=== PATIENT | female | born 1960 | race Caucasian/White ===

== ENCOUNTER → 2017-02-05 | Outpatient (CLI) | payer BC ==
--- NOTE | 2017-02-05 13:01 | WOMENS IMAGING REPORT ---
EXAM DESCRIPTION: BILAT SCREENING MAMMO W/CAD COMPLETED DATE/TIME: 02/05/2017 12:42 pm REASON FOR STUDY: ROUTINE SCREENING; Z21.31 Z12.31 ENCNTR SCREEN MAMMOGRAM FOR MALIGNANT NEOPLASM O F DEX COMPARISON: None available. TECHNIQUE: Standard craniocaudal and mediolateral oblique views of each breast recorded using Digital Allya l acquisition. LIMITATIONS: None. FINDINGS: No masses, calcifications or architectural distortion. No areas of suspicion. Read with the assistance of CAD. .[facility] - R2 Cenova Version 1.3 .[facility] Imaging - R2 Cenova Version 1.[address] Imaging - R2 Cenova Version 2.4 .[facility] – [place] - R2 Cenova Version 2.4 .[facility] - R2 Geriatric Social Work Professor Version 9.2 IMPRESSION: NORMAL MAMMOGRAM. BIRADS 1. BREAST DENSITY: a. The breasts are almost entirely fatty. BIRAD: 1 NEGATIVE RECOMMENDATION: ROUTINE SCREENING COMMENT: The patient has been notified of the results by letter per SA requirements. Additional no tification policies are in place for contacting patient with suspicious or incomplete findings. Quality ID #[id number]: The [employer] recommends an annual screening mammogram for women aged 40 years or over. This facility utilizes a reminder system to ensure that all patients receive reminder letters, and/or direct phone calls for appointments. This includes reminders for routine scr eening mammograms, diagnostic mammograms, or other Breast Imaging Interventions when appropriate. Th is patient will be placed in the appropriate reminder system. The [employer] (ACR) has developed recommendations for screening MRI of the breast s in certain patient populations, to be used in conjunction with mammography. Breast MRI surveillanc e may be appropriate for women with more than 20% lifetime risk of developing breast cancer as deter mined by genetic testing, significant family history of the disease, or history of mantle radiation f or Hodgkins Disease. ACR Practice Guidelines 2008. TECHNICAL DOCUMENTATION: FINDING NUMBER: (1) ASSESSMENT: (1) JOB ID: [id number] [employer]- All Rights Reserved
== END ==
LOC: WI 09:45
PROVIDERS: ATTEND Internal Medicine
DX: Z12.31 Encounter for screening mammogram for malignant neoplasm of breast (principal)
CPT/HCPCS: 77067; G0202

== ENCOUNTER 2017-04-30 03:23 | Emergency (ER) | payer BC ==
[2017-04-30] MEDS ORDERED: KETOROLAC TROMETHAMINE INJ/PF 30 MG/1 ML SDV IV ONE (04:03)
[2017-04-30] MEDS ORDERED: ONDANSETRON HCL INJ/PF 4 MG/2 ML SDV IV ONE (04:03)
[2017-04-30] MEDS ORDERED: MORPHINE SULFATE 10 MG/ML INJ IV ONE (04:03)
[2017-04-30] MEDS ORDERED: NORMAL SALINE 1000 ML 1,000 ML IV ONE (04:03)
--- NOTE | 2017-04-30 04:07 | ER Document Report ---
ED GI/ - General Chief Complaint: Nausea/Vomiting Stated Complaint: VOMITING,HEADACHE Time Seen by Provider: 04/30/17 03:51 Mode of Arrival: Ambulatory Information source: Patient Notes: Patient presents complaining of headache, nausea, vomiting and diarrhea that started yesterday. Pt endorses photo and phonophobia. Patient denies any sore throat, cough, urinary symptoms. Patient denies any blood in her emesis or stool. Patient denies any abdominal pain or back pain. Patient reports that her headache pain is to the frontal area. Patient feels that she is dehydrated and reports that she has felt her pulse racing. Patient denies any chest pain. TRAVEL OUTSIDE OF THE [place] IN LAST 30 DAYS: No - HPI Patient complains to provider of: Diarrhea, Vomiting. No: Abdominal pain Onset: Yesterday Timing/Duration: Gradual Quality of pain: Achy, Throbbing Pain Level: 5 Vaginal bleeding (Compared to normal period): None Associated symptoms: Diarrhea, Fever, Nausea, Vomiting. 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 Lives with: Family Family History: DM, Hypertension, Other - VTE, brother from CHF and DM complications at 49 years old Patient has suicidal ideation: No Patient has homicidal ideation: No - Past Medical History Cardiac Medical History: Reports: Hx DVT, Hx Hypercholesterolemia, Hx Hypertension Pulmonary Medical History: Denies: Hx Tuberculosis Neurological Medical History: Denies: Hx Seizures Endocrine Medical History: Reports: Hx Hypothyroidism Renal/ Medical History: Denies: Hx Peritoneal Dialysis GI Medical History: Reports: Hx Colonoscopy, Hx Endoscopy Musculoskeltal Medical History: Reports Hx Arthritis - RA, Reports Hx Musculoskeletal Deformity, Reports Hx Musculoskeletal Trauma Psychiatric Medical History: Reports: Hx Anxiety Traumatic Medical History: Reports: Hx Fractures - left wrist and right hand Past Surgical History: Reports: Hx Abdominal Surgery - gastric, Hx Bowel Surgery - gastric bypass, Hx Hysterectomy - Immunizations Hx Diphtheria, Pertussis, Tetanus Vaccination: Yes Hx Pneumococcal Vaccination: 09/01/10 Review of Systems - Review of Systems Constitutional: Chills, Fever - Low-grade EENT: No symptoms reported. denies: Throat pain Cardiovascular: Palpitations. denies: Chest pain Respiratory: No symptoms reported. denies: Cough, Short of breath Gastrointestinal: Diarrhea, Nausea, Vomiting. denies: Abdominal pain, Black stools, Rectal bleeding Genitourinary: No symptoms reported Female Genitourinary: No symptoms reported Musculoskeletal: No symptoms reported. denies: Back pain Skin: No symptoms reported Hematologic/Lymphatic: No symptoms reported Neurological/Psychological: Headaches Physical Exam - Vital signs Vitals: Temp Pulse Resp BP Pulse Ox 99.3 F 114 H 18 112/73 97 04/30/17 03:29 04/30/17 03:29 04/30/17 03:29 04/30/17 03:04/30/17 03:29 - General General appearance: Appears well, Alert In distress: None - HEENT Head: Normocephalic, Atraumatic Eyes: Normal Conjunctiva: Normal Pupils: PERRL Nasal: Normal Mouth/Lips: Normal Mucous membranes: Dry Pharynx: Normal Neck: Normal, Supple. No: Lymphadenopathy, Meningismus - Respiratory Respiratory status: No respiratory distress Chest status: Nontender Breath sounds: Normal. No: Rales, Rhonchi, Stridor, Wheezing Chest palpation: Normal - Cardiovascular Rhythm: Tachycardia Heart sounds: S1 appreciated, S2 appreciated Murmur: No - Abdominal Inspection: Normal Distension: No distension Bowel sounds: Normal Tenderness: Nontender Organomegaly: No organomegaly - Back Back: Normal, Nontender. No: CVA tenderness, Vertebra tenderness - Extremities General upper extremity: Normal inspection, Normal ROM General lower extremity: Normal inspection, Normal ROM - Neurological Neuro grossly intact: Yes Cognition: Normal [place] Coma Scale Eye Opening: Spontaneous Real Coma Scale Verbal: Oriented [place] Coma Scale Motor: Obeys Commands Real Coma Scale Total: 15 - Psychological Associated symptoms: Normal affect, Normal mood - Skin Skin Temperature: Warm Skin Moisture: Dry Skin Color: Normal Course - Re-evaluation Re-evalutation: 04/30/17 05:02 Patient reports that headache pain has completely resolved. Patient denies any nausea or vomiting. Patient does state that she has a history of hypokalemia and takes potassium supplements twice daily. Patient's abdomen continues soft nontender. Discussed plan of care with patient, discussed worsening signs or symptoms that she should return immediately for. - Vital Signs Vital signs: Temp Pulse Resp BP Pulse Ox 99.7 F 114 H 18 112/73 97 04/30/17 04:44 04/30/17 03:29 04/30/17 03:29 04/30/17 03:29 04/30/17 03:29 - Laboratory Result Diagrams: 04/30/17 04:20 04/30/17 04:20 Laboratory results interpreted by me: 04/30/17 04/30/17 04:20 04:20 Lymphocytes % 11.9 L Potassium 3.4 L Labs- Entire Visit 04/30/17 04/30/17 04:20 04:20 WBC 7.6 RBC 4.91 Hgb 15.4 Hct 44.6 MCV 91 MCH 31.3 MCHC 34.5 RDW 13.4 Plt Count 207 Seg Neutrophils % 76.7 Lymphocytes % 11.9 L Monocytes % 11.0 Eosinophils % 0.1 Basophils % 0.3 Absolute Neutrophils 5.9 Absolute Lymphocytes 0.9 Absolute Monocytes 0.8 Absolute Eosinophils 0.0 Absolute Basophils 0.0 Sodium 139.2 Potassium 3.4 L Chloride 100 Carbon Dioxide 26 Anion Gap 13 BUN 12 Creatinine 0.70 Est GFR ( Amer) > 60 Est GFR (Non-Af Amer) > 60 Glucose 101 Calcium 10.0 Total Bilirubin 0.8 Direct Bilirubin 0.4 Indirect Bilirubin Not Reportable Neonat Total Bilirubin Not Reportable AST 17 ALT 19 Alkaline Phosphatase 69 Total Protein 7.5 Albumin 4.4 Lipase 131.1 04/30/17 05:03 Labs- Entire Visit 04/30/17 04/30/17 04:20 04:20 WBC 7.6 RBC 4.91 Hgb 15.4 Hct 44.6 MCV 91 MCH 31.3 MCHC 34.5 RDW 13.4 Plt Count 207 Seg Neutrophils % 76.7 Lymphocytes % 11.9 L Monocytes % 11.0 Eosinophils % 0.1 Basophils % 0.3 Absolute Neutrophils 5.9 Absolute Lymphocytes 0.9 Absolute Monocytes 0.8 Absolute Eosinophils 0.0 Absolute Basophils 0.0 Sodium 139.2 Potassium 3.4 L Chloride 100 Carbon Dioxide 26 Anion Gap 13 BUN 12 Creatinine 0.70 Est GFR ( Amer) > 60 Est GFR (Non-Af Amer) > 60 Glucose 101 Calcium 10.0 Total Bilirubin 0.8 Direct Bilirubin 0.4 Indirect Bilirubin Not Reportable Neonat Total Bilirubin Not Reportable AST 17 ALT 19 Alkaline Phosphatase 69 Total Protein 7.5 Albumin 4.4 Lipase 131.1 Discharge - Discharge Clinical Impression: Nausea vomiting and diarrhea Head ache Qualifiers: Headache type: unspecified Headache chronicity pattern: acute headache Intractability: not intractable Qualified Code(s): R51 - Headache Condition: Stable Disposition: HOME, SELF-CARE Instructions: Intravenous (IV) Fluids ([facility]), Viral Syndrome ([facility]), Vomiting ( [facility]), Diarrhea, Nonspecific ([facility]), Antinausea Medication ([facility]), Hypokalemia ([facility] ), Headache ([facility]) Additional Instructions: Return immediately for any new or worsening symptoms Followup with your primary care provider, call tomorrow to make a followup appointment Continue to take your potassium supplements as previously prescribed Prescriptions: Ondansetron HCl [Zofran 4 mg Tablet] 1 - 2 tab PO Q6 PRN #15 tablet PRN Reason: Forms: Return to Work Referrals: ALBERTO GARCIA MD [Primary Care Provider] - Follow up tomorrow
[2017-04-30 04:31] LABS: ABSOLUTE LYMPHOCYTES (AUTO) 0.9 10^3/uL (0.5-4.7); ABSOLUTE MONOCYTES (AUTO) 0.8 10^3/uL (0.1-1.4); ABSOLUTE NEUT (AUTO) 5.9 10^3/uL (1.7-8.2); BASOPHILS % (AUTO) 0.3 % (0-2); EOSINOPHILS % (AUTO) 0.1 % (0-6); HEMATOCRIT 44.6 % (36.0-47.0); HEMOGLOBIN 15.4 g/dL (12.0-15.5); HGB HCT DIFFERENCE 1.6; LYMPHOCYTES % (AUTO) 11.9 % (13-45); MEAN CORPUSCULAR HEMOGLOBIN 31.3 pg (27.0-33.4); MEAN CORPUSCULAR HGB CONC 34.5 g/dL (32.0-36.0); MEAN CORPUSCULAR VOLUME 91 fl (80-97); RED BLOOD COUNT 4.91 10^6/uL (3.72-5.28); RED CELL DISTRIBUTION WIDTH 13.4 % (11.5-14.0); SEGMENTED NEUTROPHILS % (AUTO) 76.7 % (42-78); WHITE BLOOD COUNT 7.6 10^3/uL (4.0-10.5)
[2017-04-30 04:45] LABS: ALANINE AMINOTRANSFERASE 19 U/L (9-52); ALBUMIN 4.4 g/dL (3.5-5.0); ALKALINE PHOSPHATASE 69 U/L (38-126); ANION GAP 13 (5-19); ASPARTATE AMINO TRANSFERASE 17 U/L (14-36); BILIRUBIN,DIRECT 0.4 mg/dL (0.0-0.4); BILIRUBIN,TOTAL 0.8 mg/dL (0.2-1.3); BLOOD UREA NITROGEN 12 mg/dL (7-20); CARBON DIOXIDE 26 mmol/L (22-30); CHLORIDE 100 mmol/L (98-107); GLUCOSE 101 mg/dL (75-110); LIPASE 131.1 U/L (23-300); POTASSIUM 3.4 mmol/L (3.6-5.0); SODIUM 139.2 mmol/L (137-145); TOTAL PROTEIN 7.5 g/dL (6.3-8.2)
[2017-04-30] MEDS ORDERED: ACETAMINOPHEN 325 MG TABLET PO ONE (05:02)
[2017-04-30 05:38] VITALS: BP 99/64
--- NOTE | 2017-04-30 11:50 | EKG REPORT ---
SEVERITY:- BORDERLINE ECG - SINUS RHYTHM BORDERLINE LEFT AXIS DEVIATION BORDERLINE R WAVE PROGRESSION, ANTERIOR LEADS BORDERLINE T ABNORMALITIES, DIFFUSE LEADS : Confirmed by: Enrrique Celeste 30-Apr-2017 11:49:55
== END 2017-04-30 05:30 | disposition home or self-care (01) ==
LOC: ER 03:23
DX: R11.2 Nausea with vomiting, unspecified (principal); R51 Headache; R19.7 Diarrhea, unspecified; R50.9 Fever, unspecified; E78.00 Pure hypercholesterolemia, unspecified; I10 Essential (primary) hypertension; E03.9 Hypothyroidism, unspecified; Z88.6 Allergy status to analgesic agent; Z86.718 Personal history of other venous thrombosis and embolism; Z98.84 Bariatric surgery status; Z90.710 Acquired absence of both cervix and uterus
CPT/HCPCS: 93005; 99284; 96361; 96374; 96375; 36415; 83690; 85025; 80053; 93010; J1885; J2270; J2405; J7030

== ENCOUNTER 2017-11-21 21:52 | Inpatient (IN) | payer BC ==
--- NOTE | 2017-11-21 22:15 | EKG REPORT ---
SEVERITY:- ABNORMAL ECG - SINUS RHYTHM VENTRICULAR BIGEMINY BORDERLINE LEFT AXIS DEVIATION CONSIDER ANTERIOR INFARCT BORDERLINE T ABNORMALITIES, DIFFUSE LEADS : Confirmed by: Enrrique Celeste 21-Nov-2017 22:13:54
[2017-11-21] MEDS ORDERED: MORPHINE SULFATE 10 MG/ML INJ IV ONE ×2 (22:31→23:50)
--- NOTE | 2017-11-21 22:34 | ER Document Report ---
ED General - General Chief Complaint: Chest Pain Stated Complaint: CHEST PAIN Time Seen by Provider: 11/21/17 22:30 Notes: Patient is a 57-year-old female presents with chest pains rating her back. Pain is in the lower chest and radiating to the back. No fevers. No vomiting. Pain in chest is more of a heaviness and pressure. It has been ongoing since 3:00 yesterday morning. She is waiting in the waiting room and then had an episode of passing out. Patient said the only time she has similar pains as when she had a PE. She does have an IVC filter in place. She is no longer on anticoagulation. She does have a history of previous IA. She denies any leg pain or leg swelling. She denies any recent fevers or infections. No other complaints at this time. No focal weakness. TRAVEL OUTSIDE OF THE [place] IN LAST 30 DAYS: No - Related Data Allergies/Adverse Reactions: codeine [Codeine] Allergy (Verified 07/07/16 00:25) Past Medical History - Social History Smoking Status: Unknown if Ever Smoked Frequency of alcohol use: None Drug Abuse: None Family History: DM, Hypertension, Other - VTE, brother from CHF and DM complications at 49 years old - Past Medical History Cardiac Medical History: Reports: Hx DVT, Hx Hypercholesterolemia, Hx Hypertension Pulmonary Medical History: Denies: Hx Tuberculosis Neurological Medical History: Denies: Hx Seizures Endocrine Medical History: Reports: Hx Hypothyroidism Renal/ Medical History: Denies: Hx Peritoneal Dialysis GI Medical History: Reports: Hx Colonoscopy, Hx Endoscopy Musculoskeltal Medical History: Reports Hx Arthritis - Rheumatoid arthritis, Reports Hx Musculoskeletal Deformity, Reports Hx Musculoskeletal Trauma Psychiatric Medical History: Reports: Hx Anxiety, Hx Depression Traumatic Medical History: Reports: Hx Fractures - left wrist and right hand Past Surgical History: Reports: Hx Abdominal Surgery - gastric, Hx Bowel Surgery - gastric bypass, Hx Gastric Bypass Surgery, Hx Hysterectomy, Other - Questionable history of heart catheterization about 10 years ago at [facility] - Immunizations Hx Diphtheria, Pertussis, Tetanus Vaccination: Yes Hx Pneumococcal Vaccination: 09/01/10 Review of Systems - Review of Systems Notes: My Normal Review Basic REVIEW OF SYSTEMS: CONSTITUTIONAL : Denies fever, chills, or sweats. Denies recent illness. EENT: Denies eye, ear, throat, or mouth pain or symptoms. Denies nasal or sinus congestion. CARDIOVASCULAR: Chest pain. RESPIRATORY: Denies cough, cold, or chest congestion. Denies shortness of breath, difficulty breathing, or wheezing. GASTROINTESTINAL: Denies abdominal pain. Denies nausea, vomiting, or diarrhea. Denies constipation. Last BM: GENITOURINARY: Denies difficulty urinating, painful urination, burning, frequency, or blood in urine. MUSCULOSKELETAL: back pain. SKIN: Denies rash or skin lesions. HEMATOLOGIC : Denies easy bruising or bleeding. NEUROLOGICAL: Syncopal episode denies headache. Denies weakness or paralysis or loss of use of either side. Denies problems with gait or speech. Denies sensory or motor loss. ALL OTHER SYSTEMS REVIEWED AND NEGATIVE. Physical Exam - Vital signs Vitals: Resp BP Pulse Ox 33 H 152/118 H 100 11/21/17 22:25 11/21/17 22:25 11/21/17 22:25 - Notes Notes: General Appearance: Well nourished, alert, cooperative, no acute distress, moderate obvious discomfort. Vitals: reviewed, See vital signs table. Head: no swelling or tenderness to the head Eyes: PERRL, EOMI, Conjuctiva clear Mouth: No decreasd moisture Neck: Supple, no neck tenderness, No thyromegaly Lungs: No wheezing, No rales, No rhonci, No accessory muscle use, good air exchange bilaterally. Heart: Normal rate, Regular rythm, No murmur, no rub Back: Patient does have pain over upper back. Difficult to determine if is worse with palpation. Abdomen: Normal BS, soft, No rigidity, No abdominal tenderness, No guarding, no rebound, no abdominal masses, no organomegaly Extremities: strength 5/5 in all extremities, good pulses in all extremities, no swelling or tenderness in the extremities, no edema. Skin: warm, dry, appropriate color, no rash Neuro: speech clear, oriented x 3, normal affect, responds appropriately to questions. Renal nerves II through XII are intact. Distal sensation intact. Patient is able move all extremities without difficulty. She is globally weak on exam without any focal worsening of the weakness. Course - Re-evaluation Re-evalutation: 11/22/17 01:27 Patient is currently pain-free and feeling improved. Waiting for urinalysis come back. All signs are stable. 11/22/17 01:49 Patient started feel pressure in her chest again and pain into her shoulder blades again. I will place nitro paste on her. Vital signs are still stable. Labs are back. I will speak with Dr. Soria about potential admission for further workup of her chest pain. 11/22/17 01:[address] Soria and spoke with him. He agrees to admit the patient did request that they get a repeat troponin before patient is admitted upstairs. I have ordered a repeat troponin. Patient is agreeable to plan. 11/22/17 02:55 Patient's repeat troponin is negative and therefore patient will be admitted as discussed with Dr. Soria. Dictation of this chart was performed using voice recognition software; therefore, there may be some unintended grammatical errors. - Vital Signs Vital signs: Temp Pulse Resp BP Pulse Ox 18 121/74 97 11/22/17 00:08 11/22/17 00:08 11/22/17 00:08 - Laboratory Result Diagrams: 11/21/17 22:18 11/21/17 22:18 Laboratory results interpreted by me: 11/21/17 11/21/17 22:18 22:18 Hgb 15.6 H Seg Neutrophils % 40.4 L Lymphocytes % 50.1 H Potassium 3.4 L Est GFR (Non-Af Amer) 59 L - EKG Interpretation by Me Additional EKG results interpreted by me: 11/21/17 22:32 EKG is reviewed and interpreted by me. EKG shows sinus rhythm with rate of 79 bpm. Occasional PVC. No ST segment elevation or depression. No ischemic T- wave inversions. AZ interval, QRS duration, QTc intervals are within normal range. Old EKG for comparison is from May 04, 2017. EKG #2 is reviewed and interpreted by me. EKG shows sinus rhythm with rate of [address] segment elevation or depression. No ischemic T-wave inversions. AZ interval, QRS duration, QTc intervals are within normal range. Discharge - Discharge Clinical Impression: Chest pain Qualifiers: Chest pain type: unspecified Qualified Code(s): R07.9 - Chest pain, unspecified Condition: Stable Disposition: ADMITTED OBSERVATION Admitting Provider: [facility] Admitted: Telemetry Referrals: ALBERTO GARCIA MD [Primary Care Provider] - Follow up as needed
[2017-11-21] MEDS ORDERED: NORMAL SALINE 1000 ML 1,000 ML IV ONE (22:36)
[2017-11-21 22:48] LABS: ABSOLUTE EOSINOPHILS # (AUTO) 0.1 10^3/uL (0.0-0.6); ABSOLUTE LYMPHOCYTES (AUTO) 3.1 10^3/uL (0.5-4.7); ABSOLUTE MONOCYTES (AUTO) 0.5 10^3/uL (0.1-1.4); ABSOLUTE NEUT (AUTO) 2.5 10^3/uL (1.7-8.2); BASOPHILS % (AUTO) 0.4 % (0-2); EOSINOPHILS % (AUTO) 1.2 % (0-6); HEMATOCRIT 46.4 % (36.0-47.0); HEMOGLOBIN 15.6 g/dL (12.0-15.5); LYMPHOCYTES % (AUTO) 50.1 % (13-45); MEAN CORPUSCULAR HEMOGLOBIN 31.1 pg (27.0-33.4); MEAN CORPUSCULAR HGB CONC 33.5 g/dL (32.0-36.0); MEAN CORPUSCULAR VOLUME 93 fl (80-97); MONOCYTES % (AUTO) 7.9 % (3-13); PLATELET COUNT 263 10^3/uL (150-450); RED CELL DISTRIBUTION WIDTH 13.6 % (11.5-14.0); SEGMENTED NEUTROPHILS % (AUTO) 40.4 % (42-78); TOTAL CELLS COUNTED % (AUTO) 100 %; WHITE BLOOD COUNT 6.2 10^3/uL (4.0-10.5)
--- NOTE | 2017-11-21 22:52 | RADIOLOGY REPORT (SQ) ---
EXAM DESCRIPTION: CHEST SINGLE VIEW COMPLETED DATE/TIME: 11/21/2017 10:44 pm REASON FOR STUDY: chest pain radiating to back COMPARISON: 04/30/2017 EXAM PARAMETERS: NUMBER OF VIEWS: One view. TECHNIQUE: Single frontal radiographic view of the chest acquired. RADIATION DOSE: NA LIMITATIONS: None. FINDINGS: LUNGS AND PLEURA: No opacities, masses or pneumothorax. No pleural effusion. MEDIASTINUM AND HILAR STRUCTURES: No masses. Contour normal. HEART AND VASCULAR STRUCTURES: Heart normal in size. Normal vasculature. BONES: No acute findings. Scoliosis. HARDWARE: None in the chest. OTHER: No other significant finding. IMPRESSION: NO ACUTE RADIOGRAPHIC FINDING IN THE CHEST. NO SIGNIFICANT CHANGE FROM PRIOR STUDY. TECHNICAL DOCUMENTATION: JOB ID: [id number] [employer]- All Rights Reserved Reading location - IP/workstation name: [email or web address]
[2017-11-21 23:05] LABS: ALANINE AMINOTRANSFERASE 31 U/L (9-52); ALBUMIN 4.5 g/dL (3.5-5.0); ALKALINE PHOSPHATASE 52 U/L (38-126); ANION GAP 11 (5-19); ASPARTATE AMINO TRANSFERASE 30 U/L (14-36); BILIRUBIN,DIRECT 0.3 mg/dL (0.0-0.4); BILIRUBIN,TOTAL 0.4 mg/dL (0.2-1.3); BLOOD UREA NITROGEN 18 mg/dL (7-20); CALCIUM 9.5 mg/dL (8.4-10.2); CARBON DIOXIDE 27 mmol/L (22-30); CHLORIDE 102 mmol/L (98-107); GLUCOSE 89 mg/dL (75-110); POTASSIUM 3.4 mmol/L (3.6-5.0); SODIUM 139.7 mmol/L (137-145); TOTAL PROTEIN 7.3 g/dL (6.3-8.2)
--- NOTE | 2017-11-21 23:55 | RADIOLOGY REPORT (SQ) ---
EXAM DESCRIPTION: CTA CHEST COMPLETED DATE/TIME: 11/21/2017 11:44 pm REASON FOR STUDY: chest pain radiating to back COMPARISON: 03/23/2014 TECHNIQUE: CT scan of the chest performed using helical scanning technique with dynamic intravenous contrast injection. Images reviewed with lung, soft tissue and bone windows. Reconstructed coronal and sagittal MPR images reviewed. Additional 3 dimensional post-processing performed to develop Maximal Intensity Projection images (MD P). All images stored on PACS. All CT scanners at this facility use dose modulation, iterative reconstruction, and/or weight based d osing when appropriate to reduce radiation dose to as low as reasonably achievable (ALARA). [facility]: Dose Right [facility]: CareDose [facility]: Dose Right [facility]: Teradose 4D [facility]: XtremIO CONTRAST TYPE AND DOSE: contrast/concentration: Isovue 370.00 mg/ml; Total Contrast Delivered: 100.0 ml; Total Saline Delivered: 90.0 ml Contrast bolus adequate for pulmonary arteries and aorta. RENAL FUNCTION: GFR > 60. RADIATION DOSE: CT Rad equipment meets quality standard of care and radiation dose reduction techniq ues were employed. CTDIvol: NaN - NaN mGy. DLP: 0 mGy-cm. . LIMITATIONS: None. FINDINGS: LUNGS AND PLEURA: No masses, infiltrates, pneumothorax. No pleural effusions, calcificati ons. AORTA AND GREAT VESSELS: No aneurysm. No dissection. HEART: No pericardial effusion. No significant coronary artery calcifications. PULMONARY ARTERIES: No emboli visualized in the main pulmonary arteries or the segmental branches. HILAR AND MEDIASTINAL STRUCTURES: No identified masses or abnormal nodes. HARDWARE: None in the chest. UPPER ABDOMEN: See separate report of the CT of the abdomen. THYROID AND OTHER SOFT TISSUES: No masses. No adenopathy. BONES: Stable scoliosis. No acute or significant finding. 3D MIPS: Confirm above findings. OTHER: No other significant finding. IMPRESSION: UNREMARKABLE CTA OF THE CHEST. NO PULMONARY EMBOLI, ANEURYSM, OR ACUTE AORTIC INJURY. COMMENT: Quality ID # [id number]: Final reports with documentation of one or more dose reduction techniques (e.g., Automated exposure control, adjustment of the mA and/or kV according to patient size, use of iterative reconstruction technique) TECHNICAL DOCUMENTATION: JOB ID: [id number] [employer]- All Rights Reserved Reading location - IP/workstation name: [email or web address]
--- NOTE | 2017-11-22 | RADIOLOGY REPORT (SQ) ---
EXAM DESCRIPTION: CTA ABDOMEN/PELVIS W WO COMPLETED DATE/TIME: 11/21/2017 11:45 pm REASON FOR STUDY: chest pain radiating to back COMPARISON: 05/27/2013 TECHNIQUE: CT scan of the abdominal aorta extending to the iliac bifurcation performed with intraven ous contrast using helical scanning technique with dynamic intravenous contrast injection. Images rev iewed with lung, soft tissue, and bone windows. Reconstructed coronal and sagittal MPR images reviewe d. All images stored on PACS. Advanced 3D imaging as volume rendering, MIPS, SSD performed? no All CT scanners at this facility use dose modulation, iterative reconstruction, and/or weight based d osing when appropriate to reduce radiation dose to as low as reasonably achievable (ALARA). [facility]: Dose Right [facility]: CareDose [facility]: Dose Right [facility]: Teradose 4D [facility]: PerformYard CONTRAST TYPE AND DOSE: 100 Isovue 370- low osmolar. RENAL FUNCTION: GFR > 60. LIMITATIONS: None. FINDINGS: AORTA AND VESSELS: No aneurysm. No dissection. Renal arteries, SMA, celiac without stenosi s. LUNG BASES: No significant findings. No nodules or infiltrates. LIVER: Normal size. No masses or dilated ducts. SPLEEN: Normal size. No focal lesions. PANCREAS: No masses. No significant calcifications. No adjacent inflammation or peripancreatic fluid collections. Pancreatic duct not dilated. GALLBLADDER: No identified stones by CT criteria. No inflammatory changes to suggest cholecystitis. ADRENAL GLANDS: No significant masses or asymmetry. RIGHT KIDNEY AND URETER: No mass, calculi or urinary tract obstruction. LEFT KIDNEY AND URETER: No mass, calculi or urinary tract obstruction. RETROPERITONEUM: No retroperitoneal adenopathy, hemorrhage or masses. BOWEL AND PERITONEAL CAVITY: Postsurgical change related to gastric bypass. Stable small hiatal virgilio ia. No masses or inflammatory changes. No free fluid or peritoneal masses. APPENDIX: Normal. ABDOMINAL WALL: No masses. No hernias. BONY STRUCTURES: No significant or acute findings. 3-D IMAGING: Confirms the above findings. OTHER: No other significant finding. IMPRESSION: NO ABDOMINAL AORTIC ANEURYSM, DISSECTION OR SIGNIFICANT STENOSIS. NO ACUTE FINDINGS IN T HE ABDOMEN. NO SIGNIFICANT CHANGE FROM PRIOR STUDY. TECHNICAL DOCUMENTATION: JOB ID: [id number] Quality ID # [id number]: Final reports with documentation of one or more dose reduction techniques (e.g., Au tomated exposure control, adjustment of the mA and/or kV according to patient size, use of iterative reconstruction technique) 2010 [employer]- All Rights Reserved Reading location - IP/workstation name: [email or web address]
[2017-11-22] MEDS ORDERED: ASPIRIN 325 MG TABLET PO ONE (01:23)
[2017-11-22 01:33] LABS: APPEARANCE,URINE CLEAR; BILIRUBIN,URINE NEGATIVE (NEGATIVE); COLOR,URINE STRAW; GLUCOSE, URINE NEGATIVE (NEGATIVE); KETONES,URINE NEGATIVE (NEGATIVE); LEUKOCYTE ESTERASE,URINE NEGATIVE (NEGATIVE); NITRITE,URINE NEGATIVE (NEGATIVE); PROTEIN,URINE NEGATIVE (NEGATIVE); UROBILINOGEN,URINE NEGATIVE mg/dL (<2.0)
[2017-11-22] MEDS ORDERED: NITROGLYCERIN 2% OINTMENT 1 GM PACKET TP ONE (01:45)
[2017-11-22] MEDS ORDERED: POTASSIUM CHLORIDE 10 MEQ TABLET.SA PO ONE (01:47)
[2017-11-22] MEDS ORDERED: MORPHINE SULFATE 10 MG/ML INJ IV ONE (02:24)
[2017-11-22] MEDS ORDERED: ONDANSETRON HCL INJ/PF 4 MG/2 ML SDV IV ONE (02:24)
[2017-11-22] MEDS ORDERED: ACETAMINOPHEN 325 MG TABLET PO PRN (02:44)
[2017-11-22] MEDS ORDERED: ONDANSETRON HCL INJ/PF 4 MG/2 ML SDV IV PRN (02:44)
[2017-11-22] MEDS: OXYCODONE-ACETAMINOPHEN 5-325 MG TABLET PO PRN ×4 (04:40→22:47)
--- NOTE | 2017-11-22 09:12 | EKG REPORT ---
SEVERITY:- BORDERLINE ECG - SINUS RHYTHM BORDERLINE LEFT AXIS DEVIATION BORDERLINE T ABNORMALITIES, ANTERIOR LEADS : Confirmed by: Enrrique Celeste 22-Nov-2017 09:11:21
[2017-11-22] MEDS: ENOXAPARIN SODIUM INJ 40 MG/0.4 ML DISP.SYRIN SUBCUT SCH (10:08)
[2017-11-22] MEDS: LANSOPRAZOLE 30 MG TAB.RAP.DR PO SCH (10:09)
[2017-11-22 10:34] LABS: CREATINE KINASE MB 0.24 ng/mL (<4.55)
[2017-11-22 10:36] LABS: TROPONIN I < 0.012 ng/mL
--- NOTE | 2017-11-22 12:39 | PDOC H&P ---
History of Present Illness Admission Date/PCP: 11/22/17 02:58 ALBERTO GARCIA MD Patient complains of: Chest pain and syncopal episode History of Present Illness: GONZALO FITZGERALD is a 57 year old female This is a 57-year-old female with a significant history of the hypertension history of the rheumatoid arthritis history of the pulmonary embolism and a history of the coronary disease came to the emergency department with a complaint of left-sided chest pains with the radiating to the jaw since whole day and patients came to the ER in the waiting area patients pretty much passed out and the patient's underwent for the CT angiogram of the chest and abdomen which is negative for any acute pulmonary embolism and acute finding Patient initial EKG and cardiac enzymes all negative Patient also have a history of the gastric bypass surgery I saw the patient on the floor patients denied any chest pain denied any shortness of the breath Patient also have a history of the bradycardia in the past and according to the patient she was evaluated myself in the cardiology and patient supposed to get the stress test and echo as outpatients but patients did not follow that According to the patient's she has a significant family history of the cardiac disease and patient was evaluated for this rhythm issue in the past and was talking about putting the pacemaker one time and then decided not to do it Emergency department initial workup is all negative and patient's heart rate is all stable Since seen by the cardiology and suggest that he will evaluate the patient Past Medical History Cardiac Medical History: Reports: DVT, Myocardial Infarction - 2012?, Hyperlipidema, Hypertension Pulmonary Medical History: Denies: Tuberculosis Neurological Medical History: Denies: Seizures Endocrine Medical History: Reports: Hypothyroidism GI Medical History: Reports: Gastroesophageal Reflux Disease Musculoskeltal Medical History: Reports: Arthritis - Rheumatoid arthritis Psychiatric Medical History: Reports: Depression Past Surgical History Past Surgical History: Reports: Gastric Bypass Surgery, Hysterectomy, Other - Questionable history of heart catheterization about 10 years ago at [facility] Social History Smoking Status: Never Smoker Frequency of Alcohol Use: Rare Hx Recreational Drug Use: No Drugs: None Hx Prescription Drug Abuse: No - Advance Directive Resuscitation Status: Full Code Family History Family History: Reviewed & Not Pertinent, DM, Hypertension, Other - VTE, brother from CHF and DM complications at 49 years old Parental Family History Reviewed: Yes Children Family History Reviewed: Yes Sibling(s) Family History Reviewed.: Yes Medication/Allergy Home Medications: Alprazolam [Xanax 0.5 mg Tablet] 0.5 mg PO Q12 04/30/17 Aspirin [Aspirin 81 mg Chewable Tablet] 81 mg PO DAILY 04/30/17 Etanercept [Enbrel] 50 mg SQ MO@1000 04/30/17 Hydrocodone Bit/Acetaminophen [Hydrocodon-Acetaminophn 10-325] 1 each PO Q6HP PRN 04/30/17 Omeprazole 20 mg PO Q6AM 04/30/17 Potassium Chloride 10 meq PO Q12 04/30/17 Pregabalin [Lyrica 75 mg Capsule] 75 mg PO Q12 04/30/17 Simvastatin [Zocor 40 mg Tablet] 40 mg PO QPM 04/30/17 Cholecalciferol (Vitamin D3) [Vitamin D3] 2,000 unit PO DAILY 11/22/17 Cyanocobalamin (Vitamin B-12) [Vitamin B-12 1000 mcg Tablet] 1,000 mcg PO DAILY 11/22/17 Dicyclomine HCl 20 mg PO Q6H 11/22/17 Furosemide [Lasix 20 mg Tablet] 20 mg PO Q12 11/22/17 Levothyroxine Sodium [Synthroid 0.075 mg Tablet] 0.075 mg PO Q6AM 11/22/17 Allergies/Adverse Reactions: codeine [Codeine] Allergy (Verified 07/07/16 00:25) Review of Systems Constitutional: ABSENT: chills, fever(s), headache(s), weight gain, weight loss Eyes: ABSENT: visual disturbances Ears: ABSENT: hearing changes Cardiovascular: PRESENT: chest pain. ABSENT: dyspnea on exertion, edema, orthropnea, palpitations Respiratory: ABSENT: cough, hemoptysis Gastrointestinal: ABSENT: abdominal pain, constipation, diarrhea, hematemesis, hematochezia, nausea, vomiting Genitourinary: ABSENT: dysuria, hematuria Musculoskeletal: ABSENT: joint swelling Integumentary: ABSENT: rash, wounds Neurological: ABSENT: abnormal gait, abnormal speech, confusion, dizziness, focal weakness, syncope Psychiatric: ABSENT: anxiety, depression, homidical ideation, suicidal ideation Endocrine: ABSENT: cold intolerance, heat intolerance, menstrual abnormalities, polydipsia, polyuria Hematologic/Lymphatic: ABSENT: easy bleeding, easy bruising, lymphadenopathy Physical Exam Vital Signs: Temp Pulse Resp BP Pulse Ox 97.6 F 65 18 95/79 L 100 11/22/17 12:00 11/22/17 12:00 11/22/17 12:00 11/22/17 12:00 11/22/17 12:00 Intake & Output 11/21/17 11/22/17 11/23/17 06:59 06:59 06:59 Intake Total 120 Output Total 200 Balance -80 Weight 62.1 kg General appearance: PRESENT: no acute distress, well-developed, well-nourished Head exam: PRESENT: atraumatic, normocephalic Eye exam: PRESENT: conjunctiva pink, EOMI, PERRLA. ABSENT: scleral icterus Ear exam: PRESENT: normal external ear exam Mouth exam: PRESENT: moist, tongue midline Neck exam: PRESENT: full ROM. ABSENT: carotid bruit, JVD, lymphadenopathy, thyromegaly Respiratory exam: PRESENT: clear to auscultation melony Cardiovascular exam: PRESENT: RRR. ABSENT: diastolic murmur, rubs, systolic murmur Pulses: PRESENT: normal dorsalis pedis pul, +2 pedal pulses bilateral Vascular exam: PRESENT: normal capillary refill GI/Abdominal exam: PRESENT: normal bowel sounds, soft. ABSENT: distended, guarding, mass, organolmegaly, rebound, tenderness Rectal exam: PRESENT: deferred Musculoskeletal exam: PRESENT: ambulatory Neurological exam: PRESENT: alert, awake, oriented to person, oriented to place , oriented to time, oriented to situation, reflexes normal, CN II-XII grossly intact, normal gait. ABSENT: motor sensory deficit Psychiatric exam: PRESENT: appropriate affect, normal mood. ABSENT: homicidal ideation, suicidal ideation Skin exam: PRESENT: dry, intact, warm. ABSENT: cyanosis, rash Results Laboratory Results: 11/22/17 11/22/17 09:39 09:39 Creatine Kinase < 20 L CK-MB (CK-2) 0.24 Troponin I < 0.012 Impressions: Chest X-Ray 11/21/17 22:30 IMPRESSION: NO ACUTE RADIOGRAPHIC FINDING IN THE CHEST. NO SIGNIFICANT CHANGE FROM PRIOR STUDY. Chest/Abdomen CTA 11/21/17 22:30 IMPRESSION: UNREMARKABLE CTA OF THE CHEST. NO PULMONARY EMBOLI, ANEURYSM, OR ACUTE AORTIC INJURY. Abdomen/Pelvis CTA 11/21/17 22:37 IMPRESSION: NO ABDOMINAL AORTIC ANEURYSM, DISSECTION OR SIGNIFICANT STENOSIS. NO ACUTE FINDINGS IN THE ABDOMEN. NO SIGNIFICANT CHANGE FROM PRIOR STUDY. Assessment & Plan - Diagnosis (1) Chest pain Qualifiers: Chest pain type: unspecified Qualified Code(s): R07.9 - Chest pain, unspecified Is this a current diagnosis for this admission?: Yes Plan: Patient initial EKG and cardiac enzymes all negative (2) Syncopal episodes Qualifiers: Syncope type: unspecified Qualified Code(s): R55 - Syncope and collapse Is this a current diagnosis for this admission?: Yes Plan: Most likely vasovagal syncopal episode due to the pain but will get the carotid Doppler and CT of the head and follow with the cardiology (3) Hypertension Qualifiers: Hypertension type: unspecified Qualified Code(s): I10 - Essential (primary ) hypertension Is this a current diagnosis for this admission?: Yes (4) Gastric bypass status for obesity Is this a current diagnosis for this admission?: Yes Plan: Check vitamin B12 (5) Coronary artery disease Qualifiers: Coronary Disease-Associated Artery/Lesion type: unspecified vessel or lesion type Is this a current diagnosis for this admission?: Yes Plan: Cardiology (6) Rheumatoid arthritis Qualifiers: Rheumatoid arthritis location: unspecified site Is this a current diagnosis for this admission?: Yes - Time Time Spent: 30 to 50 Minutes Medications reviewed and adjusted accordingly: Yes Anticipated discharge: Home Within: Other - Inpatient Certification Medical Necessity: Need Close Monitoring Due to Risk of Patient Decompensation 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
[2017-11-22] MEDS ORDERED: DICYCLOMINE HCL 10 MG CAPSULE PO ONE (13:00)
--- NOTE | 2017-11-22 14:07 | PDOC CONSULTATION ---
Consultation Consult Date: 11/22/17 Attending physician:: ABI CUEVAS Consult reason:: Syncope History of Present Illness Admission Date/PCP: 11/22/17 02:58 ALBERTO GARCIA MD Patient complains of: Syncope History of Present Illness: GONZALO FITZGERALD is a 57 year old female This is a 57-year-old female with a significant history of the hypertension history of the rheumatoid arthritis history of the pulmonary embolism and a history of the coronary disease came to the emergency department with a complaint of left-sided chest pains with the radiating to the jaw since whole day and patients came to the ER in the waiting area patients pretty much passed out and the patient's underwent for the CT angiogram of the chest and abdomen which is negative for any acute pulmonary embolism and acute finding Patient initial EKG and cardiac enzymes all negative Patient also have a history of the gastric bypass surgery I saw the patient on the floor patients denied any chest pain denied any shortness of the breath Patient also have a history of the bradycardia in the past and according to the patient she was evaluated myself in the cardiology and patient supposed to get the stress test and echo as outpatients but patients did not follow that According to the patient's she has a significant family history of the cardiac disease and patient was evaluated for this rhythm issue in the past and was talking about putting the pacemaker one time and then decided not to do it Emergency department initial workup is all negative and patient's heart rate is all stable Since seen by the cardiology and suggest that he will evaluate the patient. This history was reviewed and confirmed. Patient claims that she came to the emergency room because of intermittent episodes of back pain which radiates to the front of the chest and also sometimes to the left side jaw. Patient had a particularly bad episode and was driven to the ER. While waiting in the waiting room, patient felt sick to her stomach, nauseous, diaphoretic and passed out. Patient subsequently woke up in the ER bed and was admitted. So far evaluations has been negative. Past Medical History Cardiac Medical History: Reports: DVT, Myocardial Infarction - 2013?, Hyperlipidema, Hypertension Pulmonary Medical History: Denies: Tuberculosis Neurological Medical History: Denies: Seizures Endocrine Medical History: Reports: Hypothyroidism GI Medical History: Reports: Gastroesophageal Reflux Disease Musculoskeltal Medical History: Reports: Arthritis - Rheumatoid arthritis Psychiatric Medical History: Reports: Depression Past Surgical History Past Surgical History: Reports: Gastric Bypass Surgery, Hysterectomy, Other - Questionable history of heart catheterization about 10 years ago at [facility] [place] Social History Information Source: Patient Smoking Status: Never Smoker Frequency of Alcohol Use: Rare Hx Recreational Drug Use: No Drugs: None Hx Prescription Drug Abuse: No - Advance Directive Resuscitation Status: Full Code Family History Family History: DM, Hypertension, Other - VTE, brother from CHF and DM complications at 49 years old Parental Family History Reviewed: Yes Children Family History Reviewed: Yes Sibling(s) Family History Reviewed.: Yes Medication/Allergy Home Medications: Alprazolam [Xanax 0.5 mg Tablet] 0.5 mg PO Q12 04/30/17 Aspirin [Aspirin 81 mg Chewable Tablet] 81 mg PO DAILY 04/30/17 Etanercept [Enbrel] 50 mg SQ MO@1000 04/30/17 Hydrocodone Bit/Acetaminophen [Hydrocodon-Acetaminophn 10-325] 1 each PO Q6HP PRN 04/30/17 Omeprazole 20 mg PO Q6AM 04/30/17 Potassium Chloride 10 meq PO Q12 04/30/17 Pregabalin [Lyrica 75 mg Capsule] 75 mg PO Q12 04/30/17 Simvastatin [Zocor 40 mg Tablet] 40 mg PO QPM 04/30/17 Cholecalciferol (Vitamin D3) [Vitamin D3] 2,000 unit PO DAILY 11/22/17 Cyanocobalamin (Vitamin B-12) [Vitamin B-12 1000 mcg Tablet] 1,000 mcg PO DAILY 11/22/17 Dicyclomine HCl 20 mg PO Q6H 11/22/17 Furosemide [Lasix 20 mg Tablet] 20 mg PO Q12 11/22/17 Levothyroxine Sodium [Synthroid 0.075 mg Tablet] 0.075 mg PO Q6AM 11/22/17 Allergies/Adverse Reactions: codeine [Codeine] Allergy (Verified 07/07/16 00:25) Review of Systems Review of Systems: Please see history of present illness and past medical history as wall. Constitutional: No fever or chills reported. Head : No recent chronic headaches, recent head injury. Eyes: No recent eye pain, diplopia, redness, discharge, acute visual changes. Ears: No recent chronic ear pain, acute hearing loss, ear discharge. Oral cavity: No recent ulcerations, bleeding, oral cavity discomfort. Neck: No recent acute neck pain reported. Hematologic: No recent easy bruising or bleeding or hematologic malignancy reported. Lymphatic: No recent lymphatic malignancy, chronic lymphadenopathy reported yet Cardiovascular system review: See history of present illness. Questionable history of prior myocardial infarction Respiratory system review: No recent chronic cough, hemoptysis, blood clots in the lungs reported. Mild Shortness of breath on exertion Gastrointestinal system review: Negative for any recent acute or chronic abdominal pain, hematemesis, melena, recent change in bowel habits. Genitourinary system review: No recent acute or chronic hematuria, flank pain, UTI etc. reported. Skin system review: Negative for any recent abnormal bruising, no rash, no pruritus reported. Neurologic: No prior history of strokes, mini strokes, seizure disorder. Psychologic: No history of major psychosis or major depression reported. Musculoskeletal: Minor aches and pains reported. No acute joint swelling reported. Gives history of chronic rheumatoid arthritis. Endocrine: No recent polyuria, polydipsia, recent heat or cold intolerance. Physical Exam Vital Signs: Temp Pulse Resp BP Pulse Ox 97.6 F 65 18 95/79 L 100 11/22/17 12:00 11/22/17 12:00 11/22/17 12:00 11/22/17 12:00 11/22/17 12:00 Intake & Output 11/21/17 11/22/17 11/23/17 06:59 06:59 06:59 Intake Total 120 Output Total 200 Balance -80 Weight 62.1 kg Exam: GENERAL: well-nourished and in no acute distress. Alert and oriented x3 HEAD: Atraumatic, normocephalic. EYES: Pupils equal round and reactive to light, extraocular movements intact, sclera anicteric, conjunctiva are normal. ENT: TMs normal, nares patent, oropharynx clear without exudates. Moist mucous membranes. No oral ulcerations or bleeding gums noted NECK: supple without lymphadenopathy. Trachea is central. No cervical or axillary lymphadenopathy noted. Carotids are 2+, JVD WNL LUNGS: Respiration seems nonlabored, no significant accessory muscle action noted. Breath sounds clear to auscultation bilaterally and equal noted. No wheezes rales or rhonchi noted. No significant dullness noted on percussion. CHEST: Palpation of the chest wall shows no significant chest wall tenderness. No other significant abnormalities noted. 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 ABDOMEN: Soft, no significant tenderness appreciated, normoactive bowel sounds. No guarding, no rebound. No rigidity noted . No masses appreciated. EXTREMITIES: Pedal pulses are 1-2+, no calf tenderness noted. No clubbing or cyanosis.trace pedal edema noted NEUROLOGICAL: Focused neurological exam showed no significant neurologic deficit. Normal speech, no focal weakness appreciated. PSYCH: Normal mood, normal affect. Judgment and insight within normal limits. SKIN: No significant ecchymosis, skin is noted to be warm. MUSCULOSKELETAL EXAM: No significant acute joint swelling noted. Results Laboratory Results: 11/22/17 11/22/17 09:39 09:39 Creatine Kinase < 20 L CK-MB (CK-2) 0.24 Troponin I < 0.012 EKG Comments: Twelve-lead EKG from yesterday reviewed. Showed sinus rhythm with minor nonspecific ST-T changes. Subsequent EKGs similar except for increased VPCs being noted Impressions: Chest X-Ray 11/21/17 22:30 IMPRESSION: NO ACUTE RADIOGRAPHIC FINDING IN THE CHEST. NO SIGNIFICANT CHANGE FROM PRIOR STUDY. Chest/Abdomen CTA 11/21/17 22:30 IMPRESSION: UNREMARKABLE CTA OF THE CHEST. NO PULMONARY EMBOLI, ANEURYSM, OR ACUTE AORTIC INJURY. Abdomen/Pelvis CTA 11/21/17 22:37 IMPRESSION: NO ABDOMINAL AORTIC ANEURYSM, DISSECTION OR SIGNIFICANT STENOSIS. NO ACUTE FINDINGS IN THE ABDOMEN. NO SIGNIFICANT CHANGE FROM PRIOR STUDY. Assessment & Plan - Diagnosis (1) Chest pain Qualifiers: Chest pain type: unspecified Qualified Code(s): R07.9 - Chest pain, unspecified Is this a current diagnosis for this admission?: Yes (2) Coronary artery disease Qualifiers: Coronary Disease-Associated Artery/Lesion type: unspecified vessel or lesion type Is this a current diagnosis for this admission?: Yes (3) Gastric bypass status for obesity Is this a current diagnosis for this admission?: Yes (4) Hypertension Qualifiers: Hypertension type: unspecified Qualified Code(s): I10 - Essential (primary ) hypertension Is this a current diagnosis for this admission?: Yes (5) Syncopal episodes Qualifiers: Syncope type: unspecified Qualified Code(s): R55 - Syncope and collapse Is this a current diagnosis for this admission?: Yes (6) Rheumatoid arthritis Qualifiers: Rheumatoid arthritis location: unspecified site Is this a current diagnosis for this admission?: Yes (7) Sleep disorder breathing Is this a current diagnosis for this admission?: Yes - Notes Notes: Chest pain: Patient has some typical and atypical features of chest pain. Cardiac enzymes so far has been negative. Electrocardiogram did not show any definitive ST segment changes. Multiple differential diagnoses exist in this patient. In descending order of probability this includes underlying coronary artery disease, gastroesophageal reflux, musculoskeletal pain, referred pain from elsewhere, anxiety panic disorder etc.Patient has significant cardiac risk factors, which indicates that there is a intermediate probability of chest discomfort coming from underlying CAD. Feel that it would need to be evaluated further. Discussed evaluation to assess this. In this regard risk benefits of nuclear stress test and other alternative processes were discussed in detail. The patient prefers to undergo nuclear stress test. The small risk of radiation , myocardial infarction, , cardiac arrhythmias, respiratory distress etc. were discussed. Patient understood the risks and gave informed consent. Nuclear stress test was therefore scheduled. For risk evaluation, patient is also being scheduled for a 2-D echocardiogram. Patient questions were answered. CAD: To be evaluated with nuclear stress test and a 2D echocardiogram. In the meantime will optimize therapy first underlying CAD history. Syncopal episode: Based on history it seems vasovagal however will recommend cardiac monitoring during hospitalization and also as an outpatient for better symptom correlation. Recommend avoiding dehydration and pure vasodilators. Rheumatoid arthritis: Patient being managed by editor managing director. Sleep disordered breathing: Patient previously gave history of loud snoring, daytime fatigue and tiredness. Sleep apnea can cause increased vagal tone and lead to bradycardia and is more common in patients with syncope. Gastric bypass surgery: Evaluate patient for possible vitamin deficiency iron deficiency etc. - Time Time Spent: 30 to 50 Minutes - CODE STATUS was discussed, patient remains full code. Surrogate decision-maker unchanged. Multiple medical problems were addressed. More than 50% of the time spent coordinating care, discussing management plans with involved caregivers. Management plans discussed with involved personnels. Medical decision making was of moderate to high complexity , patient's has multiple comorbidities. Medications reviewed and adjusted accordingly: Yes
--- NOTE | 2017-11-22 14:09 | RADIOLOGY REPORT (SQ) ---
EXAM DESCRIPTION: CT HEAD WITHOUT COMPLETED DATE/TIME: 11/22/2017 1:56 pm REASON FOR STUDY: syncopal episode COMPARISON: None. TECHNIQUE: Axial images acquired through the brain without intravenous contrast. Images reviewed wi th bone, brain and subdural windows. Images stored on PACS. All CT scanners at this facility use dose modulation, iterative reconstruction, and/or weight based d osing when appropriate to reduce radiation dose to as low as reasonably achievable (ALARA). [facility]: Dose Right [facility]: CareDose [facility]: Dose Right [facility]: Teradose 4D [facility]: Smart [employer] RADIATION DOSE: CT Rad equipment meets quality standard of care and radiation dose reduction techniq ues were employed. CTDIvol: 64.6 mGy. DLP: 1163 mGy-cm. mGy. LIMITATIONS: None. FINDINGS: VENTRICLES: Normal size and contour. CEREBRUM: No masses. No hemorrhage. No midline shift. No evidence for acute infarction. Normal gra y/white matter differentiation. No areas of low density in the white matter. CEREBELLUM: No masses. No hemorrhage. No alteration of density. No evidence for acute infarction. EXTRAAXIAL SPACES: No fluid collections. No masses. ORBITS AND GLOBE: No intra- or extraconal masses. Normal contour of globe without masses. CALVARIUM: No fracture. PARANASAL SINUSES: No fluid or mucosal thickening. SOFT TISSUES: No mass or hematoma. OTHER: No other significant finding. IMPRESSION: NORMAL BRAIN CT WITHOUT CONTRAST. EVIDENCE OF ACUTE STROKE: NO. COMMENT: Quality ID # [id number]: Final reports with documentation of one or more dose reduction techniques (e.g., Automated exposure control, adjustment of the mA and/or kV according to patient size, use of iterative reconstruction technique) TECHNICAL DOCUMENTATION: JOB ID: [id number] [employer]- All Rights Reserved Reading location - IP/workstation name: [email or web address]
--- NOTE | 2017-11-22 15:17 | EKG REPORT ---
SEVERITY:- ABNORMAL ECG - SINUS RHYTHM PROBABLE INFERIOR INFARCT, AGE INDETERMINATE : Confirmed by: Enrrique Celeste 22-Nov-2017 15:16:45
[2017-11-22 15:40] LABS: NT PRO BNP 112 pg/mL (5-900)
[2017-11-22 15:42] LABS: CREATINE KINASE MB < 0.22 ng/mL (<4.55); TROPONIN I < 0.012 ng/mL
[2017-11-22] MEDS: DICYCLOMINE HCL 10 MG CAPSULE PO SCH (17:35)
[2017-11-22] MEDS: SIMVASTATIN 40 MG TABLET PO SCH (17:35)
[2017-11-22] MEDS: PREGABALIN 75 MG CAPSULE PO SCH (21:19)
[2017-11-22] MEDS: POTASSIUM CHLORIDE 10 MEQ TABLET.SA PO SCH (21:19)
[2017-11-22] MEDS: ALPRAZOLAM 0.5 MG TABLET PO SCH (21:19)
[2017-11-22] MEDS ORDERED: FUROSEMIDE 20 MG TABLET PO SCH (22:00)
[2017-11-23] MEDS: DICYCLOMINE HCL 10 MG CAPSULE PO SCH ×5 (00:26→23:35)
[2017-11-23] MEDS ORDERED: OXYCODONE-ACETAMINOPHEN 5-325 MG TABLET PO ONE (04:00)
[2017-11-23] MEDS: LANSOPRAZOLE 30 MG TAB.RAP.DR PO SCH (06:10)
[2017-11-23] MEDS: LEVOTHYROXINE SODIUM 0.075 MG TABLET PO SCH (06:10)
[2017-11-23 07:00] LABS: ABSOLUTE EOSINOPHILS # (AUTO) 0.1 10^3/uL (0.0-0.6); ABSOLUTE LYMPHOCYTES (AUTO) 2.1 10^3/uL (0.5-4.7); ABSOLUTE MONOCYTES (AUTO) 0.4 10^3/uL (0.1-1.4); ABSOLUTE NEUT (AUTO) 2.1 10^3/uL (1.7-8.2); BASOPHILS % (AUTO) 0.3 % (0-2); EOSINOPHILS % (AUTO) 1.6 % (0-6); HEMATOCRIT 39.2 % (36.0-47.0); LYMPHOCYTES % (AUTO) 44.1 % (13-45); MEAN CORPUSCULAR HEMOGLOBIN 31.2 pg (27.0-33.4); MEAN CORPUSCULAR HGB CONC 33.4 g/dL (32.0-36.0); MEAN CORPUSCULAR VOLUME 93 fl (80-97); MONOCYTES % (AUTO) 8.9 % (3-13); PLATELET COUNT 174 10^3/uL (150-450); RED BLOOD COUNT 4.19 10^6/uL (3.72-5.28); RED CELL DISTRIBUTION WIDTH 13.5 % (11.5-14.0); SEGMENTED NEUTROPHILS % (AUTO) 45.1 % (42-78); TOTAL CELLS COUNTED % (AUTO) 100 %; WHITE BLOOD COUNT 4.8 10^3/uL (4.0-10.5)
[2017-11-23 07:07] LABS: HEMOGLOBIN 13.1 g/dL (12.0-15.5)
[2017-11-23 07:08] LABS: ANION GAP 5 (5-19); BLOOD UREA NITROGEN 13 mg/dL (7-20); CARBON DIOXIDE 28 mmol/L (22-30); CHLORIDE 109 mmol/L (98-107); GLUCOSE 90 mg/dL (75-110); POTASSIUM 3.4 mmol/L (3.6-5.0); SODIUM 141.5 mmol/L (137-145)
--- NOTE | 2017-11-23 07:12 | PDOC PROGRESS REPORT ---
Subjective Progress Note for:: 11/23/17 Subjective:: Patient is currently doing better Episode of a generalized body ache last night with ongoing rheumatoid disease Patient's denied any chest pain denied any syncopal episode Patient's slowest heart rate is only 54 Reason For Visit: CHEST PAIN Physical Exam Vital Signs: Temp Pulse Resp BP Pulse Ox 98.4 F 54 L 18 121/70 100 11/23/17 03:34 11/23/17 03:34 11/23/17 03:34 11/23/17 03:34 11/23/17 03:34 Intake & Output 11/22/17 11/23/17 11/24/17 06:59 06:59 06:59 Intake Total 120 1640 Output Total 200 700 Balance -80 940 Weight 62.1 kg 66.1 kg General appearance: PRESENT: no acute distress, well-developed, well-nourished Head exam: PRESENT: atraumatic, normocephalic Eye exam: PRESENT: conjunctiva pink, EOMI, PERRLA. ABSENT: scleral icterus Ear exam: PRESENT: normal external ear exam Mouth exam: PRESENT: moist, tongue midline Neck exam: PRESENT: full ROM. ABSENT: carotid bruit, JVD, lymphadenopathy, thyromegaly Respiratory exam: PRESENT: clear to auscultation melony Cardiovascular exam: PRESENT: RRR. ABSENT: diastolic murmur, rubs, systolic murmur Pulses: PRESENT: normal dorsalis pedis pul, +2 pedal pulses bilateral Vascular exam: PRESENT: normal capillary refill GI/Abdominal exam: PRESENT: normal bowel sounds, soft. ABSENT: distended, guarding, mass, organolmegaly, rebound, tenderness Rectal exam: PRESENT: deferred Extremities exam: ABSENT: pedal edema Musculoskeletal exam: PRESENT: ambulatory Neurological exam: PRESENT: alert, awake, oriented to person, oriented to place , oriented to time, oriented to situation, CN II-XII grossly intact. ABSENT: motor sensory deficit Psychiatric exam: PRESENT: appropriate affect, normal mood. ABSENT: homicidal ideation, suicidal ideation Skin exam: PRESENT: dry, intact, warm. ABSENT: cyanosis, rash Results Laboratory Results: 11/23/17 05:57 11/22/17 11/23/17 09:39 05:57 WBC 4.8 RBC 4.19 Hgb 13.1 D Hct 39.2 MCV 93 MCH 31.2 MCHC 33.4 RDW 13.5 Plt Count 174 Seg Neutrophils % 45.1 Lymphocytes % 44.1 Monocytes % 8.9 Eosinophils % 1.6 Basophils % 0.3 Absolute Neutrophils 2.1 Absolute Lymphocytes 2.1 Absolute Monocytes 0.4 Absolute Eosinophils 0.1 Absolute Basophils 0.0 Vitamin B12 436.0 11/22/17 11/22/17 11/22/17 09:39 09:39 15:00 Creatine Kinase < 20 L 20 L CK-MB (CK-2) 0.24 Troponin I < 0.012 NT-Pro-B Natriuret Pep 11/22/17 15:00 Creatine Kinase CK-MB (CK-2) < 0.22 Troponin I < 0.012 NT-Pro-B Natriuret Pep 112 Impressions: Chest X-Ray 11/21/17 22:30 IMPRESSION: NO ACUTE RADIOGRAPHIC FINDING IN THE CHEST. NO SIGNIFICANT CHANGE FROM PRIOR STUDY. Chest/Abdomen CTA 11/21/17 22:30 IMPRESSION: UNREMARKABLE CTA OF THE CHEST. NO PULMONARY EMBOLI, ANEURYSM, OR ACUTE AORTIC INJURY. Abdomen/Pelvis CTA 11/21/17 22:37 IMPRESSION: NO ABDOMINAL AORTIC ANEURYSM, DISSECTION OR SIGNIFICANT STENOSIS. NO ACUTE FINDINGS IN THE ABDOMEN. NO SIGNIFICANT CHANGE FROM PRIOR STUDY. Head CT 11/22/17 00:00 IMPRESSION: NORMAL BRAIN CT WITHOUT CONTRAST. EVIDENCE OF ACUTE STROKE: NO. Assessment & Plan - Diagnosis (1) Chest pain Qualifiers: Chest pain type: unspecified Qualified Code(s): R07.9 - Chest pain, unspecified Is this a current diagnosis for this admission?: Yes Plan: Scheduled for the stress test per Dr. Celeste (2) Syncopal episodes Qualifiers: Syncope type: unspecified Qualified Code(s): R55 - Syncope and collapse Is this a current diagnosis for this admission?: Yes Plan: CT head is negative's will wait for the echo and a stress test (3) Hypertension Qualifiers: Hypertension type: unspecified Qualified Code(s): I10 - Essential (primary ) hypertension Is this a current diagnosis for this admission?: Yes (4) Gastric bypass status for obesity Is this a current diagnosis for this admission?: Yes Plan: Really all stable (5) Coronary artery disease Qualifiers: Coronary Disease-Associated Artery/Lesion type: unspecified vessel or lesion type Is this a current diagnosis for this admission?: Yes Plan: Cardiology (6) Rheumatoid arthritis Qualifiers: Rheumatoid arthritis location: unspecified site Is this a current diagnosis for this admission?: Yes Plan: Since supposed to be appointment to see a rheumatology as outpatient currently on a biologic medications - Time Time Spent with patient: 15-24 minutes Medications reviewed and adjusted accordingly: Yes Anticipated discharge: Home Within: Other - Inpatient Certification Medical Necessity: Need Close Monitoring Due to Risk of Patient Decompensation 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
[2017-11-23] MEDS: ALPRAZOLAM 0.5 MG TABLET PO SCH ×2 (09:49→22:06)
[2017-11-23] MEDS: ASPIRIN 81 MG TABLET, CHEWABLE PO SCH (09:49)
[2017-11-23] MEDS: PREGABALIN 75 MG CAPSULE PO SCH ×2 (09:49→22:06)
[2017-11-23] MEDS: CYANOCOBALAMIN (VITAMIN B-12) 1,000 MCG TABLET PO SCH (09:49)
[2017-11-23] MEDS: POTASSIUM CHLORIDE 10 MEQ TABLET.SA PO SCH ×2 (09:50→22:06)
[2017-11-23] MEDS: ENOXAPARIN SODIUM INJ 40 MG/0.4 ML DISP.SYRIN SUBCUT SCH (09:50)
[2017-11-23] MEDS: OXYCODONE-ACETAMINOPHEN 5-325 MG TABLET PO PRN ×4 (09:51→22:06)
--- NOTE | 2017-11-23 12:22 | PDOC PROGRESS REPORT ---
Subjective Progress Note for:: 11/23/17 Subjective:: Patient seems to be doing better with gradual improvement. Pt is denying any chest arm or neck discomfort. Patient denying any PND, orthopnea. Patient denied any sustained palpitations, dizziness, syncope, near syncope. Patient denying any fever chills. Patient denying any other significant discomfort. Patient is maintaining sinus rhythm. Review of systems: Rest review of systems negative. Medications: Medications have been reviewed. Reason For Visit: CHEST PAIN Physical Exam Vital Signs: Temp Pulse Resp BP Pulse Ox 98.7 F 63 18 109/68 99 11/23/17 08:19 11/23/17 08:19 11/23/17 08:19 11/23/17 08:19 11/23/17 08:19 Intake & Output 11/22/17 11/23/17 11/24/17 06:59 06:59 06:59 Intake Total 120 1640 Output Total 200 700 Balance -80 940 Weight 62.1 kg 66.1 kg Exam: GENERAL: well-nourished and in no acute distress. Alert and oriented x3 HEAD: Atraumatic, normocephalic. EYES: Pupils equal round and reactive to light, extraocular movements intact, sclera anicteric, conjunctiva are normal. ENT: TMs normal, nares patent, oropharynx clear without exudates. Moist mucous membranes. No oral ulcerations or bleeding gums noted NECK: supple without lymphadenopathy. Trachea is central. No cervical or axillary lymphadenopathy noted. Carotids are 2+, JVD WNL LUNGS: Respiration seems nonlabored, no significant accessory muscle action noted. Breath sounds clear to auscultation bilaterally and equal noted. No wheezes rales or rhonchi noted. No significant dullness noted on percussion. CHEST: Palpation of the chest wall shows no significant chest wall tenderness. No other significant abnormalities noted. 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 ABDOMEN: Soft, no significant tenderness appreciated, normoactive bowel sounds. No guarding, no rebound. No rigidity noted . No masses appreciated. EXTREMITIES: Pedal pulses are 1-2+, no calf tenderness noted. No clubbing or cyanosis. Negative pedal edema noted NEUROLOGICAL: Focused neurological exam showed no significant neurologic deficit. Normal speech, no focal weakness appreciated. PSYCH: Normal mood, normal affect. Judgment and insight within normal limits. SKIN: No significant ecchymosis, skin is noted to be warm. MUSCULOSKELETAL EXAM: No significant acute joint swelling noted. Results Laboratory Results: 11/23/17 05:57 11/23/17 05:57 11/22/17 11/23/17 11/23/17 09:39 05:57 05:57 WBC 4.8 RBC 4.19 Hgb 13.1 D Hct 39.2 MCV 93 MCH 31.2 MCHC 33.4 RDW 13.5 Plt Count 174 Seg Neutrophils % 45.1 Lymphocytes % 44.1 Monocytes % 8.9 Eosinophils % 1.6 Basophils % 0.3 Absolute Neutrophils 2.1 Absolute Lymphocytes 2.1 Absolute Monocytes 0.4 Absolute Eosinophils 0.1 Absolute Basophils 0.0 Sodium 141.5 Potassium 3.4 L Chloride 109 H Carbon Dioxide 28 Anion Gap 5 BUN 13 Creatinine 0.58 Est GFR ( Amer) > 60 Est GFR (Non-Af Amer) > 60 Glucose 90 Calcium 9.0 Vitamin B12 436.0 11/22/17 11/22/17 11/22/17 09:39 09:39 15:00 Creatine Kinase < 20 L 20 L CK-MB (CK-2) 0.24 Troponin I < 0.012 NT-Pro-B Natriuret Pep 11/22/17 15:00 Creatine Kinase CK-MB (CK-2) < 0.22 Troponin I < 0.012 NT-Pro-B Natriuret Pep 112 EKG Comments: Twelve-lead EKG shows sinus rhythm without any acute ST-T wave changes. Telemetry strips shows no sustained tachycardia or bradycardia Impressions: Chest X-Ray 11/21/17 22:30 IMPRESSION: NO ACUTE RADIOGRAPHIC FINDING IN THE CHEST. NO SIGNIFICANT CHANGE FROM PRIOR STUDY. Chest/Abdomen CTA 11/21/17 22:30 IMPRESSION: UNREMARKABLE CTA OF THE CHEST. NO PULMONARY EMBOLI, ANEURYSM, OR ACUTE AORTIC INJURY. Abdomen/Pelvis CTA 11/21/17 22:37 IMPRESSION: NO ABDOMINAL AORTIC ANEURYSM, DISSECTION OR SIGNIFICANT STENOSIS. NO ACUTE FINDINGS IN THE ABDOMEN. NO SIGNIFICANT CHANGE FROM PRIOR STUDY. Head CT 11/22/17 00:00 IMPRESSION: NORMAL BRAIN CT WITHOUT CONTRAST. EVIDENCE OF ACUTE STROKE: NO. Assessment & Plan - Diagnosis (1) Chest pain Qualifiers: Chest pain type: unspecified Qualified Code(s): R07.9 - Chest pain, unspecified Is this a current diagnosis for this admission?: Yes (2) Coronary artery disease Qualifiers: Coronary Disease-Associated Artery/Lesion type: unspecified vessel or lesion type Is this a current diagnosis for this admission?: Yes (3) Gastric bypass status for obesity Is this a current diagnosis for this admission?: Yes (4) Hypertension Qualifiers: Hypertension type: unspecified Qualified Code(s): I10 - Essential (primary ) hypertension Is this a current diagnosis for this admission?: Yes (5) Syncopal episodes Qualifiers: Syncope type: unspecified Qualified Code(s): R55 - Syncope and collapse Is this a current diagnosis for this admission?: Yes (6) Rheumatoid arthritis Qualifiers: Rheumatoid arthritis location: unspecified site Is this a current diagnosis for this admission?: Yes (7) Sleep disorder breathing Is this a current diagnosis for this admission?: Yes - Notes Notes: Chest pain: Patient has some typical and atypical features of chest pain. Cardiac enzymes so far has been negative. Electrocardiogram did not show any definitive ST segment changes. Multiple differential diagnoses exist in this patient. In descending order of probability this includes underlying coronary artery disease, gastroesophageal reflux, musculoskeletal pain, referred pain from elsewhere, anxiety panic disorder etc.Patient has significant cardiac risk factors, which indicates that there is a intermediate probability of chest discomfort coming from underlying CAD. Patient scheduled for stress test for tomorrow morning. 2D echocardiogram is pending. CAD: To be evaluated with nuclear stress test and a 2D echocardiogram. In the meantime will optimize therapy first underlying CAD history. Syncopal episode: Based on history it seems vasovagal however will recommend cardiac monitoring during hospitalization and also as an outpatient for better symptom correlation. Recommend avoiding dehydration and pure vasodilators. 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 Sleep disordered breathing: Patient previously gave history of loud snoring, daytime fatigue and tiredness. Sleep apnea can cause increased vagal tone and lead to bradycardia and is more common in patients with syncope. Patient to be scheduled for a sleep study as an outpatient. Gastric bypass surgery: Evaluate patient for possible vitamin deficiency iron deficiency etc. - Time Time with patient: Greater than 35 minutes - CODE STATUS was discussed, patient remains full code. Surrogate decision-maker unchanged. Multiple medical problems were addressed. More than 50% of the time spent coordinating care, discussing management plans with involved caregivers. Management plans discussed with involved personnels. Medical decision making was of moderate to high complexity, patient's has multiple comorbidities. Medications reviewed and adjusted accordingly: Yes
--- NOTE | 2017-11-23 16:20 | EKG REPORT ---
SEVERITY:- BORDERLINE ECG - SINUS RHYTHM VENTRICULAR PREMATURE COMPLEX BORDERLINE T ABNORMALITIES, ANTERIOR LEADS : Confirmed by: Enrrique Celeste 23-Nov-2017 16:20:30
[2017-11-23] MEDS: SIMVASTATIN 40 MG TABLET PO SCH (18:02)
[2017-11-24] MEDS: OXYCODONE-ACETAMINOPHEN 5-325 MG TABLET PO PRN ×5 (03:37→23:25)
[2017-11-24 05:09] LABS: ABSOLUTE EOSINOPHILS # (AUTO) 0.1 10^3/uL (0.0-0.6); ABSOLUTE LYMPHOCYTES (AUTO) 2.5 10^3/uL (0.5-4.7); ABSOLUTE MONOCYTES (AUTO) 0.4 10^3/uL (0.1-1.4); ABSOLUTE NEUT (AUTO) 1.6 10^3/uL (1.7-8.2); BASOPHILS % (AUTO) 0.3 % (0-2); EOSINOPHILS % (AUTO) 2.7 % (0-6); HEMATOCRIT 38.8 % (36.0-47.0); HEMOGLOBIN 12.8 g/dL (12.0-15.5); LYMPHOCYTES % (AUTO) 53.6 % (13-45); MEAN CORPUSCULAR HGB CONC 33.1 g/dL (32.0-36.0); MEAN CORPUSCULAR VOLUME 94 fl (80-97); PLATELET COUNT 187 10^3/uL (150-450); RED BLOOD COUNT 4.14 10^6/uL (3.72-5.28); RED CELL DISTRIBUTION WIDTH 13.6 % (11.5-14.0); SEGMENTED NEUTROPHILS % (AUTO) 35.4 % (42-78); TOTAL CELLS COUNTED % (AUTO) 100 %; WHITE BLOOD COUNT 4.6 10^3/uL (4.0-10.5)
[2017-11-24 05:50] LABS: BLOOD UREA NITROGEN 10 mg/dL (7-20); CALCIUM 8.8 mg/dL (8.4-10.2); CARBON DIOXIDE 28 mmol/L (22-30); GLUCOSE 77 mg/dL (75-110); POTASSIUM 3.7 mmol/L (3.6-5.0)
[2017-11-24 05:57] LABS: ANION GAP 5 (5-19); CHLORIDE 109 mmol/L (98-107); SODIUM 141.5 mmol/L (137-145)
[2017-11-24] MEDS: LANSOPRAZOLE 30 MG TAB.RAP.DR PO SCH (06:08)
[2017-11-24] MEDS: LEVOTHYROXINE SODIUM 0.075 MG TABLET PO SCH (06:08)
[2017-11-24] MEDS: DICYCLOMINE HCL 10 MG CAPSULE PO SCH ×4 (06:08→23:25)
[2017-11-24] MEDS: ENOXAPARIN SODIUM INJ 40 MG/0.4 ML DISP.SYRIN SUBCUT SCH (11:03)
[2017-11-24] MEDS: ALPRAZOLAM 0.5 MG TABLET PO SCH ×2 (11:06→21:56)
[2017-11-24] MEDS: CYANOCOBALAMIN (VITAMIN B-12) 1,000 MCG TABLET PO SCH (11:06)
[2017-11-24] MEDS: PREGABALIN 75 MG CAPSULE PO SCH ×2 (11:06→21:56)
[2017-11-24] MEDS: POTASSIUM CHLORIDE 10 MEQ TABLET.SA PO SCH ×2 (11:07→21:56)
[2017-11-24] MEDS: ASPIRIN 81 MG TABLET, CHEWABLE PO SCH (11:07)
--- NOTE | 2017-11-24 12:58 | DRAGON STRESS TEST REPORT ---
INTRAVENOUS LEXISCAN CARDIOLITE STRESS TEST USING SINGLE PHOTON EMMISION COMPUTERIZED TOMOGRAPHIC. DATE OF PROCEDURE: November 24, 2017, INDICATION : Chest pain CARDIAC RISK FACTORS: Dyslipidemia, family history of CAD RESTING EKG: Sinus rhythm with occasional VPCs STRESS EKG: No significant ST segment changes noted with LexiScan bolus REASON FOR TERMINATION: Protocol. PROCEDURE REPORT: Baseline heart rate 73 beats per minute with blood pressure of 116/81. Patient had no significant complaints. Patient was bolused with Lexiscan 0.4 mg intravenously followed by saline bolus. Heart rate at 2 minutes post bolus 97 with a blood pressure of 132/81. 3 minutes post bolus heart rate 113 with blood pressure of 111/81. No significant EKG changes were noted. Patient had no significant complaints during the procedure or postprocedure. Patient injected with Aminophyllin 75 mg at 3 minutes or later after Lexiscan bolus. CONCLUSIONS: Normal EKG and hemodynamic response to IV LexiScan. NUCLEAR DATA: At rest the patient was given 10.93 millicuries of technetium 99 sestamibi injected intravenously. As per protocol rest gated SPECT images were obtained. On day of stress test, the patient was given intravenous LexiScan at a dose of 0.4 mg in 5 mL intravenously, followed by flush with normal saline. Subsequently the stress dose of 32.3 millicuries of technetium 99 sestamibi was injected intravenously. As per protocol stress gated images were obtained. NUCLEAR INTERPRETATION: Both raw and processed data were used for interpretation. Visual, qualitative, computer-generated quantitative data was used. There was good myocardial uptake of technetium compound. Motion artifact and soft tissue attenuations were noted. Increased visceral uptake was noted. No definitive areas of transient perfusion defect noted, No definitive areas of fixed perfusion defect or scars noted. EKG gated imaging showed LV EF at 54 %, rest and stress gated EF similar visually. T. I D. ratio was 1.13. Lung heart ratio noted to be within normal limits 0.43. No significant extracardiac and abnormal radiotracer activities were noted. RV free wall uptake was noted to be WNL. IMPRESSION: Also refer to comments under nuclear interpretation. Also test results needs to be interpreted in the context of pretest probability. 1. No definitive areas of transient perfusion defect noted. 2. There is no definitive scintigraphic evidence of myocardial infarction/scar. 3. EKG gated imaging shows left ventricular ejection fraction of approx. 54 %. 4. Clinical correlation requested as occasionally single vessel disease or balanced ischemia could be missed. In approximately 10% of the cases Lexiscan may not cause adequate vasodilatory stress. RECOMMENDATIONS: Aggressive risk factor modification and medical management. Further evaluation may be needed if continued symptoms or other high risk indicators are noted on clinical evaluation. Close cardiology follow-up is also recommended. Clinical correlation with echocardiogram derived ejection fraction. Inability to exercise by itself can lead to increased cardiovascular event risks. Consider cardiology consultation and or follow-up if clinically indicated. I am available for cardiology evaluation and consultation if requested by the artificial candy maker, unless patient already has a mechanical manufacturing technician. TONO
[2017-11-24] MEDS ORDERED: REGADENOSON INJ 0.4 MG/5 ML DISP.SYRIN IV ONE (13:30)
[2017-11-24] MEDS ORDERED: AMINOPHYLLINE INJ/PF 250 MG/10 ML SDV IV ONE (13:30)
--- NOTE | 2017-11-24 16:03 | RADIOLOGY REPORT (SQ) ---
EXAM DESCRIPTION: CAROTID DOPPLER COMPLETED DATE/TIME: 11/24/2017 3:46 pm REASON FOR STUDY: syncopal episode COMPARISON: None. TECHNIQUE: Grayscale ultrasound, Doppler velocity and spectra, and color Doppler images acquired of the extra-cranial carotid and vertebral arteries. Images stored on PACS. LIMITATIONS: None. FINDINGS: RIGHT CAROTID CCA Velocities: Within normal limits. ICA Velocities Peak systolic 0.50 m/s. End diastolic 0.20 m/s. Proximal ICA/CCA peak systolic ratio 1.0. Spectra normal. No significant plaque. LEFT CAROTID CCA Velocities: Within normal limits. ICA Velocities Peak systolic 0.71 m/s. End diastolic 0.34 m/s. Proximal ICA/CCA peak systolic ratio 1.2. Spectra normal. No significant plaque. VERTEBRAL ARTERIES: Antegrade flow. Normal waveforms. SUBCLAVIAN ARTERIES: Not imaged. OTHER: No other significant finding. IMPRESSION: NO HEMODYNAMICALLY SIGNIFICANT STENOSIS. COMMENT: Quality ID #[id number]: Velocity criteria are extrapolated from the diameter data as defined by t he Society of Radiologists in Ultrasound Consensus Conference. Radiology 2003: 229; 340-346. TECHNICAL DOCUMENTATION: JOB ID: [id number] [email or web address]- All Rights Reserved Reading location - IP/workstation name: [email or web address]
[2017-11-24] MEDS: SIMVASTATIN 40 MG TABLET PO SCH (17:55)
--- NOTE | 2017-11-24 18:12 | XCELERA REPORT ---
[address] [address] Transthoracic Echocardiogram Report Name: GONZALO FITZGERALD Age: 57 yrs Gender: Female : 1960 Patient Status: Inpatient Patient Location: [address] [place] [address] Study Date: 11/24/2017 02:27 PM Height: 67 in Weight: 136 lb BSA: 1.7 m2 Procedure: A complete two-dimensional transthoracic echocardiogram was performed (2D, M-mode, spectral and color flow Doppler). The study was technically adequate with some images being suboptimal in quality. Reason For Study: syncope, cp Ordering Physician: ENRRIQUE RO Performed By: Kylah Jones Interpretation Summary The left ventricular ejection fraction is normal. There is borderline concentric left ventricular hypertrophy. Doppler measurements suggest pseudonormalized left ventricular relaxation, which is associated with grade II/IV or mild to moderate diastolic dysfunction The left ventricle is grossly normal size. Wall motion cannot be accurately commented on, but no definite regional wall motion abnormalities noted. The right ventricular systolic function is normal. Borderline right ventricular enlargement. The right atrium is normal in size Borderline left atrial enlargement. There is no mitral valve stenosis. There is a mild amount of mitral regurgitation There is no aortic valve stenosis There is a mild amount of aortic regurgitation There is no tricuspid stenosis. There is a trace or physiologic amount of tricuspid regurgitation Tricuspid regurgitation jet envelope not well defined to measure RV systolic pressure accurately. The aortic root is not well visualized but is probably normal size. The inferior vena cava appeared normal and decreased > 50% with respiration (RAP 5-10 mmHg) There is no pericardial effusion. MMode/2D Measurements & Calculations RVDd: 3.4 cm LVIDd: 4.8 cm FS: 46.7 % Ao root diam: 2.8 cm IVSd: 1.00 cm LVIDs: 2.6 cm EDV(Teich): 109.5 ml LVPWd: 0.93 cm ESV(Teich): 24.2 ml Ao root area: 6.3 cm2 EF(Teich): 77.9 % LA dimension: 3.7 cm Doppler Measurements & Calculations MV E max radha: MV P1/2t max radha: Ao V2 max: AI max radha: 81.4 cm/sec 82.4 cm/sec 154.7 cm/sec 413.8 cm/sec MV A max radha: MV P1/2t: 68.0 msec Ao max PG: AI max P.0 cm/sec 9.6 mmHg 68.5 mmHg MV E/A: 1.0 MVA(P1/2t): 3.2 cm2 AI dec slope: MV dec slope: 354.8 cm/sec2 195.1 cm/sec2 MV dec time: AI P1/2t: 0.21 sec 621.4 msec LV V1 max PG: PA V2 max: PI end-d radha: TR max radha: 6.9 mmHg 80.9 cm/sec 104.2 cm/sec 164.0 cm/sec LV V1 max: PA max P.6 mmHg TR max P.3 cm/sec 10.8 mmHg Left Ventricle The left ventricle is grossly normal size. There is borderline concentric left ventricular hypertrophy. The left ventricular ejection fraction is normal. Doppler measurements suggest pseudonormalized left ventricular relaxation, which is associated with grade II/IV or mild to moderate diastolic dysfunction. Wall motion cannot be accurately commented on, but no definite regional wall motion abnormalities noted. Right Ventricle Borderline right ventricular enlargement. There is normal right ventricular wall thickness. The right ventricular systolic function is normal. Atria The right atrium is normal in size. Borderline left atrial enlargement. Interarterial septum not well visualized and not well dopplered. Cannot comment on ASD/PFO presence. Mitral Valve There is mild mitral leaflet calcification. There is no mitral valve stenosis. There is a mild amount of mitral regurgitation. Aortic Valve The aortic valve is grossly normal. There is no aortic valve stenosis. There is a mild amount of aortic regurgitation. Tricuspid Valve The tricuspid valve is not well visualized, but is grossly normal. There is no tricuspid stenosis. There is a trace or physiologic amount of tricuspid regurgitation. Tricuspid regurgitation jet envelope not well defined to measure RV systolic pressure accurately. Pulmonic Valve The pulmonic valve is not well visualized. Great Vessels The aortic root is not well visualized but is probably normal size. The inferior vena cava appeared normal and decreased > 50% with respiration (RAP 5-10 mmHg). Effusions There is no pericardial effusion. : ENRRIQUE RO > Enrrique Ro
--- NOTE | 2017-11-24 21:32 | PDOC DISCHARGE SUMMARY ---
General - Admit/Disc Date/PCP Admission Date/Primary Care Provider: 11/22/17 02:58 ALBERTO GARCIA MD Discharge Date: 11/25/17 - Discharge Diagnosis (1) Chest pain Is this a current diagnosis for this admission?: Yes (2) Vaso vagal episode Is this a current diagnosis for this admission?: Yes (3) Syncopal episodes Is this a current diagnosis for this admission?: Yes (4) Gastric bypass status for obesity Is this a current diagnosis for this admission?: Yes (5) Rheumatoid arthritis Is this a current diagnosis for this admission?: Yes - Additional Information Resuscitation Status: Full Code Home Medications: Alprazolam [Xanax 0.5 mg Tablet] 0.5 mg PO Q12 04/30/17 Aspirin [Aspirin 81 mg Chewable Tablet] 81 mg PO DAILY 04/30/17 Etanercept [Enbrel] 50 mg SQ MO@1000 04/30/17 Hydrocodone Bit/Acetaminophen [Hydrocodon-Acetaminophn 10-325] 1 each PO Q6HP PRN 04/30/17 Omeprazole 20 mg PO Q6AM 04/30/17 Potassium Chloride 10 meq PO Q12 04/30/17 Pregabalin [Lyrica 75 mg Capsule] 75 mg PO Q12 04/30/17 Simvastatin [Zocor 40 mg Tablet] 40 mg PO QPM 04/30/17 Cholecalciferol (Vitamin D3) [Vitamin D3] 2,000 unit PO DAILY 11/22/17 Cyanocobalamin (Vitamin B-12) [Vitamin B-12 1000 mcg Tablet] 1,000 mcg PO DAILY 11/22/17 Dicyclomine HCl 20 mg PO Q6H 11/22/17 Furosemide [Lasix 20 mg Tablet] 20 mg PO Q12 11/22/17 Levothyroxine Sodium [Synthroid 0.075 mg Tablet] 0.075 mg PO Q6AM 11/22/17 History of Present Illness History of Present Illness: GONZALO FITZGERALD is a 57 year old female, She was admitted when she presented with chest pain associated with syncope, she was evaluated with CTA chest and the abdomen Hospital Course Hospital Course: She was extensively evaluated in the hospital when she presented with chest pain. There was associated loss of consciousness, the loss of consciousness was secondary to vomiting, the loss of consciousness was felt to be due to vasovagal attack.CTA chest, abdomen was done there was no pulmonary embolism, there was no aneurysm. She also underwent Cardiolite Lexiscan stress test, this was negative for acute ischemia. She was seen by cardiology Dr. Celeste on consultation, a 2D echo was done, it suggests diastolic dysfunction of the left ventricle Physical Exam Vital Signs: Temp Pulse Resp BP Pulse Ox 98.5 F 66 16 106/64 97 11/24/17 19:27 11/24/17 19:27 11/24/17 19:27 11/24/17 19:27 11/24/17 19:27 Intake & Output 11/23/17 11/24/17 11/25/17 06:59 06:59 06:59 Intake Total 1640 1280 830 Output Total 700 750 Balance 940 530 830 Weight 66.1 kg 66.1 kg General appearance: PRESENT: no acute distress, well-developed, well-nourished Head exam: PRESENT: atraumatic, normocephalic Eye exam: PRESENT: conjunctiva pink, EOMI, PERRLA Ear exam: PRESENT: normal external ear exam Mouth exam: PRESENT: moist, tongue midline Neck exam: PRESENT: full ROM. ABSENT: carotid bruit, JVD, lymphadenopathy, thyromegaly Respiratory exam: PRESENT: clear to auscultation melony Cardiovascular exam: PRESENT: RRR, +S1, +S2 Pulses: PRESENT: normal dorsalis pedis pul, +2 pedal pulses bilateral Vascular exam: PRESENT: normal capillary refill GI/Abdominal exam: PRESENT: normal bowel sounds, soft Rectal exam: PRESENT: deferred Neurological exam: PRESENT: alert, awake, oriented to person, oriented to place , oriented to time, oriented to situation, CN II-XII grossly intact Psychiatric exam: PRESENT: appropriate affect, normal mood Skin exam: PRESENT: dry, intact, warm Results Laboratory Results: 11/24/17 04:40 11/24/17 04:40 11/24/17 11/24/17 04:40 04:40 WBC 4.6 RBC 4.14 Hgb 12.8 Hct 38.8 MCV 94 MCH 31.0 MCHC 33.1 RDW 13.6 Plt Count 187 Seg Neutrophils % 35.4 L Lymphocytes % 53.6 H Monocytes % 8.0 Eosinophils % 2.7 Basophils % 0.3 Absolute Neutrophils 1.6 L Absolute Lymphocytes 2.5 Absolute Monocytes 0.4 Absolute Eosinophils 0.1 Absolute Basophils 0.0 Sodium 141.5 Potassium 3.7 Chloride 109 H Carbon Dioxide 28 Anion Gap 5 BUN 10 Creatinine 0.56 Est GFR ( Amer) > 60 Est GFR (Non-Af Amer) > 60 Glucose 77 Calcium 8.8 11/22/17 11/22/17 11/22/17 09:39 09:39 15:00 Creatine Kinase < 20 L 20 L CK-MB (CK-2) 0.24 Troponin I < 0.012 NT-Pro-B Natriuret Pep 11/22/17 15:00 Creatine Kinase CK-MB (CK-2) < 0.22 Troponin I < 0.012 NT-Pro-B Natriuret Pep 112 Impressions: Chest X-Ray 11/21/17 22:30 IMPRESSION: NO ACUTE RADIOGRAPHIC FINDING IN THE CHEST. NO SIGNIFICANT CHANGE FROM PRIOR STUDY. Chest/Abdomen CTA 11/21/17 22:30 IMPRESSION: UNREMARKABLE CTA OF THE CHEST. NO PULMONARY EMBOLI, ANEURYSM, OR ACUTE AORTIC INJURY. Abdomen/Pelvis CTA 11/21/17 22:37 IMPRESSION: NO ABDOMINAL AORTIC ANEURYSM, DISSECTION OR SIGNIFICANT STENOSIS. NO ACUTE FINDINGS IN THE ABDOMEN. NO SIGNIFICANT CHANGE FROM PRIOR STUDY. Head CT 11/22/17 00:00 IMPRESSION: NORMAL BRAIN CT WITHOUT CONTRAST. EVIDENCE OF ACUTE STROKE: NO. Carotid Doppler Study 11/24/17 00:00 IMPRESSION: NO HEMODYNAMICALLY SIGNIFICANT STENOSIS. Qualifiers - * PATEINT BEING DISCHARGED WITH ANY OF THE FOLLOWING DIAGNOSIS?: No VTE patient discharged on overlapping Therapy?: Yes
[2017-11-25] MEDS: OXYCODONE-ACETAMINOPHEN 5-325 MG TABLET PO PRN (03:35)
[2017-11-25 05:40] LABS: ABSOLUTE EOSINOPHILS # (AUTO) 0.1 10^3/uL (0.0-0.6); ABSOLUTE LYMPHOCYTES (AUTO) 2.5 10^3/uL (0.5-4.7); ABSOLUTE MONOCYTES (AUTO) 0.4 10^3/uL (0.1-1.4); ABSOLUTE NEUT (AUTO) 2.3 10^3/uL (1.7-8.2); BASOPHILS % (AUTO) 0.3 % (0-2); EOSINOPHILS % (AUTO) 2.2 % (0-6); HEMATOCRIT 37.4 % (36.0-47.0); HEMOGLOBIN 12.6 g/dL (12.0-15.5); LYMPHOCYTES % (AUTO) 46.9 % (13-45); MEAN CORPUSCULAR HEMOGLOBIN 31.2 pg (27.0-33.4); MEAN CORPUSCULAR HGB CONC 33.8 g/dL (32.0-36.0); MEAN CORPUSCULAR VOLUME 92 fl (80-97); MONOCYTES % (AUTO) 7.5 % (3-13); PLATELET COUNT 185 10^3/uL (150-450); RED BLOOD COUNT 4.05 10^6/uL (3.72-5.28); RED CELL DISTRIBUTION WIDTH 13.3 % (11.5-14.0); SEGMENTED NEUTROPHILS % (AUTO) 43.1 % (42-78); TOTAL CELLS COUNTED % (AUTO) 100 %; WHITE BLOOD COUNT 5.3 10^3/uL (4.0-10.5)
[2017-11-25 06:02] LABS: ANION GAP 6 (5-19); BLOOD UREA NITROGEN 16 mg/dL (7-20); CALCIUM 8.8 mg/dL (8.4-10.2); CARBON DIOXIDE 26 mmol/L (22-30); CHLORIDE 107 mmol/L (98-107); GLUCOSE 80 mg/dL (75-110); POTASSIUM 3.9 mmol/L (3.6-5.0); SODIUM 139.1 mmol/L (137-145)
[2017-11-25] MEDS: LEVOTHYROXINE SODIUM 0.075 MG TABLET PO SCH (06:12)
[2017-11-25] MEDS: DICYCLOMINE HCL 10 MG CAPSULE PO SCH (06:13)
[2017-11-25] MEDS: LANSOPRAZOLE 30 MG TAB.RAP.DR PO SCH (06:13)
[2017-11-25] MEDS: PREGABALIN 75 MG CAPSULE PO SCH (09:39)
[2017-11-25] MEDS: ALPRAZOLAM 0.5 MG TABLET PO SCH (09:40)
[2017-11-25] MEDS: POTASSIUM CHLORIDE 10 MEQ TABLET.SA PO SCH (09:40)
[2017-11-25] MEDS: ASPIRIN 81 MG TABLET, CHEWABLE PO SCH (09:40)
[2017-11-25] MEDS: CYANOCOBALAMIN (VITAMIN B-12) 1,000 MCG TABLET PO SCH (09:40)
[2017-11-25 10:33] VITALS: BP 109/51
--- NOTE | 2017-11-26 11:18 | PDOC PROGRESS REPORT ---
Subjective Progress Note for:: 11/24/17 Subjective:: Patient seems to be doing better with gradual improvement. Pt is denying any chest arm or neck discomfort. Patient denying any PND, orthopnea. Patient denied any sustained palpitations, dizziness, syncope, near syncope. Patient denying any fever chills. Patient denying any other significant discomfort. Patient is maintaining sinus rhythm. Review of systems: Rest review of systems negative. Medications: Medications have been reviewed. Reason For Visit: CHEST PAIN Physical Exam Vital Signs: Temp Pulse Resp BP Pulse Ox 97.9 F 79 18 109/51 L 98 11/24/17 16:00 11/24/17 16:00 11/24/17 16:00 11/24/17 16:00 11/24/17 16:00 Intake & Output 11/23/17 11/24/17 11/25/17 06:59 06:59 06:59 Intake Total 1640 1280 830 Output Total 700 750 Balance 940 530 830 Weight 66.1 kg 66.1 kg Exam: GENERAL: well-nourished and in no acute distress. Alert and oriented x3 HEAD: Atraumatic, normocephalic. EYES: Pupils equal round and reactive to light, extraocular movements intact, sclera anicteric, conjunctiva are normal. ENT: TMs normal, nares patent, oropharynx clear without exudates. Moist mucous membranes. No oral ulcerations or bleeding gums noted NECK: supple without lymphadenopathy. Trachea is central. No cervical or axillary lymphadenopathy noted. Carotids are 2+, JVD WNL LUNGS: Respiration seems nonlabored, no significant accessory muscle action noted. Breath sounds clear to auscultation bilaterally and equal noted. No wheezes rales or rhonchi noted. No significant dullness noted on percussion. CHEST: Palpation of the chest wall shows no significant chest wall tenderness. No other significant abnormalities noted. HEART: [place] [employer], No PSH, 1/6 BALDEV aortic area, 1/6 goldstein systolic murmur mitral area, no rubs, no gallops. ABDOMEN: Soft, no significant tenderness appreciated, normoactive bowel sounds. No guarding, no rebound. No rigidity noted . No masses appreciated. EXTREMITIES: Pedal pulses are 1-2+, no calf tenderness noted. No clubbing or cyanosis.trace pedal edema noted NEUROLOGICAL: Focused neurological exam showed no significant neurologic deficit. Normal speech, no focal weakness appreciated. PSYCH: Normal mood, normal affect. Judgment and insight within normal limits. SKIN: No significant ecchymosis, skin is noted to be warm. MUSCULOSKELETAL EXAM: No significant acute joint swelling noted. Results Laboratory Results: 11/24/17 04:40 11/24/17 04:40 11/24/17 11/24/17 04:40 04:40 WBC 4.6 RBC 4.14 Hgb 12.8 Hct 38.8 MCV 94 MCH 31.0 MCHC 33.1 RDW 13.6 Plt Count 187 Seg Neutrophils % 35.4 L Lymphocytes % 53.6 H Monocytes % 8.0 Eosinophils % 2.7 Basophils % 0.3 Absolute Neutrophils 1.6 L Absolute Lymphocytes 2.5 Absolute Monocytes 0.4 Absolute Eosinophils 0.1 Absolute Basophils 0.0 Sodium 141.5 Potassium 3.7 Chloride 109 H Carbon Dioxide 28 Anion Gap 5 BUN 10 Creatinine 0.56 Est GFR ( Amer) > 60 Est GFR (Non-Af Amer) > 60 Glucose 77 Calcium 8.8 11/22/17 11/22/17 11/22/17 09:39 09:39 15:00 Creatine Kinase < 20 L 20 L CK-MB (CK-2) 0.24 Troponin I < 0.012 NT-Pro-B Natriuret Pep 11/22/17 15:00 Creatine Kinase CK-MB (CK-2) < 0.22 Troponin I < 0.012 NT-Pro-B Natriuret Pep 112 Impressions: Chest X-Ray 11/21/17 22:30 IMPRESSION: NO ACUTE RADIOGRAPHIC FINDING IN THE CHEST. NO SIGNIFICANT CHANGE FROM PRIOR STUDY. Chest/Abdomen CTA 11/21/17 22:30 IMPRESSION: UNREMARKABLE CTA OF THE CHEST. NO PULMONARY EMBOLI, ANEURYSM, OR ACUTE AORTIC INJURY. Abdomen/Pelvis CTA 11/21/17 22:37 IMPRESSION: NO ABDOMINAL AORTIC ANEURYSM, DISSECTION OR SIGNIFICANT STENOSIS. NO ACUTE FINDINGS IN THE ABDOMEN. NO SIGNIFICANT CHANGE FROM PRIOR STUDY. Head CT 11/22/17 00:00 IMPRESSION: NORMAL BRAIN CT WITHOUT CONTRAST. EVIDENCE OF ACUTE STROKE: NO. Carotid Doppler Study 11/24/17 00:00 IMPRESSION: NO HEMODYNAMICALLY SIGNIFICANT STENOSIS. Assessment & Plan - Diagnosis (1) Chest pain Qualifiers: Chest pain type: unspecified Qualified Code(s): R07.9 - Chest pain, unspecified Is this a current diagnosis for this admission?: Yes (2) Coronary artery disease Qualifiers: Coronary Disease-Associated Artery/Lesion type: unspecified vessel or lesion type Is this a current diagnosis for this admission?: Yes (3) Gastric bypass status for obesity Is this a current diagnosis for this admission?: Yes (4) Hypertension Qualifiers: Hypertension type: unspecified Qualified Code(s): I10 - Essential (primary ) hypertension Is this a current diagnosis for this admission?: Yes (5) Syncopal episodes Qualifiers: Syncope type: unspecified Qualified Code(s): R55 - Syncope and collapse Is this a current diagnosis for this admission?: Yes (6) Rheumatoid arthritis Qualifiers: Rheumatoid arthritis location: unspecified site Is this a current diagnosis for this admission?: Yes (7) Sleep disorder breathing Is this a current diagnosis for this admission?: Yes - Notes Notes: Chest pain: Patient claims chest pain is resolved. This was evaluated with a nuclear stress test. Nuclear stress test was negative for any significant areas of ischemia or any significant areas of scar. The nuclear stress test is felt to be relatively low risk. Patient informed that occasionally single- vessel disease and balanced ischemia could be missed. Patient advised aggressive risk factor modification and medical therapy. Patient informed that further evaluation may become necessary if symptoms worsens or there is a development of new symptoms indicative of angina or angina equivalent symptom. CAD: Nuclear stress test results were reviewed with the patient. Questions answered. 2D echo results still pending. Will discuss this once 2D echo results are available and reviewed.. In the meantime will optimize therapy first underlying CAD history. Syncopal episode: Based on history it seems vasovagal however will recommend cardiac monitoring during hospitalization and also as an outpatient for better symptom correlation. Recommend avoiding dehydration and pure vasodilators. So far no significant cardiac dysrhythmia noted. Rheumatoid arthritis: Patient being managed by pta. Sleep disordered breathing: Patient previously gave history of loud snoring, daytime fatigue and tiredness. Sleep apnea can cause increased vagal tone and lead to bradycardia and is more common in patients with syncope. Patient to be scheduled for a sleep study as an outpatient. Gastric bypass surgery: Currently stable. Discussed various vitamin deficiencies which can occur with gastric bypass.. - Time Time with patient: Greater than 35 minutes - CODE STATUS was discussed, patient remains full code. Surrogate decision-maker unchanged. Multiple medical problems were addressed. More than 50% of the time spent coordinating care, discussing management plans with involved caregivers. Management plans discussed with involved personnels. Medical decision making was of moderate to high complexity, patient's has multiple comorbidities. Medications reviewed and adjusted accordingly: Yes
== END 2017-11-25 10:59 | disposition home or self-care (01) | DRG 303 ==
LOC: ER 21:52 → EH 11-22 02:58 → 4N 11-22 05:02
PROVIDERS: ADMIT Family Medicine; ATTEND Internal Medicine
DX: I25.10 Atherosclerotic heart disease of native coronary artery without angina pectoris (principal); R07.9 Chest pain, unspecified; E78.00 Pure hypercholesterolemia, unspecified; I10 Essential (primary) hypertension; E03.9 Hypothyroidism, unspecified; R55 Syncope and collapse; M06.9 Rheumatoid arthritis, unspecified; Z86.718 Personal history of other venous thrombosis and embolism; Z98.84 Bariatric surgery status; Z79.82 Long term (current) use of aspirin; Z79.899 Other long term (current) drug therapy
CPT/HCPCS: 36415; 70450; 71045; 71275; 74174; 78452; 80048; 80053; 81001; 82550; 82553; 82607; 83690; 83880; 84484; 85025; 93005; 93010; 93017; 93306; 93880; 96361; 96374; 96375; 96376; 99285; A9500; J0280; J1650; J2270; J2405; J2785; J3490; J7030; Q9969

== ENCOUNTER 2018-03-15 19:41 | Emergency (ER) | payer BC, OTHER ==
[2018-03-15] MEDS ORDERED: TRAMADOL HCL 50 MG TABLET PO ONE (20:35)
--- NOTE | 2018-03-15 20:38 | ER Document Report ---
ED General - General TRAVEL OUTSIDE OF THE [place] IN LAST 30 DAYS: No - General Chief Complaint: Back Pain Stated Complaint: FALL,BACK PAIN - HPI Notes: 57-year-old female on chronic pain medication for rheumatoid arthritis who presents with fall and lower back pain. Patient also indicates she has a history of sciatica. States on Friday she was attempting to move some type of shed when it fell and she twisted her ankle and fell striking her back on the gravel ground. Initially had pain but it got worse on Friday and is worse today. No numbness or tingling. No head injury. No loss consciousness. Denies any bowel or bladder dysfunction, no new numbness or tingling. Describes sharp severe achy pain to both sides of her lower back. No other modifying factors, no other associated symptoms, no other provocative or palliative factors. (SYED URBAN) - Related Data Allergies/Adverse Reactions: codeine [Codeine] Allergy (Verified 07/07/16 00:25) Past Medical History - Social History Smoking Status: Smoker,Current Status Unk Drug Abuse: None Family History: DM, Hypertension, Other - VTE, brother from CHF and DM complications at 49 years old - Past Medical History Cardiac Medical History: Reports: Hx DVT, Hx Heart Attack - 2012?, Hx Hypercholesterolemia, Hx Hypertension Pulmonary Medical History: Denies: Hx Tuberculosis Neurological Medical History: Denies: Hx Seizures Endocrine Medical History: Reports: Hx Hypothyroidism Renal/ Medical History: Denies: Hx Peritoneal Dialysis GI Medical History: Reports: Hx Gastroesophageal Reflux Disease, Hx Colonoscopy , Hx Endoscopy Musculoskeletal Medical History: Reports Hx Arthritis - Rheumatoid arthritis, Reports Hx Musculoskeletal Deformity, Reports Hx Musculoskeletal Trauma Psychiatric Medical History: Reports: Hx Anxiety, Hx Depression Traumatic Medical History: Reports: Hx Fractures - left wrist and right hand Past Surgical History: Reports: Hx Abdominal Surgery - gastric, Hx Bowel Surgery - gastric bypass, Hx Gastric Bypass Surgery, Hx Hysterectomy, Other - Questionable history of heart catheterization about 10 years ago at [facility] - Immunizations Hx Diphtheria, Pertussis, Tetanus Vaccination: Yes Hx Pneumococcal Vaccination: 09/01/10 Review of Systems - Review of Systems Notes: Review of systems as in history of present illness, otherwise no significant headache, chest pain, abdominal pain. (SYED URBAN) Physical Exam - Vital signs Vitals: Temp Pulse Resp BP Pulse Ox 97.6 F 94 16 118/87 H 98 03/15/18 19:46 03/15/18 19:46 03/15/18 19:46 03/15/18 19:46 03/15/18 19:46 - Notes Notes: General: Well devloped, no acute distress. HEENT: Normocephalic, atraumatic. Pupils equal round reactive to light. Mucosa moist. No JVD. Chest: No trauma, normal excursion. Respiratory: Good air exchange, normal excursion. Cardiac: Regular rhythm Abdomen: Soft, benign. Nondistended. Back: No asymmetry or gross abnormality. Point tenderness noted about the mid lumbar spine and bilateral paralumbar region and posterior superior iliac spines Motor: Grossly normal power and tone. Neurologic: Alert, nonfocal. Vascular: Well perfused Skin: No petechiae or purpura (SYED URBAN) Course - Re-evaluation Re-evalutation: 03/15/18 20:38 Well-appearing female with likely lumbar strain. However, given age and comorbidities point tenderness will obtain plain films of the LS spine as well as pelvis. Treat pain with tramadol, reassess. Patient signed out pending xray read. (SYED URBAN) - Vital Signs Vital signs: Temp Pulse Resp BP Pulse Ox 98.0 F 72 20 106/63 95 03/15/18 22:28 03/15/18 22:28 03/15/18 22:28 03/15/18 22:28 03/15/18 22:28 Discharge - Discharge Clinical Impression: Compression fracture of lumbar vertebra Qualifiers: Encounter type: initial encounter Lumbar vertebra fracture level: L5 Fracture type: closed Qualified Code(s): S32.050A - Wedge compression fracture of fifth lumbar vertebra, initial encounter for closed fracture Condition: Good Disposition: HOME, SELF-CARE Instructions: Low Back Pain ([facility]), Muscle Strain ([facility]) Prescriptions: Tramadol HCl 50 mg PO Q6 #10 tablet Referrals: ALBERTO GARCIA MD [ACTIVE STAFF] - Follow up in 3-5 days RADHA TOURE DO [ACTIVE STAFF] - Follow up as needed
--- NOTE | 2018-03-15 21:30 | RADIOLOGY REPORT (SQ) ---
EXAM DESCRIPTION: PELVIS AP COMPLETED DATE/TIME: 03/15/2018 9:16 pm REASON FOR STUDY: trauma and pain COMPARISON: None. NUMBER OF VIEWS: One view TECHNIQUE: AP Pelvis LIMITATIONS: None. FINDINGS: MINERALIZATION: Normal. HIPS: No acute fracture or dislocation. No worrisome bone lesions. PELVIS AND SACRUM: No acute fracture or dislocation. No worrisome bone lesions. PUBIS AND ISCHIUM: No acute fracture. LOWER LUMBAR SPINE: No significant findings as visualized. SOFT TISSUES: No findings. OTHER: No other significant finding. IMPRESSION: No acute findings. TECHNICAL DOCUMENTATION: JOB ID: [id number] [id number] 2010 [employer]- All Rights Reserved Reading location - IP/workstation name: [email or web address]
--- NOTE | 2018-03-15 21:33 | RADIOLOGY REPORT (SQ) ---
EXAM DESCRIPTION: L SPINE 2 VIEWS COMPLETED DATE/TIME: 03/15/2018 9:17 pm REASON FOR STUDY: Trauma and pain COMPARISON: 11/21/2017 NUMBER OF VIEWS: Three views. TECHNIQUE: AP, lateral, and inferior coned down lateral views of the lumbar spine. LIMITATIONS: None. FINDINGS: MINERALIZATION: Normal. SEGMENTATION: Normal. No transitional anatomy. ALIGNMENT: Normal. VERTEBRAE: 25% compression of the anterior L5 vertebral body, new compared with the October 2017 CT sca n. No other compression deformities. . DISCS: Multilevel disc space narrowing with osteophytes. POSTERIOR ELEMENTS: Pedicles and facets are intact. No pars defect or posterior arch defects. Facet arthropathy is present. HARDWARE: IVC filter. PARASPINAL SOFT TISSUES: Normal. PELVIS: Intact as visualized. No fractures or worrisome bone lesions. SI joints intact. OTHER: No other significant finding. IMPRESSION: 25% compression of the anterior L5 vertebral body, new compared with the October 2017 CT s can. TECHNICAL DOCUMENTATION: JOB ID: [id number] [place]-[id number] 2010 [employer]- All Rights Reserved Reading location - IP/workstation name: [email or web address]
[2018-03-15] MEDS ORDERED: IBUPROFEN 800 MG TABLET PO ONE (22:22)
[2018-03-15 22:30] VITALS: BP 106/63
== END 2018-03-15 22:28 | disposition home or self-care (01) ==
LOC: ER 19:41
DX: S32.050A Wedge compression fracture of fifth lumbar vertebra, initial encounter for closed fracture (principal); M54.5 Low back pain; M06.9 Rheumatoid arthritis, unspecified; W19.XXXA Unspecified fall, initial encounter; I10 Essential (primary) hypertension
CPT/HCPCS: 72100; 72170; 99283

== ENCOUNTER 2018-07-01 09:27 | Emergency (ER) | payer OTHER ==
[2018-07-01] MEDS ORDERED: LORAZEPAM INJ 2 MG/1 ML VIAL IV ONE (09:52)
[2018-07-01] MEDS ORDERED: NORMAL SALINE 1000 ML 1,000 ML IV ONE (09:52)
[2018-07-01] MEDS ORDERED: PROMETHAZINE HCL INJ 50 MG/1 ML VIAL IM PRN (09:52)
--- NOTE | 2018-07-01 09:54 | ER Document Report ---
ED Medical Screen (RME) - General Chief Complaint: Nausea/Vomiting Stated Complaint: VOMITING Time Seen by Provider: 07/01/18 09:48 Notes: 58 years old female presents today with intractable vomiting since last night vomited about 15 times, nauseous and retching. No fever chills or other constitutional symptoms. History of gastric bypass surgery. And rheumatoid arthritis. Seems to be in moderate to severe discomfort with nausea. TRAVEL OUTSIDE OF THE [place] IN LAST 30 DAYS: No - Related Data Allergies/Adverse Reactions: codeine [Codeine] Allergy (Verified 07/01/18 09:29) Past Medical History - Social History Chew tobacco use (# tins/day): No Frequency of alcohol use: None Drug Abuse: None - Past Medical History Cardiac Medical History: Reports: Hx DVT, Hx Heart Attack - 2012?, Hx Hypercholesterolemia, Hx Hypertension Pulmonary Medical History: Denies: Hx Tuberculosis Neurological Medical History: Denies: Hx Seizures Endocrine Medical History: Reports: Hx Hypothyroidism Renal/ Medical History: Denies: Hx Peritoneal Dialysis GI Medical History: Reports: Hx Gastroesophageal Reflux Disease, Hx Colonoscopy , Hx Endoscopy Musculoskeltal Medical History: Reports Hx Arthritis - Rheumatoid arthritis, Reports Hx Musculoskeletal Deformity, Reports Hx Musculoskeletal Trauma Psychiatric Medical History: Reports: Hx Anxiety, Hx Depression Traumatic Medical History: Reports: Hx Fractures - left wrist and right hand Past Surgical History: Reports: Hx Abdominal Surgery - gastric, Hx Bowel Surgery - gastric bypass, Hx Gastric Bypass Surgery, Hx Hysterectomy, Other - Questionable history of heart catheterization about 10 years ago at [facility] - Immunizations Hx Diphtheria, Pertussis, Tetanus Vaccination: Yes History of Influenza Vaccine for 06/2017 - 10/2017 Season: Yes Influenza Administration Date for 06/2017 - 10/2017 Season: 09/01/17 Physical Exam - Vital signs Vitals: Temp Pulse Resp BP Pulse Ox 98.2 F 62 24 H 130/74 H 100 07/01/18 09:37 07/01/18 09:37 07/01/18 09:37 07/01/18 09:37 07/01/18 09:37 Course - Vital Signs Vital signs: Temp Pulse Resp BP Pulse Ox 98.2 F 62 24 H 130/74 H 100 07/01/18 09:37 07/01/18 09:37 07/01/18 09:37 07/01/18 09:37 07/01/18 09:37 Doctor's Discharge - Discharge Referrals: SKYE MARIA MD [Primary Care Provider] - Follow up as needed
[2018-07-01 10:26] LABS: ABSOLUTE EOSINOPHILS # (AUTO) 0.1 10^3/uL (0.0-0.6); ABSOLUTE LYMPHOCYTES (AUTO) 2.1 10^3/uL (0.5-4.7); ABSOLUTE MONOCYTES (AUTO) 0.6 10^3/uL (0.1-1.4); ABSOLUTE NEUT (AUTO) 4.3 10^3/uL (1.7-8.2); BASOPHILS % (AUTO) 0.4 % (0-2); EOSINOPHILS % (AUTO) 1.3 % (0-6); HEMATOCRIT 40.3 % (36.0-47.0); HEMOGLOBIN 13.9 g/dL (12.0-15.5); LYMPHOCYTES % (AUTO) 29.3 % (13-45); MEAN CORPUSCULAR HEMOGLOBIN 31.3 pg (27.0-33.4); MEAN CORPUSCULAR HGB CONC 34.6 g/dL (32.0-36.0); MEAN CORPUSCULAR VOLUME 90 fl (80-97); MONOCYTES % (AUTO) 8.2 % (3-13); PLATELET COUNT 303 10^3/uL (150-450); RED BLOOD COUNT 4.46 10^6/uL (3.72-5.28); RED CELL DISTRIBUTION WIDTH 13.1 % (11.5-14.0); SEGMENTED NEUTROPHILS % (AUTO) 60.8 % (42-78); TOTAL CELLS COUNTED % (AUTO) 100 %; WHITE BLOOD COUNT 7.1 10^3/uL (4.0-10.5)
--- NOTE | 2018-07-01 10:27 | ER Document Report ---
ED General - General Chief Complaint: Nausea/Vomiting Stated Complaint: VOMITING Time Seen by Provider: 07/01/18 09:48 Mode of Arrival: Ambulatory Information source: Patient Notes: 4-year-old female presents emergency department with complaints of nausea vomiting since last night. Patient states that she is thrown up multiple times. She states that her coworkers have similar symptoms. Patient denies any diarrhea, constipation, fever, chills, chest pain, shortness of breath, abdominal pain. Hx of gastric bypass. TRAVEL OUTSIDE OF THE [place] IN LAST 30 DAYS: No - HPI Onset: Yesterday Onset/Duration: Sudden Quality of pain: No pain Severity: None Pain Level: Denies Associated symptoms: Nausea, Vomiting Exacerbated by: Denies Relieved by: Denies Similar symptoms previously: No Recently seen / treated by doctor: No - Related Data Allergies/Adverse Reactions: codeine [Codeine] Allergy (Verified 07/01/18 09:29) Past Medical History - General Information source: Patient - Social History Smoking Status: Never Smoker Chew tobacco use (# tins/day): No Frequency of alcohol use: None Drug Abuse: None Family History: DM, Hypertension, Other - VTE, brother from CHF and DM complications at 49 years old Patient has suicidal ideation: No Patient has homicidal ideation: No - Past Medical History Cardiac Medical History: Reports: Hx DVT, Hx Heart Attack - 2012?, Hx Hypercholesterolemia, Hx Hypertension Pulmonary Medical History: Denies: Hx Tuberculosis Neurological Medical History: Denies: Hx Seizures Endocrine Medical History: Reports: Hx Hypothyroidism Renal/ Medical History: Denies: Hx Peritoneal Dialysis GI Medical History: Reports: Hx Gastroesophageal Reflux Disease, Hx Colonoscopy , Hx Endoscopy Musculoskeletal Medical History: Reports Hx Arthritis - Rheumatoid arthritis, Reports Hx Musculoskeletal Deformity, Reports Hx Musculoskeletal Trauma Psychiatric Medical History: Reports: Hx Anxiety, Hx Depression Traumatic Medical History: Reports: Hx Fractures - left wrist and right hand Past Surgical History: Reports: Hx Abdominal Surgery - gastric, Hx Bowel Surgery - gastric bypass, Hx Gastric Bypass Surgery, Hx Hysterectomy, Other - Questionable history of heart catheterization about 10 years ago at [facility] - Immunizations Hx Diphtheria, Pertussis, Tetanus Vaccination: Yes Hx Pneumococcal Vaccination: 09/01/10 Review of Systems - Review of Systems Constitutional: No symptoms reported EENT: No symptoms reported Cardiovascular: No symptoms reported Respiratory: No symptoms reported Gastrointestinal: Nausea, Vomiting Genitourinary: No symptoms reported Female Genitourinary: No symptoms reported Musculoskeletal: No symptoms reported Skin: No symptoms reported Hematologic/Lymphatic: No symptoms reported Neurological/Psychological: No symptoms reported -: Yes All other systems reviewed and negative Physical Exam - Vital signs Vitals: Temp Pulse Resp BP Pulse Ox 98.2 F 62 24 H 130/74 H 100 07/01/18 09:37 07/01/18 09:37 07/01/18 09:37 07/01/18 09:37 07/01/18 09:37 - General Notes: PHYSICAL EXAMINATION: GENERAL: Well-appearing, well-nourished and in no acute distress. HEAD: Atraumatic, normocephalic. EYES: Pupils equal round and reactive to light, extraocular movements intact, conjunctiva are normal. ENT: Nares patent, oropharynx clear without exudates. Moist mucous membranes. NECK: Normal range of motion, supple without lymphadenopathy LUNGS: Breath sounds clear to auscultation bilaterally and equal. No wheezes rales or rhonchi. HEART: Regular rate and rhythm without murmurs ABDOMEN: Soft, nontender, nondistended abdomen. No guarding, no rebound. No masses appreciated. Female : deferred Musculoskeletal: Normal range of motion, no pitting or edema. No cyanosis. NEUROLOGICAL: Cranial nerves grossly intact. Normal speech, normal gait. Normal sensory, motor exams PSYCH: Normal mood, normal affect. SKIN: Warm, Dry, normal turgor, no rashes or lesions noted. Course - Re-evaluation Re-evalutation: 07/01/18 11:39 Labs and imaging obtained. Potassium low. 40Meq of potassium chloride ordered. 07/01/18 12:10 EKG: Ventricular rate 53, DE interval 148, castration 96, QTc 451, normal sinus rhythm. No ST segment elevation. 07/01/18 13:24 Labs and imaging obtained. No acute process identified. On re-evaluation, patient is feeling better. Nausea and vomiting has resolved. I will discharge patient home. Patient instructed to take medication prescribed as directed, to follow-up with her primary care physician this week, and to return to the emergency department for worsening symptoms. 07/01/18 13:25 - Vital Signs Vital signs: Temp Pulse Resp BP Pulse Ox 97.4 F 54 L 16 107/70 94 07/01/18 13:19 07/01/18 13:19 07/01/18 13:19 07/01/18 13:19 07/01/18 13:19 - Laboratory Result Diagrams: 07/01/18 10:14 07/01/18 10:14 Laboratory results interpreted by me: 07/01/18 07/01/18 10:14 10:36 Potassium 3.3 L Urine Ketones TRACE H Urine Urobilinogen 4.0 H Discharge - Discharge Clinical Impression: Nausea & vomiting Qualifiers: Vomiting type: unspecified Vomiting Intractability: unspecified Qualified Code( s): R11.2 - Nausea with vomiting, unspecified Condition: Good Disposition: HOME, SELF-CARE Instructions: Viral Syndrome ([facility]), Vomiting ([facility]) Prescriptions: Ondansetron [Zofran Odt 4 mg Tablet] 1 tab PO Q4H PRN #15 tab.rapdis PRN Reason: For Nausea/Vomiting Referrals: SKYE MARIA MD [Primary Care Provider] - Follow up as needed
[2018-07-01 10:45] LABS: ALANINE AMINOTRANSFERASE 9 U/L (9-52); ALBUMIN 4.6 g/dL (3.5-5.0); ALKALINE PHOSPHATASE 76 U/L (38-126); ANION GAP 14 (5-19); ASPARTATE AMINO TRANSFERASE 22 U/L (14-36); BILIRUBIN,DIRECT 0.4 mg/dL (0.0-0.4); BILIRUBIN,TOTAL 0.9 mg/dL (0.2-1.3); BLOOD UREA NITROGEN 16 mg/dL (7-20); CALCIUM 10.2 mg/dL (8.4-10.2); CARBON DIOXIDE 27 mmol/L (22-30); CHLORIDE 99 mmol/L (98-107); GLUCOSE 101 mg/dL (75-110); LIPASE 214.9 U/L (23-300); POTASSIUM 3.3 mmol/L (3.6-5.0); SODIUM 140.2 mmol/L (137-145); TOTAL PROTEIN 7.8 g/dL (6.3-8.2)
[2018-07-01 10:56] LABS: APPEARANCE,URINE CLOUDY; BILIRUBIN,URINE NEGATIVE (NEGATIVE); COLOR,URINE YELLOW; GLUCOSE, URINE NEGATIVE (NEGATIVE); KETONES,URINE TRACE mg/dL (NEGATIVE); LEUKOCYTE ESTERASE,URINE NEGATIVE (NEGATIVE); NITRITE,URINE NEGATIVE (NEGATIVE); PROTEIN,URINE NEGATIVE (NEGATIVE); URINE SPECIFIC GRAVITY 1.027
--- NOTE | 2018-07-01 11:11 | RADIOLOGY REPORT (SQ) ---
EXAM DESCRIPTION: ACUTE ABDOMEN SERIES COMPLETED DATE/TIME: 07/01/2018 11:01 am REASON FOR STUDY: Nausea vomiting abdominal pain COMPARISON: None. NUMBER OF VIEWS: Three views. TECHNIQUE: Frontal chest, supine abdomen and upright/decubitus abdomen radiographic images acquired. LIMITATIONS: None. FINDINGS: CHEST: Lungs clear of infiltrates. FREE AIR: None. No abnormal gas collections. BOWEL GAS PATTERN: Nonobstructive pattern. No dilated loops or air fluid levels. CALCIFICATIONS: No suspicious calcifications. HARDWARE: IVC filter. SOFT TISSUES: No gross mass or suggestion of organomegaly. BONES: Scoliosis. OTHER: No other significant finding. IMPRESSION: NO RADIOGRAPHIC EVIDENCE FOR ACUTE ABDOMINAL DISEASE. TECHNICAL DOCUMENTATION: JOB ID: [id number] [employer]- All Rights Reserved Reading location - IP/workstation name: [email or web address]
[2018-07-01] MEDS ORDERED: POTASSIUM CHLORIDE 20 MEQ/15 ML UDCUP PO ONE (11:35)
[2018-07-01 14:26] VITALS: BP 107/67
--- NOTE | 2018-07-01 19:19 | EKG REPORT ---
SEVERITY:- ABNORMAL ECG - SINUS RHYTHM NONSPECIFIC T ABNORMALITIES, ANTERIOR LEADS : Confirmed by: Denise Munoz MD 01-Jul-2018 19:18:47
== END 2018-07-01 14:10 | disposition home or self-care (01) ==
LOC: ER 09:27
DX: R11.2 Nausea with vomiting, unspecified (principal); I10 Essential (primary) hypertension; Z98.84 Bariatric surgery status; Z87.19 Personal history of other diseases of the digestive system; Z88.5 Allergy status to narcotic agent
CPT/HCPCS: 93005; 99284; 96372; 96361; 96374; 36415; 83690; 85025; 80053; 81001; 84484; 74022; 93010; J2060; J2550; J7030

== ENCOUNTER → 2018-09-18 | Outpatient (CLI) | payer OTHER ==
--- NOTE | 2018-09-18 11:25 | RADIOLOGY REPORT (SQ) ---
EXAM DESCRIPTION: CHEST 2 VIEWS COMPLETED DATE/TIME: 09/18/2018 10:07 am REASON FOR STUDY: COUGH (R05) COMPARISON: None. EXAM PARAMETERS: NUMBER OF VIEWS: two views TECHNIQUE: Digital Frontal and Lateral radiographic views of the chest acquired. RADIATION DOSE: NA LIMITATIONS: none FINDINGS: LUNGS AND PLEURA: No opacities, masses or pneumothorax. No pleural effusion. MEDIASTINUM AND HILAR STRUCTURES: No masses or contour abnormalities. HEART AND VASCULAR STRUCTURES: Heart normal size. No evidence for failure. BONES: Scoliosis. HARDWARE: None in the chest. OTHER: No other significant finding. IMPRESSION: Scoliosis. No acute cardiopulmonary findings. TECHNICAL DOCUMENTATION: JOB ID: [id number] [employer]- All Rights Reserved Reading location - IP/workstation name: [email or web address]
--- NOTE | 2018-09-18 11:26 | RADIOLOGY REPORT (SQ) ---
EXAM DESCRIPTION: PARANASAL SINUSES COMPLETED DATE/TIME: 09/18/2018 10:07 am REASON FOR STUDY: COUGH (R05) R05 COUGH COMPARISON: None. NUMBER OF VIEWS: Four views TECHNIQUE: Images of the paranasal sinuses acquired. LIMITATIONS: None. FINDINGS: ORBITS: No fracture. No foreign body. SINUSES: No mucosal thickening. No air fluid levels. FACIAL BONES: No fracture. OTHER: No other significant finding. IMPRESSION: NO FOREIGN BODY OR FRACTURE. NO PLAIN RADIOGRAPHIC EVIDENCE FOR SINUS DISEASE. TECHNICAL DOCUMENTATION: JOB ID: [id number] [employer]- All Rights Reserved Reading location - IP/workstation name: [email or web address]
== END ==
LOC: RAD 09:43
PROVIDERS: ATTEND Internal Medicine
DX: R05 Cough (principal); M41.9 Scoliosis, unspecified
CPT/HCPCS: 70220; 71046

== ENCOUNTER 2018-10-05 11:48 | Inpatient (IN) | payer OTHER ==
[2018-10-05] MEDS: NORMAL SALINE 1000 ML 1,000 ML IV PRN ×2 (13:07→22:36)
[2018-10-05 13:40] LABS: APPEARANCE,URINE CLEAR; BILIRUBIN,URINE NEGATIVE (NEGATIVE); COLOR,URINE STRAW; GLUCOSE, URINE NEGATIVE (NEGATIVE); KETONES,URINE TRACE mg/dL (NEGATIVE); LEUKOCYTE ESTERASE,URINE NEGATIVE (NEGATIVE); NITRITE,URINE NEGATIVE (NEGATIVE); PROTEIN,URINE NEGATIVE (NEGATIVE); URINE SPECIFIC GRAVITY 1.004
[2018-10-05 14:00] LABS: ABSOLUTE LYMPHOCYTES (AUTO) 0.8 10^3/uL (0.5-4.7); ABSOLUTE MONOCYTES (AUTO) 0.5 10^3/uL (0.1-1.4); ABSOLUTE NEUT (AUTO) 8.3 10^3/uL (1.7-8.2); BASOPHILS % (AUTO) 0.2 % (0-2); EOSINOPHILS % (AUTO) 0.4 % (0-6); HEMATOCRIT 34.9 % (36.0-47.0); HEMOGLOBIN 11.9 g/dL (12.0-15.5); LYMPHOCYTES % (AUTO) 8.1 % (13-45); MEAN CORPUSCULAR HEMOGLOBIN 29.7 pg (27.0-33.4); MEAN CORPUSCULAR VOLUME 88 fl (80-97); PLATELET COUNT 186 10^3/uL (150-450); RED BLOOD COUNT 3.99 10^6/uL (3.72-5.28); RED CELL DISTRIBUTION WIDTH 14.1 % (11.5-14.0); SEGMENTED NEUTROPHILS % (AUTO) 86.3 % (42-78); TOTAL CELLS COUNTED % (AUTO) 100 %; WHITE BLOOD COUNT 9.7 10^3/uL (4.0-10.5)
[2018-10-05 14:21] LABS: ALANINE AMINOTRANSFERASE 19 U/L (9-52); ALBUMIN 3.4 g/dL (3.5-5.0); ALKALINE PHOSPHATASE 68 U/L (38-126); ANION GAP 8 (5-19); ASPARTATE AMINO TRANSFERASE 22 U/L (14-36); BILIRUBIN,DIRECT 0.3 mg/dL (0.0-0.4); BLOOD UREA NITROGEN 12 mg/dL (7-20); CALCIUM 8.8 mg/dL (8.4-10.2); CARBON DIOXIDE 29 mmol/L (22-30); CHLORIDE 99 mmol/L (98-107); GLUCOSE 84 mg/dL (75-110); SODIUM 136.3 mmol/L (137-145); TOTAL PROTEIN 5.8 g/dL (6.3-8.2)
[2018-10-05 14:27] LABS: POTASSIUM 2.8 mmol/L (3.6-5.0)
[2018-10-05 14:35] LABS: ERYTHROCYTE SEDIMENTATION RATE 44 mm/hr (0-30)
[2018-10-05] MEDS: HYDROCODONE/ACETAMINOPHEN 10-325 MG TABLET PO PRN ×2 (15:25→22:47)
[2018-10-05] MEDS: ONDANSETRON HCL INJ/PF 4 MG/2 ML SDV IV SCH ×2 (15:26→22:22)
[2018-10-05] MEDS: POTASSIUM CHLORIDE 20 MEQ/50 ML RTU IV SCH ×3 (15:26→19:52)
--- NOTE | 2018-10-05 15:47 | RADIOLOGY REPORT (SQ) ---
EXAM DESCRIPTION: CHEST SINGLE VIEW COMPLETED DATE/TIME: 10/05/2018 3:32 pm REASON FOR STUDY: VOMITING/ HYPERTENSION COMPARISON: 09/18/2018 EXAM PARAMETERS: NUMBER OF VIEWS: One view. TECHNIQUE: Single frontal radiographic view of the chest acquired. RADIATION DOSE: NA LIMITATIONS: None. FINDINGS: LUNGS AND PLEURA: Hazy ground-glass attenuation in the lower left lung. No focal consolid ation. The right lung is clear. MEDIASTINUM AND HILAR STRUCTURES: No masses. Contour normal. HEART AND VASCULAR STRUCTURES: Heart normal in size. Normal vasculature. BONES: No acute findings. HARDWARE: None in the chest. OTHER: No other significant finding. IMPRESSION: Atelectasis or early pneumonia left lower lobe. TECHNICAL DOCUMENTATION: JOB ID: [id number] [employer]- All Rights Reserved Reading location - IP/workstation name: [email or web address]
[2018-10-05] MEDS: ALPRAZOLAM 0.5 MG TABLET PO PRN (15:57)
--- NOTE | 2018-10-05 16:33 | RADIOLOGY REPORT (SQ) ---
EXAM DESCRIPTION: CT ABD/PELVIS WITH IV ONLY COMPLETED DATE/TIME: 10/05/2018 4:22 pm REASON FOR STUDY: VOMITING/ HYPERTENSION COMPARISON: None. TECHNIQUE: CT scan of the abdomen and pelvis performed using helical scanning technique with dynamic intravenous contrast injection. No oral contrast. Images reviewed with lung, soft tissue, and bone windows. Reconstructed coronal and sagittal MPR images reviewed. Delayed images for evaluation of the urinary system also acquired. All images stored on PACS. All CT scanners at this facility use dose modulation, iterative reconstruction, and/or weight based d osing when appropriate to reduce radiation dose to as low as reasonably achievable (ALARA). [facility]: Dose Right [facility]: CareDose [facility]: Dose Right [facility]: Teradose 4D [facility]: SuiteLinq CONTRAST TYPE AND DOSE: contrast/concentration: Isovue 350.00 mg/ml; Total Contrast Delivered: 79.0 ml; Total Saline Delivered: 68.0 ml RENAL FUNCTION: GFR > 60. RADIATION DOSE: CT Rad equipment meets quality standard of care and radiation dose reduction techniq ues were employed. CTDIvol: 9.5 - 10.8 mGy. DLP: 1045 mGy-cm.. LIMITATIONS: None. FINDINGS: LOWER CHEST: Airspace disease in the left lower lobe. LIVER: Normal size. No masses. No dilated ducts. SPLEEN: Normal size. No focal lesions. PANCREAS: No masses. No significant calcifications. No adjacent inflammation or peripancreatic fluid collections. Pancreatic duct not dilated. GALLBLADDER: Surgically absent. ADRENAL GLANDS: No significant masses or asymmetry. RIGHT KIDNEY AND URETER: No solid masses. No significant calcifications. No hydronephrosis or hyd roureter. LEFT KIDNEY AND URETER: No solid masses. No significant calcifications. No hydronephrosis or hydr oureter. AORTA AND VESSELS: IVC filter. No aneurysm. No dissection. Renal arteries, SMA, celiac without steno sis. RETROPERITONEUM: No retroperitoneal adenopathy, hemorrhage or masses. BOWEL AND PERITONEAL CAVITY: Prior gastric bypass. No evidence of bowel obstruction. No ascites or free air. APPENDIX: Surgically absent. PELVIS: No mass. No free fluid. Normal bladder. ABDOMINAL WALL: No significant hernia. BONES: Nothing acute. OTHER: No other significant finding. IMPRESSION: 1. No evidence of bowel obstruction. 2. Left lower lobe atelectasis or pneumonia. TECHNICAL DOCUMENTATION: JOB ID: [id number] Quality ID # [id number]: Final reports with documentation of one or more dose reduction techniques (e.g., Au tomated exposure control, adjustment of the mA and/or kV according to patient size, use of iterative reconstruction technique) 2010 [employer]- All Rights Reserved Reading location - IP/workstation name: [email or web address]-
[2018-10-05] MEDS ORDERED: ALPRAZOLAM 0.5 MG TABLET PO PRN (19:55)
[2018-10-05] MEDS ORDERED: IPRATROPIUM/ALBUTEROL 0.5-2.5 MG/3 ML AMPUL NEB PRN (19:55)
[2018-10-05] MEDS ORDERED: HYDROCODONE/ACETAMINOPHEN 10-325 MG TABLET PO SCH (20:15)
--- NOTE | 2018-10-05 21:31 | PDOC H&P ---
History of Present Illness Admission Date/PCP: 10/05/18 11:48 ALBERTO GARCIA MD History of Present Illness: GONZALO FITZGERALD is a 58 year old female, She came to the office this morning for evaluation of persistent vomiting, fever, low blood pressure, in the office she was found to be febrile with temperature of 101, the blood pressure recorded was was low. She was advised to be admitted to the hospital for further evaluation. The metabolic profile that was analyzed demonstrated hypokalemia with serum potassium of 2.8, CT scan of the pelvis and abdomen was done with IV contrast t here was no acute pathology demonstrated from the CT scan but she was found to have left lower lobe pneumonia which also was demonstrated on the chest x-ray. On direct questioning she admitted to coughing, the cough is pleuritic in nature. She has a history of rheumatoid arthritis, other comorbid conditions include left cerebellar infarction with tremors. Past Medical History Cardiac Medical History: Reports: DVT, Hyperlipidema, Hypertension Neurological Medical History: Reports: Other - Cerebellar infarction with tremors Endocrine Medical History: Reports: Hypothyroidism GI Medical History: Reports: Gastroesophageal Reflux Disease Musculoskeltal Medical History: Reports: Arthritis - Rheumatoid arthritis Psychiatric Medical History: Reports: Depression Past Surgical History Past Surgical History: Reports: Gastric Bypass Surgery, Hysterectomy, Other - Questionable history of heart catheterization about 10 years ago at [facility] Social History Smoking Status: Never Smoker Frequency of Alcohol Use: Rare Hx Recreational Drug Use: No Drugs: None Hx Prescription Drug Abuse: No Family History Family History: DM, Hypertension, Other - VTE, brother from CHF and DM complications at 49 years old Parental Family History Reviewed: Yes Children Family History Reviewed: Yes Sibling(s) Family History Reviewed.: Yes Medication/Allergy Home Medications: Alprazolam [Xanax 0.5 mg Tablet] 0.5 mg PO Q12HP PRN 10/05/18 Aspirin [Ecotrin 81 mg EC Tablet] 81 mg PO DAILY 10/05/18 Cholecalciferol (Vitamin D3) [Vitamin D3 1000 Unit Tablet] 1,000 unit PO DAILY 10/05/18 Clonazepam [Klonopin] 0.5 mg PO DAILY 10/05/18 Cyanocobalamin (Vitamin B-12) [Vitamin B-12 1000 mcg Tablet] 1,000 mcg PO DAILY 10/05/18 Hydrocodone Bit/Acetaminophen [Hydrocodon-Acetaminophn 10-325] 1 tab PO Q6 10/05/18 Levothyroxine Sodium [Synthroid 0.112 mg Tablet] 0.112 mg PO Q6AM 10/05/18 Metoprolol Tartrate [Lopressor 25 mg Tablet] 25 mg PO DAILY 10/05/18 Omeprazole 20 mg PO DAILY 10/05/18 Phenylephrine HCl/Prometh HCl [Promethazine-Phenylephrine Syr] 5 ml PO Q6HP PRN 10/05/18 Pregabalin [Lyrica 75 mg Capsule] 75 mg PO Q12 10/05/18 Primidone [Mysoline 50 mg Tablet] 50 mg PO DAILY 10/05/18 Simvastatin [Zocor 40 mg Tablet] 40 mg PO QPM 10/05/18 Topiramate [Topamax] 50 mg PO Q12 10/05/18 Triamterene/Hydrochlorothiazid [Triamterene-Hctz 37.5-25 mg Cp] 1 tab PO DAILY 10/05/18 Allergies/Adverse Reactions: codeine [Codeine] Allergy (Verified 07/01/18 09:29) Review of Systems Constitutional: ABSENT: chills, fever(s), headache(s), weight gain, weight loss Eyes: ABSENT: visual disturbances Ears: ABSENT: hearing changes Cardiovascular: ABSENT: chest pain, dyspnea on exertion, edema, orthropnea, palpitations Respiratory: ABSENT: cough, hemoptysis Gastrointestinal: PRESENT: nausea, vomiting Genitourinary: ABSENT: dysuria, hematuria Musculoskeletal: ABSENT: joint swelling Integumentary: ABSENT: rash, wounds Neurological: ABSENT: abnormal gait, abnormal speech, confusion, dizziness, focal weakness, syncope Psychiatric: ABSENT: anxiety, depression, homidical ideation, suicidal ideation Endocrine: ABSENT: cold intolerance, heat intolerance, menstrual abnormalities, polydipsia, polyuria Hematologic/Lymphatic: ABSENT: easy bleeding, easy bruising, lymphadenopathy Physical Exam Vital Signs: Temp Pulse Resp BP Pulse Ox 98.7 F 83 18 104/78 96 10/05/18 19:23 10/05/18 19:23 10/05/18 19:23 10/05/18 19:23 10/05/18 19:23 Intake & Output 10/04/18 10/05/18 10/06/18 06:59 06:59 06:59 Intake Total 742 Output Total 650 Balance 92 Weight 69.003 kg General appearance: PRESENT: no acute distress Head exam: PRESENT: atraumatic, normocephalic Eye exam: PRESENT: PERRLA Ear exam: PRESENT: normal external ear exam Mouth exam: PRESENT: moist, tongue midline Neck exam: PRESENT: full ROM Respiratory exam: PRESENT: rhonchi Cardiovascular exam: PRESENT: RRR, +S1, +S2 Pulses: PRESENT: normal dorsalis pedis pul, +2 pedal pulses bilateral Vascular exam: PRESENT: normal capillary refill GI/Abdominal exam: PRESENT: normal bowel sounds, soft Rectal exam: PRESENT: deferred Neurological exam: PRESENT: alert, awake, oriented to person, oriented to place, oriented to time, oriented to situation, CN II-XII grossly intact Psychiatric exam: PRESENT: appropriate affect, normal mood Skin exam: PRESENT: dry, intact, warm Results Laboratory Results: 10/05/18 13:37 10/05/18 13:37 10/05/18 10/05/18 10/05/18 13:10 13:37 13:37 WBC 9.7 RBC 3.99 Hgb 11.9 L Hct 34.9 L MCV 88 MCH 29.7 MCHC 34.0 RDW 14.1 H Plt Count 186 Seg Neutrophils % 86.3 H Lymphocytes % 8.1 L Monocytes % 5.0 Eosinophils % 0.4 Basophils % 0.2 Absolute Neutrophils 8.3 H Absolute Lymphocytes 0.8 Absolute Monocytes 0.5 Absolute Eosinophils 0.0 Absolute Basophils 0.0 Sodium 136.3 L Potassium 2.8 L* Chloride 99 Carbon Dioxide 29 Anion Gap 8 BUN 12 Creatinine 0.56 Est GFR ( Amer) > 60 Est GFR (Non-Af Amer) > 60 Glucose 84 Calcium 8.8 Total Bilirubin 1.0 AST 22 ALT 19 Alkaline Phosphatase 68 Total Protein 5.8 L Albumin 3.4 L Urine Color STRAW Urine Appearance CLEAR Urine pH 9.0 Ur Specific [place] 1.004 Urine Protein NEGATIVE Urine Glucose (UA) NEGATIVE Urine Ketones TRACE H Urine Blood NEGATIVE Urine Nitrite NEGATIVE Ur Leukocyte Esterase NEGATIVE Urine WBC (Auto) 0 Impressions: Abdomen/Pelvis CT 10/05/18 00:00 IMPRESSION: 1. No evidence of bowel obstruction. 2. Left lower lobe atelectasis or pneumonia. Chest X-Ray 10/05/18 00:00 IMPRESSION: Atelectasis or early pneumonia left lower lobe. Assessment & Plan - Diagnosis (1) Left lower lobe pneumonia Qualifiers: Pneumonia type: due to unspecified organism Qualified Code(s): J18.1 - Lobar pneumonia, unspecified organism Is this a current diagnosis for this admission?: Yes Plan: Start IV antibiotic to cover community-acquired pathogens (2) Hypokalemia Is this a current diagnosis for this admission?: Yes Plan: Hypokalemia secondary to vomiting, replenished serum potassium (3) Rheumatoid arthritis Qualifiers: Rheumatoid arthritis location: unspecified site Rheumatoid factor presence: unspecified presence Qualified Code(s): M06.9 - Rheumatoid arthritis, unspecified Is this a current diagnosis for this admission?: Yes (4) History of cerebellar stroke Is this a current diagnosis for this admission?: Yes (5) Tremor Is this a current diagnosis for this admission?: Yes
[2018-10-05] MEDS ORDERED: LEVOFLOXACIN 750 MG/D5W RTU 750 MG/150 ML RTUPB IV SCH (22:00)
[2018-10-05] MEDS: PREGABALIN 75 MG CAPSULE PO SCH (22:21)
[2018-10-05] MEDS: SIMVASTATIN 40 MG TABLET PO SCH (22:22)
[2018-10-05] MEDS: TOPIRAMATE 25 MG TABLET PO SCH (22:22)
[2018-10-05] MEDS: PRIMIDONE 50 MG TABLET PO SCH (22:26)
[2018-10-05] MEDS: METOPROLOL TARTRATE 25 MG TABLET PO SCH (22:27)
[2018-10-05] MEDS: ASPIRIN 81 MG TABLET, ENT COATED PO SCH (22:27)
[2018-10-05] MEDS: CYANOCOBALAMIN (VITAMIN B-12) 1,000 MCG TABLET PO SCH (22:27)
[2018-10-05] MEDS: CHOLECALCIFEROL (D3) 1,000 UNIT TABLET PO SCH (22:27)
[2018-10-05] MEDS: ENOXAPARIN SODIUM INJ 40 MG/0.4 ML DISP.SYRIN SUBCUT SCH (22:28)
[2018-10-06] MEDS: SIMVASTATIN 40 MG TABLET PO SCH ×2 (00:21→22:17)
[2018-10-06] MEDS: CEFEPIME 1 GM/D5W RTU 1 GM/50 ML RTUPB IV SCH ×3 (01:46→23:31)
[2018-10-06] MEDS: ALPRAZOLAM 0.5 MG TABLET PO PRN ×2 (04:00→22:21)
[2018-10-06] MEDS: LEVOTHYROXINE SODIUM 0.112 MG TABLET PO SCH (05:34)
[2018-10-06] MEDS: HYDROCODONE/ACETAMINOPHEN 10-325 MG TABLET PO PRN ×3 (05:34→23:32)
[2018-10-06] MEDS: LANSOPRAZOLE 15 MG TAB.RAP.DR PO SCH (05:34)
[2018-10-06] MEDS: ONDANSETRON HCL INJ/PF 4 MG/2 ML SDV IV SCH ×3 (05:34→22:18)
[2018-10-06] MEDS: NORMAL SALINE 1000 ML 1,000 ML IV PRN ×2 (09:28→16:01)
[2018-10-06] MEDS: CYANOCOBALAMIN (VITAMIN B-12) 1,000 MCG TABLET PO SCH (09:29)
[2018-10-06] MEDS: ENOXAPARIN SODIUM INJ 40 MG/0.4 ML DISP.SYRIN SUBCUT SCH (09:29)
[2018-10-06] MEDS: ASPIRIN 81 MG TABLET, ENT COATED PO SCH (09:29)
[2018-10-06] MEDS: PRIMIDONE 50 MG TABLET PO SCH (09:29)
[2018-10-06] MEDS: PREGABALIN 75 MG CAPSULE PO SCH ×2 (09:29→22:17)
[2018-10-06] MEDS: CHOLECALCIFEROL (D3) 1,000 UNIT TABLET PO SCH (09:29)
[2018-10-06] MEDS: TOPIRAMATE 25 MG TABLET PO SCH ×2 (09:29→22:18)
[2018-10-06] MEDS: METOPROLOL TARTRATE 25 MG TABLET PO SCH (09:30)
[2018-10-06] MEDS: NYSTATIN/DEXAMETH/DIPHEN SUSP 120 ML PO PRN ×3 (10:47→23:33)
[2018-10-06 12:38] LABS: ANTICHROMATIN AB <0.2 AI (0.0-0.9); CENTROMERE B AB <0.2 AI (0.0-0.9); JO-1 ANTIBODY (ANACOMP) <0.2 AI (0.0-0.9); SJOGREN'S ANTI-SS-B AB <0.2 AI (0.0-0.9); SJOGREN'S SS-A ANTIBODY <0.2 AI (0.0-0.9)
[2018-10-06 15:04] LABS: DNA DOUBLE STRAND ANTIBODY ANA <1 IU/mL (0-9)
[2018-10-06 16:41] LABS: ABSOLUTE EOSINOPHILS # (AUTO) 0.1 10^3/uL (0.0-0.6); ABSOLUTE LYMPHOCYTES (AUTO) 1.1 10^3/uL (0.5-4.7); ABSOLUTE MONOCYTES (AUTO) 0.5 10^3/uL (0.1-1.4); ABSOLUTE NEUT (AUTO) 4.2 10^3/uL (1.7-8.2); BASOPHILS % (AUTO) 0.2 % (0-2); EOSINOPHILS % (AUTO) 1.1 % (0-6); HEMATOCRIT 32.8 % (36.0-47.0); HEMOGLOBIN 11.1 g/dL (12.0-15.5); LYMPHOCYTES % (AUTO) 18.6 % (13-45); MEAN CORPUSCULAR HGB CONC 33.8 g/dL (32.0-36.0); MEAN CORPUSCULAR VOLUME 89 fl (80-97); MONOCYTES % (AUTO) 8.8 % (3-13); PLATELET COUNT 179 10^3/uL (150-450); RED CELL DISTRIBUTION WIDTH 14.4 % (11.5-14.0); SEGMENTED NEUTROPHILS % (AUTO) 71.3 % (42-78); TOTAL CELLS COUNTED % (AUTO) 100 %
[2018-10-06 17:13] LABS: BLOOD UREA NITROGEN 7 mg/dL (7-20); CALCIUM 7.8 mg/dL (8.4-10.2); CARBON DIOXIDE 22 mmol/L (22-30); CHLORIDE 112 mmol/L (98-107); GLUCOSE 87 mg/dL (75-110); POTASSIUM 3.4 mmol/L (3.6-5.0); SODIUM 138.4 mmol/L (137-145)
[2018-10-06 17:39] LABS: ANION GAP 4 (5-19)
--- NOTE | 2018-10-06 19:58 | PDOC PROGRESS REPORT ---
Subjective Progress Note for:: 10/06/18 Subjective:: Patient was seen by the bedside, she complains of wheezing, she was admitted yesterday for the management of pneumonia, presently on IV antibiotic, she has no more vomiting Reason For Visit: PERSISTENT VOMITING, HYPERTENSION Physical Exam Vital Signs: Temp Pulse Resp BP Pulse Ox 98.2 F 72 16 108/72 97 10/06/18 15:54 10/06/18 15:54 10/06/18 15:54 10/06/18 15:54 10/06/18 15:54 Intake & Output 10/05/18 10/06/18 10/07/18 06:59 06:59 06:59 Intake Total 2562 1770 Output Total 650 500 Balance 1912 1270 Weight 67 kg General appearance: PRESENT: no acute distress Eye exam: PRESENT: PERRLA Respiratory exam: PRESENT: rhonchi Cardiovascular exam: PRESENT: +S1, +S2 GI/Abdominal exam: PRESENT: soft Neurological exam: PRESENT: alert Results Laboratory Results: 10/06/18 16:25 10/06/18 16:25 10/06/18 10/06/18 16:25 16:25 WBC 6.0 RBC 3.70 L Hgb 11.1 L Hct 32.8 L MCV 89 MCH 30.0 MCHC 33.8 RDW 14.4 H Plt Count 179 Seg Neutrophils % 71.3 Lymphocytes % 18.6 Monocytes % 8.8 Eosinophils % 1.1 Basophils % 0.2 Absolute Neutrophils 4.2 Absolute Lymphocytes 1.1 Absolute Monocytes 0.5 Absolute Eosinophils 0.1 Absolute Basophils 0.0 Sodium 138.4 Potassium 3.4 L Chloride 112 H Carbon Dioxide 22 Anion Gap 4 L BUN 7 Creatinine 0.72 Est GFR ( Amer) > 60 Est GFR (Non-Af Amer) > 60 Glucose 87 Calcium 7.8 L Impressions: Abdomen/Pelvis CT 10/05/18 00:00 IMPRESSION: 1. No evidence of bowel obstruction. 2. Left lower lobe atelectasis or pneumonia. Chest X-Ray 10/05/18 00:00 IMPRESSION: Atelectasis or early pneumonia left lower lobe. Assessment & Plan - Diagnosis (1) Left lower lobe pneumonia Qualifiers: Pneumonia type: due to unspecified organism Qualified Code(s): J18.1 - Lobar pneumonia, unspecified organism Is this a current diagnosis for this admission?: Yes Plan: Continue IV antibiotic start DuoNeb nebulizer every 4 hour as needed (2) Hypokalemia Is this a current diagnosis for this admission?: Yes (3) Rheumatoid arthritis Qualifiers: Rheumatoid arthritis location: unspecified site Rheumatoid factor presence: unspecified presence Qualified Code(s): M06.9 - Rheumatoid arthritis, unspecified Is this a current diagnosis for this admission?: Yes (4) History of cerebellar stroke Is this a current diagnosis for this admission?: Yes (5) Tremor Is this a current diagnosis for this admission?: Yes
[2018-10-06] MEDS ORDERED: POTASSI CL 20 MEQ/50 ML RIDER 20 MEQ/50 ML RTUPB IV ONE (21:00)
[2018-10-06] MEDS: LEVOFLOXACIN 750 MG TABLET PO SCH (22:16)
[2018-10-07] MEDS: NORMAL SALINE 1000 ML 1,000 ML IV PRN ×3 (01:13→18:51)
[2018-10-07] MEDS: LEVOTHYROXINE SODIUM 0.112 MG TABLET PO SCH (06:15)
[2018-10-07] MEDS: ONDANSETRON HCL INJ/PF 4 MG/2 ML SDV IV SCH ×4 (06:16→23:41)
[2018-10-07] MEDS: LANSOPRAZOLE 15 MG TAB.RAP.DR PO SCH (06:16)
[2018-10-07] MEDS: NYSTATIN/DEXAMETH/DIPHEN SUSP 120 ML PO PRN ×3 (06:17→18:51)
[2018-10-07] MEDS: HYDROCODONE/ACETAMINOPHEN 10-325 MG TABLET PO PRN ×2 (08:49→18:50)
[2018-10-07] MEDS: PRIMIDONE 50 MG TABLET PO SCH (09:55)
[2018-10-07] MEDS: PREGABALIN 75 MG CAPSULE PO SCH ×2 (09:55→21:20)
[2018-10-07] MEDS: CYANOCOBALAMIN (VITAMIN B-12) 1,000 MCG TABLET PO SCH (09:55)
[2018-10-07] MEDS: ASPIRIN 81 MG TABLET, ENT COATED PO SCH (09:55)
[2018-10-07] MEDS: TOPIRAMATE 25 MG TABLET PO SCH ×2 (09:55→21:19)
[2018-10-07] MEDS: ENOXAPARIN SODIUM INJ 40 MG/0.4 ML DISP.SYRIN SUBCUT SCH (09:55)
[2018-10-07] MEDS: CHOLECALCIFEROL (D3) 1,000 UNIT TABLET PO SCH (09:55)
[2018-10-07] MEDS: METOPROLOL TARTRATE 25 MG TABLET PO SCH (09:55)
[2018-10-07] MEDS: CEFEPIME 1 GM/D5W RTU 1 GM/50 ML RTUPB IV SCH ×2 (12:27→23:34)
[2018-10-07 16:56] LABS: ABSOLUTE EOSINOPHILS # (AUTO) 0.1 10^3/uL (0.0-0.6); ABSOLUTE LYMPHOCYTES (AUTO) 1.4 10^3/uL (0.5-4.7); ABSOLUTE MONOCYTES (AUTO) 0.4 10^3/uL (0.1-1.4); ABSOLUTE NEUT (AUTO) 3.6 10^3/uL (1.7-8.2); BASOPHILS % (AUTO) 0.4 % (0-2); EOSINOPHILS % (AUTO) 1.2 % (0-6); HEMATOCRIT 34.1 % (36.0-47.0); HEMOGLOBIN 11.3 g/dL (12.0-15.5); LYMPHOCYTES % (AUTO) 25.9 % (13-45); MEAN CORPUSCULAR HEMOGLOBIN 29.3 pg (27.0-33.4); MEAN CORPUSCULAR HGB CONC 33.3 g/dL (32.0-36.0); MEAN CORPUSCULAR VOLUME 88 fl (80-97); MONOCYTES % (AUTO) 7.8 % (3-13); PLATELET COUNT 195 10^3/uL (150-450); RED BLOOD COUNT 3.86 10^6/uL (3.72-5.28); RED CELL DISTRIBUTION WIDTH 14.7 % (11.5-14.0); SEGMENTED NEUTROPHILS % (AUTO) 64.7 % (42-78); TOTAL CELLS COUNTED % (AUTO) 100 %; WHITE BLOOD COUNT 5.6 10^3/uL (4.0-10.5)
--- NOTE | 2018-10-07 17:05 | PDOC PROGRESS REPORT ---
Subjective Progress Note for:: 10/07/18 Subjective:: Patient was seen by the bedside, she has multiple ulcers this could be aphthous ulcer versus HSV ulcer Reason For Visit: PERSISTENT VOMITING, HYPERTENSION Physical Exam Vital Signs: Temp Pulse Resp BP Pulse Ox 98.4 F 65 16 124/70 98 10/07/18 11:30 10/07/18 14:00 10/07/18 11:30 10/07/18 11:30 10/07/18 11:30 Intake & Output 10/06/18 10/07/18 10/08/18 06:59 06:59 06:59 Intake Total 2562 2870 1000 Output Total 650 500 Balance 1912 2370 1000 Weight 67 kg 71.9 kg General appearance: PRESENT: no acute distress Eye exam: PRESENT: PERRLA Mouth exam: PRESENT: other - ulcers in the oral mucosa Respiratory exam: PRESENT: clear to auscultation melony Cardiovascular exam: PRESENT: +S1, +S2 GI/Abdominal exam: PRESENT: soft Neurological exam: PRESENT: alert Results Laboratory Results: 10/06/18 16:25 Sodium 138.4 Potassium 3.4 L Chloride 112 H Carbon Dioxide 22 Anion Gap 4 L BUN 7 Creatinine 0.72 Est GFR ( Amer) > 60 Est GFR (Non-Af Amer) > 60 Glucose 87 Calcium 7.8 L 10/05/18 13:10 Clean Catch Midstream Urine Culture - Final Mixed Urogenital Ciera Impressions: Abdomen/Pelvis CT 10/05/18 00:00 IMPRESSION: 1. No evidence of bowel obstruction. 2. Left lower lobe atelectasis or pneumonia. Chest X-Ray 10/05/18 00:00 IMPRESSION: Atelectasis or early pneumonia left lower lobe. Assessment & Plan - Diagnosis (1) Left lower lobe pneumonia Qualifiers: Pneumonia type: due to unspecified organism Qualified Code(s): J18.1 - Lobar pneumonia, unspecified organism Is this a current diagnosis for this admission?: Yes Plan: Continue IV antibiotic (2) Hypokalemia Is this a current diagnosis for this admission?: Yes (3) Rheumatoid arthritis Qualifiers: Rheumatoid arthritis location: unspecified site Rheumatoid factor presence: unspecified presence Qualified Code(s): M06.9 - Rheumatoid arthritis, unspecified Is this a current diagnosis for this admission?: Yes (4) History of cerebellar stroke Is this a current diagnosis for this admission?: Yes (5) Tremor Is this a current diagnosis for this admission?: Yes (6) Oral ulcer Is this a current diagnosis for this admission?: Yes Plan: Differential diagnosis include aphthous ulcer ,HSV , Swab was taken
[2018-10-07 17:10] LABS: BLOOD UREA NITROGEN 4 mg/dL (7-20); CALCIUM 8.2 mg/dL (8.4-10.2); GLUCOSE 89 mg/dL (75-110)
[2018-10-07 17:16] LABS: CARBON DIOXIDE 22 mmol/L (22-30); CHLORIDE 114 mmol/L (98-107); SODIUM 139.9 mmol/L (137-145)
[2018-10-07 17:24] LABS: ANION GAP 4 (5-19)
[2018-10-07] MEDS: SIMVASTATIN 40 MG TABLET PO SCH (21:19)
[2018-10-07] MEDS: LEVOFLOXACIN 750 MG TABLET PO SCH (21:20)
[2018-10-07] MEDS: ALPRAZOLAM 0.5 MG TABLET PO PRN (21:23)
[2018-10-08] MEDS: HYDROCODONE/ACETAMINOPHEN 10-325 MG TABLET PO PRN ×2 (04:53→18:13)
[2018-10-08 05:17] LABS: ABSOLUTE EOSINOPHILS # (AUTO) 0.1 10^3/uL (0.0-0.6); ABSOLUTE LYMPHOCYTES (AUTO) 1.4 10^3/uL (0.5-4.7); ABSOLUTE MONOCYTES (AUTO) 0.4 10^3/uL (0.1-1.4); ABSOLUTE NEUT (AUTO) 4.4 10^3/uL (1.7-8.2); BASOPHILS % (AUTO) 0.3 % (0-2); EOSINOPHILS % (AUTO) 2.1 % (0-6); HEMATOCRIT 36.1 % (36.0-47.0); HEMOGLOBIN 12.1 g/dL (12.0-15.5); LYMPHOCYTES % (AUTO) 21.6 % (13-45); MEAN CORPUSCULAR HEMOGLOBIN 29.7 pg (27.0-33.4); MEAN CORPUSCULAR HGB CONC 33.4 g/dL (32.0-36.0); MEAN CORPUSCULAR VOLUME 89 fl (80-97); MONOCYTES % (AUTO) 6.6 % (3-13); PLATELET COUNT 205 10^3/uL (150-450); RED BLOOD COUNT 4.05 10^6/uL (3.72-5.28); RED CELL DISTRIBUTION WIDTH 14.6 % (11.5-14.0); SEGMENTED NEUTROPHILS % (AUTO) 69.4 % (42-78); TOTAL CELLS COUNTED % (AUTO) 100 %; WHITE BLOOD COUNT 6.3 10^3/uL (4.0-10.5)
[2018-10-08] MEDS: NORMAL SALINE 1000 ML 1,000 ML IV PRN (05:40)
[2018-10-08 05:45] LABS: ANION GAP 6 (5-19); BLOOD UREA NITROGEN 7 mg/dL (7-20); CALCIUM 8.1 mg/dL (8.4-10.2); CARBON DIOXIDE 20 mmol/L (22-30); CHLORIDE 116 mmol/L (98-107); GLUCOSE 86 mg/dL (75-110); POTASSIUM 4.3 mmol/L (3.6-5.0); SODIUM 142.3 mmol/L (137-145)
[2018-10-08] MEDS: LEVOTHYROXINE SODIUM 0.112 MG TABLET PO SCH (06:05)
[2018-10-08] MEDS: LANSOPRAZOLE 15 MG TAB.RAP.DR PO SCH (06:05)
[2018-10-08] MEDS: ONDANSETRON HCL INJ/PF 4 MG/2 ML SDV IV SCH ×3 (06:06→21:33)
[2018-10-08] MEDS: PREGABALIN 75 MG CAPSULE PO SCH ×2 (09:07→21:36)
[2018-10-08] MEDS: CYANOCOBALAMIN (VITAMIN B-12) 1,000 MCG TABLET PO SCH (09:07)
[2018-10-08] MEDS: ASPIRIN 81 MG TABLET, ENT COATED PO SCH (09:07)
[2018-10-08] MEDS: PRIMIDONE 50 MG TABLET PO SCH (09:08)
[2018-10-08] MEDS: CHOLECALCIFEROL (D3) 1,000 UNIT TABLET PO SCH (09:08)
[2018-10-08] MEDS: TOPIRAMATE 25 MG TABLET PO SCH ×2 (09:08→21:36)
[2018-10-08] MEDS: METOPROLOL TARTRATE 25 MG TABLET PO SCH (09:08)
[2018-10-08] MEDS: FOLIC ACID 1 MG TABLET PO SCH (09:08)
[2018-10-08] MEDS: ENOXAPARIN SODIUM INJ 40 MG/0.4 ML DISP.SYRIN SUBCUT SCH (09:08)
[2018-10-08] MEDS: NYSTATIN/DEXAMETH/DIPHEN SUSP 120 ML PO PRN ×2 (09:09→18:13)
[2018-10-08] MEDS: ALPRAZOLAM 0.5 MG TABLET PO PRN ×2 (09:14→21:36)
[2018-10-08] MEDS: CEFEPIME 1 GM/D5W RTU 1 GM/50 ML RTUPB IV SCH ×2 (10:40→22:53)
[2018-10-08 16:39] LABS: ABSOLUTE EOSINOPHILS # (AUTO) 0.1 10^3/uL (0.0-0.6); ABSOLUTE LYMPHOCYTES (AUTO) 1.5 10^3/uL (0.5-4.7); ABSOLUTE MONOCYTES (AUTO) 0.4 10^3/uL (0.1-1.4); ABSOLUTE NEUT (AUTO) 3.3 10^3/uL (1.7-8.2); BASOPHILS % (AUTO) 0.4 % (0-2); EOSINOPHILS % (AUTO) 2.6 % (0-6); HEMATOCRIT 33.7 % (36.0-47.0); HEMOGLOBIN 11.3 g/dL (12.0-15.5); MEAN CORPUSCULAR HEMOGLOBIN 29.6 pg (27.0-33.4); MEAN CORPUSCULAR HGB CONC 33.5 g/dL (32.0-36.0); MEAN CORPUSCULAR VOLUME 88 fl (80-97); MONOCYTES % (AUTO) 7.8 % (3-13); PLATELET COUNT 223 10^3/uL (150-450); RED BLOOD COUNT 3.81 10^6/uL (3.72-5.28); RED CELL DISTRIBUTION WIDTH 14.6 % (11.5-14.0); SEGMENTED NEUTROPHILS % (AUTO) 61.2 % (42-78); TOTAL CELLS COUNTED % (AUTO) 100 %; WHITE BLOOD COUNT 5.4 10^3/uL (4.0-10.5)
[2018-10-08 17:13] LABS: BLOOD UREA NITROGEN 7 mg/dL (7-20); CALCIUM 8.4 mg/dL (8.4-10.2); GLUCOSE 101 mg/dL (75-110); POTASSIUM 3.7 mmol/L (3.6-5.0)
[2018-10-08 17:18] LABS: CARBON DIOXIDE 22 mmol/L (22-30); CHLORIDE 114 mmol/L (98-107); SODIUM 139.7 mmol/L (137-145)
[2018-10-08 17:30] LABS: ANION GAP 4 (5-19)
--- NOTE | 2018-10-08 20:43 | PDOC PROGRESS REPORT ---
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 x1 dose Reason For Visit: PERSISTENT VOMITING, HYPERTENSION Physical Exam Vital Signs: Temp Pulse Resp BP Pulse Ox 98.2 F 72 18 112/66 95 10/08/18 15:35 10/08/18 15:35 10/08/18 15:35 10/08/18 15:35 10/08/18 15:35 Intake & Output 10/07/18 10/08/18 10/09/18 06:59 06:59 06:59 Intake Total 2870 4357 2897 Output Total 500 Balance 2370 4357 2897 Weight 71.9 kg 71.9 kg General appearance: PRESENT: no acute distress Eye exam: PRESENT: PERRLA Throat exam: PRESENT: other - mouth ulcers Respiratory exam: PRESENT: clear to auscultation melony Cardiovascular exam: PRESENT: +S1, +S2 GI/Abdominal exam: PRESENT: soft Results Laboratory Results: 10/08/18 16:30 10/08/18 16:30 10/08/18 10/08/18 10/08/18 04:52 04:52 16:30 WBC 6.3 5.4 RBC 4.05 3.81 Hgb 12.1 11.3 L Hct 36.1 33.7 L MCV 89 88 MCH 29.7 29.6 MCHC 33.4 33.5 RDW 14.6 H 14.6 H Plt Count 205 223 Seg Neutrophils % 69.4 61.2 Lymphocytes % 21.6 28.0 Monocytes % 6.6 7.8 Eosinophils % 2.1 2.6 Basophils % 0.3 0.4 Absolute Neutrophils 4.4 3.3 Absolute Lymphocytes 1.4 1.5 Absolute Monocytes 0.4 0.4 Absolute Eosinophils 0.1 0.1 Absolute Basophils 0.0 0.0 Sodium 142.3 Potassium 4.3 Chloride 116 H Carbon Dioxide 20 L Anion Gap 6 BUN 7 Creatinine 0.66 Est GFR ( Amer) > 60 Est GFR (Non-Af Amer) > 60 Glucose 86 Calcium 8.1 L 10/08/18 16:30 WBC RBC Hgb Hct MCV MCH MCHC RDW Plt Count Seg Neutrophils % Lymphocytes % Monocytes % Eosinophils % Basophils % Absolute Neutrophils Absolute Lymphocytes Absolute Monocytes Absolute Eosinophils Absolute Basophils Sodium 139.7 Potassium 3.7 Chloride 114 H Carbon Dioxide 22 Anion Gap 4 L BUN 7 Creatinine 0.53 Est GFR ( Amer) > 60 Est GFR (Non-Af Amer) > 60 Glucose 101 Calcium 8.4 Impressions: Abdomen/Pelvis CT 10/05/18 00:00 IMPRESSION: 1. No evidence of bowel obstruction. 2. Left lower lobe atelectasis or pneumonia. Chest X-Ray 10/05/18 00:00 IMPRESSION: Atelectasis or early pneumonia left lower lobe. Assessment & Plan - Diagnosis (1) Left lower lobe pneumonia Qualifiers: Pneumonia type: due to unspecified organism Qualified Code(s): J18.1 - Lobar pneumonia, unspecified organism Is this a current diagnosis for this admission?: Yes (2) Hypokalemia Is this a current diagnosis for this admission?: Yes (3) Rheumatoid arthritis Qualifiers: Rheumatoid arthritis location: unspecified site Rheumatoid factor presence: unspecified presence Qualified Code(s): M06.9 - Rheumatoid arthritis, unspecified Is this a current diagnosis for this admission?: Yes (4) History of cerebellar stroke Is this a current diagnosis for this admission?: Yes (5) Tremor Is this a current diagnosis for this admission?: Yes (6) Oral ulcer Is this a current diagnosis for this admission?: Yes Plan: Start Valtrex 2 g p.o. x 1 dose
[2018-10-08] MEDS: SIMVASTATIN 40 MG TABLET PO SCH (21:36)
[2018-10-08] MEDS: LEVOFLOXACIN 750 MG TABLET PO SCH (21:36)
[2018-10-08] MEDS ORDERED: VALACYCLOVIR HCL 500 MG TABLET PO ONE (22:00)
[2018-10-09] MEDS: HYDROCODONE/ACETAMINOPHEN 10-325 MG TABLET PO PRN ×2 (05:28→17:42)
[2018-10-09] MEDS: LEVOTHYROXINE SODIUM 0.112 MG TABLET PO SCH (05:29)
[2018-10-09] MEDS: ONDANSETRON HCL INJ/PF 4 MG/2 ML SDV IV SCH ×3 (05:29→21:29)
[2018-10-09] MEDS: LANSOPRAZOLE 15 MG TAB.RAP.DR PO SCH (05:30)
[2018-10-09] MEDS: CYANOCOBALAMIN (VITAMIN B-12) 1,000 MCG TABLET PO SCH (09:37)
[2018-10-09] MEDS: FOLIC ACID 1 MG TABLET PO SCH (09:37)
[2018-10-09] MEDS: ENOXAPARIN SODIUM INJ 40 MG/0.4 ML DISP.SYRIN SUBCUT SCH (09:37)
[2018-10-09] MEDS: PRIMIDONE 50 MG TABLET PO SCH (09:37)
[2018-10-09] MEDS: PREGABALIN 75 MG CAPSULE PO SCH ×2 (09:37→21:29)
[2018-10-09] MEDS: TOPIRAMATE 25 MG TABLET PO SCH ×2 (09:38→21:29)
[2018-10-09] MEDS: METOPROLOL TARTRATE 25 MG TABLET PO SCH (09:43)
[2018-10-09] MEDS: CEFEPIME 1 GM/D5W RTU 1 GM/50 ML RTUPB IV SCH ×2 (13:37→23:54)
[2018-10-09] MEDS: CHOLECALCIFEROL (D3) 1,000 UNIT TABLET PO SCH (13:43)
[2018-10-09] MEDS: ASPIRIN 81 MG TABLET, ENT COATED PO SCH (13:43)
[2018-10-09 15:42] LABS: ABSOLUTE EOSINOPHILS # (AUTO) 0.2 10^3/uL (0.0-0.6); ABSOLUTE LYMPHOCYTES (AUTO) 1.8 10^3/uL (0.5-4.7); ABSOLUTE MONOCYTES (AUTO) 0.4 10^3/uL (0.1-1.4); ABSOLUTE NEUT (AUTO) 2.7 10^3/uL (1.7-8.2); BASOPHILS % (AUTO) 0.2 % (0-2); EOSINOPHILS % (AUTO) 3.3 % (0-6); HEMATOCRIT 32.7 % (36.0-47.0); HEMOGLOBIN 11.2 g/dL (12.0-15.5); MEAN CORPUSCULAR HEMOGLOBIN 30.1 pg (27.0-33.4); MEAN CORPUSCULAR HGB CONC 34.1 g/dL (32.0-36.0); MEAN CORPUSCULAR VOLUME 88 fl (80-97); MONOCYTES % (AUTO) 8.7 % (3-13); PLATELET COUNT 216 10^3/uL (150-450); RED BLOOD COUNT 3.71 10^6/uL (3.72-5.28); RED CELL DISTRIBUTION WIDTH 14.5 % (11.5-14.0); SEGMENTED NEUTROPHILS % (AUTO) 52.8 % (42-78); TOTAL CELLS COUNTED % (AUTO) 100 %; WHITE BLOOD COUNT 5.1 10^3/uL (4.0-10.5)
[2018-10-09 16:00] LABS: ANION GAP 6 (5-19); BLOOD UREA NITROGEN 9 mg/dL (7-20); CALCIUM 8.6 mg/dL (8.4-10.2); CARBON DIOXIDE 22 mmol/L (22-30); CHLORIDE 111 mmol/L (98-107); GLUCOSE 94 mg/dL (75-110); POTASSIUM 3.8 mmol/L (3.6-5.0); SODIUM 138.5 mmol/L (137-145)
[2018-10-09] MEDS: NYSTATIN/DEXAMETH/DIPHEN SUSP 120 ML PO PRN (17:43)
--- NOTE | 2018-10-09 20:40 | PDOC DISCHARGE SUMMARY ---
General - Admit/Disc Date/PCP Admission Date/Primary Care Provider: 10/05/18 11:48 ALBERTO GARCIA MD Discharge Date: 10/09/18 - Discharge Diagnosis (1) Left lower lobe pneumonia Is this a current diagnosis for this admission?: Yes (2) Hypokalemia Is this a current diagnosis for this admission?: Yes (3) Rheumatoid arthritis Is this a current diagnosis for this admission?: Yes (4) History of cerebellar stroke Is this a current diagnosis for this admission?: Yes (5) Tremor Is this a current diagnosis for this admission?: Yes (6) Oral ulcer Is this a current diagnosis for this admission?: Yes - Additional Information Home Medications: Alprazolam [Xanax 0.5 mg Tablet] 0.5 mg PO Q12HP PRN 10/05/18 Aspirin [Ecotrin 81 mg EC Tablet] 81 mg PO DAILY 10/05/18 Cholecalciferol (Vitamin D3) [Vitamin D3 1000 Unit Tablet] 1,000 unit PO DAILY 10/05/18 Cyanocobalamin (Vitamin B-12) [Vitamin B-12 1000 mcg Tablet] 1,000 mcg PO DAILY 10/05/18 Hydrocodone Bit/Acetaminophen [Hydrocodon-Acetaminophn 10-325] 1 tab PO Q6 10/05/18 Levothyroxine Sodium [Synthroid 0.112 mg Tablet] 0.112 mg PO Q6AM 10/05/18 Metoprolol Tartrate [Lopressor 25 mg Tablet] 25 mg PO DAILY 10/05/18 Omeprazole 20 mg PO DAILY 10/05/18 Pregabalin [Lyrica 75 mg Capsule] 75 mg PO Q12 10/05/18 Primidone [Mysoline 50 mg Tablet] 50 mg PO DAILY 10/05/18 Simvastatin [Zocor 40 mg Tablet] 40 mg PO QPM 10/05/18 Topiramate [Topamax] 50 mg PO Q12 10/05/18 Triamterene/Hydrochlorothiazid [Triamterene-Hctz 37.5-25 mg Cp] 1 tab PO DAILY 10/05/18 Alprazolam [Xanax 0.5 mg Tablet] 0.5 mg PO Q12HP PRN tablet 10/09/18 Folic Acid [Folvite 1 mg Tablet] 1 mg PO DAILY tablet 10/09/18 Ipratropium/Albuterol Sulfate [Duoneb 3 ml Ampul] 3 ml NEB RTQ4HP PRN vial.neb 10/09/18 History of Present Illness History of Present Illness: GONZALO FITZGERALD is a 58 year old female, She came to the office this morning for evaluation of persistent vomiting, fever, low blood pressure, in the office she was found to be febrile with temperature of 101, the blood pressure recorded was was low. She was advised to be admitted to the hospital for further evaluation. The metabolic profile that was analyzed demonstrated hypokalemia with serum potassium of 2.8, CT scan of the pelvis and abdomen was done with IV contrast there was no acute pathology demonstrated from the CT scan but she was found to have left lower lobe pneumonia which also was demonstrated on the chest x-ray. On direct questioning she admitted to coughing, the cough is pleuritic in nature. She has a history of rheumatoid arthritis, other comorbid conditions include left cerebellar infarction with tremors. Hospital Course Hospital Course: She was admitted for the management of pneumonia, she was treated with IV antibiotic empirically to cover community-acquired pneumonia, she was treated with IV cefepime and Levaquin.No specific pathogen was isolatedShe has ulcer in the oral mucosa, HSV was suspected, she was treated empirically with Valtrex 2 g single dose, swab was taking result is pending Physical Exam Vital Signs: Temp Pulse Resp BP Pulse Ox 98.5 F 61 20 126/82 H 95 10/09/18 19:24 10/09/18 19:24 10/09/18 19:24 10/09/18 19:24 10/09/18 19:24 Intake & Output 10/08/18 10/09/18 10/10/18 06:59 06:59 06:59 Intake Total 4357 2947 1425 Balance 4357 2947 1425 Weight 71.9 kg 73.9 kg General appearance: PRESENT: no acute distress Head exam: PRESENT: atraumatic, normocephalic Eye exam: PRESENT: conjunctiva pink, EOMI, PERRLA Ear exam: PRESENT: normal external ear exam Mouth exam: PRESENT: moist, tongue midline Neck exam: PRESENT: full ROM Respiratory exam: PRESENT: clear to auscultation melony Cardiovascular exam: PRESENT: RRR, +S1, +S2 Pulses: PRESENT: normal dorsalis pedis pul, +2 pedal pulses bilateral Vascular exam: PRESENT: normal capillary refill GI/Abdominal exam: PRESENT: normal bowel sounds, soft Rectal exam: PRESENT: deferred Neurological exam: PRESENT: alert, CN II-XII grossly intact Psychiatric exam: PRESENT: appropriate affect, normal mood Skin exam: PRESENT: dry, intact, warm Results Laboratory Results: 10/09/18 15:37 10/09/18 15:37 10/09/18 10/09/18 15:37 15:37 WBC 5.1 RBC 3.71 L Hgb 11.2 L Hct 32.7 L MCV 88 MCH 30.1 MCHC 34.1 RDW 14.5 H Plt Count 216 Seg Neutrophils % 52.8 Lymphocytes % 35.0 Monocytes % 8.7 Eosinophils % 3.3 Basophils % 0.2 Absolute Neutrophils 2.7 Absolute Lymphocytes 1.8 Absolute Monocytes 0.4 Absolute Eosinophils 0.2 Absolute Basophils 0.0 Sodium 138.5 Potassium 3.8 Chloride 111 H Carbon Dioxide 22 Anion Gap 6 BUN 9 Creatinine 0.56 Est GFR ( Amer) > 60 Est GFR (Non-Af Amer) > 60 Glucose 94 Calcium 8.6 Impressions: Abdomen/Pelvis CT 10/05/18 00:00 IMPRESSION: 1. No evidence of bowel obstruction. 2. Left lower lobe atelectasis or pneumonia. Chest X-Ray 10/05/18 00:00 IMPRESSION: Atelectasis or early pneumonia left lower lobe. Qualifiers - * PATIENT BEING DISCHARGED WITH ANY OF THE FOLLOWING DIAGNOSIS: No
[2018-10-09] MEDS: SIMVASTATIN 40 MG TABLET PO SCH (21:29)
[2018-10-09] MEDS: LEVOFLOXACIN 750 MG TABLET PO SCH (21:29)
[2018-10-09] MEDS: ALPRAZOLAM 0.5 MG TABLET PO PRN (21:31)
[2018-10-10] MEDS: ONDANSETRON HCL INJ/PF 4 MG/2 ML SDV IV SCH (05:27)
[2018-10-10] MEDS: LANSOPRAZOLE 15 MG TAB.RAP.DR PO SCH (05:30)
[2018-10-10] MEDS: LEVOTHYROXINE SODIUM 0.112 MG TABLET PO SCH (05:30)
[2018-10-10] MEDS: HYDROCODONE/ACETAMINOPHEN 10-325 MG TABLET PO PRN ×2 (05:31→11:50)
[2018-10-10] MEDS: PREGABALIN 75 MG CAPSULE PO SCH (10:50)
[2018-10-10] MEDS: METOPROLOL TARTRATE 25 MG TABLET PO SCH (10:50)
[2018-10-10] MEDS: FOLIC ACID 1 MG TABLET PO SCH (10:50)
[2018-10-10] MEDS: ALPRAZOLAM 0.5 MG TABLET PO PRN (10:50)
[2018-10-10] MEDS: CHOLECALCIFEROL (D3) 1,000 UNIT TABLET PO SCH (10:50)
[2018-10-10] MEDS: PRIMIDONE 50 MG TABLET PO SCH (10:50)
[2018-10-10] MEDS: CYANOCOBALAMIN (VITAMIN B-12) 1,000 MCG TABLET PO SCH (10:50)
[2018-10-10] MEDS: ASPIRIN 81 MG TABLET, ENT COATED PO SCH (10:50)
[2018-10-10] MEDS: TOPIRAMATE 25 MG TABLET PO SCH (10:51)
[2018-10-10] MEDS: ENOXAPARIN SODIUM INJ 40 MG/0.4 ML DISP.SYRIN SUBCUT SCH (10:51)
[2018-10-10 11:36] VITALS: BP 90/60
[2018-10-10 21:36] LABS: HSV I DNA Positive (Negative)
[2018-10-11 06:18] LABS: HSV II DNA Negative (Negative)
== END 2018-10-10 12:09 | disposition home or self-care (01) | DRG 194 ==
LOC: 3W 11:48
PROVIDERS: ADMIT Internal Medicine; ATTEND Internal Medicine
DX: J18.1 Lobar pneumonia, unspecified organism (principal); B00.2 Herpesviral gingivostomatitis and pharyngotonsillitis; E87.6 Hypokalemia; M06.9 Rheumatoid arthritis, unspecified; I95.9 Hypotension, unspecified; I10 Essential (primary) hypertension; E78.5 Hyperlipidemia, unspecified; E03.9 Hypothyroidism, unspecified; R25.1 Tremor, unspecified; G46.4 Cerebellar stroke syndrome; F32.9 Major depressive disorder, single episode, unspecified; K21.9 Gastro-esophageal reflux disease without esophagitis; I25.2 Old myocardial infarction; Z98.84 Bariatric surgery status; Z90.710 Acquired absence of both cervix and uterus; Z86.718 Personal history of other venous thrombosis and embolism; I69.398 Other sequelae of cerebral infarction; Z83.3 Family history of diabetes mellitus; Z82.49 Family history of ischemic heart disease and other diseases of the circulatory system; Z79.82 Long term (current) use of aspirin; Z79.899 Other long term (current) drug therapy; Z79.890 Hormone replacement therapy; Z88.6 Allergy status to analgesic agent
CPT/HCPCS: 36415; 71045; 74177; 80048; 80076; 81001; 85025; 85652; 86225; 86235; 87040; 87086; 87529; 94640; J0692; J1650; J1956; J2405; J3480; J3490; J7030; J7620

== ENCOUNTER 2018-12-03 19:44 | Inpatient (IN) | payer OTHER ==
[2018-12-03 20:52] LABS: VENOUS BLOOD BASE EXCESS -2.8 mmol/L; VENOUS BLOOD HCO3 24.7 mmol/L (20-32); VENOUS BLOOD PCO2 54.2 mmHg (35-63); VENOUS BLOOD PH 7.28 (7.30-7.42)
[2018-12-03] MEDS ORDERED: NORMAL SALINE 1000 ML 1,000 ML IV ONE (20:55)
--- NOTE | 2018-12-03 20:57 | ER Document Report ---
ED General - General Chief Complaint: Tremor Stated Complaint: TREMORS Time Seen by Provider: 12/03/18 20:40 Notes: Patient is a 58-year-old female with a past medical history of recurrent pneumonias, rheumatoid arthritis, presents with complaints of 24 hours of nausea, vomiting, diarrhea as well as body aches. She notes that she has a mild, cramping, diffuse discomfort to her abdomen that is present prior to episodes of vomiting or diarrhea but not present at this time. Patient also reports a cough. She reports that her symptoms started gradually, have progressed since onset. Nothing seemed to improve or worsen her symptoms. States her symptoms are moderate to severe. Has not seen her primary care doctor regarding today's concerns. States that his symptoms feel somewhat similar to when she has had pneumonia in the past. She has not had fever at home. Denies any headache, neck pain, syncope or confusion. TRAVEL OUTSIDE OF THE [place] IN LAST 30 DAYS: No - Related Data Allergies/Adverse Reactions: codeine [Codeine] Allergy (Verified 07/01/18 09:29) Past Medical History - General Information source: Patient - Social History Smoking Status: Never Smoker Frequency of alcohol use: None Drug Abuse: None Lives with: Spouse/Significant other Family History: DM, Hypertension, Other - VTE, brother from CHF and DM complications at 49 years old - Past Medical History Cardiac Medical History: Reports: Hx DVT, Hx Hypercholesterolemia, Hx Hypertension Endocrine Medical History: Reports: Hx Hypothyroidism Renal/ Medical History: Denies: Hx Peritoneal Dialysis GI Medical History: Reports: Hx Gastroesophageal Reflux Disease, Hx Colonoscopy, Hx Endoscopy Musculoskeletal Medical History: Reports Hx Arthritis - Rheumatoid arthritis, Reports Hx Musculoskeletal Deformity, Reports Hx Musculoskeletal Trauma Psychiatric Medical History: Reports: Hx Anxiety, Hx Depression Traumatic Medical History: Reports: Hx Fractures - left wrist and right hand Past Surgical History: Reports: Hx Abdominal Surgery - gastric, Hx Bowel Surgery - gastric bypass, Hx Gastric Bypass Surgery, Hx Hysterectomy, Other - Questionable history of heart catheterization about 10 years ago at [facility] - Immunizations Hx Diphtheria, Pertussis, Tetanus Vaccination: Yes Hx Pneumococcal Vaccination: 09/01/10 Review of Systems - Review of Systems Notes: Constitutional: Negative for fever. HENT: Negative for sore throat. Eyes: Negative for visual changes. Cardiovascular: Negative for chest pain. Respiratory: Positive for cough Gastrointestinal: Positive for abdominal cramping, vomiting and diarrhea Genitourinary: Negative for dysuria. Musculoskeletal: Negative for back pain. Skin: Negative for rash. Neurological: Negative for headaches, weakness or numbness. 10 point ROS negative except as marked above and in HPI. Physical Exam - Vital signs Vitals: Temp Pulse BP Pulse Ox 99.2 F 106 H 103/63 80 L 12/03/18 20:02 12/03/18 20:02 12/03/18 20:02 12/03/18 20:02 Interpretation: Tachycardic, Hypoxic Notes: PHYSICAL EXAMINATION: GENERAL: Well-appearing, appears moderately unwell acute distress HEAD: Atraumatic, normocephalic. EYES: Pupils equal round and reactive to light, extraocular movements intact, sclera anicteric, conjunctiva are normal. ENT: nares patent, oropharynx clear without exudates. Moderately dry mucous membranes. NECK: Normal range of motion, supple without lymphadenopathy LUNGS: Breath sounds clear to auscultation bilaterally and equal. No wheezes rales or rhonchi. HEART: Regular tachycardia without murmurs ABDOMEN: Soft, nontender, normoactive bowel sounds. No guarding, no rebound. No masses appreciated. EXTREMITIES: Normal range of motion, no pitting or edema. No cyanosis. NEUROLOGICAL: No focal neurological deficits. Moves all extremities spontaneously and on command. Stuttering speech PSYCH: Normal mood, normal affect. SKIN: Warm, Dry, normal turgor, no rashes or lesions noted. Course - Re-evaluation Re-evalutation: 12/03/18 20:56 Patient presents with nausea, vomiting, diarrhea, found to be hypoxic at the time of initial presentation. Patient does not have hypoxia at baseline. On exam patient has no focal abdominal tenderness, rebound or guarding. Has a history of cholecystectomy, no additional abdominal surgical history. The patient denies any abdominal pain by history. Exam is notable for significant dry mucous membranes, mild tachycardia and mild tachypnea. Chest x-ray, labs pending. Will begin IV fluids and antiemetics and reassess 12/03/18 21:27 Patient's labs interestingly show leukopenia, absolute neutrophil count of 0.9 of which she has no history. Her chest x-ray does demonstrate interstitial findings consistent with an interstitial pneumonia in this clinical context. She also has hypokalemia. Given her hypoxemia, finding consistent with pneumonia, leukopenia I have started her on IV levofloxacin. I have also initiated potassium and magnesium repletion. I discussed her case with her primary care physician Dr. Marr who accepted to the [facility]. - Vital Signs Vital signs: Temp Pulse Resp BP Pulse Ox 100.7 F H 93 24 H 118/72 92 12/04/18 01:02 12/04/18 02:00 12/03/18 23:13 12/03/18 23:13 12/03/18 23:13 - Laboratory Result Diagrams: 12/03/18 20:15 12/03/18 20:15 Laboratory results interpreted by me: 12/03/18 12/03/18 12/03/18 20:15 20:15 20:15 WBC 1.2 L* RDW 14.6 H Band Neutrophils % 2 L Abs Neuts (Manual) 0.9 L Abs Lymphs (Manual) 0.3 L Abs Monocytes (Manual) 0.0 L VBG pH 7.28 L Sodium 132.7 L Potassium 2.9 L* Direct Bilirubin 0.5 H AST 48 H - Diagnostic Test Radiology reviewed: Image reviewed, Reports reviewed Radiology results interpreted by me: 12/03/18 21:28 Chest x-ray, interstitial infiltrate most notable in the right lower lobe cons istent with pneumonia Discharge - Discharge Clinical Impression: Interstitial pneumonia, Hypokalemia Neutropenia Qualifiers: Neutropenia type: unspecified Qualified Code(s): D70.9 - Neutropenia, unspecified Condition: Fair Disposition: ADMITTED INPATIENT Admitting Provider: Justa Unit Admitted: [facility]
[2018-12-03 20:58] LABS: HEMATOCRIT 41.5 % (36.0-47.0); MEAN CORPUSCULAR HEMOGLOBIN 29.7 pg (27.0-33.4); MEAN CORPUSCULAR HGB CONC 33.8 g/dL (32.0-36.0); MEAN CORPUSCULAR VOLUME 88 fl (80-97); PLATELET COUNT 179 10^3/uL (150-450); RED BLOOD COUNT 4.72 10^6/uL (3.72-5.28); RED CELL DISTRIBUTION WIDTH 14.6 % (11.5-14.0)
[2018-12-03 21:02] LABS: ALANINE AMINOTRANSFERASE 27 U/L (9-52); ALBUMIN 4.2 g/dL (3.5-5.0); ALKALINE PHOSPHATASE 79 U/L (38-126); ANION GAP 10 (5-19); ASPARTATE AMINO TRANSFERASE 48 U/L (14-36); BILIRUBIN,DIRECT 0.5 mg/dL (0.0-0.4); BILIRUBIN,TOTAL 1.2 mg/dL (0.2-1.3); BLOOD UREA NITROGEN 16 mg/dL (7-20); CALCIUM 9.7 mg/dL (8.4-10.2); CARBON DIOXIDE 25 mmol/L (22-30); CHLORIDE 98 mmol/L (98-107); GLUCOSE 105 mg/dL (75-110); SODIUM 132.7 mmol/L (137-145); TOTAL PROTEIN 7.6 g/dL (6.3-8.2)
[2018-12-03 21:04] LABS: POTASSIUM 2.9 mmol/L (3.6-5.0)
--- NOTE | 2018-12-03 21:10 | RADIOLOGY REPORT (SQ) ---
EXAM DESCRIPTION: Chest single view CLINICAL HISTORY: 58 years Female, sob COMPARISON: 10/05/2018 FINDINGS: There is mild perihilar edema. No pneumothorax or pleural effusion. No focal consolidation. Mediastinum is within normal limits for this positioning. Thoracolumbar scoliosis is again noted. IMPRESSION: 1. Mild central interstitial edema, either mild cardiogenic pulmonary edema or an atypical interstitial pneumonia. 2. No focal acute infiltrate.
[2018-12-03] MEDS ORDERED: LEVOFLOXACIN 750 MG/D5W RTU 750 MG/150 ML RTUPB IV ONE (21:13)
[2018-12-03 21:16] LABS: ABSOLUTE LYMPHOCYTES# (MANUAL) 0.3 10^3/uL (0.5-4.7); ABSOLUTE NEUTROPHILS# (MANUAL) 0.9 10^3/uL (1.7-8.2); BAND NEUTROPHILS % (MANUAL) 2 % (3-5); BASOPHILS % (MANUAL) 0 % (0-2); EOSINOPHILS % (MANUAL) 2 % (0-6); LYMPHOCYTES % (MANUAL) 22 % (13-45); MONOCYTES % (MANUAL) 4 % (3-13); SEGMENTED NEUTROPHILS % (MAN) 70 % (42-78); TOTAL CELLS COUNTED 50
[2018-12-03 21:18] LABS: ANISOCYTOSIS SLIGHT; PLATELET COMMENT ADEQUATE; TOXIC GRANULATION SLIGHT
[2018-12-03 21:19] LABS: WHITE BLOOD COUNT 1.2 10^3/uL (4.0-10.5)
[2018-12-03] MEDS: MAGNESIUM SULFATE/D5W 1 GM/100 ML RTUPB IV SCH ×2 (21:32→21:58)
[2018-12-03] MEDS: POTASSI CL 20 MEQ/50 ML RIDER 20 MEQ/50 ML RTUPB IV SCH ×2 (21:59→23:29)
[2018-12-03 22:20] LABS: A TYPE INFLUENZA AG NEGATIVE (NEGATIVE); B INFLUENZA AG NEGATIVE (NEGATIVE)
[2018-12-03] MEDS ORDERED: LEVOFLOXACIN 750 MG/D5W RTU 750 MG/150 ML RTUPB IV SCH (23:30)
[2018-12-03 23:55] LABS: INTERNATIONAL RATION (INR) 1.03; PARTIAL THROMBOPLASTIN TIME 29.2 SEC (23.5-35.8)
[2018-12-03] MEDS ORDERED: CEFTRIAXONE 1 GM/D5W RTU 1 GM/50 ML RTUPB IV ONE (23:59)
[2018-12-04 00:07] LABS: LIPASE 41.4 U/L (23-300); PHOSPHORUS 1.5 mg/dL (2.5-4.5)
[2018-12-04 00:19] LABS: AMYLASE < 30 U/L (30-110)
[2018-12-04 00:30] LABS: FREE T4 (FREE THYROXINE) 1.58 ng/dL (0.78-2.19)
[2018-12-04 00:44] LABS: THYROID STIMULATING HORMONE 0.42 uIU/mL (0.47-4.68)
[2018-12-04 00:51] LABS: APPEARANCE,URINE CLEAR; BILIRUBIN,URINE NEGATIVE (NEGATIVE); COLOR,URINE YELLOW; GLUCOSE, URINE NEGATIVE (NEGATIVE); KETONES,URINE TRACE mg/dL (NEGATIVE); LEUKOCYTE ESTERASE,URINE NEGATIVE (NEGATIVE); NITRITE,URINE NEGATIVE (NEGATIVE); PROTEIN,URINE NEGATIVE (NEGATIVE); URINE SPECIFIC GRAVITY 1.011; UROBILINOGEN,URINE NEGATIVE mg/dL (<2.0)
[2018-12-04 00:59] LABS: URINE AMPHETAMINES SCREEN NEGATIVE; URINE COCAINE SCREEN NEGATIVE; URINE MARIJUANA (THC) SCREEN NEGATIVE; URINE METHADONE SCREEN NEGATIVE; URINE PHENCYCLIDINE SCREEN NEGATIVE
[2018-12-04] MEDS ORDERED: ACETAMINOPHEN 650 MG SUPP.RECT PR PRN (01:00)
[2018-12-04 01:05] LABS: URINE BARBITURATES SCREEN UNCONFIRMED POSITIVE; URINE BENZODIAZEPINES SCREEN UNCONFIRMED POSITIVE
[2018-12-04 01:19] LABS: CREATINE KINASE MB 0.46 ng/mL (<4.55)
[2018-12-04 01:25] LABS: TROPONIN I < 0.012 ng/mL
[2018-12-04] MEDS: NORMAL SALINE 1000 ML 1,000 ML IV PRN ×3 (01:42→20:46)
[2018-12-04] MEDS: ONDANSETRON HCL INJ/PF 4 MG/2 ML SDV IV PRN (02:34)
[2018-12-04] MEDS: ACETAMINOPHEN 325 MG TABLET PO PRN (03:17)
--- NOTE | 2018-12-04 03:20 | RADIOLOGY REPORT (SQ) ---
EXAM DESCRIPTION: CT CHEST ANGIOGRAPHY WITHOUT THEN WITH IV CONTRAST COMPLETED DATE/TME: 12/04/2018 00:00 CLINICAL HISTORY: 58 years, Female, HYPOXEMIA COMPARISON: Prior CT chest 11/21/2017 TECHNIQUE: 583 Images stored on PACS. All CT scanners at this facility use dose modulation, iterative reconstruction, and/or weight based dosing when appropriate to reduce radiation dose to as low as reasonably achievable (ALARA). Axial images obtained with coronal and sagittal MIPS reconstructions [facility]: Dose Right [facility]: CareDose [facility]: Dose Right [facility]: Teradose 4D [facility]: [employer] LIMITATIONS: None. FINDINGS: Mediastinal vasculature enhances normally. No pulmonary embolus. Mild ectasia of the ascending thoracic aorta. No evidence for dissection. Small hiatal hernia. Heart and pericardium are unremarkable. Osseous structures grossly intact. No pneumothorax. Minor consolidative changes in the lung bases. Groundglass airspace opacities bilaterally. No pneumothorax IMPRESSION: No PE. No aneurysm. No dissection. Groundglass opacities consistent with pneumonitis. Consolidative changes in the lung bases bilaterally. TECHNICAL DOCUMENTATION: Quality ID # [id number]: Final reports with documentation of one or more dose reduction techniques (e.g., Automated exposure control, adjustment of the mA and/or kV according to patient size, use of iterative reconstruction technique) copyright 2010 [employer]- All Rights Reserved
--- NOTE | 2018-12-04 03:28 | RADIOLOGY REPORT (SQ) ---
EXAM DESCRIPTION: CT ABDOMEN PELVIS WITHOUT IV CONTRAST COMPLETED DATE/TME: 12/04/2018 00:00 CLINICAL HISTORY: 58 years, Female, ? SPLENOMEGALY COMPARISON: 10/05/2018 CT TECHNIQUE: 360 Images stored on PACS. All CT scanners at this facility use dose modulation, iterative reconstruction, and/or weight based dosing when appropriate to reduce radiation dose to as low as reasonably achievable (ALARA). [facility]: Dose Right [facility]: CareDose [facility]: Dose Right [facility]: Teradose 4D [facility]: [employer] LIMITATIONS: None. FINDINGS: Airspace opacities in the lung bases bilaterally consistent with pneumonitis. Osseous structures grossly intact. Small hiatal hernia. Post surgical changes in the upper abdomen. Limited evaluation of the liver, spleen, adrenal glands, pancreas, kidneys are unremarkable. Subjective urinary bladder wall thickening. Urinary bladder is not distended. Abundant stool in the colon. No free air or free fluid. The spleen is not enlarged, with maximal diameter 9 cm. IMPRESSION: Bibasilar pneumonitis. Small hiatal hernia. There is no splenomegaly. TECHNICAL DOCUMENTATION: Quality ID # [id number]: Final reports with documentation of one or more dose reduction techniques (e.g., Automated exposure control, adjustment of the mA and/or kV according to patient size, use of iterative reconstruction technique) copyright 2011 [employer]- All Rights Reserved
[2018-12-04] MEDS ORDERED: DEXTROSE 5%-WATER 250 ML with NOREPINEPHRINE BITARTRATE 4 MG IV PRN ×2 (04:16)
[2018-12-04] MEDS ORDERED: NOREPINEPHRINE BITARTRATE INJ/PF 4 MG/4 ML SDV IV ONE (05:25)
[2018-12-04 06:16] LABS: ABSOLUTE LYMPHOCYTES (AUTO) 0.6 10^3/uL (0.5-4.7); ABSOLUTE MONOCYTES (AUTO) 0.4 10^3/uL (0.1-1.4); ABSOLUTE NEUT (AUTO) 6.3 10^3/uL (1.7-8.2); BASOPHILS % (AUTO) 0.1 % (0-2); EOSINOPHILS % (AUTO) 0.2 % (0-6); HEMATOCRIT 33.9 % (36.0-47.0); LYMPHOCYTES % (AUTO) 7.6 % (13-45); MEAN CORPUSCULAR HEMOGLOBIN 29.6 pg (27.0-33.4); MEAN CORPUSCULAR VOLUME 87 fl (80-97); MONOCYTES % (AUTO) 5.1 % (3-13); PLATELET COUNT 181 10^3/uL (150-450); RED BLOOD COUNT 3.89 10^6/uL (3.72-5.28); RED CELL DISTRIBUTION WIDTH 14.4 % (11.5-14.0); TOTAL CELLS COUNTED % (AUTO) 100 %
[2018-12-04 06:28] LABS: ALANINE AMINOTRANSFERASE 19 U/L (9-52); ALBUMIN 2.7 g/dL (3.5-5.0); ALKALINE PHOSPHATASE 46 U/L (38-126); ANION GAP 12 (5-19); ASPARTATE AMINO TRANSFERASE 18 U/L (14-36); BILIRUBIN,DIRECT 0.2 mg/dL (0.0-0.4); BILIRUBIN,TOTAL 0.4 mg/dL (0.2-1.3); BLOOD UREA NITROGEN 10 mg/dL (7-20); CALCIUM 8.4 mg/dL (8.4-10.2); CARBON DIOXIDE 20 mmol/L (22-30); CHLORIDE 104 mmol/L (98-107); CREATINE KINASE 25 U/L (30-135); GLUCOSE 118 mg/dL (75-110); POTASSIUM 3.3 mmol/L (3.6-5.0); SODIUM 136.2 mmol/L (137-145); TOTAL PROTEIN 5.2 g/dL (6.3-8.2); TRIGLYCERIDES 31 mg/dL (<150)
[2018-12-04 06:42] LABS: DIRECT LDL < 30 mg/dL (<100)
[2018-12-04 06:43] LABS: CREATINE KINASE MB < 0.22 ng/mL (<4.55); TROPONIN I < 0.012 ng/mL
[2018-12-04 06:53] LABS: WHITE BLOOD COUNT 7.2 10^3/uL (4.0-10.5)
[2018-12-04 06:54] LABS: HEMOGLOBIN 11.5 g/dL (12.0-15.5)
[2018-12-04] MEDS: HEPARIN SOD (PORCINE) 5,000 UNIT/ML 1 ML SYRINGE SUBCUT SCH ×3 (06:55→22:23)
--- NOTE | 2018-12-04 07:41 | EKG REPORT ---
SEVERITY:- DEFECTIVE ECG - SINUS RHYTHM NONSPECIFIC INTRAVENTRICULAR CONDUCTION DELAY V4-V6 LEADS NO INFORMATION, REPEAT EKG : Confirmed by: Macho Ramirez MD 04-Dec-2018 07:41:09
[2018-12-04 12:59] LABS: CREATINE KINASE MB < 0.22 ng/mL (<4.55); TROPONIN I < 0.012 ng/mL
[2018-12-04] MEDS: LEVOFLOXACIN 750 MG/D5W RTU 750 MG/150 ML RTUPB IV SCH (18:12)
--- NOTE | 2018-12-04 20:56 | PDOC H&P ---
History of Present Illness Admission Date/PCP: 12/03/18 21:37 History of Present Illness: GONZALO FITZGERALD is a 58 year old female, She came to the emergency room for evaluation of multiple symptoms including vomiting diarrhea, generalized body aches and pain. She was evaluated in the emergency room she was found to be hypoxemic, the oxygen saturation was in the low 80s, chest x-ray was done that suggest pneumonitis and subsequent CTA chest was done, it was negative for pulmonary embolism, it demonstrated minor consolidative changes the lung bases, groundglass airspace opacities bilaterally that suggest pneumonia. She was admitted last month for pneumonia. She has a history of rheumatoid arthritis, she was supposed to be on anti-TNF agent, Enbrel but she apparently has not been on the medication, she has no follow-up with oral hygienist as well. She told me an incident that occurred to her recently when she was returning/driving back from [place] from her daughter's place, she was confused, she could not recall the incidents Past Medical History Cardiac Medical History: Reports: DVT, Hyperlipidema, Hypertension Endocrine Medical History: Reports: Hypothyroidism GI Medical History: Reports: Gastroesophageal Reflux Disease Musculoskeltal Medical History: Reports: Arthritis - Rheumatoid arthritis Psychiatric Medical History: Reports: Depression Past Surgical History Past Surgical History: Reports: Gastric Bypass Surgery, Hysterectomy, Other - Questionable history of heart catheterization about 10 years ago at [facility] Social History Lives with: Spouse/Significant other Smoking Status: Never Smoker Frequency of Alcohol Use: None Hx Recreational Drug Use: No Drugs: None Hx Prescription Drug Abuse: No - Advance Directive Resuscitation Status: Full Code Family History Family History: DM, Hypertension, Other - VTE, brother from CHF and DM complications at 49 years old Parental Family History Reviewed: Yes Children Family History Reviewed: Yes Sibling(s) Family History Reviewed.: Yes Medication/Allergy Home Medications: Alprazolam [Xanax 0.25 mg Tablet] 0.25 mg PO BID 12/04/18 Aspirin [Ecotrin 81 mg EC Tablet] 81 mg PO DAILY 12/04/18 Cholecalciferol (Vitamin D3) [Vitamin D3 1000 Unit Tablet] 2,000 unit PO DAILY 12/04/18 Cyanocobalamin (Vitamin B-12) [Vitamin B-12 1000 mcg Tablet] 1,000 mcg PO DAILY 12/04/18 Cyclobenzaprine HCl [Flexeril 10 mg Tablet] 10 mg PO HSP PRN 12/04/18 Hydrocodone/Acetaminophen [Henderson 10-325 mg Tablet] 1 tab PO Q6HP PRN 12/04/18 Levothyroxine Sodium [Synthroid 0.112 mg Tablet] 0.112 mg PO Q6AM 12/04/18 Metoprolol Tartrate [Lopressor 25 mg Tablet] 25 mg PO DAILY 12/04/18 Montelukast Sodium [Singulair 10 mg Tablet] 10 mg PO DAILY 12/04/18 Omeprazole 20 mg PO DAILY 12/04/18 Pregabalin [Lyrica 75 mg Capsule] 75 mg PO Q8 12/04/18 Primidone [Mysoline 50 mg Tablet] 100 mg PO DAILY 12/04/18 Simvastatin [Zocor 40 mg Tablet] 40 mg PO QHS 12/04/18 Topiramate [Topamax] 50 mg PO BID 12/04/18 Triamterene/Hydrochlorothiazid [Triamterene-Hctz 37.5-25 mg Cp] 1 tab PO DAILY 0 12/04/18 Allergies/Adverse Reactions: codeine [Codeine] Allergy (Verified 07/01/18 09:29) Review of Systems Constitutional: PRESENT: chills, fever(s) Eyes: ABSENT: visual disturbances Ears: ABSENT: hearing changes Cardiovascular: ABSENT: chest pain, dyspnea on exertion, edema, orthropnea, palpitations Respiratory: PRESENT: cough. ABSENT: hemoptysis Gastrointestinal: PRESENT: diarrhea, vomiting. ABSENT: abdominal pain, constipation, hematemesis, hematochezia, nausea Genitourinary: ABSENT: dysuria, hematuria Musculoskeletal: ABSENT: joint swelling Integumentary: ABSENT: rash, wounds Neurological: ABSENT: abnormal gait, abnormal speech, confusion, dizziness, focal weakness, syncope Psychiatric: ABSENT: anxiety, depression, homidical ideation, suicidal ideation Endocrine: ABSENT: cold intolerance, heat intolerance, menstrual abnormalities, polydipsia, polyuria Hematologic/Lymphatic: ABSENT: easy bleeding, easy bruising, lymphadenopathy Physical Exam Vital Signs: Temp Pulse Resp BP Pulse Ox 98.2 F 87 19 105/69 98 12/04/18 19:51 12/04/18 18:00 12/04/18 18:00 12/04/18 18:00 12/04/18 18:00 Intake & Output 12/03/18 12/04/1812/05/19 06:59 06:59 06:59 Intake Total 5899 7590 Output Total 1800 2500 Balance -23 -40 Weight 66.7 kg General appearance: PRESENT: mild distress Head exam: PRESENT: atraumatic, normocephalic Eye exam: PRESENT: PERRLA Mouth exam: PRESENT: moist, tongue midline Neck exam: PRESENT: full ROM Respiratory exam: PRESENT: other - She has bibasilar crackles Cardiovascular exam: PRESENT: RRR, +S1, +S2 GI/Abdominal exam: PRESENT: normal bowel sounds, soft Rectal exam: PRESENT: deferred Neurological exam: PRESENT: alert, CN II-XII grossly intact Psychiatric exam: PRESENT: appropriate affect, normal mood Skin exam: PRESENT: dry, intact, warm Results Laboratory Results: 12/04/18 05:45 12/04/18 05:45 12/03/18 12/03/18 12/03/18 20:15 20:15 20:15 WBC 1.2 L* RBC 4.72 Hgb 14.0 Hct 41.5 MCV 88 MCH 29.7 MCHC 33.8 RDW 14.6 H Plt Count 179 Seg Neutrophils % Not Reportable Lymphocytes % Not Reportable Monocytes % Not Reportable Eosinophils % Not Reportable Basophils % Not Reportable Absolute Neutrophils Not Reportable Absolute Lymphocytes Not Reportable Absolute Monocytes Not Reportable Absolute Eosinophils Not Reportable Absolute Basophils Not Reportable VBG pH 7.28 L VBG pCO2 54.2 VBG HCO3 24.7 VBG Base Excess -2.8 Sodium 132.7 L Potassium 2.9 L* Chloride 98 Carbon Dioxide 25 Anion Gap 10 BUN 16 Creatinine 0.73 Est GFR ( Amer) > 60 Est GFR (Non-Af Amer) > 60 Glucose 105 Lactic Acid Calcium 9.7 Phosphorus Magnesium Total Bilirubin 1.2 AST 48 H ALT 27 Alkaline Phosphatase 79 Ammonia Total Protein 7.6 Albumin 4.2 Triglycerides Cholesterol LDL Cholesterol Direct VLDL Cholesterol HDL Cholesterol Amylase Lipase TSH Free T4 Urine Color Urine Appearance Urine pH Ur Specific [place]ell Urine Protein Urine Glucose (UA) Urine Ketones Urine Blood Urine Nitrite Ur Leukocyte Esterase Urine WBC (Auto) Urine RBC (Auto) 12/03/18 12/03/18 12/03/18 21:46 23:30 23:30 WBC RBC Hgb Hct MCV MCH MCHC RDW Plt Count Seg Neutrophils % Lymphocytes % Monocytes % Eosinophils % Basophils % Absolute Neutrophils Absolute Lymphocytes Absolute Monocytes Absolute Eosinophils Absolute Basophils VBG pH VBG pCO2 VBG HCO3 VBG Base Excess Sodium Potassium Chloride Carbon Dioxide Anion Gap BUN Creatinine Est GFR ( Amer) Est GFR (Non-Af Amer) Glucose Lactic Acid 2.0 Calcium Phosphorus 1.5 L Magnesium 2.5 H Total Bilirubin AST ALT Alkaline Phosphatase Ammonia < 8.7 L Total Protein Albumin Triglycerides Cholesterol LDL Cholesterol Direct VLDL Cholesterol HDL Cholesterol Amylase < 30 L Lipase 41.4 TSH Free T4 Urine Color Urine Appearance Urine pH Ur Specific Chassell Urine Protein Urine Glucose (UA) Urine Ketones Urine Blood Urine Nitrite Ur Leukocyte Esterase Urine WBC (Auto) Urine RBC (Auto) 12/03/18 12/04/18 12/04/18 23:30 00:22 05:45 WBC RBC Hgb Hct MCV MCH MCHC RDW Plt Count Seg Neutrophils % Lymphocytes % Monocytes % Eosinophils % Basophils % Absolute Neutrophils Absolute Lymphocytes Absolute Monocytes Absolute Eosinophils Absolute Basophils VBG pH VBG pCO2 VBG HCO3 VBG Base Excess Sodium 136.2 L Potassium 3.3 L Chloride 104 Carbon Dioxide 20 L Anion Gap 12 BUN 10 Creatinine 0.59 Est GFR ( Amer) > 60 Est GFR (Non-Af Amer) > 60 Glucose 118 H Lactic Acid Calcium 8.4 Phosphorus Magnesium Total Bilirubin 0.4 AST 18 ALT 19 Alkaline Phosphatase 46 Ammonia Total Protein 5.2 L Albumin 2.7 L Triglycerides 31 Cholesterol 53.60 LDL Cholesterol Direct < 30 VLDL Cholesterol 6.0 L HDL Cholesterol 40 Amylase Lipase TSH 0.42 L Free T4 1.58 Urine Color YELLOW Urine Appearance CLEAR Urine pH 5.0 Ur Specific Chassell 1.011 Urine Protein NEGATIVE Urine Glucose (UA) NEGATIVE Urine Ketones TRACE H Urine Blood NEGATIVE Urine Nitrite NEGATIVE Ur Leukocyte Esterase NEGATIVE Urine WBC (Auto) 0 Urine RBC (Auto) 0 12/04/18 05:45 WBC 7.2 D RBC 3.89 Hgb 11.5 L D Hct 33.9 L MCV 87 MCH 29.6 MCHC 34.0 RDW 14.4 H Plt Count 181 Seg Neutrophils % 87.0 H Lymphocytes % 7.6 L Monocytes % 5.1 Eosinophils % 0.2 Basophils % 0.1 Absolute Neutrophils 6.3 Absolute Lymphocytes 0.6 Absolute Monocytes 0.4 Absolute Eosinophils 0.0 Absolute Basophils 0.0 VBG pH VBG pCO2 VBG HCO3 VBG Base Excess Sodium Potassium Chloride Carbon Dioxide Anion Gap BUN Creatinine Est GFR ( Amer) Est GFR (Non-Af Amer) Glucose Lactic Acid Calcium Phosphorus Magnesium Total Bilirubin AST ALT Alkaline Phosphatase Ammonia Total Protein Albumin Triglycerides Cholesterol LDL Cholesterol Direct VLDL Cholesterol HDL Cholesterol Amylase Lipase TSH Free T4 Urine Color Urine Appearance Urine pH Ur Specific Chassell Urine Protein Urine Glucose (UA) Urine Ketones Urine Blood Urine Nitrite Ur Leukocyte Esterase Urine WBC (Auto) Urine RBC (Auto) 12/03/18 12/03/18 12/03/18 20:15 23:30 23:30 Creatine Kinase 38 CK-MB (CK-2) 0.46 Troponin I < 0.012 < 0.012 12/04/18 12/04/18 12/04/18 05:45 05:45 12:19 Creatine Kinase 25 L < 20 L CK-MB (CK-2) < 0.22 Troponin I < 0.012 12/04/18 12:19 Creatine Kinase CK-MB (CK-2) < 0.22 Troponin I < 0.012 Impressions: Chest X-Ray 12/03/18 20:41 IMPRESSION: 1. Mild central interstitial edema, either mild cardiogenic pulmonary edema or an atypical interstitial pneumonia. 2. No focal acute infiltrate. Abdomen/Pelvis CT 12/04/18 00:00 IMPRESSION: Bibasilar pneumonitis. Small hiatal hernia. There is no splenomegaly. TECHNICAL DOCUMENTATION: Quality ID # [id number]: Final reports with documentation of one or more dose reduction techniques (e.g., Automated exposure control, adjustment of the mA and/or kV according to patient size, use of iterative reconstruction technique) copyright 2010 [employer]- All Rights Reserved Chest/Abdomen CTA 12/04/18 00:00 IMPRESSION: No PE. No aneurysm. No dissection. Groundglass opacities consistent with pneumonitis. Consolidative changes in the lung bases bilaterally. TECHNICAL DOCUMENTATION: Quality ID # [id number]: Final reports with documentation of one or more dose reduction techniques (e.g., Automated exposure control, adjustment of the mA and/or kV according to patient size, use of iterative reconstruction technique) copyright 2011 [employer]- All Rights Reserved Assessment & Plan - Diagnosis (1) Pneumonia Qualifiers: Pneumonia type: due to unspecified organism Laterality: bilateral Lung location: lower lobe of lung Qualified Code(s): J18.1 - Lobar pneumonia, unspecified organism Is this a current diagnosis for this admission?: Yes Plan: She has bilateral lower lobe pneumonia, she will be treated with IV antibiotic to cover for potential pathogens (2) Hypotension (arterial) Qualifiers: Hypotension type: other hypotension type Qualified Code(s): I95.89 - Other hypotension Is this a current diagnosis for this admission?: Yes Plan: She has hypotension not responsive to IV fluid challenge, start IV norepinephrine (3) Sepsis Qualifiers: Sepsis type: sepsis due to unspecified organism Qualified Code(s): A41.9 - Sepsis, unspecified organism Is this a current diagnosis for this admission?: Yes Plan: She has sepsis due to pneumonia (4) Leucopenia Qualifiers: Leukopenia type: neutropenia Neutropenia type: unspecified Qualified Code(s): D70.9 - Neutropenia, unspecified Is this a current diagnosis for this admission?: Yes Plan: She has profound leukopenia, there is no splenomegaly that would suggest Felty syndrome
[2018-12-04] MEDS: METOPROLOL TARTRATE 25 MG TABLET PO SCH (21:33)
[2018-12-04] MEDS ORDERED: CEFTRIAXONE 1 GM/D5W RTU 1 GM/50 ML RTUPB IV SCH (22:00)
[2018-12-04] MEDS: CHOLECALCIFEROL (D3) 1,000 UNIT TABLET PO SCH (22:15)
[2018-12-04] MEDS: CEFTRIAXONE SODIUM 1,000 MG in DEXTROSE 5%-WATER 50 ML IV SCH (22:15)
[2018-12-04] MEDS: CYANOCOBALAMIN (VITAMIN B-12) 1,000 MCG TABLET PO SCH (22:16)
[2018-12-04] MEDS: PANTOPRAZOLE SODIUM 20 MG TABLET.DR PO SCH (22:16)
[2018-12-04] MEDS: PREGABALIN 75 MG CAPSULE PO SCH (22:24)
[2018-12-04] MEDS: PRIMIDONE 50 MG TABLET PO SCH (22:24)
[2018-12-04] MEDS: TOPIRAMATE 25 MG TABLET PO SCH (22:24)
[2018-12-04] MEDS: ALPRAZOLAM 0.25 MG TABLET PO SCH (22:24)
[2018-12-04] MEDS: ASPIRIN 81 MG TABLET, ENT COATED PO SCH (22:52)
[2018-12-05] MEDS: ACETAMINOPHEN 325 MG TABLET PO PRN (01:09)
[2018-12-05] MEDS: HYDROCODONE/ACETAMINOPHEN 10-325 MG TABLET PO PRN ×4 (02:43→22:59)
[2018-12-05 05:04] LABS: HEMATOCRIT 33.5 % (36.0-47.0); HEMOGLOBIN 11.3 g/dL (12.0-15.5); MEAN CORPUSCULAR HEMOGLOBIN 29.3 pg (27.0-33.4); MEAN CORPUSCULAR HGB CONC 33.8 g/dL (32.0-36.0); MEAN CORPUSCULAR VOLUME 87 fl (80-97); PLATELET COUNT 168 10^3/uL (150-450); RED BLOOD COUNT 3.87 10^6/uL (3.72-5.28); RED CELL DISTRIBUTION WIDTH 15.2 % (11.5-14.0); WHITE BLOOD COUNT 11.6 10^3/uL (4.0-10.5)
[2018-12-05] MEDS: PREGABALIN 75 MG CAPSULE PO SCH ×3 (05:05→22:55)
[2018-12-05] MEDS: NORMAL SALINE 1000 ML 1,000 ML IV PRN ×3 (05:05→23:00)
[2018-12-05] MEDS: HEPARIN SOD (PORCINE) 5,000 UNIT/ML 1 ML SYRINGE SUBCUT SCH ×3 (05:05→22:55)
[2018-12-05] MEDS: LEVOTHYROXINE SODIUM 0.112 MG TABLET PO SCH (05:05)
[2018-12-05 05:24] LABS: ABSOLUTE LYMPHOCYTES# (MANUAL) 0.6 10^3/uL (0.5-4.7); ABSOLUTE MONOCYTES # (MANUAL) 0.3 10^3/uL (0.1-1.4); ABSOLUTE NEUTROPHILS# (MANUAL) 10.7 10^3/uL (1.7-8.2); ALANINE AMINOTRANSFERASE 16 U/L (9-52); ALBUMIN 2.5 g/dL (3.5-5.0); ALKALINE PHOSPHATASE 58 U/L (38-126); ANION GAP 6 (5-19); ASPARTATE AMINO TRANSFERASE 15 U/L (14-36); BASOPHILS % (MANUAL) 0 % (0-2); BILIRUBIN,DIRECT 0.3 mg/dL (0.0-0.4); BILIRUBIN,TOTAL 0.5 mg/dL (0.2-1.3); BLOOD UREA NITROGEN 10 mg/dL (7-20); CALCIUM 8.7 mg/dL (8.4-10.2); CARBON DIOXIDE 21 mmol/L (22-30); CHLORIDE 110 mmol/L (98-107); EOSINOPHILS % (MANUAL) 0 % (0-6); GLUCOSE 83 mg/dL (75-110); LYMPHOCYTES % (MANUAL) 5 % (13-45); MONOCYTES % (MANUAL) 3 % (3-13); POTASSIUM 3.7 mmol/L (3.6-5.0); SEGMENTED NEUTROPHILS % (MAN) 92 % (42-78); SODIUM 136.8 mmol/L (137-145); TOTAL CELLS COUNTED 100
[2018-12-05 05:25] LABS: ANISOCYTOSIS 1+; PLATELET COMMENT ADEQUATE; POLYCHROMASIA 1+
[2018-12-05] MEDS: ASPIRIN 81 MG TABLET, ENT COATED PO SCH (09:08)
[2018-12-05] MEDS: TOPIRAMATE 25 MG TABLET PO SCH ×2 (09:09→22:56)
[2018-12-05] MEDS: CYANOCOBALAMIN (VITAMIN B-12) 1,000 MCG TABLET PO SCH (09:10)
[2018-12-05] MEDS: PANTOPRAZOLE SODIUM 20 MG TABLET.DR PO SCH (09:10)
[2018-12-05] MEDS: CHOLECALCIFEROL (D3) 1,000 UNIT TABLET PO SCH (09:10)
[2018-12-05] MEDS: PRIMIDONE 50 MG TABLET PO SCH (09:11)
[2018-12-05] MEDS: METOPROLOL TARTRATE 25 MG TABLET PO SCH (10:48)
[2018-12-05] MEDS: ALPRAZOLAM 0.25 MG TABLET PO SCH ×2 (10:54→22:56)
[2018-12-05] MEDS: LEVOFLOXACIN 750 MG/D5W RTU 750 MG/150 ML RTUPB IV SCH (17:21)
--- NOTE | 2018-12-05 21:37 | PDOC PROGRESS REPORT ---
Subjective Progress Note for:: 12/05/18 Subjective:: She was seen by the bedside Reason For Visit: HYPOXEMIA,PE, PNEUMONIA, RHEUMATOID INTERSTITIAL Physical Exam Vital Signs: Temp Pulse Resp BP Pulse Ox 99.4 F 99 21 H 126/86 H 96 12/05/18 16:00 12/05/18 16:00 12/05/18 16:40 12/05/18 16:40 12/05/18 16:39 Intake & Output 12/04/18 12/05/18 12/06/18 06:59 06:59 06:59 Intake Total 1777 4508 2100 Output Total 1800 3200 1000 Balance -23 1308 1100 Weight 66.7 kg 67.4 kg General appearance: PRESENT: no acute distress Eye exam: PRESENT: PERRLA Respiratory exam: PRESENT: clear to auscultation melony Cardiovascular exam: PRESENT: +S1, +S2 GI/Abdominal exam: PRESENT: soft Neurological exam: PRESENT: alert Results Laboratory Results: 12/05/18 04:52 12/05/18 04:52 12/05/18 12/05/18 04:52 04:52 WBC 11.6 H RBC 3.87 Hgb 11.3 L Hct 33.5 L MCV 87 MCH 29.3 MCHC 33.8 RDW 15.2 H Plt Count 168 Seg Neutrophils % Not Reportable Lymphocytes % Not Reportable Monocytes % Not Reportable Eosinophils % Not Reportable Basophils % Not Reportable Absolute Neutrophils Not Reportable Absolute Lymphocytes Not Reportable Absolute Monocytes Not Reportable Absolute Eosinophils Not Reportable Absolute Basophils Not Reportable Sodium 136.8 L Potassium 3.7 Chloride 110 H Carbon Dioxide 21 L Anion Gap 6 BUN 10 Creatinine 0.53 Est GFR ( Amer) > 60 Est GFR (Non-Af Amer) > 60 Glucose 83 Calcium 8.7 Total Bilirubin 0.5 AST 15 ALT 16 Alkaline Phosphatase 58 Total Protein 5.0 L Albumin 2.5 L 12/03/18 12/03/18 12/03/18 20:15 23:30 23:30 Creatine Kinase 38 CK-MB (CK-2) 0.46 Troponin I < 0.012 < 0.012 12/04/18 12/04/18 12/04/18 05:45 05:45 12:19 Creatine Kinase 25 L < 20 L CK-MB (CK-2) < 0.22 Troponin I < 0.012 12/04/18 12:19 Creatine Kinase CK-MB (CK-2) < 0.22 Troponin I < 0.012 Impressions: Chest X-Ray 12/03/18 20:41 IMPRESSION: 1. Mild central interstitial edema, either mild cardiogenic pulmonary edema or an atypical interstitial pneumonia. 2. No focal acute infiltrate. Abdomen/Pelvis CT 12/04/18 00:00 IMPRESSION: Bibasilar pneumonitis. Small hiatal hernia. There is no splenomegaly. TECHNICAL DOCUMENTATION: Quality ID # [id number]: Final reports with documentation of one or more dose reduction techniques (e.g., Automated exposure control, adjustment of the mA and/or kV according to patient size, use of iterative reconstruction technique) copyright 2010 [employer]- All Rights Reserved Chest/Abdomen CTA 12/04/18 00:00 IMPRESSION: No PE. No aneurysm. No dissection. Groundglass opacities consistent with pneumonitis. Consolidative changes in the lung bases bilaterally. TECHNICAL DOCUMENTATION: Quality ID # [id number]: Final reports with documentation of one or more dose reduction techniques (e.g., Automated exposure control, adjustment of the mA and/or kV according to patient size, use of iterative reconstruction technique) copyright 2010 [employer]- All Rights Reserved Assessment & Plan - Diagnosis (1) Pneumonia Qualifiers: Pneumonia type: due to unspecified organism Laterality: bilateral Lung location: lower lobe of lung Qualified Code(s): J18.1 - Lobar pneumonia, unspecified organism Is this a current diagnosis for this admission?: Yes Plan: She has bilateral lower lobe pneumonia, continue treatment (2) Hypotension (arterial) Qualifiers: Hypotension type: other hypotension type Qualified Code(s): I95.89 - Other hypotension Is this a current diagnosis for this admission?: Yes Plan: Resolved (3) Sepsis Qualifiers: Sepsis type: sepsis due to unspecified organism Qualified Code(s): A41.9 - Sepsis, unspecified organism Is this a current diagnosis for this admission?: Yes (4) Leucopenia Qualifiers: Leukopenia type: neutropenia Neutropenia type: unspecified Qualified Code(s): D70.9 - Neutropenia, unspecified Is this a current diagnosis for this admission?: Yes
[2018-12-05] MEDS: CEFTRIAXONE SODIUM 1,000 MG in DEXTROSE 5%-WATER 50 ML IV SCH (23:00)
[2018-12-06] MEDS: IPRATROPIUM/ALBUTEROL 0.5-2.5 MG/3 ML AMPUL NEB PRN ×2 (06:11→16:26)
[2018-12-06] MEDS: HEPARIN SOD (PORCINE) 5,000 UNIT/ML 1 ML SYRINGE SUBCUT SCH ×3 (06:14→21:52)
[2018-12-06] MEDS: LEVOTHYROXINE SODIUM 0.112 MG TABLET PO SCH (06:14)
[2018-12-06] MEDS: PREGABALIN 75 MG CAPSULE PO SCH ×3 (06:14→21:51)
[2018-12-06] MEDS: HYDROCODONE/ACETAMINOPHEN 10-325 MG TABLET PO PRN ×3 (06:41→21:51)
[2018-12-06 06:51] LABS: ABSOLUTE EOSINOPHILS # (AUTO) 0.1 10^3/uL (0.0-0.6); ABSOLUTE LYMPHOCYTES (AUTO) 0.9 10^3/uL (0.5-4.7); ABSOLUTE MONOCYTES (AUTO) 0.5 10^3/uL (0.1-1.4); ABSOLUTE NEUT (AUTO) 8.9 10^3/uL (1.7-8.2); BASOPHILS % (AUTO) 0.2 % (0-2); EOSINOPHILS % (AUTO) 0.9 % (0-6); HEMATOCRIT 35.7 % (36.0-47.0); LYMPHOCYTES % (AUTO) 8.9 % (13-45); MEAN CORPUSCULAR HEMOGLOBIN 29.5 pg (27.0-33.4); MEAN CORPUSCULAR HGB CONC 33.5 g/dL (32.0-36.0); MEAN CORPUSCULAR VOLUME 88 fl (80-97); MONOCYTES % (AUTO) 4.7 % (3-13); PLATELET COUNT 193 10^3/uL (150-450); RED BLOOD COUNT 4.06 10^6/uL (3.72-5.28); RED CELL DISTRIBUTION WIDTH 15.2 % (11.5-14.0); SEGMENTED NEUTROPHILS % (AUTO) 85.3 % (42-78); TOTAL CELLS COUNTED % (AUTO) 100 %; WHITE BLOOD COUNT 10.5 10^3/uL (4.0-10.5)
[2018-12-06 07:21] LABS: ALANINE AMINOTRANSFERASE 18 U/L (9-52); ALBUMIN 2.7 g/dL (3.5-5.0); ALKALINE PHOSPHATASE 77 U/L (38-126); ANION GAP 9 (5-19); ASPARTATE AMINO TRANSFERASE 14 U/L (14-36); BILIRUBIN,DIRECT 0.3 mg/dL (0.0-0.4); BILIRUBIN,TOTAL 0.4 mg/dL (0.2-1.3); BLOOD UREA NITROGEN 6 mg/dL (7-20); CALCIUM 8.6 mg/dL (8.4-10.2); CARBON DIOXIDE 19 mmol/L (22-30); CHLORIDE 110 mmol/L (98-107); GLUCOSE 76 mg/dL (75-110); POTASSIUM 3.5 mmol/L (3.6-5.0); SODIUM 137.8 mmol/L (137-145); TOTAL PROTEIN 5.6 g/dL (6.3-8.2)
[2018-12-06] MEDS: NORMAL SALINE 1000 ML 1,000 ML IV PRN (08:10)
[2018-12-06] MEDS: PANTOPRAZOLE SODIUM 20 MG TABLET.DR PO SCH (10:12)
[2018-12-06] MEDS: CYANOCOBALAMIN (VITAMIN B-12) 1,000 MCG TABLET PO SCH (10:12)
[2018-12-06] MEDS: ALPRAZOLAM 0.25 MG TABLET PO SCH ×2 (10:12→21:51)
[2018-12-06] MEDS: CHOLECALCIFEROL (D3) 1,000 UNIT TABLET PO SCH (10:12)
[2018-12-06] MEDS: PRIMIDONE 50 MG TABLET PO SCH (10:12)
[2018-12-06] MEDS: ASPIRIN 81 MG TABLET, ENT COATED PO SCH (10:12)
[2018-12-06] MEDS: METOPROLOL TARTRATE 25 MG TABLET PO SCH (10:12)
[2018-12-06] MEDS: TOPIRAMATE 25 MG TABLET PO SCH ×2 (10:12→21:59)
[2018-12-06] MEDS ORDERED: NORMAL SALINE 1000 ML 1,000 ML IV PRN (15:18)
[2018-12-06] MEDS ORDERED: LEVALBUTEROL HCL NEB 0.63 MG/3 ML AMPUL NEB PRN (15:18)
[2018-12-06] MEDS: LEVOFLOXACIN 750 MG/D5W RTU 750 MG/150 ML RTUPB IV SCH (17:18)
--- NOTE | 2018-12-06 20:51 | PDOC PROGRESS REPORT ---
Subjective Progress Note for:: 12/06/18 Subjective:: She was seen by the bedsideShe has occasional wheeze that suggest bronchospasm, full PFT ordered for tomorrow Reason For Visit: HYPOXEMIA,PE, PNEUMONIA, RHEUMATOID INTERSTITIAL Physical Exam Vital Signs: Temp Pulse Resp BP Pulse Ox 98.2 F 75 20 104/72 94 12/06/18 19:39 12/06/18 16:27 12/06/18 16:27 12/06/18 16:00 12/06/18 16:27 Intake & Output 12/05/18 12/06/18 12/07/18 06:59 06:59 06:59 Intake Total 4508 2586 1000 Output Total 3200 2900 300 Balance 1308 -314 700 Weight 67.4 kg 67.8 kg General appearance: PRESENT: no acute distress Eye exam: PRESENT: PERRLA Respiratory exam: PRESENT: rhonchi Cardiovascular exam: PRESENT: +S1, +S2 GI/Abdominal exam: PRESENT: soft Neurological exam: PRESENT: alert, CN II-XII grossly intact Results Laboratory Results: 12/06/18 06:04 12/06/18 06:04 12/06/18 12/06/18 06:04 06:04 WBC 10.5 RBC 4.06 Hgb 12.0 Hct 35.7 L MCV 88 MCH 29.5 MCHC 33.5 RDW 15.2 H Plt Count 193 Seg Neutrophils % 85.3 H Lymphocytes % 8.9 L Monocytes % 4.7 Eosinophils % 0.9 Basophils % 0.2 Absolute Neutrophils 8.9 H Absolute Lymphocytes 0.9 Absolute Monocytes 0.5 Absolute Eosinophils 0.1 Absolute Basophils 0.0 Sodium 137.8 Potassium 3.5 L Chloride 110 H Carbon Dioxide 19 L Anion Gap 9 BUN 6 L Creatinine 0.50 L Est GFR ( Amer) > 60 Est GFR (Non-Af Amer) > 60 Glucose 76 Calcium 8.6 Total Bilirubin 0.4 AST 14 ALT 18 Alkaline Phosphatase 77 Total Protein 5.6 L Albumin 2.7 L 12/03/18 12/03/18 12/03/18 20:15 23:30 23:30 Creatine Kinase 38 CK-MB (CK-2) 0.46 Troponin I < 0.012 < 0.012 12/04/18 12/04/18 12/04/18 05:45 05:45 12:19 Creatine Kinase 25 L < 20 L CK-MB (CK-2) < 0.22 Troponin I < 0.012 12/04/18 12:19 Creatine Kinase CK-MB (CK-2) < 0.22 Troponin I < 0.012 Impressions: Chest X-Ray 12/03/18 20:41 IMPRESSION: 1. Mild central interstitial edema, either mild cardiogenic pulmonary edema or an atypical interstitial pneumonia. 2. No focal acute infiltrate. Abdomen/Pelvis CT 12/04/18 00:00 IMPRESSION: Bibasilar pneumonitis. Small hiatal hernia. There is no splenomegaly. TECHNICAL DOCUMENTATION: Quality ID # [id number]: Final reports with documentation of one or more dose reduction techniques (e.g., Automated exposure control, adjustment of the mA and/or kV according to patient size, use of iterative reconstruction technique) copyright 2010 [employer]- All Rights Reserved Chest/Abdomen CTA 12/04/18 00:00 IMPRESSION: No PE. No aneurysm. No dissection. Groundglass opacities consistent with pneumonitis. Consolidative changes in the lung bases bilaterally. TECHNICAL DOCUMENTATION: Quality ID # [id number]: Final reports with documentation of one or more dose reduction techniques (e.g., Automated exposure control, adjustment of the mA and/or kV according to patient size, use of iterative reconstruction technique) copyright 2010 [employer]- All Rights Reserved Assessment & Plan - Diagnosis (1) Pneumonia Qualifiers: Pneumonia type: due to unspecified organism Laterality: bilateral Lung location: lower lobe of lung Qualified Code(s): J18.1 - Lobar pneumonia, unspecified organism Is this a current diagnosis for this admission?: Yes Plan: She has bilateral lower lobe pneumonia, continue treatment (2) Hypotension (arterial) Qualifiers: Hypotension type: other hypotension type Qualified Code(s): I95.89 - Other hypotension Is this a current diagnosis for this admission?: Yes (3) Sepsis Qualifiers: Sepsis type: sepsis due to unspecified organism Qualified Code(s): A41.9 - Sepsis, unspecified organism Is this a current diagnosis for this admission?: Yes Plan: She has sepsis due to pneumonia (4) Leucopenia Qualifiers: Leukopenia type: neutropenia Neutropenia type: unspecified Qualified Code(s): D70.9 - Neutropenia, unspecified Is this a current diagnosis for this admission?: Yes
[2018-12-06] MEDS: CEFTRIAXONE SODIUM 1,000 MG in DEXTROSE 5%-WATER 50 ML IV SCH (21:51)
[2018-12-07] MEDS: IPRATROPIUM/ALBUTEROL 0.5-2.5 MG/3 ML AMPUL NEB PRN ×3 (03:44→19:16)
[2018-12-07] MEDS: HYDROCODONE/ACETAMINOPHEN 10-325 MG TABLET PO PRN ×2 (05:28→21:25)
[2018-12-07] MEDS: LEVOTHYROXINE SODIUM 0.112 MG TABLET PO SCH (05:28)
[2018-12-07] MEDS: HEPARIN SOD (PORCINE) 5,000 UNIT/ML 1 ML SYRINGE SUBCUT SCH ×3 (05:29→21:20)
[2018-12-07] MEDS: PREGABALIN 75 MG CAPSULE PO SCH ×3 (05:29→21:21)
[2018-12-07] MEDS: PRIMIDONE 50 MG TABLET PO SCH (09:18)
[2018-12-07] MEDS: CHOLECALCIFEROL (D3) 1,000 UNIT TABLET PO SCH (09:18)
[2018-12-07] MEDS: CYANOCOBALAMIN (VITAMIN B-12) 1,000 MCG TABLET PO SCH (09:19)
[2018-12-07] MEDS: METOPROLOL TARTRATE 25 MG TABLET PO SCH (09:19)
[2018-12-07] MEDS: ASPIRIN 81 MG TABLET, ENT COATED PO SCH (09:19)
[2018-12-07] MEDS: PANTOPRAZOLE SODIUM 20 MG TABLET.DR PO SCH (09:19)
[2018-12-07] MEDS: ALPRAZOLAM 0.25 MG TABLET PO SCH ×2 (09:20→21:21)
[2018-12-07] MEDS: TOPIRAMATE 25 MG TABLET PO SCH ×2 (14:46→21:21)
[2018-12-07] MEDS: LEVOFLOXACIN 750 MG TABLET PO SCH (17:48)
[2018-12-07] MEDS: CEFTRIAXONE SODIUM 1,000 MG in DEXTROSE 5%-WATER 50 ML IV SCH (21:21)
[2018-12-08] MEDS: IPRATROPIUM/ALBUTEROL 0.5-2.5 MG/3 ML AMPUL NEB PRN ×3 (04:12→12:22)
[2018-12-08] MEDS: HEPARIN SOD (PORCINE) 5,000 UNIT/ML 1 ML SYRINGE SUBCUT SCH ×3 (06:23→21:24)
[2018-12-08] MEDS: LEVOTHYROXINE SODIUM 0.112 MG TABLET PO SCH (06:23)
[2018-12-08] MEDS: PREGABALIN 75 MG CAPSULE PO SCH ×3 (06:23→21:23)
[2018-12-08] MEDS: HYDROCODONE/ACETAMINOPHEN 10-325 MG TABLET PO PRN ×3 (06:47→21:23)
[2018-12-08] MEDS: PANTOPRAZOLE SODIUM 20 MG TABLET.DR PO SCH (09:11)
[2018-12-08] MEDS: CYANOCOBALAMIN (VITAMIN B-12) 1,000 MCG TABLET PO SCH (09:11)
[2018-12-08] MEDS: ALPRAZOLAM 0.25 MG TABLET PO SCH ×2 (09:11→21:24)
[2018-12-08] MEDS: METOPROLOL TARTRATE 25 MG TABLET PO SCH (09:11)
[2018-12-08] MEDS: ASPIRIN 81 MG TABLET, ENT COATED PO SCH (09:11)
[2018-12-08] MEDS: PRIMIDONE 50 MG TABLET PO SCH (09:12)
[2018-12-08] MEDS: TOPIRAMATE 25 MG TABLET PO SCH ×2 (09:48→21:23)
[2018-12-08] MEDS: CHOLECALCIFEROL (D3) 1,000 UNIT TABLET PO SCH (09:48)
[2018-12-08] MEDS: LEVOFLOXACIN 750 MG TABLET PO SCH (17:00)
[2018-12-08] MEDS: ONDANSETRON HCL INJ/PF 4 MG/2 ML SDV IV PRN (18:52)
--- NOTE | 2018-12-08 20:36 | PDOC PROGRESS REPORT ---
Subjective Progress Note for:: 12/07/18 Subjective:: Patient was seen today she had full PFT done consistent with restrictive lung disease with obstructive component Reason For Visit: HYPOXEMIA,PE, PNEUMONIA, RHEUMATOID INTERSTITIAL Physical Exam Vital Signs: Temp Pulse Resp BP Pulse Ox 97.9 F 121 H 16 101/69 94 12/08/18 00:06 12/08/18 19:00 12/08/18 12:22 12/08/18 00:06 12/08/18 12:22 Intake & Output 12/07/18 12/08/18 12/09/18 06:59 06:59 06:59 Intake Total 2680 1053 2845 Output Total 900 Balance 1780 1053 2845 Weight 67.6 kg 67.4 kg General appearance: PRESENT: no acute distress Eye exam: PRESENT: PERRLA Respiratory exam: PRESENT: rhonchi Cardiovascular exam: PRESENT: +S1, +S2 GI/Abdominal exam: PRESENT: soft Neurological exam: PRESENT: alert Results Laboratory Results: 12/06/18 06:04 12/06/18 06:04 12/03/18 12/03/18 12/03/18 20:15 23:30 23:30 Creatine Kinase 38 CK-MB (CK-2) 0.46 Troponin I < 0.012 < 0.012 12/04/18 12/04/18 12/04/18 05:45 05:45 12:19 Creatine Kinase 25 L < 20 L CK-MB (CK-2) < 0.22 Troponin I < 0.012 12/04/18 12:19 Creatine Kinase CK-MB (CK-2) < 0.22 Troponin I < 0.012 Impressions: Chest X-Ray 12/03/18 20:41 IMPRESSION: 1. Mild central interstitial edema, either mild cardiogenic pulmonary edema or an atypical interstitial pneumonia. 2. No focal acute infiltrate. Abdomen/Pelvis CT 12/04/18 00:00 IMPRESSION: Bibasilar pneumonitis. Small hiatal hernia. There is no splenomegaly. TECHNICAL DOCUMENTATION: Quality ID # [id number]: Final reports with documentation of one or more dose reduction techniques (e.g., Automated exposure control, adjustment of the mA and/or kV according to patient size, use of iterative reconstruction technique) copyright 2011 [employer]- All Rights Reserved Chest/Abdomen CTA 12/04/18 00:00 IMPRESSION: No PE. No aneurysm. No dissection. Groundglass opacities consistent with pneumonitis. Consolidative changes in the lung bases bilaterally. TECHNICAL DOCUMENTATION: Quality ID # [id number]: Final reports with documentation of one or more dose reduction techniques (e.g., Automated exposure control, adjustment of the mA and/or kV according to patient size, use of iterative reconstruction technique) copyright 2011 [employer]- All Rights Reserved Assessment & Plan - Diagnosis (1) Pneumonia Qualifiers: Pneumonia type: due to unspecified organism Laterality: bilateral Lung location: lower lobe of lung Qualified Code(s): J18.1 - Lobar pneumonia, unspecified organism Is this a current diagnosis for this admission?: Yes (2) Hypotension (arterial) Qualifiers: Hypotension type: other hypotension type Qualified Code(s): I95.89 - Other hypotension Is this a current diagnosis for this admission?: Yes Plan: Resolved (3) Sepsis Qualifiers: Sepsis type: sepsis due to unspecified organism Qualified Code(s): A41.9 - Sepsis, unspecified organism Is this a current diagnosis for this admission?: Yes (4) Leucopenia Qualifiers: Leukopenia type: neutropenia Neutropenia type: unspecified Qualified Code(s): D70.9 - Neutropenia, unspecified Is this a current diagnosis for this admission?: Yes
--- NOTE | 2018-12-08 20:36 | PDOC PROGRESS REPORT ---
Subjective Progress Note for:: 12/08/18 Subjective:: Patient seen by the bedside she is wheezing, she has no history of smoking PFT showed severe obstructive defect she may need Solu-Medrol before she is discharge Reason For Visit: HYPOXEMIA,PE, PNEUMONIA, RHEUMATOID INTERSTITIAL Physical Exam Vital Signs: Temp Pulse Resp BP Pulse Ox 97.9 F 121 H 16 101/69 94 12/08/18 00:06 12/08/18 19:00 12/08/18 12:22 12/08/18 00:06 12/08/18 12:22 Intake & Output 12/07/18 12/08/18 12/09/18 06:59 06:59 06:59 Intake Total 2680 1053 2845 Output Total 900 Balance 1780 1053 2845 Weight 67.6 kg 67.4 kg General appearance: PRESENT: mild distress Eye exam: PRESENT: PERRLA Respiratory exam: PRESENT: wheezes Cardiovascular exam: PRESENT: +S1, +S2 GI/Abdominal exam: PRESENT: soft Neurological exam: PRESENT: alert Results Laboratory Results: 12/06/18 06:04 12/06/18 06:04 12/03/18 12/03/18 12/03/18 20:15 23:30 23:30 Creatine Kinase 38 CK-MB (CK-2) 0.46 Troponin I < 0.012 < 0.012 12/04/18 12/04/18 12/04/18 05:45 05:45 12:19 Creatine Kinase 25 L < 20 L CK-MB (CK-2) < 0.22 Troponin I < 0.012 12/04/18 12:19 Creatine Kinase CK-MB (CK-2) < 0.22 Troponin I < 0.012 Impressions: Chest X-Ray 12/03/18 20:41 IMPRESSION: 1. Mild central interstitial edema, either mild cardiogenic pulmonary edema or an atypical interstitial pneumonia. 2. No focal acute infiltrate. Abdomen/Pelvis CT 12/04/18 00:00 IMPRESSION: Bibasilar pneumonitis. Small hiatal hernia. There is no splenomegaly. TECHNICAL DOCUMENTATION: Quality ID # 436: Final reports with documentation of one or more dose reduction techniques (e.g., Automated exposure control, adjustment of the mA and/or kV according to patient size, use of iterative reconstruction technique) copyright 2011 [employer]- All Rights Reserved Chest/Abdomen CTA 12/04/18 00:00 IMPRESSION: No PE. No aneurysm. No dissection. Groundglass opacities consistent with pneumonitis. Consolidative changes in the lung bases bilaterally. TECHNICAL DOCUMENTATION: Quality ID # [id number]: Final reports with documentation of one or more dose reduction techniques (e.g., Automated exposure control, adjustment of the mA and/or kV according to patient size, use of iterative reconstruction technique) copyright 2011 [employer]- All Rights Reserved Assessment & Plan - Diagnosis (1) Pneumonia Qualifiers: Pneumonia type: due to unspecified organism Laterality: bilateral Lung location: lower lobe of lung Qualified Code(s): J18.1 - Lobar pneumonia, unspecified organism Is this a current diagnosis for this admission?: Yes (2) Hypotension (arterial) Qualifiers: Hypotension type: other hypotension type Qualified Code(s): I95.89 - Other hypotension Is this a current diagnosis for this admission?: Yes Plan: Resolved (3) Sepsis Qualifiers: Sepsis type: sepsis due to unspecified organism Qualified Code(s): A41.9 - Sepsis, unspecified organism Is this a current diagnosis for this admission?: Yes (4) Leucopenia Qualifiers: Leukopenia type: neutropenia Neutropenia type: unspecified Qualified Code(s): D70.9 - Neutropenia, unspecified Is this a current diagnosis for this admission?: Yes
[2018-12-08] MEDS: CEFTRIAXONE SODIUM 1,000 MG in DEXTROSE 5%-WATER 50 ML IV SCH (21:23)
[2018-12-09] MEDS: HYDROCODONE/ACETAMINOPHEN 10-325 MG TABLET PO PRN ×3 (05:52→21:10)
[2018-12-09] MEDS: LEVOTHYROXINE SODIUM 0.112 MG TABLET PO SCH (05:52)
[2018-12-09] MEDS: HEPARIN SOD (PORCINE) 5,000 UNIT/ML 1 ML SYRINGE SUBCUT SCH ×3 (05:52→21:09)
[2018-12-09] MEDS: PREGABALIN 75 MG CAPSULE PO SCH ×3 (05:52→21:10)
[2018-12-09] MEDS: IPRATROPIUM/ALBUTEROL 0.5-2.5 MG/3 ML AMPUL NEB PRN (06:00)
[2018-12-09] MEDS: METOPROLOL TARTRATE 25 MG TABLET PO SCH (10:18)
[2018-12-09] MEDS: CHOLECALCIFEROL (D3) 1,000 UNIT TABLET PO SCH (10:18)
[2018-12-09] MEDS: PANTOPRAZOLE SODIUM 20 MG TABLET.DR PO SCH (10:19)
[2018-12-09] MEDS: CYANOCOBALAMIN (VITAMIN B-12) 1,000 MCG TABLET PO SCH (10:19)
[2018-12-09] MEDS: ASPIRIN 81 MG TABLET, ENT COATED PO SCH (10:19)
[2018-12-09] MEDS: TOPIRAMATE 25 MG TABLET PO SCH ×2 (10:19→21:10)
[2018-12-09] MEDS: ALPRAZOLAM 0.25 MG TABLET PO SCH ×2 (10:19→21:10)
[2018-12-09] MEDS: PRIMIDONE 50 MG TABLET PO SCH (10:19)
[2018-12-09] MEDS: METHYLPREDNISOLONE INJ 125 MG/2 ML SDV IV SCH ×2 (15:40→21:10)
--- NOTE | 2018-12-09 16:11 | Pulmonary Function Test ---
Pulmonary Function Test Date of Procedure:: 12/09/18 INDICATION:: Dyspnea Referring Provider: Dr. Ruby Marr Equipment Maintenance Tech: Olga Mccurdy SCRAP PREPARATION SUPERVISOR, CLINICAL INFORMATICIST - Report Spirometry: FVC 1.65 L 49% postbronchodilator 1.58 L 47% FEV1 1.39 L 52% postbronchodilator 1.43 L 53% FEV1 84 postbronchodilator 90 predicted 82 FEF 25-75% 2.13 L 75% postbronchodilator 2.96 L 104% Lung Volume: Total lung capacity 2.27 L 41% Vital capacity 1.65 L 49% Inspiratory capacity 1.17 L FRC in 2 1.10 L 35% ERV 0.20 L RV 0.62 L 30% RV/TLC % 27 predicted 38 Diffusion Capactity: Diffusion capacity 8.3 39% DLCO/VA 4.56 117% Impression: Severe obstructive ventilatory defect with insignificant response to bronchodilator therapy. This in and of itself does not preclude clinical trial of bronchodilator therapy. Severe restrictive ventilatory defect. No hyperinflation or air trapping. Severe decrease in diffusion capacity.
--- NOTE | 2018-12-09 17:46 | PDOC PROGRESS REPORT ---
Subjective Progress Note for:: 12/09/18 Subjective:: Patient seen by the bedside she continues to wheeze before PFTs that was done demonstrated severe obstructive defect, severe restrictive defect, severe impaired diffusion capacity, on direct questioning she admitted to a history of childhood asthma, she will be started on IV Solu-Medrol Reason For Visit: HYPOXEMIA,PE, PNEUMONIA, RHEUMATOID INTERSTITIAL Physical Exam Vital Signs: Temp Pulse Resp BP Pulse Ox 98.2 F 66 12 98/62 L 96 12/09/18 15:28 12/09/18 15:28 12/09/18 15:28 12/09/18 15:28 12/09/18 15:28 Intake & Output 12/08/18 12/09/18 12/10/18 06:59 06:59 06:59 Intake Total 1053 2895 Balance 1053 2895 Weight 67.4 kg 70.3 kg General appearance: PRESENT: mild distress Eye exam: PRESENT: PERRLA Respiratory exam: PRESENT: wheezes Cardiovascular exam: PRESENT: +S1, +S2 GI/Abdominal exam: PRESENT: soft Neurological exam: PRESENT: alert Results Laboratory Results: 12/06/18 06:04 12/06/18 06:04 12/03/18 20:15 Blood Blood Culture - Final NO GROWTH IN 5 DAYS 12/03/18 23:30 Blood Blood Culture - Final NO GROWTH IN 5 DAYS 12/03/18 12/03/18 12/03/18 20:15 23:30 23:30 Creatine Kinase 38 CK-MB (CK-2) 0.46 Troponin I < 0.012 < 0.012 12/04/18 12/04/18 12/04/18 05:45 05:45 12:19 Creatine Kinase 25 L < 20 L CK-MB (CK-2) < 0.22 Troponin I < 0.012 12/04/18 12:19 Creatine Kinase CK-MB (CK-2) < 0.22 Troponin I < 0.012 Impressions: Chest X-Ray 12/03/18 20:41 IMPRESSION: 1. Mild central interstitial edema, either mild cardiogenic pulmonary edema or an atypical interstitial pneumonia. 2. No focal acute infiltrate. Abdomen/Pelvis CT 12/04/18 00:00 IMPRESSION: Bibasilar pneumonitis. Small hiatal hernia. There is no splenomegaly. TECHNICAL DOCUMENTATION: Quality ID # 436: Final reports with documentation of one or more dose reduction techniques (e.g., Automated exposure control, adjustment of the mA and/or kV according to patient size, use of iterative reconstruction technique) copyright 2010 [employer]- All Rights Reserved Chest/Abdomen CTA 12/04/18 00:00 IMPRESSION: No PE. No aneurysm. No dissection. Groundglass opacities consistent with pneumonitis. Consolidative changes in the lung bases bilaterally. TECHNICAL DOCUMENTATION: Quality ID # 436: Final reports with documentation of one or more dose reduction techniques (e.g., Automated exposure control, adjustment of the mA and/or kV according to patient size, use of iterative reconstruction technique) copyright 2010 [employer]- All Rights Reserved Assessment & Plan - Diagnosis (1) Pneumonia Qualifiers: Pneumonia type: due to unspecified organism Laterality: bilateral Lung location: lower lobe of lung Qualified Code(s): J18.1 - Lobar pneumonia, unspecified organism Is this a current diagnosis for this admission?: Yes (2) Hypotension (arterial) Qualifiers: Hypotension type: other hypotension type Qualified Code(s): I95.89 - Other hypotension Is this a current diagnosis for this admission?: Yes (3) Sepsis Qualifiers: Sepsis type: sepsis due to unspecified organism Qualified Code(s): A41.9 - Sepsis, unspecified organism Is this a current diagnosis for this admission?: Yes (4) Leucopenia Qualifiers: Leukopenia type: neutropenia Neutropenia type: unspecified Qualified Code(s): D70.9 - Neutropenia, unspecified Is this a current diagnosis for this admission?: Yes (5) Bronchospasm Is this a current diagnosis for this admission?: Yes Plan: Start Solu-Medrol 60 mg IV every 8
[2018-12-09] MEDS: LEVOFLOXACIN 750 MG TABLET PO SCH (18:04)
[2018-12-09] MEDS: CEFTRIAXONE SODIUM 1,000 MG in DEXTROSE 5%-WATER 50 ML IV SCH (21:09)
[2018-12-10] MEDS: PREGABALIN 75 MG CAPSULE PO SCH ×3 (05:52→21:30)
[2018-12-10] MEDS: LEVOTHYROXINE SODIUM 0.112 MG TABLET PO SCH (05:52)
[2018-12-10] MEDS: METHYLPREDNISOLONE INJ 125 MG/2 ML SDV IV SCH ×3 (05:52→21:30)
[2018-12-10] MEDS: HEPARIN SOD (PORCINE) 5,000 UNIT/ML 1 ML SYRINGE SUBCUT SCH ×3 (05:52→21:30)
[2018-12-10] MEDS: HYDROCODONE/ACETAMINOPHEN 10-325 MG TABLET PO PRN ×3 (05:52→22:15)
[2018-12-10] MEDS: CHOLECALCIFEROL (D3) 1,000 UNIT TABLET PO SCH (09:31)
[2018-12-10] MEDS: ASPIRIN 81 MG TABLET, ENT COATED PO SCH (09:32)
[2018-12-10] MEDS: ALPRAZOLAM 0.25 MG TABLET PO SCH ×2 (09:32→21:30)
[2018-12-10] MEDS: PANTOPRAZOLE SODIUM 20 MG TABLET.DR PO SCH (09:32)
[2018-12-10] MEDS: CYANOCOBALAMIN (VITAMIN B-12) 1,000 MCG TABLET PO SCH (09:32)
[2018-12-10] MEDS: METOPROLOL TARTRATE 25 MG TABLET PO SCH (09:32)
[2018-12-10] MEDS: PRIMIDONE 50 MG TABLET PO SCH (09:33)
[2018-12-10] MEDS: TOPIRAMATE 25 MG TABLET PO SCH ×2 (09:33→22:16)
[2018-12-10 12:55] LABS: ABSOLUTE LYMPHOCYTES (AUTO) 0.8 10^3/uL (0.5-4.7); ABSOLUTE MONOCYTES (AUTO) 0.3 10^3/uL (0.1-1.4); ABSOLUTE NEUT (AUTO) 6.1 10^3/uL (1.7-8.2); BASOPHILS % (AUTO) 0.5 % (0-2); HEMATOCRIT 37.4 % (36.0-47.0); HEMOGLOBIN 12.5 g/dL (12.0-15.5); LYMPHOCYTES % (AUTO) 11.3 % (13-45); MEAN CORPUSCULAR HEMOGLOBIN 28.9 pg (27.0-33.4); MEAN CORPUSCULAR HGB CONC 33.3 g/dL (32.0-36.0); MEAN CORPUSCULAR VOLUME 87 fl (80-97); MONOCYTES % (AUTO) 4.4 % (3-13); PLATELET COUNT 377 10^3/uL (150-450); RED BLOOD COUNT 4.31 10^6/uL (3.72-5.28); RED CELL DISTRIBUTION WIDTH 15.3 % (11.5-14.0); SEGMENTED NEUTROPHILS % (AUTO) 83.8 % (42-78); TOTAL CELLS COUNTED % (AUTO) 100 %; WHITE BLOOD COUNT 7.3 10^3/uL (4.0-10.5)
[2018-12-10 13:25] LABS: ALANINE AMINOTRANSFERASE 8 U/L (9-52); ALBUMIN 3.5 g/dL (3.5-5.0); ALKALINE PHOSPHATASE 66 U/L (38-126); ANION GAP 9 (5-19); ASPARTATE AMINO TRANSFERASE 10 U/L (14-36); BILIRUBIN,DIRECT 0.2 mg/dL (0.0-0.4); BILIRUBIN,TOTAL 0.3 mg/dL (0.2-1.3); BLOOD UREA NITROGEN 11 mg/dL (7-20); CALCIUM 9.8 mg/dL (8.4-10.2); CARBON DIOXIDE 19 mmol/L (22-30); CHLORIDE 109 mmol/L (98-107); GLUCOSE 140 mg/dL (75-110); POTASSIUM 4.5 mmol/L (3.6-5.0); SODIUM 136.7 mmol/L (137-145); TOTAL PROTEIN 6.7 g/dL (6.3-8.2)
[2018-12-10] MEDS: LEVOFLOXACIN 750 MG TABLET PO SCH (17:42)
--- NOTE | 2018-12-10 20:15 | PDOC DISCHARGE SUMMARY ---
General - Admit/Disc Date/PCP Admission Date/Primary Care Provider: 12/03/18 21:37 Discharge Date: 12/11/18 - Discharge Diagnosis (1) Pneumonia Is this a current diagnosis for this admission?: Yes (2) Hypotension (arterial) Is this a current diagnosis for this admission?: Yes (3) Sepsis Is this a current diagnosis for this admission?: Yes (4) Leucopenia Is this a current diagnosis for this admission?: Yes (5) Bronchospasm Is this a current diagnosis for this admission?: Yes (6) Acute asthma exacerbation Is this a current diagnosis for this admission?: Yes - Additional Information Resuscitation Status: Full Code Prescriptions: Albuterol Sulfate [Proair Hfa Inhalation Aerosol 8.5 gm Mdi] 1 puff IH Q4 PRN #1 mdi PRN Reason: Fluticasone/Vilanterol [Breo Ellipta 200-25 Mcg INH] 1 each IH DAILY #2 blst.w.dev Prednisone 40 mg PO DAILY #5 tab.ds.pk Home Medications: Alprazolam [Xanax 0.25 mg Tablet] 0.25 mg PO BID 12/04/18 Aspirin [Ecotrin 81 mg EC Tablet] 81 mg PO DAILY 12/04/18 Cholecalciferol (Vitamin D3) [Vitamin D3 1000 Unit Tablet] 2,000 unit PO DAILY 12/04/18 Cyanocobalamin (Vitamin B-12) [Vitamin B-12 1000 mcg Tablet] 1,000 mcg PO DAILY 12/04/18 Cyclobenzaprine HCl [Flexeril 10 mg Tablet] 10 mg PO HSP PRN 12/04/18 Hydrocodone/Acetaminophen [Biggers 10-325 mg Tablet] 1 tab PO Q6HP PRN 12/04/18 Levothyroxine Sodium [Synthroid 0.112 mg Tablet] 0.112 mg PO Q6AM 12/04/18 Metoprolol Tartrate [Lopressor 25 mg Tablet] 25 mg PO DAILY 12/04/18 Montelukast Sodium [Singulair 10 mg Tablet] 10 mg PO DAILY 12/04/18 Omeprazole 20 mg PO DAILY 12/04/18 Pregabalin [Lyrica 75 mg Capsule] 75 mg PO Q8 12/04/18 Primidone [Mysoline 50 mg Tablet] 100 mg PO DAILY 12/04/18 Simvastatin [Zocor 40 mg Tablet] 40 mg PO QHS 12/04/18 Topiramate [Topamax] 50 mg PO BID 12/04/18 Triamterene/Hydrochlorothiazid [Triamterene-Hctz 37.5-25 mg Cp] 1 tab PO DAILY 12/04/18 Acetaminophen [Tylenol 650 mg Supp] 650 mg MN Q4HP PRN supp.rect 12/10/18 Albuterol Sulfate [Proair Hfa Inhalation Aerosol 8.5 gm Mdi] 1 puff IH Q4 PRN #1 mdi 12/10/18 Fluticasone/Vilanterol [Breo Ellipta 200-25 Mcg INH] 1 each IH DAILY #2 blst.w.dev 12/10/18 Ipratropium/Albuterol Sulfate [Duoneb 3 ml Ampul] 3 ml NEB RTQ3HP PRN vial.neb 12/10/18 Ondansetron HCl/Pf [Zofran Inj/Pf 4 mg/2 ml Sdv] 4 mg IV Q4HP PRN vial 12/10/18 Prednisone 40 mg PO DAILY #5 tab.ds.pk 12/10/18 History of Present Illness History of Present Illness: GONZLAO FITZGERALD is a 58 year old female, She came to the emergency room for evaluation of multiple symptoms including vomiting diarrhea, generalized body aches and pain. She was evaluated in the emergency room she was found to be hypoxemic, the oxygen saturation was in the low 80s, chest x-ray was done that suggest pneumonitis and subsequent CTA chest was done, it was negative for pulmonary embolism, it demonstrated minor consolidative changes the lung bases, groundglass airspace opacities bilaterally that suggest pneumonia. She was admitted last month for pneumonia. She has a history of rheumatoid arthritis, she was supposed to be on anti-TNF agent, Enbrel but she apparently has not been on the medication, she has no follow-up with outpatient surgery rn as well. She told me an incident that occurred to her recently when she was returning/driving back from [place] from her daughter's place, she was confused, she could not recall the incidents Hospital Course Hospital Course: She was admitted for the management of pneumonia, hypotension, sepsis she was treated with IV antibiotic, IV vasopressor in intensive care unit. 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 coli bacteriuria.She had episode of wheezing, she has no smoking history, she has a history of childhood asthma. A full PFT was obtained, it demonstrated obstructive defect with restrictive defect and impaired diffusion capacity of the lung parenchyma, she was treated with IV Solu-Medrol with remarkable results Physical Exam Vital Signs: Temp Pulse Resp BP Pulse Ox 98.3 F 92 15 125/69 96 12/10/18 16:00 12/10/18 19:00 12/10/18 16:00 12/10/18 16:00 12/10/18 16:00 Intake & Output 12/09/18 12/10/18 12/11/18 06:59 06:59 06:59 Intake Total 2895 1545 Balance 2895 1545 Weight 70.3 kg 69.1 kg General appearance: PRESENT: no acute distress Head exam: PRESENT: atraumatic, normocephalic Eye exam: PRESENT: PERRLA Ear exam: PRESENT: normal external ear exam Mouth exam: PRESENT: moist, tongue midline Neck exam: PRESENT: full ROM Respiratory exam: PRESENT: clear to auscultation melony, rhonchi Cardiovascular exam: PRESENT: +S1, +S2 Pulses: PRESENT: normal dorsalis pedis pul, +2 pedal pulses bilateral Vascular exam: PRESENT: normal capillary refill GI/Abdominal exam: PRESENT: soft Rectal exam: PRESENT: deferred Neurological exam: PRESENT: alert Psychiatric exam: PRESENT: appropriate affect, normal mood Skin exam: PRESENT: dry, intact, warm Results Laboratory Results: 12/10/18 12:26 12/10/18 12:26 12/10/18 12/10/18 12:26 12:26 WBC 7.3 RBC 4.31 Hgb 12.5 Hct 37.4 MCV 87 MCH 28.9 MCHC 33.3 RDW 15.3 H Plt Count 377 Seg Neutrophils % 83.8 H Lymphocytes % 11.3 L Monocytes % 4.4 Eosinophils % 0.0 Basophils % 0.5 Absolute Neutrophils 6.1 Absolute Lymphocytes 0.8 Absolute Monocytes 0.3 Absolute Eosinophils 0.0 Absolute Basophils 0.0 Sodium 136.7 L Potassium 4.5 Chloride 109 H Carbon Dioxide 19 L Anion Gap 9 BUN 11 Creatinine 0.51 L Est GFR ( Amer) > 60 Est GFR (Non-Af Amer) > 60 Glucose 140 H Calcium 9.8 Total Bilirubin 0.3 AST 10 L ALT 8 L Alkaline Phosphatase 66 Total Protein 6.7 Albumin 3.5 12/03/18 12/03/18 12/03/18 20:15 23:30 23:30 Creatine Kinase 38 CK-MB (CK-2) 0.46 Troponin I < 0.012 < 0.012 12/04/18 12/04/18 12/04/18 05:45 05:45 12:19 Creatine Kinase 25 L < 20 L CK-MB (CK-2) < 0.22 Troponin I < 0.012 12/04/18 12:19 Creatine Kinase CK-MB (CK-2) < 0.22 Troponin I < 0.012 Impressions: Chest X-Ray 12/03/18 20:41 IMPRESSION: 1. Mild central interstitial edema, either mild cardiogenic pulmonary edema or an atypical interstitial pneumonia. 2. No focal acute infiltrate. Abdomen/Pelvis CT 12/04/18 00:00 IMPRESSION: Bibasilar pneumonitis. Small hiatal hernia. There is no splenomegaly. TECHNICAL DOCUMENTATION: Quality ID # [id number]: Final reports with documentation of one or more dose reduction techniques (e.g., Automated exposure control, adjustment of the mA and/or kV according to patient size, use of iterative reconstruction technique) copyright 2010 [employer]- All Rights Reserved Chest/Abdomen CTA 12/04/18 00:00 IMPRESSION: No PE. No aneurysm. No dissection. Groundglass opacities consistent with pneumonitis. Consolidative changes in the lung bases bilaterally. TECHNICAL DOCUMENTATION: Quality ID # [id number]: Final reports with documentation of one or more dose reduction techniques (e.g., Automated exposure control, adjustment of the mA and/or kV according to patient size, use of iterative reconstruction technique) copyright 2010 [employer]- All Rights Reserved Qualifiers - * PATIENT BEING DISCHARGED WITH ANY OF THE FOLLOWING DIAGNOSIS: No
[2018-12-10] MEDS: CEFTRIAXONE SODIUM 1,000 MG in DEXTROSE 5%-WATER 50 ML IV SCH (21:33)
[2018-12-11] MEDS: PREGABALIN 75 MG CAPSULE PO SCH (06:21)
[2018-12-11] MEDS: HEPARIN SOD (PORCINE) 5,000 UNIT/ML 1 ML SYRINGE SUBCUT SCH (06:21)
[2018-12-11] MEDS: METHYLPREDNISOLONE INJ 125 MG/2 ML SDV IV SCH (06:21)
[2018-12-11] MEDS: HYDROCODONE/ACETAMINOPHEN 10-325 MG TABLET PO PRN (06:22)
[2018-12-11] MEDS: LEVOTHYROXINE SODIUM 0.112 MG TABLET PO SCH (06:22)
[2018-12-11 08:34] VITALS: BP 149/92
[2018-12-11] MEDS: METOPROLOL TARTRATE 25 MG TABLET PO SCH (09:13)
[2018-12-11] MEDS: ALPRAZOLAM 0.25 MG TABLET PO SCH (09:13)
[2018-12-11] MEDS: CHOLECALCIFEROL (D3) 1,000 UNIT TABLET PO SCH (09:13)
[2018-12-11] MEDS: TOPIRAMATE 25 MG TABLET PO SCH (09:14)
[2018-12-11] MEDS: PRIMIDONE 50 MG TABLET PO SCH (09:14)
[2018-12-11] MEDS: PANTOPRAZOLE SODIUM 20 MG TABLET.DR PO SCH (09:14)
[2018-12-11] MEDS: ASPIRIN 81 MG TABLET, ENT COATED PO SCH (09:14)
[2018-12-11] MEDS: CYANOCOBALAMIN (VITAMIN B-12) 1,000 MCG TABLET PO SCH (09:14)
[2018-12-11] MEDS ORDERED: CEFTRIAXONE SODIUM 1,000 MG in DEXTROSE 5%-WATER 50 ML IV SCH (22:00)
== END 2018-12-11 09:45 | disposition home or self-care (01) | DRG 871 ==
LOC: ER 19:44 → EH 21:37 → 3S 23:01 → ICU 12-04 05:14 → 4N 12-06 21:25
PROVIDERS: ADMIT Internal Medicine; ATTEND Internal Medicine
DX: A41.9 Sepsis, unspecified organism (principal); J18.9 Pneumonia, unspecified organism; E87.6 Hypokalemia; D70.9 Neutropenia, unspecified; M06.9 Rheumatoid arthritis, unspecified; K21.9 Gastro-esophageal reflux disease without esophagitis; F41.9 Anxiety disorder, unspecified; F32.9 Major depressive disorder, single episode, unspecified; T39.4X6A Underdosing of antirheumatics, not elsewhere classified, initial encounter; E78.5 Hyperlipidemia, unspecified; I10 Essential (primary) hypertension; M19.90 Unspecified osteoarthritis, unspecified site; Z87.01 Personal history of pneumonia (recurrent); Z98.84 Bariatric surgery status; Z90.710 Acquired absence of both cervix and uterus; Z88.6 Allergy status to analgesic agent; Z83.3 Family history of diabetes mellitus; Z82.49 Family history of ischemic heart disease and other diseases of the circulatory system; Z86.718 Personal history of other venous thrombosis and embolism; Z79.899 Other long term (current) drug therapy
CPT/HCPCS: 36415; 71045; 71275; 74176; 80048; 80053; 80061; 80076; 80307; 81001; 82140; 82150; 82550; 82553; 82803; 83036; 83605; 83690; 83735; 84100; 84439; 84443; 84484; 85025; 85610; 85730; 87040; 87086; 87088; 87186; 87804; 93005; 93010; 94060; 94640; 94727; 94729; 99285; J0696; J1644; J1956; J2405; J2930; J3475; J3480; J3490; J7030; J7060; J7614; J7620

== ENCOUNTER 2019-03-27 18:20 | Emergency (ER) | payer OTHER ==
[2019-03-27] MEDS ORDERED: ONDANSETRON HCL INJ/PF 4 MG/2 ML SDV IV ONE (19:18)
[2019-03-27] MEDS ORDERED: NORMAL SALINE 1000 ML 1,000 ML IV ONE (19:18)
--- NOTE | 2019-03-27 19:24 | ER Document Report ---
ED Medical Screen (RME) - General Chief Complaint: Vomiting Stated Complaint: VOMITING Time Seen by Provider: 03/27/19 19:06 Primary Care Provider: ALBERTO GARCIA MD [Primary Care Provider] - Follow up as needed Notes: Patient is a 59-year-old female who presents emergency department with a chief complaint of vomiting. She has been vomiting since 1:00 in the morning. She had her tooth pulled 2 days ago. Patient states that she has not been able to keep anything down. She has history of gastric bypass surgery, hysterectomy due to cancer at 15, cholecystectomy. Patient denies any diarrhea and states that she had a normal bowel movement today. Exam: Abdomen soft. I have greeted and performed a rapid initial assessment of this patient. A comprehensive ED assessment and evaluation of the patient, analysis of test results and completion of medical decision making process will be conducted by an additional ED providers. TRAVEL OUTSIDE OF THE [place] IN LAST 30 DAYS: No - Related Data Allergies/Adverse Reactions: codeine [Codeine] Allergy (Verified 03/27/19 18:20) Past Medical History - Past Medical History Cardiac Medical History: Reports: Hx DVT, Hx Hypercholesterolemia, Hx Hypertension Endocrine Medical History: Reports: Hx Hypothyroidism Renal/ Medical History: Denies: Hx Peritoneal Dialysis GI Medical History: Reports: Hx Gastroesophageal Reflux Disease, Hx Colonoscopy, Hx Endoscopy Musculoskeltal Medical History: Reports Hx Arthritis - Rheumatoid arthritis, Reports Hx Musculoskeletal Deformity, Reports Hx Musculoskeletal Trauma Psychiatric Medical History: Reports: Hx Anxiety, Hx Depression Traumatic Medical History: Reports: Hx Fractures - left wrist and right hand Past Surgical History: Reports: Hx Abdominal Surgery - gastric, Hx Bowel Surgery - gastric bypass, Hx Gastric Bypass Surgery, Hx Hysterectomy, Other - Questionable history of heart catheterization about 10 years ago at [facility] - Immunizations Hx Diphtheria, Pertussis, Tetanus Vaccination: Yes History of Influenza Vaccine for 06/2017 - 10/2017 Season: Yes Influenza Administration Date for 06/2017 - 10/2017 Season: 09/01/17 Physical Exam - Vital signs Vitals: Temp Pulse Resp BP Pulse Ox 98.4 F 86 16 100/67 95 03/27/19 18:24 03/27/19 18:24 03/27/19 18:24 03/27/19 18:24 03/27/19 18:24 Course - Vital Signs Vital signs: Temp Pulse Resp BP Pulse Ox 98.4 F 86 16 100/67 95 03/27/19 18:24 03/27/19 18:24 03/27/19 18:24 03/27/19 18:24 03/27/19 18:24 Doctor's Discharge - Discharge Referrals: ALBERTO GARCIA MD [Primary Care Provider] - Follow up as needed
[2019-03-27 19:49] LABS: ABSOLUTE EOSINOPHILS # (AUTO) 0.1 10^3/uL (0.0-0.6); ABSOLUTE LYMPHOCYTES (AUTO) 1.2 10^3/uL (0.5-4.7); ABSOLUTE MONOCYTES (AUTO) 0.4 10^3/uL (0.1-1.4); ABSOLUTE NEUT (AUTO) 3.1 10^3/uL (1.7-8.2); BASOPHILS % (AUTO) 0.2 % (0-2); EOSINOPHILS % (AUTO) 2.4 % (0-6); HEMATOCRIT 38.4 % (36.0-47.0); HEMOGLOBIN 12.5 g/dL (12.0-15.5); LYMPHOCYTES % (AUTO) 25.3 % (13-45); MEAN CORPUSCULAR HGB CONC 32.6 g/dL (32.0-36.0); MEAN CORPUSCULAR VOLUME 89 fl (80-97); MONOCYTES % (AUTO) 8.1 % (3-13); PLATELET COUNT 261 10^3/uL (150-450); RED BLOOD COUNT 4.33 10^6/uL (3.72-5.28); RED CELL DISTRIBUTION WIDTH 13.9 % (11.5-14.0); TOTAL CELLS COUNTED % (AUTO) 100 %; WHITE BLOOD COUNT 4.9 10^3/uL (4.0-10.5)
--- NOTE | 2019-03-27 19:59 | ER Document Report ---
ED General - General Chief Complaint: Vomiting Stated Complaint: VOMITING Time Seen by Provider: 03/27/19 19:06 Primary Care Provider: ALBERTO GARCIA MD [Primary Care Provider] - 03/29/19 TRAVEL OUTSIDE OF THE [place] IN LAST 30 DAYS: No - HPI Notes: Patient is a 59-year-old female that presents to the emergency department for chief complaint of vomiting. Patient states she woke up at 1 AM vomiting and has had continuous vomiting until about 1 hour ago. She does not have any nausea medicine at home. She states yesterday morning she did have 2 teeth pulled in preparation for dental implants. She states the procedure went well and she was not under anesthesia. She reports no issues last night when she went to bed. She does have a history of gastric bypass and states she has had vomiting episodes in the past. She states the last time she threw up she was in the hospital for pneumonia and that was the only symptom she was having was vomiting. She currently denies any fever, chills, cough, congestion, abdominal pain, diarrhea or constipation. She is not having any painful urination or urinary frequency. Past Medical History: Uterine cancer Past Surgical History: Hysterectomy, cholecystectomy, gastric bypass Social History: Denies drugs alcohol and tobacco Family History: Reviewed and noncontributory for presenting illness Allergies: Reviewed, see documented allergy list. REVIEW OF SYSTEMS: CONSTITUTIONAL : No fever No chills No diaphoresis No recent illness EENT: No vision changes No congestion No sore throat CARDIOVASCULAR: No chest pain No palpitations RESPIRATORY: No shortness of breath No cough No difficulty breathing GASTROINTESTINAL: No abdominal pain nausea vomiting No diarrhea GENITOURINARY: No dysuria No hematuria No difficulty urinating MUSCULOSKELETAL: No back pain No leg pain No arm pain SKIN: No rashes No lesions LYMPHATIC: No swollen, enlarged glands. NEUROLOGICAL: No lightheadedness No headache No weakness No paresthesias PSYCHIATRIC: No anxiety No depression PHYSICAL EXAMINATION: Vital signs reviewed, nursing noted reviewed. GENERAL: Ill-appearing but not toxic, well-nourished and in no acute distress. HEAD: Atraumatic, normocephalic. EYES: Eyes appear normal, extraocular movements intact, sclera anicteric, conjunctiva are normal. ENT: Left posterior maxillary gingival sutures in place without bleeding or gingival erythema, nares patent, oropharynx clear without exudates. Mildly dry mucous membranes. NECK: Normal range of motion, supple without lymphadenopathy LUNGS: Breath sounds clear to auscultation bilaterally and equal. No wheezes rales or rhonchi. HEART: Regular rate and rhythm without murmurs ABDOMEN: Soft, nontender, normoactive bowel sounds. No rebound, guarding, or rigidity. No masses appreciated. EXTREMITIES: Nontender, good range of motion, no pitting or edema. NEUROLOGICAL: No focal neurological deficits. Moves all extremities spontaneously Motor and sensory grossly intact on exam. PSYCH: Normal mood, normal affect. SKIN: Warm, Dry, normal turgor, no rashes or lesions noted on exposed skin - Related Data Allergies/Adverse Reactions: codeine [Codeine] Allergy (Verified 03/27/19 18:20) Past Medical History - Social History Smoking Status: Unknown if Ever Smoked Family History: DM, Hypertension, Other - VTE, brother from CHF and DM complications at 49 years old Patient has suicidal ideation: No Patient has homicidal ideation: No - Past Medical History Cardiac Medical History: Reports: Hx DVT, Hx Hypercholesterolemia, Hx Hypertension Endocrine Medical History: Reports: Hx Hypothyroidism Renal/ Medical History: Denies: Hx Peritoneal Dialysis GI Medical History: Reports: Hx Gastroesophageal Reflux Disease, Hx Colonoscopy, Hx Endoscopy Musculoskeletal Medical History: Reports Hx Arthritis - Rheumatoid arthritis, Reports Hx Musculoskeletal Deformity, Reports Hx Musculoskeletal Trauma Psychiatric Medical History: Reports: Hx Anxiety, Hx Depression Traumatic Medical History: Reports: Hx Fractures - left wrist and right hand Past Surgical History: Reports: Hx Abdominal Surgery - gastric, Hx Bowel Surgery - gastric bypass, Hx Gastric Bypass Surgery, Hx Hysterectomy, Other - Questionable history of heart catheterization about 10 years ago at [facility] - Immunizations Hx Diphtheria, Pertussis, Tetanus Vaccination: Yes Hx Pneumococcal Vaccination: 09/01/10 Physical Exam - Vital signs Vitals: Temp Pulse Resp BP Pulse Ox 98.4 F 86 16 100/67 95 03/27/19 18:24 03/27/19 18:24 03/27/19 18:24 03/27/19 18:24 03/27/19 18:24 Course - Re-evaluation Re-evalutation: 03/27/19 19:58 Vitals reviewed. Nursing notes reviewed. Patient's abdominal exam is soft with no tenderness. She is not having any complaint of abdominal pain and has had a normal bowel movement today. She is clinically not showing signs of gastric obstruction or bowel perforation. She has been ordered fluids and Zofran for symptomatic management. 03/27/19 21:06 Laboratory 03/27/19 03/27/19 03/27/19 19:32 19:32 19:32 WBC 4.9 RBC 4.33 Hgb 12.5 Hct 38.4 MCV 89 MCH 29.0 MCHC 32.6 RDW 13.9 Plt Count 261 Seg Neutrophils % 64.0 Lymphocytes % 25.3 Monocytes % 8.1 Eosinophils % 2.4 Basophils % 0.2 Absolute Neutrophils 3.1 Absolute Lymphocytes 1.2 Absolute Monocytes 0.4 Absolute Eosinophils 0.1 Absolute Basophils 0.0 Sodium 136.1 L Potassium 4.2 Chloride 106 Carbon Dioxide 22 Anion Gap 8 BUN 15 Creatinine 0.58 Est GFR ( Amer) > 60 Est GFR (Non-Af Amer) > 60 Glucose 92 Calcium 9.2 Total Bilirubin 0.4 Direct Bilirubin 0.2 Neonat Total Bilirubin Not Reportable Neonat Direct Bilirubin Not Reportable Neonat Indirect Bili Not Reportable AST 18 ALT 20 Alkaline Phosphatase 60 Creatine Kinase 36 CK-MB (CK-2) 0.43 Troponin I < 0.012 Total Protein 6.4 Albumin 3.6 Lipase 79.3 Urine Color Urine Appearance Urine pH Ur Specific [place] Urine Protein Urine Glucose (UA) Urine Ketones Urine Blood Urine Nitrite Urine Bilirubin Urine Urobilinogen Ur Leukocyte Esterase Urine WBC (Auto) Urine RBC (Auto) U Hyaline Cast (Auto) Squamous Epi Cells Auto Urine Mucus (Auto) Urine Ascorbic Acid 03/27/19 20:33 WBC RBC Hgb Hct MCV MCH MCHC RDW Plt Count Seg Neutrophils % Lymphocytes % Monocytes % Eosinophils % Basophils % Absolute Neutrophils Absolute Lymphocytes Absolute Monocytes Absolute Eosinophils Absolute Basophils Sodium Potassium Chloride Carbon Dioxide Anion Gap BUN Creatinine Est GFR ( Amer) Est GFR (Non-Af Amer) Glucose Calcium Total Bilirubin Direct Bilirubin Neonat Total Bilirubin Neonat Direct Bilirubin Neonat Indirect Bili AST ALT Alkaline Phosphatase Creatine Kinase CK-MB (CK-2) Troponin I Total Protein Albumin Lipase Urine Color YELLOW Urine Appearance CLEAR Urine pH 6.0 Ur Specific [place] 1.014 Urine Protein NEGATIVE Urine Glucose (UA) NEGATIVE Urine Ketones NEGATIVE Urine Blood NEGATIVE Urine Nitrite NEGATIVE Urine Bilirubin NEGATIVE Urine Urobilinogen NEGATIVE Ur Leukocyte Esterase NEGATIVE Urine WBC (Auto) 1 Urine RBC (Auto) 1 U Hyaline Cast (Auto) 3 Squamous Epi Cells Auto 2 Urine Mucus (Auto) RARE Urine Ascorbic Acid NEGATIVE Chest X-Ray 03/27/19 19:56 IMPRESSION: No acute abnormality is identified. 03/27/19 21:18 On reevaluation patient states she is feeling much better. She is eating crackers and tolerated drinking water. She has not had any further vomiting since arriving in the emergency room. Patient's work-up is grossly unremarkable. There is no acute pneumonia or findings on chest x-ray. Urinalysis negative for infection as well. She has no electrolyte derangements or severe renal insufficiency. Patient's troponin is negative and she has no ischemic changes on EKG to suggest an ACS equivalent, I am not currently suspicious for acute OH as a cause of her vomiting. Patient is otherwise well- appearing and in no distress. She is still not having any abdominal pain or tenderness to palpation. Patient will be discharged home with a prescription for Zofran. She was counseled on return precautions. She will follow with her PCP if her vomiting persists for reevaluation in 2 to 3 days. - Vital Signs Vital signs: Temp Pulse Resp BP Pulse Ox 98.4 F 86 11 L 104/70 100 03/27/19 18:24 03/27/19 18:24 03/27/19 21:01 03/27/19 21:01 03/27/19 21:01 - Laboratory Result Diagrams: 03/27/19 19:32 03/27/19 19:32 Laboratory results interpreted by me: 03/27/19 19:32 Sodium 136.1 L - EKG Interpretation by Me Additional EKG results interpreted by me: 03/27/19 20:00 Interpreted by myself 6: Normal sinus rhythm, rate 66, normal axis, no ectopy, no STEMI Discharge - Discharge Clinical Impression: Vomiting Qualifiers: Vomiting type: unspecified Vomiting Intractability: non-intractable Nausea presence: with nausea Qualified Code(s): R11.2 - Nausea with vomiting, unspecified Condition: Stable Disposition: HOME, SELF-CARE Instructions: Vomiting ([facility]) Additional Instructions: Please return to the emergency department if you have any worsening, or concern of your symptoms. Please return to the emergency department if you develop chest pain, difficulty breathing, severe abdominal pain, or ongoing vomiting. Please follow-up with your primary care physician in 2-3 days and any other recommended physicians. If prescribed, take all medications as directed. If you have any questions or concerns do not hesitate to return the emergency department for evaluation. Prescriptions: Ondansetron [Zofran Odt 4 mg Tablet] 1 tab PO Q4H PRN #15 tab.rapdis PRN Reason: For Nausea/Vomiting Referrals: ALBERTO GARCIA MD [Primary Care Provider] - 03/29/19
[2019-03-27 20:08] LABS: ALANINE AMINOTRANSFERASE 20 U/L (9-52); ALBUMIN 3.6 g/dL (3.5-5.0); ALKALINE PHOSPHATASE 60 U/L (38-126); ANION GAP 8 (5-19); ASPARTATE AMINO TRANSFERASE 18 U/L (14-36); BILIRUBIN,DIRECT 0.2 mg/dL (0.0-0.4); BILIRUBIN,TOTAL 0.4 mg/dL (0.2-1.3); BLOOD UREA NITROGEN 15 mg/dL (7-20); CALCIUM 9.2 mg/dL (8.4-10.2); CARBON DIOXIDE 22 mmol/L (22-30); CHLORIDE 106 mmol/L (98-107); CREATINE KINASE 36 U/L (30-135); GLUCOSE 92 mg/dL (75-110); POTASSIUM 4.2 mmol/L (3.6-5.0); TOTAL PROTEIN 6.4 g/dL (6.3-8.2)
[2019-03-27 20:20] LABS: CREATINE KINASE MB 0.43 ng/mL (<4.55); TROPONIN I < 0.012 ng/mL
[2019-03-27 20:56] LABS: APPEARANCE,URINE CLEAR; BILIRUBIN,URINE NEGATIVE (NEGATIVE); COLOR,URINE YELLOW; GLUCOSE, URINE NEGATIVE (NEGATIVE); KETONES,URINE NEGATIVE (NEGATIVE); LEUKOCYTE ESTERASE,URINE NEGATIVE (NEGATIVE); NITRITE,URINE NEGATIVE (NEGATIVE); PROTEIN,URINE NEGATIVE (NEGATIVE); URINE SPECIFIC GRAVITY 1.014; UROBILINOGEN,URINE NEGATIVE mg/dL (<2.0)
--- NOTE | 2019-03-27 20:56 | RADIOLOGY REPORT (SQ) ---
EXAM DESCRIPTION: XR CHEST 1 VIEW COMPLETED DATE/TME: 03/27/2019 19:56 CLINICAL HISTORY: 59 years Female vomiting COMPARISON: 12/03/2018 FINDINGS: The cardiomediastinal silhouette appears unremarkable. No consolidating infiltrates or pleural effusions. No pneumothorax. Rightward convexity curvature in the spine. IMPRESSION: No acute abnormality is identified.
[2019-03-27 21:21] VITALS: BP 108/72
--- NOTE | 2019-03-27 23:16 | EKG REPORT ---
SEVERITY:- BORDERLINE ECG - SINUS RHYTHM BORDERLINE LEFT AXIS DEVIATION CONSIDER ANTERIOR INFARCT BORDERLINE T ABNORMALITIES, DIFFUSE LEADS : Confirmed by: Enrrique Celeste 27-Mar-2019 23:14:57
== END 2019-03-27 21:28 | disposition home or self-care (01) ==
LOC: ER 18:20
DX: R11.2 Nausea with vomiting, unspecified (principal); I10 Essential (primary) hypertension; Z87.19 Personal history of other diseases of the digestive system; Z98.84 Bariatric surgery status; Z87.01 Personal history of pneumonia (recurrent); Z85.42 Personal history of malignant neoplasm of other parts of uterus; Z90.710 Acquired absence of both cervix and uterus; Z90.49 Acquired absence of other specified parts of digestive tract; Z88.5 Allergy status to narcotic agent
CPT/HCPCS: 93005; 99284; 96361; 96374; 36415; 82553; 82550; 83690; 85025; 80053; 81001; 84484; 71045; 93010; J2405; J7030

== ENCOUNTER 2019-05-25 16:50 | Inpatient (IN) | payer OTHER ==
--- NOTE | 2019-05-25 17:01 | ER Document Report ---
ED Medical Screen (RME) - General Chief Complaint: Altered Mental Status Stated Complaint: ALTERED MENTAL STATUS Time Seen by Provider: 05/25/19 16:57 Primary Care Provider: ALBERTO GARCIA MD [Primary Care Provider] - Follow up as needed Mode of Arrival: Wheelchair Information source: Patient, Relative Notes: 59-year-old female with history of stroke presents with altered mental status confusion difficulty speaking. Timeline is very difficult to obtain from her nanda. He reports she woke up at 9:00 was okay 10:00 she started having symptoms. They went to work at 1500 and her symptoms became worse and his boss told him to bring her to the emergency department. Patient has slurred speech, nanda says she normally talks clear. I have greeted and performed a rapid initial assessment of this patient. A comprehensive ED assessment and evaluation of the patient, analysis of test results and completion of the medical decision making process will be conducted by additional ED providers. Dictation of this chart was performed using voice recognition software; therefore, there may be some unintended grammatical errors. TRAVEL OUTSIDE OF THE [place] IN LAST 30 DAYS: No - Related Data Allergies/Adverse Reactions: codeine [Codeine] Allergy (Verified 03/27/19 18:20) Past Medical History - Past Medical History Cardiac Medical History: Reports: Hx DVT, Hx Hypercholesterolemia, Hx Hypertension Endocrine Medical History: Reports: Hx Hypothyroidism Renal/ Medical History: Denies: Hx Peritoneal Dialysis GI Medical History: Reports: Hx Gastroesophageal Reflux Disease, Hx Colonoscopy, Hx Endoscopy Musculoskeltal Medical History: Reports Hx Arthritis - Rheumatoid arthritis, Reports Hx Musculoskeletal Deformity, Reports Hx Musculoskeletal Trauma Psychiatric Medical History: Reports: Hx Anxiety, Hx Depression Traumatic Medical History: Reports: Hx Fractures - left wrist and right hand Past Surgical History: Reports: Hx Abdominal Surgery - gastric, Hx Bowel Surgery - gastric bypass, Hx Gastric Bypass Surgery, Hx Hysterectomy, Other - Q uestionable history of heart catheterization about 10 years ago at [facility] - Immunizations Hx Diphtheria, Pertussis, Tetanus Vaccination: Yes History of Influenza Vaccine for 06/2017 - 10/2017 Season: Yes Influenza Administration Date for 06/2017 - 10/2017 Season: 09/01/17 Doctor's Discharge - Discharge Referrals: ALBERTO GARCIA MD [Primary Care Provider] - Follow up as needed
[2019-05-25] MEDS ORDERED: DEXTROSE 50%-WATER 25 GM/50 ML DISP.SYRIN IV ONE (17:12)
--- NOTE | 2019-05-25 17:12 | RADIOLOGY REPORT (SQ) ---
EXAM DESCRIPTION: CT HEAD WITHOUT COMPLETED DATE/TIME: 05/25/2019 5:03 pm REASON FOR STUDY: slurred speech ams, hx stroke COMPARISON: 2018 TECHNIQUE: Axial images acquired through the brain without intravenous contrast. Images reviewed wi th bone, brain and subdural windows. Additional sagittal and coronal reconstructions were generated. Images stored on PACS. All CT scanners at this facility use dose modulation, iterative reconstruction, and/or weight based d osing when appropriate to reduce radiation dose to as low as reasonably achievable (ALARA). [facility]: Dose Right [facility]: CareDose [facility]: Dose Right [facility]: Teradose 4D [facility]: [facility] RADIATION DOSE: mGy. LIMITATIONS: None. FINDINGS: VENTRICLES: Normal size and contour. CEREBRUM: No masses. No hemorrhage. No midline shift. No evidence for acute infarction. Normal gra y/white matter differentiation. No areas of low density in the white matter. CEREBELLUM: No masses. No hemorrhage. No alteration of density. No evidence for acute infarction. EXTRAAXIAL SPACES: No fluid collections. No masses. ORBITS AND GLOBE: No intra- or extraconal masses. Normal contour of globe without masses. CALVARIUM: No fracture. PARANASAL SINUSES: No fluid or mucosal thickening. SOFT TISSUES: No mass or hematoma. OTHER: No other significant finding. IMPRESSION: NORMAL BRAIN CT WITHOUT CONTRAST. EVIDENCE OF ACUTE STROKE: NO. COMMENT: The findings were sent to the Radiology Results Communication Center at 17:06 on 05/25/2019 to be communicated to a licensed caregiver. Pertinent findings on the imaging study reported as a CRITICAL RESULT to core team at17:06 on 019. Category of Critical Result: Stroke alert Quality ID # [id number]: Final reports with documentation of one or more dose reduction techniques (e.g., Au tomated exposure control, adjustment of the mA and/or kV according to patient size, use of iterative reconstruction technique) TECHNICAL DOCUMENTATION: JOB ID: [id number] [employer]- All Rights Reserved Reading location - IP/workstation name: [email or web address]
[2019-05-25 17:31] LABS: ABSOLUTE EOSINOPHILS # (AUTO) 0.1 10^3/uL (0.0-0.6); ABSOLUTE MONOCYTES (AUTO) 0.5 10^3/uL (0.1-1.4); ABSOLUTE NEUT (AUTO) 6.1 10^3/uL (1.7-8.2); BASOPHILS % (AUTO) 0.2 % (0-2); EOSINOPHILS % (AUTO) 1.2 % (0-6); HEMATOCRIT 37.2 % (36.0-47.0); HEMOGLOBIN 12.6 g/dL (12.0-15.5); LYMPHOCYTES % (AUTO) 22.5 % (13-45); MEAN CORPUSCULAR HEMOGLOBIN 29.6 pg (27.0-33.4); MEAN CORPUSCULAR HGB CONC 33.8 g/dL (32.0-36.0); MEAN CORPUSCULAR VOLUME 88 fl (80-97); MONOCYTES % (AUTO) 5.9 % (3-13); PLATELET COUNT 282 10^3/uL (150-450); RED BLOOD COUNT 4.25 10^6/uL (3.72-5.28); RED CELL DISTRIBUTION WIDTH 14.3 % (11.5-14.0); SEGMENTED NEUTROPHILS % (AUTO) 70.2 % (42-78); TOTAL CELLS COUNTED % (AUTO) 100 %; WHITE BLOOD COUNT 8.7 10^3/uL (4.0-10.5)
[2019-05-25 17:35] LABS: INTERNATIONAL RATION (INR) 0.92; PROTHROMBIN TIME 12.3 SEC (11.4-15.4)
[2019-05-25 17:36] LABS: PARTIAL THROMBOPLASTIN TIME 29.1 SEC (23.5-35.8)
--- NOTE | 2019-05-25 17:36 | RADIOLOGY REPORT (SQ) ---
EXAM DESCRIPTION: CHEST SINGLE VIEW COMPLETED DATE/TIME: 05/25/2019 5:07 pm REASON FOR STUDY: slurred speech ams, hx stroke COMPARISON: 03/27/2019 EXAM PARAMETERS: NUMBER OF VIEWS: One view. TECHNIQUE: Single frontal radiographic view of the chest acquired. RADIATION DOSE: NA LIMITATIONS: None. FINDINGS: LUNGS AND PLEURA: No opacities, masses or pneumothorax. No pleural effusion. MEDIASTINUM AND HILAR STRUCTURES: No masses. Contour normal. HEART AND VASCULAR STRUCTURES: Heart normal in size. Normal vasculature. BONES: No acute findings. HARDWARE: None in the chest. OTHER: No other significant finding. IMPRESSION: NO ACUTE RADIOGRAPHIC FINDING IN THE CHEST. TECHNICAL DOCUMENTATION: JOB ID: [id number] [employer]- All Rights Reserved Reading location - IP/workstation name: [email or web address]
--- NOTE | 2019-05-25 17:43 | ER Document Report ---
ED General - General Chief Complaint: Altered Mental Status Stated Complaint: ALTERED MENTAL STATUS Time Seen by Provider: 05/25/19 16:57 Primary Care Provider: ALBERTO GARCIA MD [Primary Care Provider] - Follow up as needed Mode of Arrival: Wheelchair TRAVEL OUTSIDE OF THE [place] IN LAST 30 DAYS: No - HPI Notes: 59-year-old female presents with confusion and weakness. Note patient was seen initially by physician in triage was placed all of the o rders. 59-year-old female with a stated history of prior stroke that left her with "confusion", she describes states what sounds like "cerebellar stroke", but is otherwise poorly described. States her last known well time was sometime around 11 PM yesterday 1 AM this morning. She then went to bed and woke up between 9 and 10 this morning with headache, vomited once and states that her speech was slurred. Since she woke up she has had trouble walking all day. She denies any back pain. No trauma. No new medications. Moderate intensity, nonradiating, sudden onset. No other modifying factors, no other associated symptoms, no other provocative or palliative factors. - Related Data Allergies/Adverse Reactions: codeine [Codeine] Allergy (Verified 03/27/19 18:20) Past Medical History - General Information source: Patient, Relative - Social History Smoking Status: Smoker,Current Status Unk Lives with: Spouse/Significant other Family History: DM, Hypertension, Other - VTE, brother from CHF and DM complications at 49 years old - Medical History Notes: Stated history of stroke - Past Medical History Cardiac Medical History: Reports: Hx DVT, Hx Hypercholesterolemia, Hx Hypertension Endocrine Medical History: Reports: Hx Hypothyroidism Renal/ Medical History: Denies: Hx Peritoneal Dialysis GI Medical History: Reports: Hx Gastroesophageal Reflux Disease, Hx Colonoscopy, Hx Endoscopy Musculoskeletal Medical History: Reports Hx Arthritis - Rheumatoid arthritis, Reports Hx Musculoskeletal Deformity, Reports Hx Musculoskeletal Trauma Psychiatric Medical History: Reports: Hx Anxiety, Hx Depression Traumatic Medical History: Reports: Hx Fractures - left wrist and right hand Past Surgical History: Reports: Hx Abdominal Surgery - gastric, Hx Bowel Surgery - gastric bypass, Hx Gastric Bypass Surgery, Hx Hysterectomy, Other - Questionable history of heart catheterization about 10 years ago at [facility] - Immunizations Hx Diphtheria, Pertussis, Tetanus Vaccination: Yes Hx Pneumococcal Vaccination: 09/01/10 Review of Systems - Review of Systems Notes: Review of systems as in the history of present illness, otherwise negative x 10 systems. Physical Exam - Vital signs Vitals: Pulse Resp BP Pulse Ox 63 16 96/62 L 97 05/25/19 16:58 05/25/19 16:58 05/25/19 16:58 05/25/19 16:58 - Notes Notes: General: Well developed, well nourished. HEENT: Normocephalic, atraumatic. PEERL. No conjunctival injection. Neck: Supple, no significant adenopathy. No meningismus. Chest: Clear bilaterally, good air entry. Abdomen: Soft, non-tender, nondistended. Back: Non-tender. Normal ROM Extremities: No cyanosis, clubbing or edema. Vascular: Symmetric peripheral pulses, normal capillary refill. Skin: No significant rash. No petechiae or purpura. Motor: Decreased tone, power is 3 out of 5 in the bilateral lower extremities. Neurologic: Alert and oriented to person place and time. Cranial nerves II-12 are intact. Sensation intact and symmetric in the upper and lower extremities. Slight asymmetry noted on the left side with regard to finger-nose and [id number].. No clonus. Gait not assessed. Funduscopic exam shows crisp disc margins, no evidence of papilledema. Course - Re-evaluation Re-evalutation: 05/25/19 17:43 59-year-old female who presents with the after mentioned symptoms. On my ini tial evaluation, her speech is apparently normalized. She does have continued weakness in her lower extremities and some asymmetry in her cerebellar exam that is mild. Broad differential diagnosis includes bleed, CVA, metabolic or endocrine etiologies. Doubt infectious. Labs are currently pending, initial CT head is evaluated shows no acute abnormality. EKG shows sinus rhythm. Patient does not have any clinical evidence to support large vessel occlusion. Patient is not a lytic candidate. 05/25/19 19:16 Labs reviewed, CBC unremarkable, coags unremarkable, chemistries unremarkable with the exception of mildly depressed glucose of 57, however Accu-Chek is 68. Patient received an amp of D50 earlier when her Accu-Chek was low. This is curious, she does not take exogenous insulin or oral hypoglycemics. She is not alcoholic, has no history of insulinoma, her repeat Accu-Chek is 68 with another glucometer. This is technically low although not critical. This will be watched closely while she is in the hospital. CT imaging shows no acute abnormality. Chest x-ray is unremarkable. Given patient's soft mild left-sided cerebellar findings combined with concern for potential TIA versus CVA, she is admitted to Dr. Garcia for continued evaluation and management. - Vital Signs Vital signs: Temp Pulse Resp BP Pulse Ox 63 16 96/62 L 97 05/25/19 16:58 05/25/19 16:58 05/25/19 16:58 05/25/19 16:58 - Laboratory Result Diagrams: 05/25/19 17:15 05/25/19 17:15 Laboratory results interpreted by in: 05/25/19 05/25/19 05/25/19 17:10 17:15 17:15 RDW 14.3 H Sodium 136.7 L BUN 23 H Glucose 57 L POC Glucose 62 L - EKG Interpretation by Dc EKG shows normal: Sinus rhythm Rate: Normal Rhythm: NSR When compared to previous EKG there are: Previous EKG unavailable Additional EKG results interpreted by in: 05/25/19 17:44 Lateral T wave inversions are noted Discharge - Discharge Clinical Impression: Weakness Condition: Serious Disposition: ADMITTED OBSERVATION Admitting Provider: Justa Unit Admitted: [facility] Referrals: ALBERTO GARCIA MD [Primary Care Provider] - Follow up as needed
[2019-05-25 17:48] LABS: ALBUMIN 3.9 g/dL (3.5-5.0); ALKALINE PHOSPHATASE 74 U/L (38-126); ANION GAP 9 (5-19); ASPARTATE AMINO TRANSFERASE 19 U/L (14-36); BILIRUBIN,DIRECT 0.2 mg/dL (0.0-0.4); BILIRUBIN,TOTAL 0.3 mg/dL (0.2-1.3); BLOOD UREA NITROGEN 23 mg/dL (7-20); CALCIUM 9.4 mg/dL (8.4-10.2); CARBON DIOXIDE 26 mmol/L (22-30); CHLORIDE 102 mmol/L (98-107); CREATINE KINASE 38 U/L (30-135); POTASSIUM 3.7 mmol/L (3.6-5.0); TOTAL PROTEIN 6.7 g/dL (6.3-8.2)
[2019-05-25 18:00] LABS: CREATINE KINASE MB 0.59 ng/mL (<4.55)
[2019-05-25 18:02] LABS: TROPONIN I < 0.012 ng/mL
[2019-05-25 18:04] LABS: GLUCOSE 57 mg/dL (75-110)
[2019-05-25] MEDS: ASPIRIN/DIPYRIDAMOLE 25-200 MG 1 CAP.SR CPMP.12HR PO SCH (22:26)
[2019-05-25] MEDS: ATORVASTATIN CALCIUM 80 MG TABLET PO SCH (22:26)
[2019-05-25 23:18] LABS: ARTERIAL BLOOD BASE EXCESS -5.7 mmol/L; ARTERIAL BLOOD H2CO3 1.13 mmol/L (1.05-1.35); ARTERIAL BLOOD HCO3 19.6 mmol/L (20-24); ARTERIAL BLOOD O2 SATURATION 97.6 % (94-98); ARTERIAL BLOOD PCO2 37.5 mmHg (35-45); ARTERIAL BLOOD PH 7.34 (7.35-7.45); ARTERIAL BLOOD PO2 105.6 mmHg (80-100); ARTERIAL BLOOD TOTAL CO2 20.7 mmol/L (21-25)
[2019-05-25 23:19] LABS: ARTERIAL BLOOD FIO2 ROOM AIR
[2019-05-26 08:16] LABS: CHOLESTEROL 119.13 mg/dL (0-200); CREATINE KINASE 22 U/L (30-135); TRIGLYCERIDES 114 mg/dL (<150)
[2019-05-26 08:27] LABS: DIRECT LDL 62 mg/dL (<100)
[2019-05-26] MEDS ORDERED: LORAZEPAM INJ 2 MG/1 ML VIAL IV ONE (08:45)
[2019-05-26] MEDS: ASPIRIN/DIPYRIDAMOLE 25-200 MG 1 CAP.SR CPMP.12HR PO SCH (09:18)
--- NOTE | 2019-05-26 11:22 | EKG REPORT ---
SEVERITY:- NORMAL ECG - SINUS RHYTHM : Confirmed by: Enrrique Celeste 26-May-2019 11:21:38
--- NOTE | 2019-05-26 11:23 | EKG REPORT ---
SEVERITY:- ABNORMAL ECG - SINUS RHYTHM NONSPECIFIC INTRAVENTRICULAR CONDUCTION DELAY : Confirmed by: Enrrique Celeste 26-May-2019 11:21:47
--- NOTE | 2019-05-26 13:01 | RADIOLOGY REPORT (SQ) ---
EXAM DESCRIPTION: MRI HEAD WITHOUT COMPLETED DATE/TIME: 05/26/2019 12:33 pm REASON FOR STUDY: CVA COMPARISON: None. TECHNIQUE: Multiplanar imaging includes non-contrasted T1, T2, FLAIR, and diffusion with ADC map seq uences. Images stored on PACS. LIMITATIONS: Motion. FINDINGS: ANATOMY: No anomalies. Normal vascular flow voids. Pituitary fossa normal. CSF SPACES: Normal in size and contour. No hemorrhage. CEREBRUM: Sulci and gyri normal in size and contour. Normal white matter signal on FLAIR imaging. No evidence of hemorrhage, mass, or extraaxial fluid collection. POSTERIOR FOSSA: No signal alteration. No hemorrhage. No edema, masses or mass effect. Internal orlin tory canals, cerebello-pontine angles, mastoids normal. DIFFUSION IMAGING: Negative for acute or sub-acute infarction. ORBITS: No masses. Globes normal. PARANASAL SINUSES: No fluid levels. Mucosa normal. OTHER: No other significant finding. IMPRESSION: NORMAL MRI OF THE BRAIN WITHOUT INTRAVENOUS GADOLINIUM CONTRAST. EVIDENCE OF ACUTE STROKE: NO. TECHNICAL DOCUMENTATION: JOB ID: [id number] [employer]- All Rights Reserved Reading location - IP/workstation name: [email or web address]
--- NOTE | 2019-05-26 17:00 | RADIOLOGY REPORT (SQ) ---
EXAM DESCRIPTION: MRI LUMBAR SPINE WITHOUT COMPLETED DATE/TIME: 05/26/2019 4:40 pm REASON FOR STUDY: cauda equina syndrome COMPARISON: None. TECHNIQUE: Sagittal and Axial imaging includes T1, T2, STIR and gradient echo sequences. Coronal T2/ HASTE imaging. LIMITATIONS: None. FINDINGS: VISUALIZED UPPER ABDOMEN: Limited evaluation. No acute or suspicious findings suggested. SEGMENTATION: No transitional anatomy. The lowest well-developed disc space is labeled L5-S1. ALIGNMENT: Grade 1 anterolisthesis of L 4 on L5. VERTEBRAE: Anterior wedge deformity of the L5 vertebral body with approximately 50% loss of height. BONE MARROW: Normal. No marrow replacement or reactive changes. DISC SIGNAL: Normal. No significant abnormal signal or loss of height. POSTERIOR ELEMENTS: Generally intact. No pars defect evident. HARDWARE: None in the spine. CORD AND CONUS: Normal in size and signal intensity. Conus at the appropriate level. SOFT TISSUES: No aortic aneurysm seen. No bulky retroperitoneal adenopathy or mass. No paraspinal mas s or fluid. L1-L2: No significant spinal stenosis or exit foraminal stenosis. L2-L3: No significant spinal stenosis or exit foraminal stenosis. L3-L4: No significant spinal stenosis or exit foraminal stenosis. L4-L5: Diffuse posterior disc bulge. Moderate facet arthropathy. Moderate spinal stenosis and exit foraminal stenosis. L5-S1: No significant spinal stenosis or exit foraminal stenosis. LOWER THORACIC: Incompletely imaged. No stenosis seen. SACRUM: Visualized upper sacrum intact. OTHER: No other significant findings. IMPRESSION: 1. OLD COMPRESSION FRACTURE OF L 5. 2. GRADE 1 ANTEROLISTHESIS OF L 4 ON L5. THERE IS DIFFUSE BROAD-BASED POSTERIOR DISC BULGE AT THIS L EVEL WELL MODERATE FACET ARTHROPATHY RESULTING IN MODERATE SPINAL STENOSIS AND BILATERAL EXIT F ORAMINAL STENOSIS. 3. THE REMAINDER OF THE LUMBAR SPINE IS OTHERWISE ESSENTIALLY UNREMARKABLE. NO ACUTE FINDINGS. TECHNICAL DOCUMENTATION: JOB ID: [id number]- All Rights Reserved Reading location - IP/workstation name: [email or web address]
[2019-05-26] MEDS ORDERED: TRAZODONE HCL 50 MG TABLET PO PRN (17:22)
[2019-05-26] MEDS ORDERED: (PENDING PHARMACY ID) (Cholecalciferol (Vitamin D3) [Vitamin D3 2000 Unit Tablet] 2,000 UN PO SCH (17:30)
[2019-05-26] MEDS ORDERED: ALPRAZOLAM 0.25 MG TABLET PO SCH (18:00)
--- NOTE | 2019-05-26 18:01 | RADIOLOGY REPORT (SQ) ---
EXAM DESCRIPTION: CAROTID DOPPLER COMPLETED DATE/TIME: 05/26/2019 5:40 pm REASON FOR STUDY: CVA COMPARISON: None. TECHNIQUE: Grayscale ultrasound, Doppler velocity and spectra, and color Doppler images acquired of the extra-cranial carotid and vertebral arteries. Images stored on PACS. LIMITATIONS: None. FINDINGS: RIGHT CAROTID CCA Velocities: Within normal limits. ICA Velocities Peak systolic 0.96 m/s. End diastolic 0.36 m/s. Proximal ICA/CCA peak systolic ratio 1.3. Spectra normal. No significant plaque. LEFT CAROTID CCA Velocities: Within normal limits. ICA Velocities Peak systolic 1.34 m/s. End diastolic 0.59 m/s. Proximal ICA/CCA peak systolic ratio 1.8. Spectra normal. No significant plaque. VERTEBRAL ARTERIES: Antegrade flow. Normal waveforms. SUBCLAVIAN ARTERIES: No finding. OTHER: No other significant finding. IMPRESSION: NO HEMODYNAMICALLY SIGNIFICANT STENOSIS. COMMENT: Quality ID #[id number]: Velocity criteria are extrapolated from the diameter data as defined by t he Society of Radiologists in Ultrasound Consensus Conference. Radiology 2003: 229; 340-346. TECHNICAL DOCUMENTATION: JOB ID: [id number] [employer]- All Rights Reserved Reading location - IP/workstation name: [email or web address]
[2019-05-26] MEDS: METOPROLOL TARTRATE 25 MG TABLET PO SCH (18:10)
[2019-05-26] MEDS: PRIMIDONE 50 MG TABLET PO SCH (18:17)
[2019-05-26] MEDS: PANTOPRAZOLE SODIUM 20 MG TABLET.DR PO SCH (18:18)
[2019-05-26] MEDS: MONTELUKAST SODIUM 10 MG TABLET PO SCH (18:18)
[2019-05-26] MEDS: CHOLECALCIFEROL (D3) 1,000 UNIT (25 MCG) TABLET PO SCH (18:18)
[2019-05-26] MEDS: LEVOTHYROXINE SODIUM 0.112 MG TABLET PO SCH (18:19)
[2019-05-26] MEDS: TOPIRAMATE 25 MG TABLET PO SCH (18:20)
[2019-05-26] MEDS: PREGABALIN 75 MG CAPSULE PO SCH ×2 (18:20→21:49)
[2019-05-26] MEDS ORDERED: HYDROCODONE/ACETAMINOPHEN 10-325 MG TABLET PO SCH (18:30)
[2019-05-26] MEDS ORDERED: ONDANSETRON HCL INJ/PF 4 MG/2 ML SDV ONE (18:32)
[2019-05-26] MEDS: DEXAMETHASONE SOD PHOSPHATE INJ 4 MG/1 ML VIAL IV SCH (18:41)
--- NOTE | 2019-05-26 20:45 | XCELERA REPORT ---
[address] [address] Transthoracic Echocardiogram Report Name: GONZALO FITZGERALD Age: 59 yrs Gender: Female : 1960 Patient Status: Inpatient Patient Location: [address] [place] [address] Study Date: 05/26/2019 02:53 PM Height: 67 in Weight: 137 lb BSA: 1.7 m2 Procedure: A two-dimensional transthoracic echocardiogram with color flow and Doppler was performed. Study Quality: Fair. Reason For Study: CVA History: CVA. Ordering Physician: ALBERTO GARCIA Performed By: Kylah Jones Interpretation Summary There is no obvious cardiac source of embolus noted on this transthoracic echocardiogram. Follow-up with a ALISHA is suggested if cardiac source is still suspected. The left ventricle is normal in size. There is normal left ventricular wall thickness. LV EF is 65% The left ventricular ejection fraction is within normal limits. Doppler measurements suggest normal left ventricular diastolic function The left ventricular wall motion is normal. There is no thrombus. No ASD,VSD , or PFO seen. The right ventricle is grossly normal size. The right ventricle is not well visualized secondary to technical limitations The right atrium is normal. The left atrial size is normal. There is no evidence of mitral valve prolapse. There is no vegetation seen on the mitral valve. There is no mitral valve stenosis. There is a mild amount of mitral regurgitation There is no aortic valvular vegetation. There is aortic sclerosis without aortic stenosis. There is no LVOT obstruction. There is a mild amount of aortic regurgitation There is no tricuspid stenosis. There is a mild amount of tricuspid regurgitation Right ventricular systolic pressure is normal. RVSP is 24 to 29 mm of Hg , with RA mean of 5 to 10. There is no pulmonic valvular stenosis. There is no pulmonic valvular regurgitation. The aortic root is normal size. The inferior vena cava appeared normal and decreased > 50% with respiration (RAP 5-10 mmHg) There is no pericardial effusion. There is no obvious cardiac source of embolus noted on this transthoracic echocardiogram. Follow-up with a ALISHA is suggested if cardiac source is still suspected MMode/2D Measurements & Calculations RVDd: 3.5 cm LVIDd: 4.5 cm FS: 45.9 % Ao root diam: 2.8 cm IVSd: 1.1 cm LVIDs: 2.4 cm EDV(Teich): 92.8 ml Ao root area: 6.2 cm2 LVPWd: 1.1 cm ESV(Teich): 21.0 ml LA dimension: 3.2 cm EF(Teich): 77.4 % Doppler Measurements & Calculations MV E max radha: MV P1/2t max radha: Ao V2 max: AI max radha: 61.7 cm/sec 60.7 cm/sec 138.1 cm/sec 327.9 cm/sec MV A max radha: MV P1/2t: 74.2 msec Ao max PG: AI max P.0 mmHg 53.3 cm/sec MVA(P1/2t): 3.0 cm2 7.6 mmHg AI dec slope: MV E/A: 1.2 MV dec slope: 164.5 cm/sec2 AI P1/2t: 584.0 msec 239.7 cm/sec2 MV dec time: 0.23 sec LV V1 max PG: PA V2 max: TR max radha: AV P1/2t-pr_phl: 3.0 mmHg 81.4 cm/sec 218.9 cm/sec 584.0 msec LV V1 max: PA max P.7 mmHg TR max P.9 cm/sec 19.2 mmHg MV P1/2t-pr_phl: 74.2 msec Left Ventricle The left ventricle is normal in size. There is normal left ventricular wall thickness. LV EF is 65%. The left ventricular ejection fraction is within normal limits. Doppler measurements suggest normal left ventricular diastolic function. The left ventricular wall motion is normal. There is no thrombus. No ASD,VSD , or PFO seen. Right Ventricle The right ventricle is grossly normal size. The right ventricle is not well visualized secondary to technical limitations. Atria The right atrium is normal. The left atrial size is normal. Mitral Valve There is no evidence of mitral valve prolapse. There is no vegetation seen on the mitral valve. There is no mitral valve stenosis. There is a mild amount of mitral regurgitation. Aortic Valve There is no aortic valvular vegetation. There is aortic sclerosis without aortic stenosis. There is no LVOT obstruction. There is a mild amount of aortic regurgitation. Tricuspid Valve There is no tricuspid stenosis. There is a mild amount of tricuspid regurgitation. Right ventricular systolic pressure is normal. RVSP is 24 to 29 mm of Hg , with RA mean of 5 to 10. Pulmonic Valve There is no pulmonic valvular stenosis. There is no pulmonic valvular regurgitation. Great Vessels The aortic root is normal size. The inferior vena cava appeared normal and decreased > 50% with respiration (RAP 5-10 mmHg). Effusions There is no pericardial effusion. : ALBERTO GARCIA Lakshmi
--- NOTE | 2019-05-26 20:48 | PDOC H&P ---
History of Present Illness Admission Date/PCP: 05/25/19 19:37 ALBERTO GARCIA MD History of Present Illness: GONZALO FITZGERALD is a 59 year old female,She came to the emergency room for eval uation of confusion, the history was very sketchy, she stated that when she woke up her speech was slurred, she had trouble walking ,and ,there was concern she may have a stroke because of the history of stroke she was admitted for stroke evaluation the initial CT of the head was negative for any acute stroke. MRI of the head that was done today was negative, patient stated she could not move her legs but sensation was intact, I requested for MRI of the lumbar spine, it demonstrated diffuse posterior disc bulge at L4-L5, there is a grade 1 anterolisthesis of L4 on L5, there is moderate facet arthropathy with moderate spinal stenosis and exit foraminal stenosis at L4-L5. Unfortunately we cannot do a spinal tap at this time because she already had antiplatelet, she was managed as a case of stroke initially. The lumbar spinal stenosis does not explain the confusion though but it does explain the weakness of the leg. She has a history of rheumatoid arthritis, cerebellar stroke. She also had unexplained hypoglycemia, she has no history of diabetes mellitus, she is not on insulin therapy Past Medical History Cardiac Medical History: Reports: DVT, Hyperlipidema, Hypertension Endocrine Medical History: Reports: Hypothyroidism GI Medical History: Reports: Gastroesophageal Reflux Disease Musculoskeltal Medical History: Reports: Arthritis - Rheumatoid arthritis Psychiatric Medical History: Reports: Depression Past Surgical History Past Surgical History: Reports: Gastric Bypass Surgery, Hysterectomy, Other - Questionable history of heart catheterization about 10 years ago at [facility] Social History Lives with: Spouse/Significant other Smoking Status: Never Smoker Frequency of Alcohol Use: None Hx Recreational Drug Use: No Drugs: None Hx Prescription Drug Abuse: No Family History Family History: DM, Hypertension, Other - VTE, brother from CHF and DM complications at 49 years old Parental Family History Reviewed: Yes Children Family History Reviewed: Yes Sibling(s) Family History Reviewed.: Yes Medication/Allergy Home Medications: Alprazolam [Xanax 0.25 mg Tablet] 0.25 mg PO Q12 05/25/19 Aspirin [Adult Low Dose Aspirin EC] 81 mg PO DAILY 05/25/19 Cholecalciferol (Vitamin D3) [Vitamin D3 2000 unit Tablet] 2,000 unit PO DAILY 05/25/19 Hydrocodone/Acetaminophen [[place] 10-325 mg Tablet] 1 tab PO Q6 05/25/19 Levothyroxine Sodium [Synthroid 0.112 mg Tablet] 0.112 mg PO Q6AM 05/25/19 Metoprolol Tartrate [Lopressor 25 mg Tablet] 25 mg PO Q12 05/25/19 Montelukast Sodium [Singulair 10 mg Tablet] 10 mg PO DAILY 05/25/19 Omeprazole 20 mg PO DAILY 05/25/19 Pregabalin [Lyrica 75 mg Capsule] 75 mg PO Q8 05/25/19 Primidone [Mysoline 50 Mg Tablet] 100 mg PO DAILY 05/25/19 Simvastatin [Zocor 40 mg Tablet] 40 mg PO QPM 05/25/19 Topiramate [Topamax] 50 mg PO Q12 05/25/19 Trazodone HCl [Desyrel 50 mg Tablet] 50 mg PO HSP PRN 05/25/19 Triamterene/Hydrochlorothiazid [Dyazide 37.5-25 Capsule] 1 each PO DAILY 05/25/19 Allergies/Adverse Reactions: codeine [Codeine] Allergy (Verified 03/27/19 18:20) Review of Systems Constitutional: ABSENT: chills, fever(s), headache(s), weight gain, weight loss Eyes: ABSENT: visual disturbances Ears: ABSENT: hearing changes Cardiovascular: ABSENT: chest pain, dyspnea on exertion, edema, orthropnea, palpitations Respiratory: ABSENT: cough, hemoptysis Gastrointestinal: ABSENT: abdominal pain, constipation, diarrhea, hematemesis, hematochezia, nausea, vomiting Genitourinary: ABSENT: dysuria, hematuria Musculoskeletal: PRESENT: muscle weakness Integumentary: ABSENT: rash, wounds Neurological: ABSENT: abnormal gait, abnormal speech, confusion, dizziness, focal weakness, syncope Psychiatric: ABSENT: anxiety, depression, homidical ideation, suicidal ideation Endocrine: ABSENT: cold intolerance, heat intolerance, menstrual abnormalities, polydipsia, polyuria Hematologic/Lymphatic: ABSENT: easy bleeding, easy bruising, lymphadenopathy Physical Exam Vital Signs: Temp Pulse Resp BP Pulse Ox 97.4 F 59 L 14 106/67 99 05/26/19 20:02 05/26/19 20:02 05/26/19 20:02 05/26/19 20:02 05/26/19 20:02 Intake & Output 05/25/19 05/26/19 05/27/19 06:59 06:59 06:59 Intake Total 0 1050 Output Total 0 Balance 0 1050 Weight 62.4 kg General appearance: PRESENT: no acute distress Head exam: PRESENT: atraumatic, normocephalic Eye exam: PRESENT: PERRLA Ear exam: PRESENT: normal external ear exam Mouth exam: PRESENT: moist, tongue midline Neck exam: PRESENT: full ROM Respiratory exam: PRESENT: clear to auscultation melony Cardiovascular exam: PRESENT: +S1, +S2 Pulses: PRESENT: normal dorsalis pedis pul, +2 pedal pulses bilateral Vascular exam: PRESENT: normal capillary refill GI/Abdominal exam: PRESENT: soft Rectal exam: PRESENT: deferred Neurological exam: PRESENT: alert, motor sensory deficit Psychiatric exam: PRESENT: appropriate affect, normal mood Skin exam: PRESENT: dry, intact, warm Results Laboratory Results: 05/25/19 17:15 05/25/19 17:15 05/25/19 05/26/19 23:00 07:30 Carbonic Acid 1.13 HCO3/H2CO3 Ratio 17:1 ABG pH 7.34 L ABG pCO2 37.5 ABG pO2 105.6 H ABG HCO3 19.6 L ABG O2 Saturation 97.6 ABG Base Excess -5.7 FiO2 ROOM AIR Triglycerides 114 Cholesterol 119.13 LDL Cholesterol Direct 62 VLDL Cholesterol 23.0 HDL Cholesterol 48 05/25/19 05/25/19 05/26/19 17:15 17:15 01:05 Creatine Kinase 38 22 L CK-MB (CK-2) 0.59 Troponin I < 0.012 05/26/19 05/26/19 05/26/19 01:05 07:30 07:30 Creatine Kinase 22 L CK-MB (CK-2) Troponin I < 0.012 < 0.012 05/26/19 05/26/19 13:30 13:30 Creatine Kinase 24 L CK-MB (CK-2) Troponin I < 0.012 Impressions: Chest X-Ray 05/25/19 16:58 IMPRESSION: NO ACUTE RADIOGRAPHIC FINDING IN THE CHEST. Head CT 05/25/19 16:58 IMPRESSION: NORMAL BRAIN CT WITHOUT CONTRAST. EVIDENCE OF ACUTE STROKE: NO. Carotid Doppler Study 05/26/19 00:00 IMPRESSION: NO HEMODYNAMICALLY SIGNIFICANT STENOSIS. Head MRI 05/26/19 00:00 IMPRESSION: NORMAL MRI OF THE BRAIN WITHOUT INTRAVENOUS GADOLINIUM CONTRAST. EVIDENCE OF ACUTE STROKE: NO. Lumbar Spine MRI 05/26/19 00:00 IMPRESSION: 1. OLD COMPRESSION FRACTURE OF L 5. 2. GRADE 1 ANTEROLISTHESIS OF L 4 ON L5. THERE IS DIFFUSE BROAD-BASED POSTERIOR DISC BULGE AT THIS LEVEL WELL MODERATE FACET ARTHROPATHY RESULTING IN MODERATE SPINAL STENOSIS AND BILATERAL EXIT FORAMINAL STENOSIS. 3. THE REMAINDER OF THE LUMBAR SPINE IS OTHERWISE ESSENTIALLY UNREMARKABLE. NO ACUTE FINDINGS. 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
[2019-05-26] MEDS: ATORVASTATIN CALCIUM 80 MG TABLET PO SCH (21:48)
[2019-05-26] MEDS: HYDROCODONE/ACETAMINOPHEN 10-325 MG TABLET PO SCH (22:02)
[2019-05-26] MEDS: ALPRAZOLAM 0.25 MG TABLET PO SCH (22:02)
[2019-05-26] MEDS: ONDANSETRON HCL INJ/PF 4 MG/2 ML SDV IV PRN (22:20)
[2019-05-27] MEDS: HYDROCODONE/ACETAMINOPHEN 10-325 MG TABLET PO SCH ×5 (02:08→21:10)
[2019-05-27] MEDS: ALPRAZOLAM 0.25 MG TABLET PO SCH ×3 (02:08→21:10)
[2019-05-27] MEDS: DEXAMETHASONE SOD PHOSPHATE INJ 4 MG/1 ML VIAL IV SCH ×4 (02:11→17:23)
[2019-05-27] MEDS: METOPROLOL TARTRATE 25 MG TABLET PO SCH ×2 (05:26→17:11)
[2019-05-27] MEDS: LEVOTHYROXINE SODIUM 0.112 MG TABLET PO SCH (05:26)
[2019-05-27] MEDS: PREGABALIN 75 MG CAPSULE PO SCH ×3 (05:26→21:10)
[2019-05-27] MEDS: TOPIRAMATE 25 MG TABLET PO SCH ×2 (06:22→17:23)
[2019-05-27] MEDS: CHOLECALCIFEROL (D3) 1,000 UNIT (25 MCG) TABLET PO SCH (09:25)
[2019-05-27] MEDS: PANTOPRAZOLE SODIUM 20 MG TABLET.DR PO SCH (09:25)
[2019-05-27] MEDS: MONTELUKAST SODIUM 10 MG TABLET PO SCH (09:25)
[2019-05-27] MEDS: PRIMIDONE 50 MG TABLET PO SCH (09:25)
[2019-05-27] MEDS: ONDANSETRON HCL INJ/PF 4 MG/2 ML SDV IV PRN (14:46)
--- NOTE | 2019-05-27 20:30 | PDOC PROGRESS REPORT ---
Subjective Progress Note for:: 05/27/19 Subjective:: Patient seen by the bedside, there is significant improvement in patient's symptoms, she essentially regained motor function of her extremities, she is more alert and oriented to time place and person. Still presently on intravenous dexamethasone Reason For Visit: WEAKNESS Physical Exam Vital Signs: Temp Pulse Resp BP Pulse Ox 97.6 F 71 16 114/70 99 05/27/19 15:27 05/27/19 19:00 05/27/19 16:00 05/27/19 16:00 05/27/19 16:00 Intake & Output 05/26/19 05/27/19 05/28/19 06:59 06:59 06:59 Intake Total 0 1450 600 Output Total 0 1500 300 Balance 0 -50 300 Weight 62.4 kg 61.9 kg Results Laboratory Results: 05/25/19 17:15 05/25/19 17:15 05/25/19 05/25/19 05/26/19 17:15 17:15 01:05 Creatine Kinase 38 22 L CK-MB (CK-2) 0.59 Troponin I < 0.012 05/26/19 05/26/19 05/26/19 01:05 07:30 07:30 Creatine Kinase 22 L CK-MB (CK-2) Troponin I < 0.012 < 0.012 05/26/19 05/26/19 13:30 13:30 Creatine Kinase 24 L CK-MB (CK-2) Troponin I < 0.012 Impressions: Chest X-Ray 05/25/19 16:58 IMPRESSION: NO ACUTE RADIOGRAPHIC FINDING IN THE CHEST. Head CT 05/25/19 16:58 IMPRESSION: NORMAL BRAIN CT WITHOUT CONTRAST. EVIDENCE OF ACUTE STROKE: NO. Carotid Doppler Study 05/26/19 00:00 IMPRESSION: NO HEMODYNAMICALLY SIGNIFICANT STENOSIS. Head MRI 05/26/19 00:00 IMPRESSION: NORMAL MRI OF THE BRAIN WITHOUT INTRAVENOUS GADOLINIUM CONTRAST. EVIDENCE OF ACUTE STROKE: NO. Lumbar Spine MRI 05/26/19 00:00 IMPRESSION: 1. OLD COMPRESSION FRACTURE OF L 5. 2. GRADE 1 ANTEROLISTHESIS OF L 4 ON L5. THERE IS DIFFUSE BROAD-BASED POSTERIOR DISC BULGE AT THIS LEVEL WELL MODERATE FACET ARTHROPATHY RESULTING IN MODERATE SPINAL STENOSIS AND BILATERAL EXIT FORAMINAL STENOSIS. 3. THE REMAINDER OF THE LUMBAR SPINE IS OTHERWISE ESSENTIALLY UNREMARKABLE. NO ACUTE FINDINGS. 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
[2019-05-27] MEDS: ATORVASTATIN CALCIUM 80 MG TABLET PO SCH (21:10)
[2019-05-28] MEDS: DEXAMETHASONE SOD PHOSPHATE INJ 4 MG/1 ML VIAL IV SCH ×4 (00:11→18:19)
[2019-05-28] MEDS: HYDROCODONE/ACETAMINOPHEN 10-325 MG TABLET PO SCH ×4 (03:09→21:40)
[2019-05-28] MEDS: PREGABALIN 75 MG CAPSULE PO SCH ×3 (05:16→21:40)
[2019-05-28] MEDS: METOPROLOL TARTRATE 25 MG TABLET PO SCH ×2 (05:17→18:19)
[2019-05-28] MEDS: LEVOTHYROXINE SODIUM 0.112 MG TABLET PO SCH (05:17)
[2019-05-28] MEDS: TOPIRAMATE 25 MG TABLET PO SCH ×2 (08:21→18:19)
[2019-05-28] MEDS: MONTELUKAST SODIUM 10 MG TABLET PO SCH (09:19)
[2019-05-28] MEDS: CHOLECALCIFEROL (D3) 1,000 UNIT (25 MCG) TABLET PO SCH (09:19)
[2019-05-28] MEDS: ALPRAZOLAM 0.25 MG TABLET PO SCH ×2 (09:19→21:40)
[2019-05-28] MEDS: PANTOPRAZOLE SODIUM 20 MG TABLET.DR PO SCH (09:19)
[2019-05-28] MEDS: PRIMIDONE 50 MG TABLET PO SCH (09:19)
[2019-05-28 14:08] LABS: ABSOLUTE MONOCYTES (AUTO) 0.6 10^3/uL (0.1-1.4); ABSOLUTE NEUT (AUTO) 9.9 10^3/uL (1.7-8.2); BASOPHILS % (AUTO) 0.4 % (0-2); HEMATOCRIT 37.6 % (36.0-47.0); HEMOGLOBIN 12.3 g/dL (12.0-15.5); LYMPHOCYTES % (AUTO) 8.6 % (13-45); MEAN CORPUSCULAR HEMOGLOBIN 28.5 pg (27.0-33.4); MEAN CORPUSCULAR HGB CONC 32.7 g/dL (32.0-36.0); MEAN CORPUSCULAR VOLUME 87 fl (80-97); MONOCYTES % (AUTO) 5.1 % (3-13); PLATELET COUNT 249 10^3/uL (150-450); RED BLOOD COUNT 4.33 10^6/uL (3.72-5.28); RED CELL DISTRIBUTION WIDTH 14.1 % (11.5-14.0); SEGMENTED NEUTROPHILS % (AUTO) 85.9 % (42-78); TOTAL CELLS COUNTED % (AUTO) 100 %; WHITE BLOOD COUNT 11.5 10^3/uL (4.0-10.5)
[2019-05-28 14:33] LABS: ALBUMIN 3.8 g/dL (3.5-5.0); ALKALINE PHOSPHATASE 57 U/L (38-126); ANION GAP 8 (5-19); ASPARTATE AMINO TRANSFERASE 14 U/L (14-36); BILIRUBIN,DIRECT 0.1 mg/dL (0.0-0.4); BILIRUBIN,TOTAL 0.3 mg/dL (0.2-1.3); BLOOD UREA NITROGEN 18 mg/dL (7-20); CALCIUM 9.4 mg/dL (8.4-10.2); CARBON DIOXIDE 24 mmol/L (22-30); CHLORIDE 104 mmol/L (98-107); GLUCOSE 95 mg/dL (75-110); POTASSIUM 4.3 mmol/L (3.6-5.0); TOTAL PROTEIN 6.6 g/dL (6.3-8.2)
--- NOTE | 2019-05-28 21:38 | PDOC PROGRESS REPORT ---
Subjective Progress Note for:: 05/28/19 Subjective:: Patient seen by the bedside, complained of constipation Reason For Visit: WEAKNESS Physical Exam Vital Signs: Temp Pulse Resp BP Pulse Ox 97.7 F 54 L 17 107/57 L 98 05/28/19 19:59 05/28/19 19:59 05/28/19 19:59 05/28/19 19:59 05/28/19 19:59 Intake & Output 05/27/19 05/28/19 05/29/19 06:59 06:59 06:59 Intake Total 1450 1190 840 Output Total 1500 300 Balance -50 890 840 Weight 61.9 kg 55.2 kg General appearance: PRESENT: no acute distress Eye exam: PRESENT: PERRLA Respiratory exam: PRESENT: clear to auscultation melony Cardiovascular exam: PRESENT: +S1, +S2 GI/Abdominal exam: PRESENT: soft Neurological exam: PRESENT: alert, CN II-XII grossly intact Results Laboratory Results: 05/28/19 13:58 05/28/19 13:58 05/28/19 05/28/19 13:58 13:58 WBC 11.5 H RBC 4.33 Hgb 12.3 Hct 37.6 MCV 87 MCH 28.5 MCHC 32.7 RDW 14.1 H Plt Count 249 Seg Neutrophils % 85.9 H Sodium 135.6 L Potassium 4.3 Chloride 104 Carbon Dioxide 24 Anion Gap 8 BUN 18 Creatinine 0.63 Est GFR ( Amer) > 60 Glucose 95 Calcium 9.4 Total Bilirubin 0.3 AST 14 Alkaline Phosphatase 57 Total Protein 6.6 Albumin 3.8 05/25/19 05/25/19 05/26/19 17:15 17:15 01:05 Creatine Kinase 38 22 L CK-MB (CK-2) 0.59 Troponin I < 0.012 05/26/19 05/26/19 05/26/19 01:05 07:30 07:30 Creatine Kinase 22 L CK-MB (CK-2) Troponin I < 0.012 < 0.012 05/26/19 05/26/19 13:30 13:30 Creatine Kinase 24 L CK-MB (CK-2) Troponin I < 0.012 Impressions: Chest X-Ray 05/25/19 16:58 IMPRESSION: NO ACUTE RADIOGRAPHIC FINDING IN THE CHEST. Head CT 05/25/19 16:58 IMPRESSION: NORMAL BRAIN CT WITHOUT CONTRAST. EVIDENCE OF ACUTE STROKE: NO. Carotid Doppler Study 05/26/19 00:00 IMPRESSION: NO HEMODYNAMICALLY SIGNIFICANT STENOSIS. Head MRI 05/26/19 00:00 IMPRESSION: NORMAL MRI OF THE BRAIN WITHOUT INTRAVENOUS GADOLINIUM CONTRAST. EVIDENCE OF ACUTE STROKE: NO. Lumbar Spine MRI 05/26/19 00:00 IMPRESSION: 1. OLD COMPRESSION FRACTURE OF L 5. 2. GRADE 1 ANTEROLISTHESIS OF L 4 ON L5. THERE IS DIFFUSE BROAD-BASED POSTERIOR DISC BULGE AT THIS LEVEL WELL MODERATE FACET ARTHROPATHY RESULTING IN MODERATE SPINAL STENOSIS AND BILATERAL EXIT FORAMINAL STENOSIS. 3. THE REMAINDER OF THE LUMBAR SPINE IS OTHERWISE ESSENTIALLY UNREMARKABLE. NO ACUTE FINDINGS. 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
[2019-05-28] MEDS: ATORVASTATIN CALCIUM 80 MG TABLET PO SCH (21:40)
[2019-05-29] MEDS: DEXAMETHASONE SOD PHOSPHATE INJ 4 MG/1 ML VIAL IV SCH ×4 (00:17→21:20)
[2019-05-29] MEDS: HYDROCODONE/ACETAMINOPHEN 10-325 MG TABLET PO SCH ×4 (03:00→21:20)
[2019-05-29] MEDS: METOPROLOL TARTRATE 25 MG TABLET PO SCH ×2 (05:27→17:50)
[2019-05-29] MEDS: LEVOTHYROXINE SODIUM 0.112 MG TABLET PO SCH (05:27)
[2019-05-29] MEDS: PREGABALIN 75 MG CAPSULE PO SCH ×3 (05:27→21:20)
[2019-05-29] MEDS: TOPIRAMATE 25 MG TABLET PO SCH ×2 (05:29→17:50)
[2019-05-29] MEDS: CHOLECALCIFEROL (D3) 1,000 UNIT (25 MCG) TABLET PO SCH (09:52)
[2019-05-29] MEDS: PANTOPRAZOLE SODIUM 20 MG TABLET.DR PO SCH (09:52)
[2019-05-29] MEDS: ALPRAZOLAM 0.25 MG TABLET PO SCH ×2 (09:52→21:20)
[2019-05-29] MEDS: MONTELUKAST SODIUM 10 MG TABLET PO SCH (09:52)
[2019-05-29] MEDS: PRIMIDONE 50 MG TABLET PO SCH (09:52)
[2019-05-29] MEDS ORDERED: BISACODYL 5 MG TABEC PO ONE (13:00)
--- NOTE | 2019-05-29 15:15 | PDOC PROGRESS REPORT ---
Subjective Progress Note for:: 05/29/19 Subjective:: Patient seen by the bedside, she could potentially be discharged home tomorrow, she is still complained of constipation, will continue to decrease the dexamethasone Reason For Visit: WEAKNESS Physical Exam Vital Signs: Temp Pulse Resp BP Pulse Ox 97.5 F 49 L 18 111/66 100 05/29/19 11:30 05/29/19 11:30 05/29/19 11:30 05/29/19 11:30 05/29/19 11:30 Intake & Output 05/28/19 05/29/19 05/30/19 06:59 06:59 06:59 Intake Total 1190 840 Output Total 300 600 Balance 890 240 Weight 55.2 kg 59.7 kg General appearance: PRESENT: no acute distress Eye exam: PRESENT: PERRLA Respiratory exam: PRESENT: clear to auscultation melony Cardiovascular exam: PRESENT: +S1, +S2 GI/Abdominal exam: PRESENT: soft Neurological exam: PRESENT: alert Results Laboratory Results: 05/28/19 13:58 05/28/19 13:58 05/25/19 05/25/19 05/26/19 17:15 17:15 01:05 Creatine Kinase 38 22 L CK-MB (CK-2) 0.59 Troponin I < 0.012 05/26/19 05/26/19 05/26/19 01:05 07:30 07:30 Creatine Kinase 22 L CK-MB (CK-2) Troponin I < 0.012 < 0.012 05/26/19 05/26/19 13:30 13:30 Creatine Kinase 24 L CK-MB (CK-2) Troponin I < 0.012 Impressions: Chest X-Ray 05/25/19 16:58 IMPRESSION: NO ACUTE RADIOGRAPHIC FINDING IN THE CHEST. Head CT 05/25/19 16:58 IMPRESSION: NORMAL BRAIN CT WITHOUT CONTRAST. EVIDENCE OF ACUTE STROKE: NO. Carotid Doppler Study 05/26/19 00:00 IMPRESSION: NO HEMODYNAMICALLY SIGNIFICANT STENOSIS. Head MRI 05/26/19 00:00 IMPRESSION: NORMAL MRI OF THE BRAIN WITHOUT INTRAVENOUS GADOLINIUM CONTRAST. EVIDENCE OF ACUTE STROKE: NO. Lumbar Spine MRI 05/26/19 00:00 IMPRESSION: 1. OLD COMPRESSION FRACTURE OF L 5. 2. GRADE 1 ANTEROLISTHESIS OF L 4 ON L5. THERE IS DIFFUSE BROAD-BASED POSTERIOR DISC BULGE AT THIS LEVEL WELL MODERATE FACET ARTHROPATHY RESULTING IN MODERATE SPINAL STENOSIS AND BILATERAL EXIT FORAMINAL STENOSIS. 3. THE REMAINDER OF THE LUMBAR SPINE IS OTHERWISE ESSENTIALLY UNREMARKABLE. NO ACUTE FINDINGS. 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
[2019-05-29] MEDS: ASPIRIN 81 MG TABLET, ENT COATED PO SCH (16:36)
[2019-05-29] MEDS ORDERED: TERBINAFINE HCL 250 MG TABLET PO ONE (19:30)
[2019-05-29] MEDS ORDERED: CLOTRIMAZOLE 1% CREAM 15 GM TP ONE (19:30)
[2019-05-29] MEDS: ATORVASTATIN CALCIUM 80 MG TABLET PO SCH (21:20)
[2019-05-30] MEDS: HYDROCODONE/ACETAMINOPHEN 10-325 MG TABLET PO SCH ×2 (03:00→09:58)
[2019-05-30] MEDS: PREGABALIN 75 MG CAPSULE PO SCH (05:18)
[2019-05-30] MEDS: TOPIRAMATE 25 MG TABLET PO SCH (05:18)
[2019-05-30] MEDS: METOPROLOL TARTRATE 25 MG TABLET PO SCH (05:18)
[2019-05-30] MEDS: LEVOTHYROXINE SODIUM 0.112 MG TABLET PO SCH (05:18)
[2019-05-30] MEDS: ALPRAZOLAM 0.25 MG TABLET PO SCH (09:58)
[2019-05-30] MEDS: MONTELUKAST SODIUM 10 MG TABLET PO SCH (09:58)
[2019-05-30] MEDS: ASPIRIN 81 MG TABLET, ENT COATED PO SCH (09:58)
[2019-05-30] MEDS: PANTOPRAZOLE SODIUM 20 MG TABLET.DR PO SCH (09:59)
[2019-05-30] MEDS: CHOLECALCIFEROL (D3) 1,000 UNIT (25 MCG) TABLET PO SCH (09:59)
[2019-05-30] MEDS: DEXAMETHASONE SOD PHOSPHATE INJ 4 MG/1 ML VIAL IV SCH (10:00)
[2019-05-30] MEDS: PRIMIDONE 50 MG TABLET PO SCH (10:00)
[2019-05-30] MEDS ORDERED: TERBINAFINE HCL 250 MG TABLET PO SCH (10:00)
[2019-05-30] MEDS ORDERED: CLOTRIMAZOLE 1% CREAM 15 GM TP SCH (10:00)
[2019-05-30 11:16] VITALS: BP 99/47
--- NOTE | 2019-05-30 13:42 | PDOC DISCHARGE SUMMARY ---
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 Is this a current diagnosis for this admission?: Yes (2) Hypoglycemia Is this a current diagnosis for this admission?: Yes (3) Encephalopathy Is this a current diagnosis for this admission?: Yes (4) Constipation Is this a current diagnosis for this admission?: Yes - Additional Information Discharge Diet: Cardiac Discharge Activity: Activity As Tolerated, Balance Activity w/Rest Referrals: ALBERTO GARCIA MD [Primary Care Provider] - Follow up as needed Prescriptions: Terbinafine HCl [Lamisil 250 mg Tablet] 250 mg PO DAILY #15 tablet Pregabalin [Lyrica 75 mg Capsule] 75 mg PO Q8 #90 Alprazolam [Xanax 0.25 mg Tablet] 0.25 mg PO Q12 #60 Home Medications: Aspirin [Adult Low Dose Aspirin EC] 81 mg PO DAILY 05/25/19 Cholecalciferol (Vitamin D3) [Vitamin D3 2000 unit Tablet] 2,000 unit PO DAILY 05/25/19 Hydrocodone/Acetaminophen [[place] 10-325 mg Tablet] 1 tab PO Q6 05/25/19 Levothyroxine Sodium [Synthroid 0.112 mg Tablet] 0.112 mg PO Q6AM 05/25/19 Metoprolol Tartrate [Lopressor 25 mg Tablet] 25 mg PO Q12 05/25/19 Montelukast Sodium [Singulair 10 mg Tablet] 10 mg PO DAILY 05/25/19 Omeprazole 20 mg PO DAILY 05/25/19 Primidone [Mysoline 50 mg Tablet] 100 mg PO DAILY 05/25/19 Simvastatin [Zocor 40 mg Tablet] 40 mg PO QPM 05/25/19 Topiramate [Topamax] 50 mg PO Q12 05/25/19 Trazodone HCl [Desyrel 50 mg Tablet] 50 mg PO HSP PRN 05/25/19 Alprazolam [Xanax 0.25 mg Tablet] 0.25 mg PO Q12 #60 05/30/19 Pregabalin [Lyrica 75 mg Capsule] 75 mg PO Q8 #90 05/30/19 Terbinafine HCl [Lamisil 250 mg Tablet] 250 mg PO DAILY #15 tablet 05/30/19 History of Present Illiness History of Present Illness: GONZALO FITZGERALD is a 59 year old female,She came to the emergency room for evaluation of confusion, the history was very sketchy, she stated that when she woke up her speech was slurred, she had trouble walking ,and ,there was concern she may have a stroke because of the history of stroke she was admitted for stroke evaluation the initial CT of the head was negative for any acute stroke. MRI of the head that was done today was negative, patient stated she could not move her legs but sensation was intact, I requested for MRI of the lumbar spine, it demonstrated diffuse posterior disc bulge at L4-L5, there is a grade 1 anterolisthesis of L4 on L5, there is moderate facet arthropathy with moderate spinal stenosis and exit foraminal stenosis at L4-L5. Unfortunately we cannot do a spinal tap at this time because she already had antiplatelet, she was man aged as a case of stroke initially. The lumbar spinal stenosis does not explain the confusion though but it does explain the weakness of the leg. She has a history of rheumatoid arthritis, cerebellar stroke. She also had unexplained hypoglycemia, she has no history of diabetes mellitus, she is not on insulin therapy Hospital Course Hospital Course: Patient presented with confusion, there was no definitive focal neurologic deficits, initially CVA was suspected because of history of CVA she was managed according to CVA protocol but she subsequently developed loss of motor function of both lower extremities, because of these new symptoms MRI of the lumbar spine was obtained, did demonstrated generalized bulging disc with compressive neuropathy there was anterolisthesis. She was treated with intravenous dexamethasone with dramatic improvement in her symptoms, she gained back the loss of motor function of the lower extremities. She was able to ambulate without any assistance, she has less confusion, the etiology of the acute encephalopathy is not very apparent, the other finding was hypoglycemia, this was also felt to be a contributing or potential etiology for the confusion. lumbar puncture was consider but this was not done partly because she was prescribed antiplatelet agent, Aggrenox when she presented because it was felt that she may have a stroke. The lumbar puncture was subsequently not done because she regained full function of her lower extremities, it was felt that the lumbar puncture will not add any more value to managementShe is on opioid therapy chronically she had constipation, this was treated with enema, molasses enema, with good results. Physical Exam Vital Signs: Temp Pulse Resp BP Pulse Ox 97.5 F 56 L 16 99/47 L 100 05/30/19 12:21 05/30/19 12:21 05/30/19 12:21 05/30/19 12:21 05/30/19 12:21 Intake & Output 05/29/19 05/30/19 05/31/19 06:59 06:59 06:59 Intake Total 840 1080 Output Total 600 Balance 240 1080 Weight 59.7 kg 58.4 kg General appearance: PRESENT: no acute distress Eye exam: PRESENT: PERRLA Respiratory exam: PRESENT: clear to auscultation melony Cardiovascular exam: PRESENT: +S1, +S2 GI/Abdominal exam: PRESENT: soft Neurological exam: PRESENT: alert Results Laboratory Results: WBC 11.5 10^3/uL (4.0-10.5) H 05/28/19 13:58 RBC 4.33 10^6/uL (3.72-5.28) 05/28/19 13:58 Hgb 12.3 g/dL (12.0-15.5) 05/28/19 13:58 Hct 37.6 % (36.0-47.0) 05/28/19 13:58 MCV 87 fl (80-97) 05/28/19 13:58 MCH 28.5 pg (27.0-33.4) 05/28/19 13:58 MCHC 32.7 g/dL (32.0-36.0) 05/28/19 13:58 RDW 14.1 % (11.5-14.0) H 05/28/19 13:58 Plt Count 249 10^3/uL (150-450) 05/28/19 13:58 Lymph % (Auto) 8.6 % (13-45) L 05/28/19 13:58 [place] % (Auto) 5.1 % (3-13) 05/28/19 13:58 Eos % (Auto) 0.0 % (0-6) 05/28/19 13:58 Baso % (Auto) 0.4 % (0-2) 05/28/19 13:58 Absolute Neuts (auto) 9.9 10^3/uL (1.7-8.2) H 05/28/19 13:58 Absolute Lymphs (auto) 1.0 10^3/uL (0.5-4.7) 05/28/19 13:58 Absolute Monos (auto) 0.6 10^3/uL (0.1-1.4) 05/28/19 13:58 Absolute Eos (auto) 0.0 10^3/uL (0.0-0.6) 05/28/19 13:58 Absolute Basos (auto) 0.0 10^3/uL (0.0-0.2) 05/28/19 13:58 Seg Neutrophils % 85.9 % (42-78) H 05/28/19 13:58 PT 12.3 SEC (11.4-15.4) 05/25/19 17:15 INR 0.92 05/25/19 17:15 APTT 29.1 SEC (23.5-35.8) 05/25/19 17:15 Carbonic Acid 1.13 mmol/L (1.05-1.35) 05/25/19 23:00 HCO3/H2CO3 Ratio 17:1 05/25/19 23:00 ABG pH 7.34 (7.35-7.45) L 05/25/19 23:00 ABG pCO2 37.5 mmHg (35-45) 05/25/19 23:00 ABG pO2 105.6 mmHg (80-100) H 05/25/19 23:00 ABG HCO3 19.6 mmol/L (20-24) L 05/25/19 23:00 ABG Total CO2 20.7 mmol/L (21-25) L 05/25/19 23:00 ABG O2 Saturation 97.6 % (94-98) 05/25/19 23:00 ABG Base Excess -5.7 mmol/L 05/25/19 23:00 FiO2 ROOM AIR 05/25/19 23:00 Sodium 135.6 mmol/L (137-145) L 05/28/19 13:58 Potassium 4.3 mmol/L (3.6-5.0) 05/28/19 13:58 Chloride 104 mmol/L (98-107) 05/28/19 13:58 Carbon Dioxide 24 mmol/L (22-30) 05/28/19 13:58 Anion Gap 8 (5-19) 05/28/19 13:58 BUN 18 mg/dL (7-20) 05/28/19 13:58 Creatinine 0.63 mg/dL (0.52-1.25) 05/28/19 13:58 Est GFR ( Amer) > 60 (>60) 05/28/19 13:58 Est GFR (MDRD) Non-Af > 60 (>60) 05/28/19 13:58 Glucose 95 mg/dL (75-110) 05/28/19 13:58 POC Glucose 102 mg/dL (70-110) 05/30/19 10:54 Calcium 9.4 mg/dL (8.4-10.2) 05/28/19 13:58 Total Bilirubin 0.3 mg/dL (0.2-1.3) 05/28/19 13:58 Direct Bilirubin 0.1 mg/dL (0.0-0.4) 05/28/19 13:58 Neonat Total Bilirubin Not Reportable 05/28/19 13:58 Neonat Direct Bilirubin Not Reportable 05/28/19 13:58 Neonat Indirect Bili Not Reportable 05/28/19 13:58 AST 14 U/L (14-36) 05/28/19 13:58 ALT 14 U/L (<35) 05/28/19 13:58 Alkaline Phosphatase 57 U/L (38-126) 05/28/19 13:58 Creatine Kinase 24 U/L (30-135) L 05/26/19 13:30 CK-MB (CK-2) 0.59 ng/mL (<4.55) 05/25/19 17:15 Troponin I < 0.012 ng/mL 05/26/19 13:30 Total Protein 6.6 g/dL (6.3-8.2) 05/28/19 13:58 Albumin 3.8 g/dL (3.5-5.0) 05/28/19 13:58 Triglycerides 114 mg/dL (<150) 05/26/19 07:30 Cholesterol 119.13 mg/dL (0-200) 05/26/19 07:30 LDL Cholesterol Direct 62 mg/dL (<100) 05/26/19 07:30 VLDL Cholesterol 23.0 mg/dL (10-31) 05/26/19 07:30 HDL Cholesterol 48 mg/dL (>40) 05/26/19 07:30 05/25/19 05/26/19 05/26/19 17:15 01:05 07:30 CK-MB (CK-2) 0.59 Troponin I < 0.012 < 0.012 < 0.012 05/26/19 13:30 CK-MB (CK-2) Troponin I < 0.012 Impressions: Chest X-Ray 05/25/19 16:58 IMPRESSION: NO ACUTE RADIOGRAPHIC FINDING IN THE CHEST. Head CT 05/25/19 16:58 IMPRESSION: NORMAL BRAIN CT WITHOUT CONTRAST. EVIDENCE OF ACUTE STROKE: NO. Carotid Doppler Study 05/26/19 00:00 IMPRESSION: NO HEMODYNAMICALLY SIGNIFICANT STENOSIS. Head MRI 05/26/19 00:00 IMPRESSION: NORMAL MRI OF THE BRAIN WITHOUT INTRAVENOUS GADOLINIUM CONTRAST. EVIDENCE OF ACUTE STROKE: NO. Lumbar Spine MRI 05/26/19 00:00 IMPRESSION: 1. OLD COMPRESSION FRACTURE OF L 5. 2. GRADE 1 ANTEROLISTHESIS OF L 4 ON L5. THERE IS DIFFUSE BROAD-BASED POSTERIOR DISC BULGE AT THIS LEVEL WELL MODERATE FACET ARTHROPATHY RESULTING IN MODERATE SPINAL STENOSIS AND BILATERAL EXIT FORAMINAL STENOSIS. 3. THE REMAINDER OF THE LUMBAR SPINE IS OTHERWISE ESSENTIALLY UNREMARKABLE. NO ACUTE FINDINGS. Stroke Is this a Stroke Patient?: No Stroke Pt being discharged on Anti-thrombolytic therapy?: No Reason(s) for not prescribing Anti-thrombolytic therapy:: Not indicated Stroke Pt being discharged on Anti-coagulation therapy?: No Reason(s) for not prescribing Anti-coagulation therapy:: Not indicated Stroke Pt being discharged on Statins?: No Reason(s) for not prescribing Statins therapy:: Not indicated Acute Heart Failure - Is this a Heart Failure Patient?: No Follow-up Appointment scheduled within 7 days?: Yes
== END 2019-05-30 13:45 | disposition home or self-care (01) | DRG 641 ==
LOC: ER 16:50 → EH 19:37 → 3S 23:06 → OBSVTOIN 05-27 14:46
PROVIDERS: ADMIT Internal Medicine; ATTEND Internal Medicine
DX: E16.2 Hypoglycemia, unspecified (principal); G95.89 Other specified diseases of spinal cord; G93.40 Encephalopathy, unspecified; R47.81 Slurred speech; M48.061 Spinal stenosis, lumbar region without neurogenic claudication; K59.00 Constipation, unspecified; M06.9 Rheumatoid arthritis, unspecified; E78.5 Hyperlipidemia, unspecified; I10 Essential (primary) hypertension; E03.9 Hypothyroidism, unspecified; K21.9 Gastro-esophageal reflux disease without esophagitis; F32.9 Major depressive disorder, single episode, unspecified; E78.00 Pure hypercholesterolemia, unspecified; F41.9 Anxiety disorder, unspecified; Z79.82 Long term (current) use of aspirin; Z79.890 Hormone replacement therapy; Z79.899 Other long term (current) drug therapy; Z79.891 Long term (current) use of opiate analgesic; Z86.73 Personal history of transient ischemic attack (TIA), and cerebral infarction without residual deficits; Z86.718 Personal history of other venous thrombosis and embolism; Z83.3 Family history of diabetes mellitus; Z82.49 Family history of ischemic heart disease and other diseases of the circulatory system; Z88.6 Allergy status to analgesic agent
CPT/HCPCS: 36415; 70450; 70551; 71045; 72148; 80053; 80061; 82550; 82553; 82803; 82962; 84484; 85025; 85610; 85730; 93005; 93010; 93306; 93880; 96374; 99285; G0378; J1100; J2060; J2405; J3490

== ENCOUNTER → 2019-06-11 | Outpatient (CLI) | payer OTHER ==
--- NOTE | 2019-06-11 14:08 | RADIOLOGY REPORT (SQ) ---
EXAM DESCRIPTION: L SPINE 2 VIEWS COMPLETED DATE/TIME: 06/11/2019 1:36 pm REASON FOR STUDY: M48.061 SPINAL STENOSIS, LUMBAR REGION WITHOUT NEUROGENIC IVÁN M48.[address] ENOSIS, LUMBAR REGION WITHOUT NEUROGENIC CL COMPARISON: 03/15/2018 NUMBER OF VIEWS: Two views. TECHNIQUE: AP and lateral radiographic images acquired of the lumbar spine. LIMITATIONS: None. FINDINGS: MINERALIZATION: Normal. SEGMENTATION: Normal. No transitional anatomy. ALIGNMENT: Levoconvex lumbar curvature. Trace anterolisthesis of L4 on L5. . VERTEBRAE: No definite new bony abnormality. Compression deformity of L5, similar to prior MRI. DISCS: Relatively well-maintained disc height. There is mild height loss at L3-4. POSTERIOR ELEMENTS: Lower lumbar facet arthropathy. No fracture or definite pars defect. HARDWARE: Inferior vena cava filter in expected location surgical clips and chain bonny overlie upp er abdomen. PARASPINAL SOFT TISSUES: Normal. PELVIS: Intact as visualized. No fractures or worrisome bone lesions. SI joints intact. OTHER: No other significant finding. IMPRESSION: No definite acute bony abnormality. Stable L5 compression deformity and degenerative changes as above. TECHNICAL DOCUMENTATION: JOB ID: [id number] [employer]- All Rights Reserved Reading location - IP/workstation name: [email or web address]
== END ==
LOC: RAD 13:22
PROVIDERS: ATTEND Internal Medicine
DX: M48.061 Spinal stenosis, lumbar region without neurogenic claudication (principal)
CPT/HCPCS: 72100

== ENCOUNTER 2019-09-07 16:58 | Observation (INO) | payer BC, OTHER ==
[~2019-09-07 16:58] MED LIST: REGADENOSON INJ 0.4 MG/5 ML DISP.SYRIN IV ONE
[2019-09-07] MEDS ORDERED: ASPIRIN 81 MG TABLET, CHEWABLE PO ONE (17:22)
[2019-09-07] MEDS ORDERED: ONDANSETRON 4 MG TAB.RAPDIS PO ONE (17:22)
--- NOTE | 2019-09-07 17:24 | ER Document Report ---
ED Medical Screen (RME) - General Chief Complaint: Palpitations Stated Complaint: HEART RACING, LEFT ARM PAIN Time Seen by Provider: 09/07/19 17:18 Primary Care Provider: ALBERTO GARCIA MD [Primary Care Provider] - Follow up as needed Mode of Arrival: Wheelchair Information source: Patient Notes: 59-year-old female with history of stroke presents to the emergency department with complaints of chest pressure vomiting and pain going down her left arm. She reports they were at work at a [employer] when she started feeling like her chest was pounding in her throat. She reports she has a history of low heart rate not fast. She reports she got up to walk around thinking that would help when she became very dizzy. She sat back down and started having chest pressure she vomited she reports pain going down her left arm. She reports she is vomited twice since she arrived here. Denies history of cardiac disease. I have greeted and performed a rapid initial assessment of this patient. A comprehensive ED assessment and evaluation of the patient, analysis of test results and completion of the medical decision making process will be conducted by additional ED providers. TRAVEL OUTSIDE OF THE [place] IN LAST 30 DAYS: No - Related Data Allergies/Adverse Reactions: codeine [Codeine] Allergy (Verified 03/27/19 18:20) Past Medical History - Past Medical History Cardiac Medical History: Reports: Hx DVT, Hx Hypercholesterolemia, Hx Hypertension Endocrine Medical History: Reports: Hx Hypothyroidism Renal/ Medical History: Denies: Hx Peritoneal Dialysis GI Medical History: Reports: Hx Gastroesophageal Reflux Disease, Hx Colonoscopy, Hx Endoscopy Musculoskeltal Medical History: Reports Hx Arthritis - Rheumatoid arthritis, Reports Hx Musculoskeletal Deformity, Reports Hx Musculoskeletal Trauma Psychiatric Medical History: Reports: Hx Anxiety, Hx Depression Traumatic Medical History: Reports: Hx Fractures - left wrist and right hand Past Surgical History: Reports: Hx Abdominal Surgery - gastric, Hx Bowel Surgery - gastric bypass, Hx Gastric Bypass Surgery, Hx Hysterectomy, Other - Questionable history of heart catheterization about 10 years ago at [facility] - Immunizations Hx Diphtheria, Pertussis, Tetanus Vaccination: Yes Physical Exam - Vital signs Vitals: Temp Pulse Resp BP Pulse Ox 98.4 F 105 H 16 119/75 99 09/07/19 17:16 09/07/19 17:16 09/07/19 17:16 09/07/19 17:16 09/07/19 17:16 Course - Vital Signs Vital signs: Temp Pulse Resp BP Pulse Ox 98.4 F 105 H 16 119/75 99 09/07/19 17:16 09/07/19 17:16 09/07/19 17:16 09/07/19 17:16 09/07/19 17:16 Doctor's Discharge - Discharge Referrals: ALBERTO GARCIA MD [Primary Care Provider] - Follow up as needed
--- NOTE | 2019-09-07 17:57 | RADIOLOGY REPORT (SQ) ---
EXAM DESCRIPTION: CHEST 2 VIEWS COMPLETED DATE/TIME: 09/07/2019 5:46 pm REASON FOR STUDY: cp COMPARISON: CT chest 12/04/2018 AP chest 05/25/2019 EXAM PARAMETERS: NUMBER OF VIEWS: two views TECHNIQUE: Digital Frontal and Lateral radiographic views of the chest acquired. RADIATION DOSE: NA LIMITATIONS: none FINDINGS: LUNGS AND PLEURA: No opacities, masses or pneumothorax. No pleural effusion. MEDIASTINUM AND HILAR STRUCTURES: No masses or contour abnormalities. HEART AND VASCULAR STRUCTURES: Heart normal size. No evidence for failure. BONES: No acute findings. HARDWARE: IVC filter OTHER: No other significant finding. IMPRESSION: NO ACUTE RADIOGRAPHIC FINDING IN THE CHEST. TECHNICAL DOCUMENTATION: JOB ID: [id number] [employer]- All Rights Reserved Reading location - IP/workstation name: [email or web address]
[2019-09-07 18:05] LABS: ABSOLUTE LYMPHOCYTES (AUTO) 1.8 10^3/uL (0.5-4.7); ABSOLUTE MONOCYTES (AUTO) 0.6 10^3/uL (0.1-1.4); ABSOLUTE NEUT (AUTO) 3.1 10^3/uL (1.7-8.2); BASOPHILS % (AUTO) 0.3 % (0-2); EOSINOPHILS % (AUTO) 0.5 % (0-6); HEMATOCRIT 39.1 % (36.0-47.0); HEMOGLOBIN 12.9 g/dL (12.0-15.5); MEAN CORPUSCULAR HEMOGLOBIN 27.7 pg (27.0-33.4); MEAN CORPUSCULAR HGB CONC 32.9 g/dL (32.0-36.0); MEAN CORPUSCULAR VOLUME 84 fl (80-97); PLATELET COUNT 335 10^3/uL (150-450); RED BLOOD COUNT 4.65 10^6/uL (3.72-5.28); RED CELL DISTRIBUTION WIDTH 15.1 % (11.5-14.0); SEGMENTED NEUTROPHILS % (AUTO) 56.2 % (42-78); TOTAL CELLS COUNTED % (AUTO) 100 %; WHITE BLOOD COUNT 5.6 10^3/uL (4.0-10.5)
[2019-09-07 18:24] LABS: ALBUMIN 4.2 g/dL (3.5-5.0); ALKALINE PHOSPHATASE 77 U/L (38-126); ANION GAP 10 (5-19); ASPARTATE AMINO TRANSFERASE 21 U/L (14-36); BILIRUBIN,DIRECT 0.2 mg/dL (0.0-0.4); BILIRUBIN,TOTAL 0.2 mg/dL (0.2-1.3); BLOOD UREA NITROGEN 21 mg/dL (7-20); CALCIUM 9.3 mg/dL (8.4-10.2); CARBON DIOXIDE 21 mmol/L (22-30); CHLORIDE 110 mmol/L (98-107); GLUCOSE 75 mg/dL (75-110); POTASSIUM 3.5 mmol/L (3.6-5.0); TOTAL PROTEIN 7.3 g/dL (6.3-8.2)
[2019-09-07] MEDS ORDERED: NITROGLYCERIN 0.4 MG/TAB 25 TAB/BOTTLE SL PRN (19:46)
[2019-09-07] MEDS ORDERED: ONDANSETRON HCL INJ/PF 4 MG/2 ML SDV IV ONE (19:50)
[2019-09-07] MEDS ORDERED: MORPHINE SULFATE 10 MG/ML INJ IV ONE (19:50)
--- NOTE | 2019-09-07 19:59 | ER Document Report ---
ED Cardiac - General Chief Complaint: Palpitations Stated Complaint: HEART RACING, LEFT ARM PAIN Time Seen by Provider: 09/07/19 17:18 Primary Care Provider: ALBERTO GARCIA MD [Primary Care Provider] - Follow up as needed Mode of Arrival: Wheelchair Notes: 59-year-old woman presents to the emergency department with a history of chest palpitations, racing heart, pounding heart, chest pain and pain in the left scapular region radiating into the left arm. Symptoms began while she was at work today approximately 4:30 this afternoon. She apparently has had a previous CVA approximately 1 year ago. She also has had a history of congestive heart failure but denies a history of chest pain. She states that the episode of pounding racing heart lasted for approximately 30 minutes. In the emergency department she continued to have chest pressure and scapular left arm pain that she rated a 10/10. She notes that the pain does radiate into her left arm. She was given Zofran for nausea and aspirin in the emergency department. TRAVEL OUTSIDE OF THE [place] IN LAST 30 DAYS: No - Related Data Allergies/Adverse Reactions: codeine [Codeine] Allergy (Verified 03/27/19 18:20) Past Medical History - General Information source: Patient - Social History Smoking Status: Never Smoker Family History: DM, Hypertension, Other - VTE, brother from CHF and DM complications at 49 years old Patient has suicidal ideation: No Patient has homicidal ideation: No - Past Medical History Cardiac Medical History: Reports: Hx DVT, Hx Hypercholesterolemia, Hx Hypertension Endocrine Medical History: Reports: Hx Hypothyroidism Renal/ Medical History: Denies: Hx Peritoneal Dialysis GI Medical History: Reports: Hx Gastroesophageal Reflux Disease, Hx Colonoscopy, Hx Endoscopy Musculoskeletal Medical History: Reports Hx Arthritis - Rheumatoid arthritis, Reports Hx Musculoskeletal Deformity, Reports Hx Musculoskeletal Trauma Psychiatric Medical History: Reports: Hx Anxiety, Hx Depression Traumatic Medical History: Reports: Hx Fractures - left wrist and right hand Past Surgical History: Reports: Hx Abdominal Surgery - gastric, Hx Bowel Surgery - gastric bypass, Hx Gastric Bypass Surgery, Hx Hysterectomy, Other - Questionable history of heart catheterization about 10 years ago at [facility] - Immunizations Hx Diphtheria, Pertussis, Tetanus Vaccination: Yes Hx Pneumococcal Vaccination: 06/01/18 Review of Systems - Review of Systems Notes: Constitutional: Negative for fever. HENT: Negative for sore throat. Eyes: Negative for visual changes. Cardiovascular: + Palpitations, + chest pain. Respiratory: Negative for shortness of breath. Gastrointestinal: Negative for abdominal pain, vomiting or diarrhea. Genitourinary: Negative for dysuria. Musculoskeletal: Negative for back pain. Skin: Negative for rash. Neurological: Negative for headaches, weakness or numbness. 10 point ROS negative except as marked above and in HPI. Physical Exam - Vital signs Vitals: Temp Pulse Resp BP Pulse Ox 98.4 F 105 H 16 119/75 99 09/07/19 17:16 09/07/19 17:16 09/07/19 17:16 09/07/19 17:16 09/07/19 17:16 - Notes Notes: PHYSICAL EXAMINATION: Physical Exam: General: Well-nourished well-developed female in no acute distress HEENT: NC/AT, pupils equal round and reactive to light, MM moist,nares clear, Neck: supple, no adenopathy, no masses. Lungs: clear, no wheezing, no rales no rhonchi CVS: Regular rate and rhythm no murmur gallop or rub Abdomen: Soft active nontender, no masses, no hepatosplenomegaly Ext: No edema clubbing or cyanosis. Neuro: Alert and responsive, moving all 4 extremities on command, cranial nerves intact. Skin: Intact no open lesions, no rash PSYCH: Normal mood, normal affect. Course - Re-evaluation Re-evalutation: 09/07/19 20:03 59-year-old woman history of CVA in the past, presents today with racing heartbeat and palpitations with along with chest pain. Continues to have prolonged chest discomfort with EKG that does not show hyperacute changes. Cardiac enzymes were negative, but given the patient's presentation a history at work bring her in for trending and cardiology consultation. Heart score Score History Highly suspicious 2 ECG Nonspecific repolarisation disturbance 1 Normal 0 Age 45-65 year 1 Risk factors hypertension, elevated cholesterol, prior stroke. Troponin >2x normal limit 2 normal limit 0 Total 5 Patient with a heart score of 5, a compelling story, negative troponin and EKG. I have discussed the patient with her attending physician Dr. Garcia. He will bring her into the hospital observation status to rule out IN - Vital Signs Vital signs: Temp Pulse Resp BP Pulse Ox 98.4 F 105 H 20 107/80 100 09/07/19 17:16 09/07/19 17:16 09/07/19 20:07 09/07/19 20:07 09/07/19 20:07 - Laboratory Result Diagrams: 09/07/19 17:35 09/07/19 17:35 Laboratory results interpreted by me: 09/07/19 09/07/19 17:35 17:35 RDW 15.1 H Potassium 3.5 L Chloride 110 H Carbon Dioxide 21 L BUN 21 H 09/07/19 20:00 I have reviewed laboratory data and used this information for the treatment decisions regarding the patient. - Diagnostic Test Radiology reviewed: Image reviewed, Reports reviewed - X-ray: No acute findings. - EKG Interpretation by Me EKG shows normal: Sinus rhythm - Rate of 92, nonspecific T wave abnormalities noted. Discharge - Discharge Clinical Impression: Palpitations Chest pain Qualifiers: Chest pain type: unspecified Qualified Code(s): R07.9 - Chest pain, unspecified Condition: Good Disposition: ADMITTED OBSERVATION Admitting Provider: [facility] Admitted: Telemetry Referrals: ALBERTO GARCIA MD [Primary Care Provider] - Follow up as needed
--- NOTE | 2019-09-07 22:36 | EKG REPORT ---
SEVERITY:- BORDERLINE ECG - SINUS RHYTHM BORDERLINE T ABNORMALITIES, DIFFUSE LEADS : Confirmed by: Enrrique Celeste 07-Sep-2019 22:35:14
[2019-09-07] MEDS: ENOXAPARIN SODIUM INJ 40 MG/0.4 ML DISP.SYRIN SUBCUT SCH (22:43)
[2019-09-07] MEDS ORDERED: BACLOFEN 10 MG TABLET PO ONE (22:53)
[2019-09-07] MEDS ORDERED: HYDROCODONE/ACETAMINOPHEN 5-325 MG (6 TAB/ER DISP) PO PRN (22:54)
[2019-09-07 23:23] LABS: ANION GAP 10 (5-19); BLOOD UREA NITROGEN 24 mg/dL (7-20); CALCIUM 8.9 mg/dL (8.4-10.2); CARBON DIOXIDE 23 mmol/L (22-30); CHLORIDE 107 mmol/L (98-107); GLUCOSE 101 mg/dL (75-110); PHOSPHORUS 4.4 mg/dL (2.5-4.5); POTASSIUM 3.2 mmol/L (3.6-5.0)
[2019-09-08 06:22] LABS: ABSOLUTE EOSINOPHILS # (AUTO) 0.1 10^3/uL (0.0-0.6); ABSOLUTE MONOCYTES (AUTO) 0.5 10^3/uL (0.1-1.4); ABSOLUTE NEUT (AUTO) 3.8 10^3/uL (1.7-8.2); BASOPHILS % (AUTO) 0.4 % (0-2); HEMATOCRIT 33.9 % (36.0-47.0); HEMOGLOBIN 11.3 g/dL (12.0-15.5); LYMPHOCYTES % (AUTO) 31.3 % (13-45); MEAN CORPUSCULAR HEMOGLOBIN 27.8 pg (27.0-33.4); MEAN CORPUSCULAR HGB CONC 33.3 g/dL (32.0-36.0); MEAN CORPUSCULAR VOLUME 83 fl (80-97); MONOCYTES % (AUTO) 8.4 % (3-13); PLATELET COUNT 265 10^3/uL (150-450); RED BLOOD COUNT 4.07 10^6/uL (3.72-5.28); RED CELL DISTRIBUTION WIDTH 15.2 % (11.5-14.0); SEGMENTED NEUTROPHILS % (AUTO) 58.9 % (42-78); TOTAL CELLS COUNTED % (AUTO) 100 %; WHITE BLOOD COUNT 6.4 10^3/uL (4.0-10.5)
[2019-09-08 09:19] LABS: ANION GAP 9 (5-19); BLOOD UREA NITROGEN 24 mg/dL (7-20); CARBON DIOXIDE 25 mmol/L (22-30); CHLORIDE 106 mmol/L (98-107); GLUCOSE 94 mg/dL (75-110)
[2019-09-08] MEDS: CHOLECALCIFEROL (D3) 1,000 UNIT (25 MCG) TABLET PO SCH (09:44)
[2019-09-08] MEDS: TOPIRAMATE 25 MG TABLET PO SCH ×2 (09:44→17:06)
[2019-09-08] MEDS: HYDROCODONE/ACETAMINOPHEN 10-325 MG TABLET PO PRN ×2 (09:44→15:50)
[2019-09-08] MEDS: ASPIRIN 81 MG TABLET, CHEWABLE PO SCH (09:45)
[2019-09-08] MEDS: ALPRAZOLAM 0.25 MG TABLET PO SCH ×2 (09:45→17:06)
[2019-09-08] MEDS: ENOXAPARIN SODIUM INJ 40 MG/0.4 ML DISP.SYRIN SUBCUT SCH (09:45)
[2019-09-08] MEDS: METOPROLOL TARTRATE 25 MG TABLET PO SCH ×2 (09:45→21:20)
[2019-09-08] MEDS: TRIAMTERENE/HYDROCHLOROTHIAZIDE 37.5-25 MG TABLET PO SCH (09:46)
[2019-09-08] MEDS: LEVOTHYROXINE SODIUM 0.112 MG TABLET PO SCH (09:53)
[2019-09-08] MEDS ORDERED: (PENDING PHARMACY ID) (Topiramate [Topiramate] 50 MG) PO SCH (10:00)
[2019-09-08] MEDS: POTASSIUM CHLORIDE 10 MEQ TABLET.ER PO SCH (11:06)
[2019-09-08] MEDS: PREGABALIN 75 MG CAPSULE PO SCH ×2 (13:50→21:15)
[2019-09-08] MEDS: SIMVASTATIN 40 MG TABLET PO SCH (17:06)
--- NOTE | 2019-09-08 18:15 | PDOC H&P ---
History of Present Illness Admission Date/PCP: 09/07/19 21:25 ALBERTO GARCIA MD History of Present Illness: GONZALO FITZGERALD is a 59 year old female,, She came to the emergency room last night for evaluation of 1 day history of chest pressure with radiation to the left upper extremities. The pain was not provoked by exertion or emotion, she said she was sitting in a chair at the job when the symptoms started. The twelve- lead EKG was sinus rhythm, there is no acute ST T-segment elevation.So far 3 sets of cardiac enzymes negative for acute myocardial infarction.She has risk factors for ischemic heart disease, she has a history of rheumatoid arthritis, hypertension , Past Medical History Cardiac Medical History: Reports: DVT, Hyperlipidema, Hypertension Pulmonary Medical History: Reports: Asthma Endocrine Medical History: Reports: Hypothyroidism GI Medical History: Reports: Gastroesophageal Reflux Disease Musculoskeltal Medical History: Reports: Arthritis Psychiatric Medical History: Reports: Depression Past Surgical History Past Surgical History: Reports: Gastric Bypass Surgery, Hysterectomy, Other - Questionable history of heart catheterization about 10 years ago at [facility] Social History Smoking Status: Never Smoker Frequency of Alcohol Use: None Hx Recreational Drug Use: No Drugs: None Hx Prescription Drug Abuse: No - Advance Directive Resuscitation Status: Full Code Family History Family History: DM, Hypertension, Other - VTE, brother from CHF and DM complications at 49 years old Parental Family History Reviewed: Yes Children Family History Reviewed: Yes Sibling(s) Family History Reviewed.: Yes Medication/Allergy Home Medications: Alprazolam 0.25 mg PO BID 09/07/19 Cholecalciferol (Vitamin D3) [Vitamin D3 1000 Unit Tablet] 1,000 unit PO DAILY 09/07/19 Cyclobenzaprine HCl [Flexeril 10 mg Tablet] 10 mg PO QHS 09/07/19 Hydrocodone/Acetaminophen [Christopher 10-325 Tablet] 1 each PO Q6HP PRN 09/07/19 Levothyroxine Sodium [Synthroid 0.112 mg Tablet] 0.112 mg PO DAILY 09/07/19 Metoprolol Tartrate [Lopressor 25 mg Tablet] 25 mg PO Q12 09/07/19 Omeprazole 20 mg PO DAILY 09/07/19 Pregabalin [Lyrica 75 mg Capsule] 75 mg PO Q8 09/07/19 Simvastatin 40 mg PO QPM 09/07/19 Topiramate 50 mg PO BID 09/07/19 Triamterene/Hydrochlorothiazid [Triamterene-Hctz 37.5-25 mg Tb] 1 each PO DAILY 09/07/19 Allergies/Adverse Reactions: codeine [Codeine] Allergy (Verified 03/27/19 18:20) Review of Systems Constitutional: ABSENT: chills, fever(s), headache(s), weight gain, weight loss Eyes: ABSENT: visual disturbances Ears: ABSENT: hearing changes Cardiovascular: PRESENT: chest pain Respiratory: ABSENT: cough, hemoptysis Gastrointestinal: ABSENT: abdominal pain, constipation, diarrhea, hematemesis, hematochezia, nausea, vomiting Genitourinary: ABSENT: dysuria, hematuria Musculoskeletal: ABSENT: joint swelling Integumentary: ABSENT: rash, wounds Neurological: ABSENT: abnormal gait, abnormal speech, confusion, dizziness, focal weakness, syncope Psychiatric: ABSENT: anxiety, depression, homidical ideation, suicidal ideation Endocrine: ABSENT: cold intolerance, heat intolerance, menstrual abnormalities, polydipsia, polyuria Hematologic/Lymphatic: ABSENT: easy bleeding, easy bruising, lymphadenopathy Physical Exam Vital Signs: Temp Pulse Resp BP Pulse Ox 98.2 F 56 L 16 107/69 100 09/08/19 16:19 09/08/19 16:19 09/08/19 16:19 09/08/19 16:19 09/08/19 16:19 Intake & Output 09/07/19 09/08/19 09/09/19 06:59 06:59 06:59 Intake Total 470 Balance 470 Weight 64.7 kg General appearance: PRESENT: no acute distress, well-developed, well-nourished Head exam: PRESENT: atraumatic, normocephalic Eye exam: PRESENT: conjunctiva pink, EOMI, PERRLA Ear exam: PRESENT: normal external ear exam Mouth exam: PRESENT: moist, tongue midline Neck exam: PRESENT: full ROM Respiratory exam: PRESENT: clear to auscultation melony Cardiovascular exam: PRESENT: RRR, +S1, +S2 Pulses: PRESENT: normal dorsalis pedis pul, +2 pedal pulses bilateral Vascular exam: PRESENT: normal capillary refill GI/Abdominal exam: PRESENT: normal bowel sounds, soft Rectal exam: PRESENT: deferred Neurological exam: PRESENT: alert, awake, oriented to person, oriented to place, oriented to time, oriented to situation, CN II-XII grossly intact Psychiatric exam: PRESENT: appropriate affect, normal mood Skin exam: PRESENT: dry, intact, warm Results Laboratory Results: 09/08/19 05:44 09/08/19 05:44 09/07/19 09/07/19 09/07/19 17:35 17:35 22:52 WBC 5.6 RBC 4.65 Hgb 12.9 Hct 39.1 MCV 84 MCH 27.7 MCHC 32.9 RDW 15.1 H Plt Count 335 Seg Neutrophils % 56.2 Sodium 140.7 139.7 Potassium 3.5 L 3.2 L Chloride 110 H 107 Carbon Dioxide 21 L 23 Anion Gap 10 10 BUN 21 H 24 H Creatinine 0.88 0.72 Est GFR ( Amer) > 60 > 60 Glucose 75 101 Calcium 9.3 8.9 Phosphorus 4.4 Magnesium 2.3 Total Bilirubin 0.2 AST 21 Alkaline Phosphatase 77 Total Protein 7.3 Albumin 4.2 09/08/19 09/08/19 05:44 05:44 WBC 6.4 RBC 4.07 Hgb 11.3 L Hct 33.9 L MCV 83 MCH 27.8 MCHC 33.3 RDW 15.2 H Plt Count 265 Seg Neutrophils % 58.9 Sodium 139.5 Potassium 3.0 L* Chloride 106 Carbon Dioxide 25 Anion Gap 9 BUN 24 H Creatinine 0.68 Est GFR ( Amer) > 60 Glucose 94 Calcium 9.0 Phosphorus Magnesium Total Bilirubin AST Alkaline Phosphatase Total Protein Albumin 09/07/19 09/07/19 09/07/19 17:35 19:54 22:52 Creatine Kinase 23 L Troponin I < 0.012 < 0.012 09/07/19 09/08/19 09/08/19 22:52 05:44 05:44 Creatine Kinase < 20 L Troponin I < 0.012 < 0.012 09/08/19 09/08/19 12:46 12:46 Creatine Kinase < 20 L Troponin I < 0.012 Impressions: Chest X-Ray 09/07/19 17:22 IMPRESSION: NO ACUTE RADIOGRAPHIC FINDING IN THE CHEST. Assessment & Plan - Diagnosis (1) Chest pain Qualifiers: Chest pain type: unspecified Qualified Code(s): R07.9 - Chest pain, unspecified Is this a current diagnosis for this admission?: Yes Plan: Patient will be scheduled for Cardiolite stress test (2) Rheumatoid arthritis Qualifiers: Rheumatoid factor presence: with rheumatoid factor Laterality: unspecified laterality Is this a current diagnosis for this admission?: Yes
[2019-09-08] MEDS: CYCLOBENZAPRINE HCL 10 MG TABLET PO SCH (21:15)
[2019-09-09] MEDS: HYDROCODONE/ACETAMINOPHEN 10-325 MG TABLET PO PRN ×4 (01:18→22:56)
[2019-09-09 05:04] LABS: ABSOLUTE EOSINOPHILS # (AUTO) 0.1 10^3/uL (0.0-0.6); ABSOLUTE MONOCYTES (AUTO) 0.5 10^3/uL (0.1-1.4); ABSOLUTE NEUT (AUTO) 3.4 10^3/uL (1.7-8.2); BASOPHILS % (AUTO) 0.2 % (0-2); HEMATOCRIT 34.1 % (36.0-47.0); HEMOGLOBIN 11.3 g/dL (12.0-15.5); LYMPHOCYTES % (AUTO) 33.7 % (13-45); MEAN CORPUSCULAR HEMOGLOBIN 27.6 pg (27.0-33.4); MEAN CORPUSCULAR VOLUME 84 fl (80-97); MONOCYTES % (AUTO) 8.5 % (3-13); PLATELET COUNT 240 10^3/uL (150-450); RED BLOOD COUNT 4.08 10^6/uL (3.72-5.28); RED CELL DISTRIBUTION WIDTH 14.5 % (11.5-14.0); SEGMENTED NEUTROPHILS % (AUTO) 56.6 % (42-78); TOTAL CELLS COUNTED % (AUTO) 100 %
[2019-09-09] MEDS ORDERED: NORMAL SALINE 1000 ML 1,000 ML IV PRN (05:15)
[2019-09-09] MEDS: PANTOPRAZOLE SODIUM 20 MG TABLET.DR PO SCH (05:16)
[2019-09-09] MEDS: PREGABALIN 75 MG CAPSULE PO SCH ×3 (05:16→21:24)
[2019-09-09] MEDS: LEVOTHYROXINE SODIUM 0.112 MG TABLET PO SCH (08:06)
[2019-09-09 10:22] LABS: BLOOD UREA NITROGEN 19 mg/dL (7-20); CALCIUM 8.7 mg/dL (8.4-10.2); GLUCOSE 86 mg/dL (75-110); POTASSIUM 3.7 mmol/L (3.6-5.0)
[2019-09-09 10:28] LABS: CARBON DIOXIDE 24 mmol/L (22-30); CHLORIDE 110 mmol/L (98-107)
[2019-09-09 10:33] LABS: ANION GAP 6 (5-19)
[2019-09-09] MEDS: ALPRAZOLAM 0.25 MG TABLET PO SCH ×2 (11:00→17:35)
[2019-09-09] MEDS: ASPIRIN 81 MG TABLET, CHEWABLE PO SCH (11:00)
[2019-09-09] MEDS: CHOLECALCIFEROL (D3) 1,000 UNIT (25 MCG) TABLET PO SCH (11:00)
[2019-09-09] MEDS: TOPIRAMATE 25 MG TABLET PO SCH ×2 (11:00→17:35)
[2019-09-09] MEDS: POTASSIUM CHLORIDE 10 MEQ TABLET.ER PO SCH (11:00)
[2019-09-09] MEDS: ENOXAPARIN SODIUM INJ 40 MG/0.4 ML DISP.SYRIN SUBCUT SCH (11:00)
[2019-09-09] MEDS: METOPROLOL TARTRATE 25 MG TABLET PO SCH ×2 (11:01→21:26)
[2019-09-09] MEDS: TRIAMTERENE/HYDROCHLOROTHIAZIDE 37.5-25 MG TABLET PO SCH (11:01)
[2019-09-09] MEDS: SIMVASTATIN 40 MG TABLET PO SCH (17:35)
[2019-09-09] MEDS: CYCLOBENZAPRINE HCL 10 MG TABLET PO SCH (21:24)
--- NOTE | 2019-09-09 21:44 | PDOC DISCHARGE SUMMARY ---
Impression - Admit/DC Date/PCP Admission Date/Primary Care Provider: 09/07/19 21:25 ALBERTO GARCIA MD Discharge Date: 09/09/19 - Discharge Diagnosis (1) Chest pain Is this a current diagnosis for this admission?: Yes (2) Rheumatoid arthritis Is this a current diagnosis for this admission?: Yes - Additional Information Resuscitation Status: Full Code Referrals: ALBERTO GARCIA MD [Primary Care Provider] - 09/16/19 10:15 am Home Medications: RX: Alprazolam 0.25 mg PO BID 09/07/19 RX: Cholecalciferol (Vitamin D3) [Vitamin D3 1000 Unit Tablet] 1,000 unit PO DAILY 09/07/19 RX: Cyclobenzaprine HCl [Flexeril 10 mg Tablet] 10 mg PO QHS 09/07/19 RX: Hydrocodone/Acetaminophen [Islandia 10-325 Tablet] 1 each PO Q6HP PRN 09/07/19 RX: Levothyroxine Sodium [Synthroid 0.112 mg Tablet] 0.112 mg PO DAILY 09/07/19 RX: Metoprolol Tartrate [Lopressor 25 mg Tablet] 25 mg PO Q12 09/07/19 RX: Omeprazole 20 mg PO DAILY 09/07/19 RX: Pregabalin [Lyrica 75 mg Capsule] 75 mg PO Q8 09/07/19 RX: Simvastatin 40 mg PO QPM 09/07/19 RX: Topiramate 50 mg PO BID 09/07/19 RX: Triamterene/Hydrochlorothiazid [Triamterene-Hctz 37.5-25 mg Tb] 1 each PO DAILY 09/07/19 History of Present Illiness History of Present Illness: GONZALO FITZGERALD is a 59 year old female,, She came to the emergency room last night for evaluation of 1 day history of chest pressure with radiation to the left upper extremities. The pain was not provoked by exertion or emotion, she said she was sitting in a chair at the job when the symptoms started. The twelve- lead EKG was sinus rhythm, there is no acute ST T-segment elevation.So far 3 sets of cardiac enzymes negative for acute myocardial infarction.She has risk factors for ischemic heart disease, she has a history of rheumatoid arthritis, hypertension , Hospital Course Hospital Course: Patient was admitted for the management of chest pain, 3 sets of cardiac enzymes negative for acute PA she had a Cardiolite stress test that was negative for ischemia. She had episode of low blood pressure felt to be due to dehydration she was treated with IV normal saline for sabianism of volume, she was taken off furosemide Physical Exam Vital Signs: Temp Pulse Resp BP Pulse Ox 98.3 F 59 L 20 88/51 L 100 09/09/19 19:22 09/09/19 19:22 09/09/19 19:22 09/09/19 19:22 09/09/19 19:22 Intake & Output 09/08/19 09/09/19 09/10/19 06:59 06:59 06:59 Intake Total 710 1660 Balance 710 1660 Weight 63.6 kg General appearance: PRESENT: no acute distress Eye exam: PRESENT: PERRLA Respiratory exam: PRESENT: clear to auscultation melony Cardiovascular exam: PRESENT: +S1, +S2 GI/Abdominal exam: PRESENT: soft Neurological exam: PRESENT: alert Results Laboratory Results: WBC 6.0 10^3/uL (4.0-10.5) 09/09/19 04:49 RBC 4.08 10^6/uL (3.72-5.28) 09/09/19 04:49 Hgb 11.3 g/dL (12.0-15.5) L 09/09/19 04:49 Hct 34.1 % (36.0-47.0) L 09/09/19 04:49 MCV 84 fl (80-97) 09/09/19 04:49 MCH 27.6 pg (27.0-33.4) 09/09/19 04:49 MCHC 33.0 g/dL (32.0-36.0) 09/09/19 04:49 RDW 14.5 % (11.5-14.0) H 09/09/19 04:49 Plt Count 240 10^3/uL (150-450) 09/09/19 04:49 Lymph % (Auto) 33.7 % (13-45) 09/09/19 04:49 [place] % (Auto) 8.5 % (3-13) 09/09/19 04:49 Eos % (Auto) 1.0 % (0-6) 09/09/19 04:49 Baso % (Auto) 0.2 % (0-2) 09/09/19 04:49 Absolute Neuts (auto) 3.4 10^3/uL (1.7-8.2) 09/09/19 04:49 Absolute Lymphs (auto) 2.0 10^3/uL (0.5-4.7) 09/09/19 04:49 Absolute Monos (auto) 0.5 10^3/uL (0.1-1.4) 09/09/19 04:49 Absolute Eos (auto) 0.1 10^3/uL (0.0-0.6) 09/09/19 04:49 Absolute Basos (auto) 0.0 10^3/uL (0.0-0.2) 09/09/19 04:49 Seg Neutrophils % 56.6 % (42-78) 09/09/19 04:49 Sodium 140.4 mmol/L (137-145) 09/09/19 04:49 Potassium 3.7 mmol/L (3.6-5.0) 09/09/19 04:49 Chloride 110 mmol/L (98-107) H 09/09/19 04:49 Carbon Dioxide 24 mmol/L (22-30) 09/09/19 04:49 Anion Gap 6 (5-19) 09/09/19 04:49 BUN 19 mg/dL (7-20) 09/09/19 04:49 Creatinine 0.66 mg/dL (0.52-1.25) 09/09/19 04:49 Est GFR ( Amer) > 60 (>60) 09/09/19 04:49 Est GFR (MDRD) Non-Af > 60 (>60) 09/09/19 04:49 Glucose 86 mg/dL (75-110) 09/09/19 04:49 Calcium 8.7 mg/dL (8.4-10.2) 09/09/19 04:49 Phosphorus 4.4 mg/dL (2.5-4.5) 09/07/19 22:52 Magnesium 2.3 mg/dL (1.6-2.3) 09/07/19 22:52 Total Bilirubin 0.2 mg/dL (0.2-1.3) 09/07/19 17:35 Direct Bilirubin 0.2 mg/dL (0.0-0.4) 09/07/19 17:35 Neonat Total Bilirubin Not Reportable 09/07/19 17:35 Neonat Direct Bilirubin Not Reportable 09/07/19 17:35 Neonat Indirect Bili Not Reportable 09/07/19 17:35 AST 21 U/L (14-36) 09/07/19 17:35 ALT 15 U/L (<35) 09/07/19 17:35 Alkaline Phosphatase 77 U/L (38-126) 09/07/19 17:35 Creatine Kinase < 20 U/L (30-135) L 09/08/19 12:46 Troponin I < 0.012 ng/mL 09/08/19 12:46 Total Protein 7.3 g/dL (6.3-8.2) 09/07/19 17:35 Albumin 4.2 g/dL (3.5-5.0) 09/07/19 17:35 09/07/19 09/07/19 09/07/19 17:35 19:54 22:52 Troponin I < 0.012 < 0.012 < 0.012 09/08/19 09/08/19 05:44 12:46 Troponin I < 0.012 < 0.012 Impressions: Chest X-Ray 09/07/19 17:22 IMPRESSION: NO ACUTE RADIOGRAPHIC FINDING IN THE CHEST. Stroke Is this a Stroke Patient?: No Acute Heart Failure - Is this a Heart Failure Patient?: No
--- NOTE | 2019-09-09 22:04 | DRAGON STRESS TEST REPORT ---
Intravenous Lexiscan Cardiolite stress test using single photon emmision computerized tomography. Date of procedure: 09/09/2019. Ordering Provider: Dr. Marr. Patient's status: In Patient. Indication: Chest pain. Coronary risk factors: Age, hypertension Resting EKG: Sinus Bradycardia. Low voltage throughout. The patient's initial blood pressure was 84/61 with a heart rate of 58 bpm the patient was given IV normal saline 250 bolus and subsequently the blood pressure came up to 116/72. Post injection of for IV Lexiscan the blood pressure was transiently 85/67 and with the completion of the normal saline bolus the blood pressure went back up to 106/68. Clinically the patient appeared to be dehydrated with a very dry tongue. She had no chest pain or discomfort. There was no shortness of breath. There was no arrhythmias seen. There was no complications during the or after the procedure. Stress EKG: No changes of ischemia. Reason for termination: Protocol. Conclusions: Normal EKG and hemodynamic response to IV Lexiscan. Nuclear data: At rest the patient was given 10.84 millicuries of technetium 99m sestamibi injected intravenously. As per protocol rest non gated SPECT images were obtained. Subsequently the patient was given intravenous Lexiscan at a dose of 0.4 mg in 5 mL intravenously, followed by flush with normal saline. Subsequently the stress dose of 32.4 millicuries of technetium 99m sestamibi was injected intravenously. As per protocol stress gated images were obtained. Nuclear interpretation: Review of images showed that all segments of the myocardium had normal perfusion at rest, and normal perfusion post stress with IV Lexiscan. All segments of the myocardium had normal motion, contraction, and thickening by gated study. T. I D. ratio was abnormal at 1.29. This is not reliable, and visually that T I D ratio was normal. There is no transient ischemic dilatation of the left ventricle. Computer read rest, and stress left ventricular ejection fraction were 60 %, and 55 %, respectively. Visually both the stress and rest ejection fractions were normal, and greater than 60 %. Conclusion: 1. There is no scintigraphic evidence of Lexiscan induced myocardial ischemia. 2. There is no scintigraphic evidence of myocardial infarction/scar. Recommendations: Aggressive risk factor modification, and treating the underlying co- morbidities. Findings were discussed with Dr. Marr on the telephone. TONO
[2019-09-10] MEDS: HYDROCODONE/ACETAMINOPHEN 10-325 MG TABLET PO PRN ×2 (04:40→10:52)
[2019-09-10] MEDS: PREGABALIN 75 MG CAPSULE PO SCH (05:43)
[2019-09-10] MEDS: PANTOPRAZOLE SODIUM 20 MG TABLET.DR PO SCH (05:43)
[2019-09-10 05:47] LABS: ABSOLUTE EOSINOPHILS # (AUTO) 0.1 10^3/uL (0.0-0.6); ABSOLUTE LYMPHOCYTES (AUTO) 1.9 10^3/uL (0.5-4.7); ABSOLUTE MONOCYTES (AUTO) 0.4 10^3/uL (0.1-1.4); ABSOLUTE NEUT (AUTO) 1.5 10^3/uL (1.7-8.2); BASOPHILS % (AUTO) 0.3 % (0-2); EOSINOPHILS % (AUTO) 1.4 % (0-6); HEMATOCRIT 34.2 % (36.0-47.0); HEMOGLOBIN 11.2 g/dL (12.0-15.5); LYMPHOCYTES % (AUTO) 48.4 % (13-45); MEAN CORPUSCULAR HEMOGLOBIN 27.6 pg (27.0-33.4); MEAN CORPUSCULAR HGB CONC 32.8 g/dL (32.0-36.0); MEAN CORPUSCULAR VOLUME 84 fl (80-97); MONOCYTES % (AUTO) 11.1 % (3-13); PLATELET COUNT 227 10^3/uL (150-450); RED BLOOD COUNT 4.07 10^6/uL (3.72-5.28); RED CELL DISTRIBUTION WIDTH 14.5 % (11.5-14.0); SEGMENTED NEUTROPHILS % (AUTO) 38.8 % (42-78); TOTAL CELLS COUNTED % (AUTO) 100 %; WHITE BLOOD COUNT 3.9 10^3/uL (4.0-10.5)
[2019-09-10] MEDS: POTASSIUM CHLORIDE 10 MEQ TABLET.ER PO SCH (09:13)
[2019-09-10] MEDS: TOPIRAMATE 25 MG TABLET PO SCH (09:13)
[2019-09-10] MEDS: ASPIRIN 81 MG TABLET, CHEWABLE PO SCH (09:13)
[2019-09-10] MEDS: LEVOTHYROXINE SODIUM 0.112 MG TABLET PO SCH (09:13)
[2019-09-10] MEDS: ALPRAZOLAM 0.25 MG TABLET PO SCH (09:13)
[2019-09-10] MEDS: CHOLECALCIFEROL (D3) 1,000 UNIT (25 MCG) TABLET PO SCH (09:13)
[2019-09-10] MEDS: ENOXAPARIN SODIUM INJ 40 MG/0.4 ML DISP.SYRIN SUBCUT SCH (09:14)
[2019-09-10] MEDS: TRIAMTERENE/HYDROCHLOROTHIAZIDE 37.5-25 MG TABLET PO SCH (09:18)
[2019-09-10] MEDS: METOPROLOL TARTRATE 25 MG TABLET PO SCH (09:18)
[2019-09-10 11:16] VITALS: BP 103/64
== END 2019-09-10 11:40 | disposition home or self-care (01) ==
LOC: ER 16:58 → EH 21:25 → 5TH 09-08 08:36 → 4S 09-08 18:23 → 3W 09-09 01:01
PROVIDERS: ADMIT Internal Medicine; ATTEND Internal Medicine
DX: R07.89 Other chest pain (principal); M05.9 Rheumatoid arthritis with rheumatoid factor, unspecified; I95.9 Hypotension, unspecified; I10 Essential (primary) hypertension; E78.5 Hyperlipidemia, unspecified; K21.9 Gastro-esophageal reflux disease without esophagitis; R00.2 Palpitations; R11.2 Nausea with vomiting, unspecified; Z79.899 Other long term (current) drug therapy; Z86.718 Personal history of other venous thrombosis and embolism; Z98.84 Bariatric surgery status; Z82.49 Family history of ischemic heart disease and other diseases of the circulatory system; Z86.73 Personal history of transient ischemic attack (TIA), and cerebral infarction without residual deficits
CPT/HCPCS: 93005; 99285; 96374; 96375; 36415 ×4; 82550 ×2; 83735; 84100; 85025 ×4; 80048 ×2; 80053; 84484 ×2; 93017; 71046; 78452; 93010; G0378 ×5; A9500; J2785; S0119; J2270; J1650 ×4; J3490 ×5; J2405; J7030; Q9969

== ENCOUNTER 2020-05-29 14:23 | Observation (INO) | payer BC, OTHER ==
--- NOTE | 2020-05-29 14:35 | ER Document Report ---
ED Medical Screen (RME) - General Chief Complaint: Slurred Speech Stated Complaint: SLURRED SPEECH,WEAKNESS Time Seen by Provider: 05/29/20 14:28 Primary Care Provider: ALBERTO GARCIA MD [Primary Care Provider] - Follow up as needed Notes: Patient is a 60-year-old female with history of stroke who presents emergency department with slurred speech. Patient states that she does not remember anything from this morning. At 6:00 in the morning her family members found her and she was lying on the ground. Denies any fever. Patient states that she cannot walk. She does not know what her deficit is from previous stroke. Denies any blood thinner use. Exam: Slightly slurred speech. I have greeted and performed a rapid initial assessment of this patient. A comprehensive ED assessment and evaluation of the patient, analysis of test results and completion of medical decision making process will be conducted by an additional ED providers. TRAVEL OUTSIDE OF THE [place] IN LAST 30 DAYS: No - Related Data Allergies/Adverse Reactions: codeine [Codeine] Allergy (Verified 03/27/19 18:20) Past Medical History - Past Medical History Cardiac Medical History: Reports: Hx Congestive Heart Failure, Hx DVT, Hx Hypercholesterolemia, Hx Hypertension Pulmonary Medical History: Reports: Hx Asthma Endocrine Medical History: Reports: Hx Hypothyroidism Renal/ Medical History: Denies: Hx Peritoneal Dialysis GI Medical History: Reports: Hx Gastroesophageal Reflux Disease, Hx Colonoscopy, Hx Endoscopy Musculoskeltal Medical History: Reports Hx Arthritis, Reports Hx Musculoskeletal Deformity, Reports Hx Musculoskeletal Trauma Psychiatric Medical History: Reports: Hx Anxiety, Hx Depression Traumatic Medical History: Reports: Hx Fractures - left wrist and right hand Past Surgical History: Reports: Hx Abdominal Surgery - gastric, Hx Bowel Surgery - gastric bypass, Hx Gastric Bypass Surgery, Hx Hysterectomy, Other - Questionable history of heart catheterization about 10 years ago at [facility] - Immunizations Hx Diphtheria, Pertussis, Tetanus Vaccination: Yes Doctor's Discharge - Discharge Referrals: ALBERTO GARCIA MD [Primary Care Provider] - Follow up as needed
--- NOTE | 2020-05-29 14:51 | RADIOLOGY REPORT (SQ) ---
EXAM DESCRIPTION: CT HEAD WITHOUT IMAGES COMPLETED DATE/TIME: 05/29/2020 2:40 pm REASON FOR STUDY: slurred speech COMPARISON: CT of the head without contrast from 05/25/2019. TECHNIQUE: Axial images acquired through the brain without intravenous contrast. Images reviewed wi th bone, brain and subdural windows. Additional sagittal and coronal reconstructions were generated. Images stored on PACS. All CT scanners at this facility use dose modulation, iterative reconstruction, and/or weight based d osing when appropriate to reduce radiation dose to as low as reasonably achievable (ALARA). [facility]: Dose Right [facility]: CareDose [facility]: Dose Right [facility]: Teradose 4D [facility]: [email or web address] RADIATION DOSE: CT Rad equipment meets quality standard of care and radiation dose reduction techniq ues were employed. CTDIvol: 53.2 mGy. DLP: 991 mGy-cm. LIMITATIONS: None. FINDINGS: There is no acute intracranial hemorrhage, vascular territorial infarct, extra-axial fluid collection, mass effect or midline shift. The toth-white matter differentiation is preserved. The caliber of the ventricles is concordant with the degree of sulcation. There is no effacement of the cerebral sulci or basal subarachnoid cisterns. The orbits and globes are intact. The paranasal sinuses are clear. There is no fracture of the calv arium. IMPRESSION: No acute intracranial abnormality. EVIDENCE OF ACUTE STROKE: NO. COMMENT: Quality ID # 436: Final reports with documentation of one or more dose reduction techniques (e.g., Automated exposure control, adjustment of the mA and/or kV according to patient size, use of iterative reconstruction technique) TECHNICAL DOCUMENTATION: JOB ID: [id number] 2010 [employer]- All Rights Reserved Reading location - IP/workstation name: [email or web address], [facility]
--- NOTE | 2020-05-29 15:16 | RADIOLOGY REPORT (SQ) ---
EXAM DESCRIPTION: CHEST SINGLE VIEW IMAGES COMPLETED DATE/TIME: 05/29/2020 2:56 pm REASON FOR STUDY: slurred speech; weakness COMPARISON: PA and lateral views of the chest from 09/07/2019. EXAM PARAMETERS: NUMBER OF VIEWS: One view. TECHNIQUE: An AP view of the chest was obtained. RADIATION DOSE: NA LIMITATIONS: None. FINDINGS: LUNGS AND PLEURA: No consolidation, pleural effusion or pneumothorax. MEDIASTINUM AND HILAR STRUCTURES: No mediastinal or hilar contour abnormality. HEART AND VASCULAR STRUCTURES: The cardiac silhouette and pulmonary vasculature are within normal hernandez its. BONES: Dextroconvex scoliotic curvature of the thoracic spine. HARDWARE: IVC filter. OTHER: No other finding. IMPRESSION: No acute cardiopulmonary process. TECHNICAL DOCUMENTATION: JOB ID: [id number] 2010 [employer] All Rights Reserved Reading location - IP/workstation name: [email or web address]
[2020-05-29 15:50] LABS: ABSOLUTE EOSINOPHILS # (AUTO) 0.1 10^3/uL (0.0-0.6); ABSOLUTE LYMPHOCYTES (AUTO) 1.4 10^3/uL (0.5-4.7); ABSOLUTE MONOCYTES (AUTO) 0.5 10^3/uL (0.1-1.4); ABSOLUTE NEUT (AUTO) 3.8 10^3/uL (1.7-8.2); BASOPHILS % (AUTO) 0.1 % (0-2); EOSINOPHILS % (AUTO) 1.4 % (0-6); HEMATOCRIT 37.5 % (36.0-47.0); HEMOGLOBIN 12.6 g/dL (12.0-15.5); LYMPHOCYTES % (AUTO) 24.2 % (13-45); MEAN CORPUSCULAR HEMOGLOBIN 28.2 pg (27.0-33.4); MEAN CORPUSCULAR HGB CONC 33.6 g/dL (32.0-36.0); MEAN CORPUSCULAR VOLUME 84 fl (80-97); MONOCYTES % (AUTO) 8.5 % (3-13); PLATELET COUNT 179 10^3/uL (150-450); RED BLOOD COUNT 4.47 10^6/uL (3.72-5.28); RED CELL DISTRIBUTION WIDTH 14.8 % (11.5-14.0); SEGMENTED NEUTROPHILS % (AUTO) 65.8 % (42-78); TOTAL CELLS COUNTED % (AUTO) 100 %; WHITE BLOOD COUNT 5.8 10^3/uL (4.0-10.5)
[2020-05-29 16:03] LABS: INTERNATIONAL RATION (INR) 0.98; PROTHROMBIN TIME 13.2 SEC (11.4-15.4)
[2020-05-29 16:04] LABS: PARTIAL THROMBOPLASTIN TIME 29.9 SEC (23.5-35.8)
[2020-05-29 16:09] LABS: ALBUMIN 3.9 g/dL (3.5-5.0); ALKALINE PHOSPHATASE 94 U/L (38-126); ANION GAP 9 (5-19); ASPARTATE AMINO TRANSFERASE 267 U/L (14-36); BILIRUBIN,DIRECT 0.2 mg/dL (0.0-0.4); BILIRUBIN,TOTAL 0.7 mg/dL (0.2-1.3); BLOOD UREA NITROGEN 23 mg/dL (7-20); CALCIUM 9.2 mg/dL (8.4-10.2); CARBON DIOXIDE 27 mmol/L (22-30); CHLORIDE 101 mmol/L (98-107); GLUCOSE 75 mg/dL (75-110); POTASSIUM 3.3 mmol/L (3.6-5.0); TOTAL PROTEIN 6.4 g/dL (6.3-8.2)
--- NOTE | 2020-05-29 17:29 | RADIOLOGY REPORT (SQ) ---
EXAM DESCRIPTION: CTA HEAD IMAGES COMPLETED DATE/TIME: 05/29/2020 5:15 pm REASON FOR STUDY: slurred speech COMPARISON: CT head 05/29/2020 TECHNIQUE: Post IV contrast scanning, thin section axial imaging through the brain to evaluate the a rterial structures. Source and MIP images are saved and reviewed on PACS. Advanced 3D imaging as volume-rendering, MIPs, SSD performed? yes All CT scanners at this facility use dose modulation, iterative reconstruction, and/or weight based d osing when appropriate to reduce radiation dose to as low as reasonably achievable (ALARA). [facility]: Dose Right [facility]: CareDose [facility]: Dose Right [facility]: Teradose 4D [facility]: [employer] CONTRAST TYPE AND DOSE: 70 mL Omnipaque 350- low osmolar. RENAL FUNCTION: BUN 23 creatinine 0.64 LIMITATIONS: None. FINDINGS: MI'KMAQ OF RYDER: The anterior, middle, posterior cerebral arteries are all patent. No ev idence of aneurysm or focal stenosis. POSTERIOR CIRCULATION: The distal vertebral arteries are patent as is the basilar artery. No aneurysm . BRAIN: No gross enhancing lesions as visualized. The superior cerebral hemispheres are not included in the field of view. BONES: Intact as visualized. SINUSES: No fluid or mucosal thickening. OTHER: No other significant finding. IMPRESSION: NO CTA EVIDENCE OF STENOSIS OR ANEURYSM OF THE MI'KMAQ OF RYDER. TECHNICAL DOCUMENTATION: JOB ID: [id number] Quality ID # 436: Final reports with documentation of one or more dose reduction techniques (e.g., Au tomated exposure control, adjustment of the mA and/or kV according to patient size, use of iterative reconstruction technique) 2010 [employer]- All Rights Reserved Reading location - IP/workstation name: [email or web address]
--- NOTE | 2020-05-29 17:31 | RADIOLOGY REPORT (SQ) ---
EXAM DESCRIPTION: CTA NECK IMAGES COMPLETED DATE/TIME: 05/29/2020 5:15 pm REASON FOR STUDY: slurred speech COMPARISON: None. TECHNIQUE: Axial dynamic scanning technique with dynamic contrast enhancement through the extra-gantry crane operator nial carotid and vertebral arteries. Multiplanar reconstruction. 3-D MIPS and Volume-rendered imag es acquired at the workstation and saved to PACS. Images are reviewed in soft tissue, bone, lung w indows. All CT scanners at this facility use dose modulation, iterative reconstruction, and/or weight based d osing when appropriate to reduce radiation dose to as low as reasonably achievable (ALARA). [facility]: Dose Right [facility]: CareDose [facility]: Dose Right [facility]: Teradose 4D [facility]: [employer] CONTRAST TYPE AND DOSE: contrast/concentration: Isovue 350.00 mmol/ml; Total Contrast Delivered: 70. 0 ml; Total Saline Delivered: 75.0 ml RENAL FUNCTION: BUN 23 creatinine 0.64 LIMITATIONS: None. FINDINGS: AORTIC ARCH: Normal three-vessel origin. Bilateral subclavian arteries are patent. No d issection. RIGHT CAROTIDS: Patent common, internal and external carotid arteries without suggestion of significa nt stenosis or irregular plaque. No dissection. RIGHT VERTEBRAL: Patent. No dissection. LEFT CAROTIDS: Patent common, internal and external carotid arteries without suggestion of significan t stenosis or irregular plaque. No dissection. LEFT VERTEBRAL: Patent. No dissection. OTHER: No other significant finding. OTHER: 3-D reconstructions confirm findings. IMPRESSION: NORMAL CTA OF THE EXTRA-CRANIAL CAROTID AND VERTEBRAL ARTERIES. COMMENT: Quality ID #[id number]: Measurements of distal internal carotid diameter were used as the denomina tor for stenosis measurement. TECHNICAL DOCUMENTATION: JOB ID: [id number] Quality ID # 436: Final reports with documentation of one or more dose reduction techniques (e.g., Au tomated exposure control, adjustment of the mA and/or kV according to patient size, use of iterative reconstruction technique) 2010 [employer]- All Rights Reserved Reading location - IP/workstation name: [email or web address]
--- NOTE | 2020-05-29 17:41 | ER Document Report ---
ED NIH Stroke Scale - NIH Stroke Scale *: 1. NIH scale should be completed with appropriate accompanying assessment tools. *: 2. The NIH should reflect what the patient is capable of doing and should not be coached by the clinician. 1a. Level of Consciousness: 0=Alert;keenly responsive -: 1=Drowsy -: 2=Obtunded -: 3=Coma/unresponsive or reflex to noxious stimuli. 1a. Responses: 0 1b. Orientation Questions: a. What month is it? -: b. How old are you? -: 0=Answers both questions correctly. -: 1=Answers one question correctly or patient is intubated or has orotracheal trauma. -: 2=Answers neither question correctly. 1b. Responses: 1 1c. Response to commands: a. Open and close eyes? -: b. Fundraising Officer and release hand? -: Credit is given despite weakness. Demonstration of task is permitted. Substitute command if hands cannot be used. -: 0=Performs both tasks correctly -: 1=Performs one task correctly -: 2=Performs neither task correctly 1c. Responses: 0 2. Gaze: Establish eye contact and instruct patient to "Follow my finger" -: 0=Normal -: 1=Partial gaze palsy. Gaze is abnormal in one or both eyes, but where forced deviation or total gaze paresis is not present. -: 2=Forced deviation or total gaze paresis. 2. Responses: 1 3. Visual Lira: Sees fingers in all four quadrants. -: 0=No visual loss. -: 1=Partial hemianopsia. -: 2=Complete hemianopsia. -: 3=Bilateral hemianopsia (including Cortical blindness) 3. Responses: 0 4. Facial Movement: Instruct patient to: -: a. Show me your teeth -: b. Raise your eyebrows -: c. Close your eyes -: d. Smile -: 0=Normal symmetrical movement -: 1=Minor paralysis (flattened nasolabial fold, asymmetry on smiling). -: 2=Partial paralysis (total or near total paralysis of lower face). -: 3=Complete paralysis of upper and lower face 4. Responses: 1 5. Motor functions (left arm): Alternate sides and extend each arm with palms down (90 degrees if sitting or 45 degrees for supine). -: 0=No drift;limb holds for full 10 seconds. -: 1=Drift; limb holds but drifts down before full 10 seconds, but does not hit bed. -: 2=Some effort against gravity; limb cannot get to or maintain position. -: 3=No effort against gravity; limb falls. -: 4=No movement. -: UN=Amputation, joint fusion, explain in comments. 5. Responses (left arm): 0 5. Motor Functions (right arm): Alternate sides and extend each arm with palms down (90 degrees if sitting or 45 degrees for supine). -: 0=No drift;limb holds for full 10 seconds. -: 1=Drift; limb holds but drifts down before full 10 seconds, but does not hit bed. -: 2=Some effort against gravity; limb cannot get to or maintain position. -: 3=No effort against gravity; limb falls. -: 4=No movement. -: UN=Amputation, joint fusion, explain in comments. 5. Responses (right arm): 0 6. Motor Functions (left leg): With patient lying supine, alternate sides and extend each leg (30 degrees always while supine). -: 0=No drift, leg holds position for full 5 seconds -: 1=Drift; leg falls before full 5 seconds but does not hit bed. -: 2=Some effort against gravity, leg falls to bed but some effort against gravity. -: 3=No effort against gravity, leg falls to bed immediately. -: 4=No movement. -: UN=Amputation, joint fusion; explain in comments. 6. Responses (left leg): 2 6. Motor Functions (right leg): With patient lying supine, alternate sides and extend each leg (30 degrees always while supine). -: 0=No drift, leg holds position for full 5 seconds -: 1=Drift; leg falls before full 5 seconds but does not hit bed. -: 2=Some effort against gravity, leg falls to bed but some effort against gravity. -: 3=No effort against gravity, leg falls to bed immediately. -: 4=No movement. -: UN=Amputation, joint fusion; explain in comments. 6. Responses (right leg): 2 7. Limb Ataxia: With eyes open instruct patient to: -: a. "Touch your finger to your nose". -: b. "Touch your heel to your mcbride" -: 0=Absent -: 1=Present in one limb. -: 2=Present in two limbs. -: UN=Amputation or joint fusion; explain in comments. 7. Responses: 2 7. If ataxia present choose as appropriate: Left leg, Right leg 8. Sensory: Test sensation using pinprick or noxious stimuli. Test as many body parts as possible. -: 0=Normal;no sensory loss -: 1=Mile to moderate sensory loss (patient feels pin prick but is less sharp on affected side). -: 2=Severe or total sensory loss. 8. Responses: 0 9. Best Language: Instruct patient to: -: a. "Describe what you see in this picture." -: b. "Name the items in this picture." -: c. "Read these sentences." -: 0=No aphasia, normal -: 1=Mild to moderate aphasia. -: 2=Severe aphasia -: 3=Mute, global aphasia, no usable speech or auditory comprehension. 9. Responses: 0 10. Articulation, Dysarthia: Instruct patient to: -: "Read these words" or "Repeat these words" -: 0=Normal -: 1=Mild to moderate; patient may slur some words but can be understood without difficulty. -: 2=Severe; patients speech so slurred as to be unintelligible in the absence of dysphasia. -: UN=Intubated or other physical barrier, explain in comments. 10. Responses: 1 11. Extinction or inattention: 0=No abnormality -: 1= Visual, tactile, auditory, spatial, or personal inattention or extinction to bilateral simulation in one or the sensory modalities. -: 2=Profound alysa-inattention or alysa-inattention to more than one modality; does not recognize own hand. 11. Responses: 0 Total Score: 10 Notes: Patient has had a previous stroke and has baseline weakness however it is hard to ascertain if today's weakness was new. She does states it feels that her weakness is worse. Patient also had slurred speech that has improved significantly upon arrival per family. In addition patient has a "lazy eye" he gives her a gaze palsy at baseline.
--- NOTE | 2020-05-29 17:42 | ER Document Report ---
ED Alteplase Inc/Exc Criteria - Inclusion Criteria: 1: Patient presented to ED within 3 hours of acute ischemic stroke symptom onset? -: No 2: Did baseline CT exclude intracranial hemorrhage and/or other risk factors? -: Yes 3: Is the age of the patient 18 years of age or greater? -: Yes : If any of the above questions are answered "NO" then stop, patient is not a candidate for Alteplase, : If all of the above questions are answered "YES" then continue with Exclusion Criteria. - Exclusion Criteria: 1: Is there evidence of intracranial hemorrhage on baseline CT? 2: Is there suspicion of subarachnoid hemorrhage (even if CT negative)? 3: Is there a history of serious head trauma, recent previous stroke or [place] within 3 months? 4: Does the patient have a clinical presentation consistent with [place] or post-[place] pericarditis? 5: Is there history of intracranial hemorrhage? 6: On repeated measurement is Systolic BP greater than 185mmHg or Diastolic BP greater that 110 mmHg and is aggressive treatment needed to reduce blood pressure to these limits (e.g. constant infusion of an anti-hypertensive)? 7: Did the patient awake with stroke symptoms? 8: Has the patient had a lumbar puncture or an arterial puncture at a non- compressile site within 7 days? 9: With in the last 14 days did the patient have surgery or major trauma? 10: Is the patient or less than 2 weeks? 11: Was there any active bleeding or acute trauma? 12: Does the patient have intracranial neoplasm, arteriovenous malformation or aneurysm? 13: Does the patient have abnormal glucose (less than 50 or greater than 400mg/dl)? Record glucose in Comment. 14: Patient has rapidly improving symptoms at the time Alteplase is to be Administered. 15: Does the patient have any risks for bleeding, including but not limited to: a.: Current use of Coumadin with PT greater than 15 seconds or INR greater than 1.7. b.: Current use of Pradaxa (Dabigatran). c.: Heparin administereed within the past 48 hours and PTT elevated. d.: Platelet count less than 100,000/mm. e.: Major surgery or serious trauma within 14 days. f.: Gastrointestinal or gynecological urinary bleeding within 14 days. g.: Myocardial Infarction ([place]) within 3 months. : If the answer to any of the above questions is "YES" then stop, the patient is not a candidate for Alteplase. : If the answer to all of the above questions is "NO" then the patient may be eligible for the Administration of Alteplase. : If the patient is noted to have seizure activity at onset of Stroke symptoms; Consult Neurologist for further evaluation. - The patient is: -: Included and is eligible to receive Alteplase. *Initiate bed placement at higher level of care* Reviewed risks & benefits of thrombolytic therapy: I have reviewed the risks and benefits of thrombolytic therapy with the patient and/or his/her family. -: Excluded and not eligible to receive Alteplase for the above exclusions. -: Excluded and not eligible to receive Alteplase for other reasons (specify in comments): - Diagnosis of TIA: -: Patient presented with transient symptoms that are now resolved and no other neurologic findings are currently present. List symptoms in comments. -: Patient is NOT a candidate for tPA. -: Yes -: ____(put name in comment) has been consulted for admission and continued evaluation of risk factor assessment. Comment: Patient arrived outside of the 3-hour window.
--- NOTE | 2020-05-29 17:47 | ER Document Report ---
ED General - General Chief Complaint: S/S of Possible Stroke Stated Complaint: SLURRED SPEECH,WEAKNESS Time Seen by Provider: 05/29/20 14:28 Primary Care Provider: ALBERTO GARCIA MD [Primary Care Provider] - Follow up as needed Mode of Arrival: Medic Information source: Patient TRAVEL OUTSIDE OF THE [place] IN LAST 30 DAYS: No - HPI Notes: Patient presents stating that she had an episode this morning where she "passed out". According the patient she has had some recent falls and has been having flares of her rheumatoid arthritis. This morning she felt that the pain was significantly worse. This pain was severe and constant. It is worse with movement and better without movement I did radiate throughout her body. She states that her "significant other" then went to work and that she does not remember anything except for being found in the kitchen by her significant other. Family states that patient was found by another family member and that the "significant other" was called and returned home. Family states they found the patient lying on the kitchen floor and patient was confused and had slurred speech. They state that patient speech is still slurred but is significantly better than it was this morning. Patient states she also feels like she is weak in both of her legs and is having trouble walking. She denies any recent fevers. No cough cold or congestion. She states she has had some burning with urination since yesterday. - Related Data Allergies/Adverse Reactions: codeine [Codeine] Allergy (Verified 05/29/20 14:45) Home Medications: blood pressure meds Past Medical History - General Information source: Patient - Social History Smoking Status: Never Smoker Chew tobacco use (# tins/day): No Frequency of alcohol use: None Drug Abuse: None Family History: DM, Hypertension, Other - VTE, brother from CHF and DM complications at 49 years old Patient has homicidal ideation: No - Past Medical History Cardiac Medical History: Reports: Hx Congestive Heart Failure, Hx DVT, Hx Hypercholesterolemia, Hx Hypertension Pulmonary Medical History: Reports: Hx Asthma Endocrine Medical History: Reports: Hx Hypothyroidism Renal/ Medical History: Denies: Hx Peritoneal Dialysis GI Medical History: Reports: Hx Gastroesophageal Reflux Disease, Hx Colonoscopy, Hx Endoscopy Musculoskeletal Medical History: Reports Hx Arthritis, Reports Hx Musculoskeletal Deformity, Reports Hx Musculoskeletal Trauma Psychiatric Medical History: Reports: Hx Anxiety, Hx Depression Traumatic Medical History: Reports: Hx Fractures - left wrist and right hand Past Surgical History: Reports: Hx Abdominal Surgery - gastric, Hx Bowel Surgery - gastric bypass, Hx Gastric Bypass Surgery, Hx Hysterectomy, Other - Questionable history of heart catheterization about 10 years ago at [facility] - Immunizations Hx Diphtheria, Pertussis, Tetanus Vaccination: Yes Hx Pneumococcal Vaccination: 06/01/18 Review of Systems - Review of Systems Constitutional: denies: Chills, Fever Cardiovascular: denies: Chest pain, Palpitations Respiratory: denies: Cough, Short of breath -: Yes All other systems reviewed and negative Physical Exam - Vital signs Vitals: Resp 12 05/29/20 14:53 Interpretation: Normal - General General appearance: Appears well, Alert - HEENT Head: Normocephalic, Atraumatic Eyes: Normal Pupils: PERRL - Respiratory Respiratory status: No respiratory distress Chest status: Nontender Breath sounds: Normal Chest palpation: Normal - Cardiovascular Rhythm: Regular Heart sounds: Normal auscultation Murmur: No - Abdominal Inspection: Normal Distension: No distension Bowel sounds: Normal Tenderness: Nontender Organomegaly: No organomegaly - Back Back: Normal, Nontender - Extremities General upper extremity: Normal inspection, Nontender, Normal color, Normal ROM, Normal temperature General lower extremity: Normal inspection, Nontender, Normal color, Normal ROM, Normal temperature, Normal weight bearing. No: Vijay's sign - Neurological Neuro grossly intact: Yes Cognition: Confused Orientation: Disoriented to time [place] Coma Scale Eye Opening: Spontaneous Real Coma Scale Verbal: Confused Real Coma Scale Motor: Obeys Commands [place] Coma Scale Total: 14 Speech: Expressive aphasia Cranial nerves: Gaze palsy - Patient says she has a baseline "lazy eye" on the left. Cerebellar coordination: Other - Patient cannot do [id number] with either lower extremity. Motor strength normal: No: LLE, RLE - Patient cannot hold either leg off of the bed for more than 1 second. 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 They are improving per family. Patient is outside of the TPA window since symptoms started at 6 AM and patient did not arrive till after 1 PM. Patient does not have any signs or symptoms consistent with a large vessel occlusion and CTA of the head and neck show no such occlusion. Therefore patient has not a candidate for any type of intervention at this time. Patient has had a previous stroke and is somewhat hard to tell what symptoms are new and what is at baseline but patient does appear to have new baseline weakness of both lower extremities as well as some new baseline slurred speech. Both CTs with and without contrast of the head and neck are unremarkable. - Vital Signs Vital signs: Temp Pulse Resp BP Pulse Ox 98.1 F 70 11 L 98/68 L 99 05/29/20 16:01 05/29/20 15:00 05/29/20 16:01 05/29/20 16:01 05/29/20 16:01 - Laboratory Result Diagrams: 05/29/20 15:10 05/29/20 15:10 Laboratory results interpreted by me: 05/29/20 05/29/20 15:10 15:10 RDW 14.8 H Sodium 136.7 L Potassium 3.3 L BUN 23 H AST 267 H ALT 126 H - Diagnostic Test Radiology reviewed: Image reviewed, Reports reviewed - EKG Interpretation by Me EKG shows normal: Sinus rhythm Rate: Normal - 77 [place]/QRS: Left axis deviation Discharge - Discharge Clinical Impression: TIA (transient ischemic attack), History of cerebellar stroke Condition: Serious Disposition: ADMITTED INPATIENT Admitting Provider: Justa Unit Admitted: IMCU Referrals: ALBERTO GARCIA MD [Primary Care Provider] - Follow up as needed
--- NOTE | 2020-05-29 17:51 | EKG REPORT ---
SEVERITY:- BORDERLINE ECG - SINUS RHYTHM BORDERLINE LEFT AXIS DEVIATION CONSIDER ANTERIOR INFARCT BORDERLINE T ABNORMALITIES, DIFFUSE LEADS : Confirmed by: Macho Ramirez MD 29-May-2020 17:51:34
[2020-05-29] MEDS ORDERED: ASPIRIN 325 MG TABLET PO ONE (18:44)
[2020-05-29 19:51] LABS: APPEARANCE,URINE CLEAR; BILIRUBIN,URINE NEGATIVE (NEGATIVE); CALCIUM OXALATE CRYSTALS,URINE FEW /HPF; COLOR,URINE YELLOW; GLUCOSE, URINE NEGATIVE (NEGATIVE); KETONES,URINE NEGATIVE (NEGATIVE); PROTEIN,URINE NEGATIVE (NEGATIVE); URINE SPECIFIC GRAVITY 1.021; UROBILINOGEN,URINE NEGATIVE mg/dL (<2.0)
[2020-05-29] MEDS ORDERED: ACETAMINOPHEN 325 MG TABLET PO PRN (21:08)
[2020-05-29] MEDS ORDERED: (PENDING PHARMACY ID) (Topiramate [Topiramate] 50 MG) PO SCH (21:30)
[2020-05-29] MEDS ORDERED: (PENDING PHARMACY ID) (Levocetirizine Dihydrochloride [24hr Allergy Relief] 5 MG) PO SCH (21:30)
[2020-05-29] MEDS ORDERED: CLOPIDOGREL BISULFATE 300 MG TABLET PO ONE (21:30)
[2020-05-29] MEDS: ALPRAZOLAM 0.25 MG TABLET PO SCH (22:20)
[2020-05-29] MEDS: ATORVASTATIN CALCIUM 80 MG TABLET PO SCH (22:20)
[2020-05-29] MEDS: MONTELUKAST SODIUM 10 MG TABLET PO SCH (22:20)
[2020-05-29] MEDS: TOPIRAMATE 25 MG TABLET PO SCH (22:20)
[2020-05-29] MEDS: PREGABALIN 75 MG CAPSULE PO SCH (22:20)
[2020-05-29 22:26] LABS: CREATINE KINASE MB 1.59 ng/mL (<4.55)
[2020-05-29] MEDS: HYDROCODONE/ACETAMINOPHEN 10-325 MG TABLET PO PRN (22:28)
[2020-05-29 22:30] LABS: TROPONIN I < 0.012 ng/mL
[2020-05-29] MEDS: ENOXAPARIN SODIUM INJ 40 MG/0.4 ML DISP.SYRIN SUBCUT SCH (22:45)
[2020-05-29] MEDS: ASPIRIN 81 MG TABLET, CHEWABLE PO SCH (22:47)
[2020-05-29] MEDS: CHOLECALCIFEROL (D3) 1,000 UNIT (25 MCG) TABLET PO SCH (23:03)
[2020-05-29] MEDS: CETIRIZINE 5 MG TABLET PO SCH (23:04)
[2020-05-29] MEDS: PANTOPRAZOLE SODIUM 20 MG TABLET.DR PO SCH (23:34)
[2020-05-29 23:50] LABS: APPEARANCE,URINE CLEAR; BILIRUBIN,URINE NEGATIVE (NEGATIVE); COLOR,URINE YELLOW; GLUCOSE, URINE NEGATIVE (NEGATIVE); KETONES,URINE NEGATIVE (NEGATIVE); LEUKOCYTE ESTERASE,URINE NEGATIVE (NEGATIVE); NITRITE,URINE NEGATIVE (NEGATIVE); PROTEIN,URINE NEGATIVE (NEGATIVE); URINE SPECIFIC GRAVITY 1.023
[2020-05-30] MEDS: FLUTICASONE/UMECLIDIN/VILANTER 100-62.5-25 MCG/DOSE IH SCH ×2 (02:35→11:32)
[2020-05-30 05:19] LABS: ABSOLUTE EOSINOPHILS # (AUTO) 0.1 10^3/uL (0.0-0.6); ABSOLUTE LYMPHOCYTES (AUTO) 1.9 10^3/uL (0.5-4.7); ABSOLUTE MONOCYTES (AUTO) 0.3 10^3/uL (0.1-1.4); ABSOLUTE NEUT (AUTO) 1.6 10^3/uL (1.7-8.2); BASOPHILS % (AUTO) 0.3 % (0-2); HEMATOCRIT 34.6 % (36.0-47.0); HEMOGLOBIN 11.6 g/dL (12.0-15.5); LYMPHOCYTES % (AUTO) 47.6 % (13-45); MEAN CORPUSCULAR HEMOGLOBIN 28.2 pg (27.0-33.4); MEAN CORPUSCULAR HGB CONC 33.6 g/dL (32.0-36.0); MEAN CORPUSCULAR VOLUME 84 fl (80-97); MONOCYTES % (AUTO) 7.8 % (3-13); PLATELET COUNT 159 10^3/uL (150-450); RED BLOOD COUNT 4.12 10^6/uL (3.72-5.28); RED CELL DISTRIBUTION WIDTH 15.1 % (11.5-14.0); SEGMENTED NEUTROPHILS % (AUTO) 41.3 % (42-78); TOTAL CELLS COUNTED % (AUTO) 100 %; WHITE BLOOD COUNT 3.9 10^3/uL (4.0-10.5)
[2020-05-30] MEDS: PREGABALIN 75 MG CAPSULE PO SCH ×3 (05:28→21:48)
[2020-05-30] MEDS: LEVOTHYROXINE SODIUM 0.112 MG TABLET PO SCH (05:28)
[2020-05-30] MEDS: HYDROCODONE/ACETAMINOPHEN 10-325 MG TABLET PO PRN ×3 (05:33→19:43)
[2020-05-30 05:43] LABS: ALKALINE PHOSPHATASE 73 U/L (38-126); ANION GAP 11 (5-19); ASPARTATE AMINO TRANSFERASE 73 U/L (14-36); BILIRUBIN,DIRECT 0.3 mg/dL (0.0-0.4); BILIRUBIN,TOTAL 0.7 mg/dL (0.2-1.3); BLOOD UREA NITROGEN 20 mg/dL (7-20); CALCIUM 8.9 mg/dL (8.4-10.2); CARBON DIOXIDE 21 mmol/L (22-30); CHLORIDE 104 mmol/L (98-107); CHOLESTEROL 112.23 mg/dL (0-200); GLUCOSE 137 mg/dL (75-110); POTASSIUM 3.4 mmol/L (3.6-5.0); TOTAL PROTEIN 5.4 g/dL (6.3-8.2); TRIGLYCERIDES 110 mg/dL (<150)
[2020-05-30 05:48] LABS: PROTHROMBIN TIME 13.4 SEC (11.4-15.4)
[2020-05-30 05:54] LABS: CREATINE KINASE MB 1.27 ng/mL (<4.55); DIRECT LDL 58 mg/dL (<100)
[2020-05-30 06:00] LABS: TROPONIN I < 0.012 ng/mL
[2020-05-30] MEDS ORDERED: LORAZEPAM INJ 2 MG/1 ML VIAL IV PRN (08:59)
--- NOTE | 2020-05-30 10:24 | RADIOLOGY REPORT (SQ) ---
EXAM DESCRIPTION: MRI HEAD WITHOUT IMAGES COMPLETED DATE/TIME: 05/30/2020 9:57 am REASON FOR STUDY: TIA COMPARISON: None. TECHNIQUE: Multiplanar imaging includes non-contrasted T1, T2, FLAIR, and diffusion with ADC map seq uences. Images stored on PACS. LIMITATIONS: Motion artifact. FINDINGS: ANATOMY: No anomalies. Normal vascular flow voids. Pituitary fossa normal. CSF SPACES: Normal in size and contour. No hemorrhage. CEREBRUM: Sulci and gyri normal in size and contour. Normal white matter signal on FLAIR imaging. No evidence of hemorrhage, mass, or extraaxial fluid collection. POSTERIOR FOSSA: No signal alteration. No hemorrhage. No edema, masses or mass effect. Internal orlin tory canals, cerebello-pontine angles, mastoids normal. DIFFUSION IMAGING: Negative for acute or sub-acute infarction. ORBITS: No masses. Globes normal. PARANASAL SINUSES: No fluid levels. Mucosa normal. OTHER: No other significant finding. IMPRESSION: Normal. EVIDENCE OF ACUTE STROKE: NO. TECHNICAL DOCUMENTATION: JOB ID: [id number] 2010 [employer]- All Rights Reserved Reading location - IP/workstation name: [email or web address]
[2020-05-30 10:55] LABS: CREATINE KINASE MB 1.22 ng/mL (<4.55)
[2020-05-30 11:00] LABS: TROPONIN I < 0.012 ng/mL
[2020-05-30] MEDS: ENOXAPARIN SODIUM INJ 40 MG/0.4 ML DISP.SYRIN SUBCUT SCH (11:32)
[2020-05-30] MEDS: CETIRIZINE 5 MG TABLET PO SCH (11:33)
[2020-05-30] MEDS: ASPIRIN 81 MG TABLET, CHEWABLE PO SCH (11:33)
[2020-05-30] MEDS: ALPRAZOLAM 0.25 MG TABLET PO SCH ×2 (11:33→21:47)
[2020-05-30] MEDS: CHOLECALCIFEROL (D3) 1,000 UNIT (25 MCG) TABLET PO SCH (11:34)
[2020-05-30] MEDS: PANTOPRAZOLE SODIUM 20 MG TABLET.DR PO SCH (11:34)
[2020-05-30] MEDS: TOPIRAMATE 25 MG TABLET PO SCH ×2 (11:37→21:48)
[2020-05-30] MEDS: CLOPIDOGREL BISULFATE 75 MG TABLET PO SCH (13:10)
--- NOTE | 2020-05-30 18:30 | PDOC H&P ---
History of Present Illness Admission Date/PCP: 05/29/20 19:24 ALBERTO GARCIA MD History of Present Illness: GONZALO FITZGERALD is a 60 year old female.She has a history of rheumatoid arthritis, she had episode of loss of consciousness, patient stated that she recently have increased joint pains from rheumatoid arthritis. She said spouse/fianc went to work and when he returned from work she was found in the kitchen floor she does not remember how she got onto the kitchen floor family stated that patient was lying on the floor in the kitchen confused and the speech was slurred. There was concern for a stroke, CT head was done it was negative for any acute stroke, MRI of the brain was done it was normal, there is no documented history of stroke, there is no history of seizure disorder but when I spoke to she admitted to history of seizure when she was younger the answer she gave me was not very affirmative so I am not sure if she understood the question at she just nodding her head to the question. EEG be obtained to evaluate for seizure waves. It was felt that she may have TIA the emergency room but the presentation is not typical for TIA. There was no focal lesion, no focal weakness, the confusion that she manifested when found on the floor could be post ictal confusion, I am more inclined that this may represent a seizure more than a TIA. Past Medical History Cardiac Medical History: Reports: Hypertension Pulmonary Medical History: Reports: Asthma Endocrine Medical History: Reports: Hypothyroidism GI Medical History: Reports: Gastroesophageal Reflux Disease Musculoskeltal Medical History: Reports: Arthritis, Other - Rheumatoid arthritis Psychiatric Medical History: Reports: Depression Past Surgical History Past Surgical History: Reports: Gastric Bypass Surgery, Hysterectomy, Other - Questionable history of heart catheterization about 10 years ago at [facility] Social History Smoking Status: Never Smoker Electronic Cigarette use?: No Frequency of Alcohol Use: None Hx Recreational Drug Use: No Drugs: None Hx Prescription Drug Abuse: No Family History Family History: DM, Hypertension, Other - VTE, brother from CHF and DM complications at 49 years old Parental Family History Reviewed: Yes Children Family History Reviewed: Yes Sibling(s) Family History Reviewed.: Yes Medication/Allergy Home Medications: Alprazolam 0.25 mg PO BID 09/07/19 Cholecalciferol (Vitamin D3) [Vitamin D3 1000 Unit Tablet] 2,000 unit PO DAILY 09/07/19 Cyclobenzaprine HCl [Flexeril 10 mg Tablet] 10 mg PO QHS 09/07/19 Hydrocodone/Acetaminophen [Assumption 10-325 Tablet] 1 each PO Q6HP PRN 09/07/19 Levothyroxine Sodium [Synthroid 0.112 mg Tablet] 0.112 mg PO DAILY 09/07/19 Omeprazole 20 mg PO DAILY 09/07/19 Pregabalin [Lyrica 75 mg Capsule] 75 mg PO Q8 09/07/19 Simvastatin 40 mg PO QPM 09/07/19 Topiramate 50 mg PO BID 09/07/19 Triamterene/Hydrochlorothiazid [Triamterene-Hctz 37.5-25 mg Tb] 1 each PO DAILY 09/07/19 Etanercept [Enbrel] 1 dose SQ Q7D 05/29/20 Fluticasone/Umeclidin/Vilanter [Trelegy 100-62.5-25 Mcg Ellipta 14 Dose/Dpi] 1 each PO DAILY 05/29/20 Furosemide [Lasix 40 mg Tablet] 40 mg PO MOFR@1000 PRN 05/29/20 Levocetirizine Dihydrochloride [24Hr Allergy Relief] 5 mg PO DAILY 05/29/20 Metolazone 10 mg PO DAILY 05/29/20 Montelukast Sodium [Singulair 10 mg Tablet] 10 mg PO QHS 05/29/20 Allergies/Adverse Reactions: codeine [Codeine] Allergy (Verified 05/29/20 14:45) Review of Systems Constitutional: ABSENT: chills, fever(s), headache(s), weight gain, weight loss Eyes: ABSENT: visual disturbances Ears: ABSENT: hearing changes Cardiovascular: ABSENT: chest pain, dyspnea on exertion, edema, orthropnea, palpitations Respiratory: ABSENT: cough, hemoptysis Gastrointestinal: ABSENT: abdominal pain, constipation, diarrhea, hematemesis, hematochezia, nausea, vomiting Genitourinary: ABSENT: dysuria, hematuria Musculoskeletal: ABSENT: joint swelling Integumentary: ABSENT: rash, wounds Neurological: PRESENT: confusion, memory loss, syncope Psychiatric: PRESENT: anxiety Endocrine: ABSENT: cold intolerance, heat intolerance, menstrual abnormalities, polydipsia, polyuria Hematologic/Lymphatic: ABSENT: easy bleeding, easy bruising, lymphadenopathy Physical Exam Vital Signs: Temp Pulse Resp BP Pulse Ox 98.3 F 71 18 93/60 L 99 05/30/20 15:57 05/30/20 15:57 05/30/20 15:57 05/30/20 15:57 05/30/20 15:57 Intake & Output 05/29/20 05/30/20 05/31/20 06:59 06:59 06:59 Intake Total 580 480 Output Total 450 300 Balance 130 180 Weight 66 kg General appearance: PRESENT: no acute distress Head exam: PRESENT: atraumatic, normocephalic Eye exam: PRESENT: PERRLA Ear exam: PRESENT: normal external ear exam Mouth exam: PRESENT: moist, tongue midline Neck exam: PRESENT: full ROM Respiratory exam: PRESENT: clear to auscultation melony Cardiovascular exam: PRESENT: RRR, +S1, +S2 Pulses: PRESENT: normal dorsalis pedis pul, +2 pedal pulses bilateral Vascular exam: PRESENT: normal capillary refill GI/Abdominal exam: PRESENT: normal bowel sounds, soft Rectal exam: PRESENT: deferred Neurological exam: PRESENT: alert, CN II-XII grossly intact Psychiatric exam: PRESENT: appropriate affect, normal mood Skin exam: PRESENT: dry, intact, warm Results Laboratory Results: 05/30/20 04:52 05/30/20 04:52 05/29/20 05/29/20 05/30/20 16:40 23:20 04:52 WBC 3.9 L RBC 4.12 Hgb 11.6 L Hct 34.6 L MCV 84 MCH 28.2 MCHC 33.6 RDW 15.1 H Plt Count 159 Seg Neutrophils % 41.3 L Sodium Potassium Chloride Carbon Dioxide Anion Gap BUN Creatinine Est GFR ( Amer) Glucose Calcium Total Bilirubin AST Alkaline Phosphatase Total Protein Albumin Triglycerides Cholesterol LDL Cholesterol Direct VLDL Cholesterol HDL Cholesterol Urine Color YELLOW YELLOW Urine Appearance CLEAR CLEAR Urine pH 6.0 7.0 Ur Specific [place] 1.021 1.023 Urine Protein NEGATIVE NEGATIVE Urine Glucose (UA) NEGATIVE NEGATIVE Urine Ketones NEGATIVE NEGATIVE Urine Blood SMALL H NEGATIVE Urine Nitrite NEGATIVE Ur Leukocyte Esterase NEGATIVE Urine WBC (Auto) 0 Urine RBC (Auto) 2 2 05/30/20 04:52 WBC RBC Hgb Hct MCV MCH MCHC RDW Plt Count Seg Neutrophils % Sodium 135.5 L Potassium 3.4 L Chloride 104 Carbon Dioxide 21 L Anion Gap 11 BUN 20 Creatinine 0.63 Est GFR ( Amer) > 60 Glucose 137 H Calcium 8.9 Total Bilirubin 0.7 AST 73 H Alkaline Phosphatase 73 Total Protein 5.4 L Albumin 3.0 L Triglycerides 110 Cholesterol 112.23 LDL Cholesterol Direct 58 VLDL Cholesterol 22.0 HDL Cholesterol 37 L Urine Color Urine Appearance Urine pH Ur Specific [place] Urine Protein Urine Glucose (UA) Urine Ketones Urine Blood Urine Nitrite Ur Leukocyte Esterase Urine WBC (Auto) Urine RBC (Auto) 05/29/20 05/29/20 05/30/20 15:10 15:10 04:52 Creatine Kinase 118 186 H CK-MB (CK-2) 1.59 Troponin I < 0.012 05/30/20 05/30/20 05/30/20 04:52 10:11 10:11 Creatine Kinase 204 H CK-MB (CK-2) 1.27 1.22 Troponin I < 0.012 < 0.012 Impressions: Chest X-Ray 05/29/20 14:29 IMPRESSION: No acute cardiopulmonary process. Head CT 05/29/20 14:29 IMPRESSION: No acute intracranial abnormality. EVIDENCE OF ACUTE STROKE: NO. Head CTA 05/29/20 15:32 IMPRESSION: NO CTA EVIDENCE OF STENOSIS OR ANEURYSM OF THE [place]. Neck CTA 05/29/20 15:33 IMPRESSION: NORMAL CTA OF THE EXTRA-CRANIAL CAROTID AND VERTEBRAL ARTERIES. Head MRI 05/30/20 00:00 IMPRESSION: Normal. EVIDENCE OF ACUTE STROKE: NO. Assessment & Plan - Diagnosis (1) Loss of consciousness Is this a current diagnosis for this admission?: Yes Plan: The differential diagnosis include, seizure, syncope, TIA/stroke. The MRI of debby he brain was normal essentially in a patient with no focal deficits this makes stroke very unlikely, syncope is also unlikely, the most likely diagnosis is seizure, she was found on the floor, she was confused, history of seizure in her younger years, EEG be ordered patient is very bewildered asking what is going on with, TIA could not be completely rule out but it is unlikely (2) Rheumatoid arthritis Qualifiers: Rheumatoid arthritis location: unspecified site Rheumatoid factor presence: without rheumatoid factor Qualified Code(s): M06.00 - Rheumatoid arthritis without rheumatoid factor, unspecified site Is this a current diagnosis for this admission?: Yes - Time Time Spent: Greater than 70 Minutes Medications reviewed and adjusted accordingly: Yes Anticipated Discharge Disposition: Home, Self Care Anticipated Discharge Timeframe: within 72 hours
[2020-05-30] MEDS: MONTELUKAST SODIUM 10 MG TABLET PO SCH (21:47)
[2020-05-30] MEDS: ATORVASTATIN CALCIUM 80 MG TABLET PO SCH (21:48)
--- NOTE | 2020-05-30 23:02 | XCELERA REPORT ---
[address] [address] Transthoracic Echocardiogram Report Name: GONZALO FITZGERALD Age: 60 yrs Gender: Female : 1960 Patient Status: Inpatient Patient Location: [address] [place], [place] [address] Study Date: 05/30/2020 10:34 AM Height: 67 in Weight: 149 lb BSA: 1.8 m2 Procedure: A two-dimensional transthoracic echocardiogram with color flow and Doppler was performed. The study was technically difficult with many images being suboptimal in quality. Reason For Study: TIA History: TIA. Ordering Physician: ALBERTO GARCIA Performed By: Kylah Jones Interpretation Summary There is no obvious cardiac source of embolus noted on this transthoracic echocardiogram. Follow-up with a ALISHA is suggested if cardiac source is still suspected. The left ventricle is normal in size. There is normal left ventricular wall thickness. LV EF is 65% Left ventricular systolic function is normal. The left ventricular wall motion is normal. No ASD,VSD,or PFO seen. The right ventricle is normal in size and function. The right atrium is normal. The left atrial size is normal. There is no evidence of mitral valve prolapse. There is no vegetation seen on the mitral valve. There is no mitral valve stenosis. There is a trace amount of mitral regurgitation There is no aortic valvular vegetation. There is no aortic valve stenosis There is a mild amount of aortic regurgitation There is no tricuspid stenosis. Upper normal RVSP to mild pulmonary hypertension.RVSP is 28 to 33 mm of Hg , with RA mean of 5 to 10. There is no pulmonic valvular stenosis. There is a trace amount of pulmonic regurgitation The aortic root is normal size. The inferior vena cava appeared normal and decreased > 50% with respiration (RAP 5-10 mmHg) There is no pericardial effusion. There is no obvious cardiac source of embolus noted on this transthoracic echocardiogram. Follow-up with a ALISHA is suggested if cardiac source is still suspected MMode/2D Measurements & Calculations RVDd: 3.6 cm LVIDd: 4.4 cm FS: 45.0 % Ao root diam: 2.8 cm IVSd: 1.1 cm LVIDs: 2.4 cm EDV(Teich): 87.9 ml Ao root area: 6.1 cm2 LVPWd: 0.95 cm ESV(Teich): 20.7 ml LA dimension: 3.3 cm EF(Teich): 76.5 % Doppler Measurements & Calculations MV E max radha: MV P1/2t max radha: Ao V2 max: LV V1 max P.8 cm/sec 64.1 cm/sec 132.1 cm/sec 2.6 mmHg MV A max radha: MV P1/2t: 59.2 msec Ao max P.0 mmHg LV V1 max: 60.6 cm/sec MVA(P1/2t): 3.7 cm2 80.5 cm/sec MV E/A: 1.0 MV dec slope: 317.1 cm/sec2 MV dec time: 0.21 sec PA V2 max: TR max radha: MV P1/2t-pr_phl: 73.5 cm/sec 238.9 cm/sec 59.2 msec PA max PG: TR max P.8 mmHg 2.2 mmHg Left Ventricle The left ventricle is normal in size. There is normal left ventricular wall thickness. LV EF is 65%. Left ventricular systolic function is normal. Doppler measurements suggest normal left ventricular diastolic function. The left ventricular wall motion is normal. There is no thrombus. No ASD,VSD,or PFO seen. Right Ventricle The right ventricle is normal in size and function. Atria The right atrium is normal. The left atrial size is normal. Mitral Valve There is no evidence of mitral valve prolapse. There is no vegetation seen on the mitral valve. There is no mitral valve stenosis. There is a trace amount of mitral regurgitation. Aortic Valve There is no aortic valvular vegetation. There is no aortic valve stenosis. There is a mild amount of aortic regurgitation. Tricuspid Valve There is no tricuspid stenosis. There is a mild amount of tricuspid regurgitation. Upper normal RVSP to mild pulmonary hypertension.RVSP is 28 to 33 mm of Hg , with RA mean of 5 to 10. Pulmonic Valve There is no pulmonic valvular stenosis. There is a trace amount of pulmonic regurgitation. Great Vessels The aortic root is normal size. The inferior vena cava appeared normal and decreased > 50% with respiration (RAP 5-10 mmHg). Effusions There is no pericardial effusion. : ALBERTO GARCIA Lakshmi
[2020-05-31] MEDS: PREGABALIN 75 MG CAPSULE PO SCH ×3 (05:02→21:23)
[2020-05-31] MEDS: LEVOTHYROXINE SODIUM 0.112 MG TABLET PO SCH (05:02)
[2020-05-31] MEDS: CHOLECALCIFEROL (D3) 1,000 UNIT (25 MCG) TABLET PO SCH (09:29)
[2020-05-31] MEDS: ASPIRIN 81 MG TABLET, CHEWABLE PO SCH (09:29)
[2020-05-31] MEDS: CETIRIZINE 5 MG TABLET PO SCH (09:38)
[2020-05-31] MEDS: PANTOPRAZOLE SODIUM 20 MG TABLET.DR PO SCH (09:39)
[2020-05-31] MEDS: ALPRAZOLAM 0.25 MG TABLET PO SCH ×2 (09:39→21:23)
[2020-05-31] MEDS: CLOPIDOGREL BISULFATE 75 MG TABLET PO SCH (09:39)
[2020-05-31] MEDS: HYDROCODONE/ACETAMINOPHEN 10-325 MG TABLET PO PRN ×2 (09:41→19:01)
[2020-05-31] MEDS: FLUTICASONE/UMECLIDIN/VILANTER 100-62.5-25 MCG/DOSE IH SCH (09:43)
[2020-05-31] MEDS: TOPIRAMATE 25 MG TABLET PO SCH ×2 (09:44→21:23)
[2020-05-31 10:50] LABS: ABSOLUTE EOSINOPHILS # (AUTO) 0.1 10^3/uL (0.0-0.6); ABSOLUTE LYMPHOCYTES (AUTO) 1.5 10^3/uL (0.5-4.7); ABSOLUTE MONOCYTES (AUTO) 0.5 10^3/uL (0.1-1.4); ABSOLUTE NEUT (AUTO) 2.2 10^3/uL (1.7-8.2); BASOPHILS % (AUTO) 0.2 % (0-2); EOSINOPHILS % (AUTO) 2.7 % (0-6); HEMATOCRIT 38.5 % (36.0-47.0); HEMOGLOBIN 12.3 g/dL (12.0-15.5); LYMPHOCYTES % (AUTO) 34.7 % (13-45); MEAN CORPUSCULAR HEMOGLOBIN 27.5 pg (27.0-33.4); MEAN CORPUSCULAR VOLUME 86 fl (80-97); MONOCYTES % (AUTO) 11.1 % (3-13); PLATELET COUNT 145 10^3/uL (150-450); RED BLOOD COUNT 4.48 10^6/uL (3.72-5.28); RED CELL DISTRIBUTION WIDTH 15.1 % (11.5-14.0); SEGMENTED NEUTROPHILS % (AUTO) 51.3 % (42-78); TOTAL CELLS COUNTED % (AUTO) 100 %; WHITE BLOOD COUNT 4.4 10^3/uL (4.0-10.5)
[2020-05-31] MEDS: ENOXAPARIN SODIUM INJ 40 MG/0.4 ML DISP.SYRIN SUBCUT SCH (11:00)
[2020-05-31 16:09] LABS: ALKALINE PHOSPHATASE 68 U/L (38-126); ANION GAP 6 (5-19); ASPARTATE AMINO TRANSFERASE 33 U/L (14-36); BILIRUBIN,DIRECT 0.3 mg/dL (0.0-0.4); BILIRUBIN,TOTAL 0.5 mg/dL (0.2-1.3); BLOOD UREA NITROGEN 13 mg/dL (7-20); CALCIUM 8.8 mg/dL (8.4-10.2); CARBON DIOXIDE 28 mmol/L (22-30); CHLORIDE 103 mmol/L (98-107); GLUCOSE 86 mg/dL (75-110); POTASSIUM 3.7 mmol/L (3.6-5.0); TOTAL PROTEIN 5.3 g/dL (6.3-8.2)
--- NOTE | 2020-05-31 16:29 | PDOC PROGRESS REPORT ---
Subjective Progress Note for:: 05/31/20 Subjective:: Patient seen by the bedside, she had EEG done today, no official report yet, she gave me a detailed narrative of what happened before this admission, she said she got out of bed about 4 AM to go to the gas station to have coffee for significant other when she returned back to the residence she did not remember how she got to the floor, she was on the floor until about 6 AM when her fianc woke up and found her on the floor. The MRI brain that was done did not d emonstrate any structural heart disease, I suspect she may have a seizure Reason For Visit: TIA Physical Exam Vital Signs: Temp Pulse Resp BP Pulse Ox 98.3 F 67 18 101/60 100 05/31/20 15:01 05/31/20 15:01 05/31/20 15:01 05/31/20 15:01 05/31/20 15:01 Intake & Output 05/30/20 05/31/20 06/01/20 06:59 06:59 06:59 Intake Total 580 1918 480 Output Total 450 1200 400 Balance 130 718 80 Weight 66 kg 67.2 kg General appearance: PRESENT: no acute distress Eye exam: PRESENT: PERRLA Respiratory exam: PRESENT: clear to auscultation melony Cardiovascular exam: PRESENT: +S1, +S2 GI/Abdominal exam: PRESENT: soft Neurological exam: PRESENT: alert Results Laboratory Results: 05/31/20 10:39 05/31/20 14:52 05/31/20 05/31/20 05/31/20 10:39 12:58 14:52 WBC 4.4 RBC 4.48 Hgb 12.3 Hct 38.5 MCV 86 MCH 27.5 MCHC 32.0 RDW 15.1 H Plt Count 145 L Seg Neutrophils % 51.3 Sodium Cancelled 136.8 L Potassium Cancelled 3.7 Chloride Cancelled 103 Carbon Dioxide Cancelled 28 Anion Gap Cancelled 6 BUN Cancelled 13 Creatinine Cancelled 0.68 Est GFR ( Amer) Cancelled > 60 Est GFR (Non-Af Amer) Cancelled Glucose Cancelled 86 Calcium Cancelled 8.8 Total Bilirubin Cancelled 0.5 AST Cancelled 33 Alkaline Phosphatase Cancelled 68 Total Protein Cancelled 5.3 L Albumin Cancelled 3.0 L 05/29/20 05/29/20 05/30/20 15:10 15:10 04:52 Creatine Kinase 118 186 H CK-MB (CK-2) 1.59 Troponin I < 0.012 05/30/20 05/30/20 05/30/20 04:52 10:11 10:11 Creatine Kinase 204 H CK-MB (CK-2) 1.27 1.22 Troponin I < 0.012 < 0.012 Impressions: Chest X-Ray 05/29/20 14:29 IMPRESSION: No acute cardiopulmonary process. Head CT 05/29/20 14:29 IMPRESSION: No acute intracranial abnormality. EVIDENCE OF ACUTE STROKE: NO. Head CTA 05/29/20 15:32 IMPRESSION: NO CTA EVIDENCE OF STENOSIS OR ANEURYSM OF THE [place] OF [place]. Neck CTA 05/29/20 15:33 IMPRESSION: NORMAL CTA OF THE EXTRA-CRANIAL CAROTID AND VERTEBRAL ARTERIES. Head MRI 05/30/20 00:00 IMPRESSION: Normal. EVIDENCE OF ACUTE STROKE: NO. Assessment & Plan - Diagnosis (1) Loss of consciousness Is this a current diagnosis for this admission?: Yes Plan: Seizure suspected as the most likely etiology of patient's symptoms (2) Rheumatoid arthritis Qualifiers: Rheumatoid arthritis location: unspecified site Rheumatoid factor presence: without rheumatoid factor Qualified Code(s): M06.00 - Rheumatoid arthritis without rheumatoid factor, unspecified site Is this a current diagnosis for this admission?: Yes - Time Time Spent with patient: 25-34 minutes Level of Care: IMCU Medications reviewed and adjusted accordingly: Yes Anticipated discharge: Home Anticipated DC Timeframe: within 48 hours
[2020-05-31] MEDS: ONDANSETRON HCL INJ/PF 4 MG/2 ML SDV IV PRN (18:47)
--- NOTE | 2020-05-31 20:12 | NEURO WORKBENCH EEG REPORT ---
EEG Report Patient: Irma Ozuna ID: [id number] Referring Doctor: Jennifer Marr DOS: 05/31/2020 Medications: Xanax, aspirin, lipitor, zyrtec, vitamin D, plavix, lovenox, trelegy, synthroid, protonix, lyrica, topomax History This is a 60 year old right handed female with a history of CVA, CHF, hypertension, hypercholesterolemia, asthma, gastric bypass, GERD, arthritis, left wrist and right hand fractures, hypothyroidism, depression, anxiety, DVT/PE admitted with TIA. Family history of seizures in mother and two brothers. This EEG was requested for possible seizure. EEG Interpretation This EEG was recorded in the awake, drowsy, and sleep states. The awake EEG is characterized by a moderately-organized background with a moderately developed and reactive posterior dominant rhythm of 8 Hz. The remainder of the background was characterized by a combination of high amplitude sharply contoured alpha with beta with some theta frequencies. The majority of the awake EEG appeared more consistent with the drowsy state with periods of theta/delta activity. Drowsiness was characterized by slowing of the background rhythms and periods of hypnagogic hypersynchrony. Vertex waves and sleep spindles were seen in the midline head regions. Photic stimulation resulted in a moderate driving response. There was frequent high amplitude sharply contoured waveforms multifocally with some that appear potentially epileptiform. There were no seizures. The EKG showed a regular rhythm. EEG Classification * Generalized background slowing * Potential multifocal sharp waves EEG Impression This EEG is abnormal. It is consistent with a mild diffuse cerebral dysfunction. The high amplitude multifocal sharply contoured waveforms are potentially epileptiform noting that the patient is on Topamax and Xanax which may suppress epileptiform activity. A repeat EEG in the fully awake state may be considered if clinically indicated. INTERPRETING NEUROLOGIST: Irma Haley MD, FRCPC Board Certified in Neurology, with special qualification in Child Neurology, and in Clinical Neurophysiology [facility]
[2020-05-31] MEDS: ATORVASTATIN CALCIUM 80 MG TABLET PO SCH (21:23)
[2020-05-31] MEDS: MONTELUKAST SODIUM 10 MG TABLET PO SCH (21:24)
[2020-06-01] MEDS: PREGABALIN 75 MG CAPSULE PO SCH ×3 (05:19→21:40)
[2020-06-01] MEDS: LEVOTHYROXINE SODIUM 0.112 MG TABLET PO SCH (05:19)
[2020-06-01] MEDS: CETIRIZINE 5 MG TABLET PO SCH (09:57)
[2020-06-01] MEDS: ASPIRIN 81 MG TABLET, CHEWABLE PO SCH (09:57)
[2020-06-01] MEDS: ALPRAZOLAM 0.25 MG TABLET PO SCH ×2 (09:57→21:39)
[2020-06-01] MEDS: CLOPIDOGREL BISULFATE 75 MG TABLET PO SCH (09:57)
[2020-06-01] MEDS: PANTOPRAZOLE SODIUM 20 MG TABLET.DR PO SCH (09:57)
[2020-06-01] MEDS: CHOLECALCIFEROL (D3) 1,000 UNIT (25 MCG) TABLET PO SCH (09:57)
[2020-06-01] MEDS: HYDROCODONE/ACETAMINOPHEN 10-325 MG TABLET PO PRN ×2 (09:59→21:58)
[2020-06-01] MEDS: ENOXAPARIN SODIUM INJ 40 MG/0.4 ML DISP.SYRIN SUBCUT SCH (10:11)
[2020-06-01] MEDS: TOPIRAMATE 25 MG TABLET PO SCH ×2 (10:12→21:39)
[2020-06-01] MEDS: FLUTICASONE/UMECLIDIN/VILANTER 100-62.5-25 MCG/DOSE IH SCH (10:12)
[2020-06-01] MEDS: LEVETIRACETAM 500 MG TABLET PO SCH (17:13)
--- NOTE | 2020-06-01 20:18 | PDOC PROGRESS REPORT ---
Subjective Progress Note for:: 06/01/20 Subjective:: Patient had EEG done, it demonstrated moderately organized background with a moderately developed and reactive posterior dominant rhythm the remainder of the background was characterized by a combination of high amplitude sharply contoured alpha with beta with some theta frequencies the majority of the week EEG appeared more consistent with a drowsy state with.'s of theta and delta activity.. The impression was that the EEG is abnormal with mild diffuse cerebral dysfunction the amplitude multifocal sharply contoured waveform and potentially epileptiform patient on Topamax and Xanax which could suppress epileptiform activity. Patient presentation and EEG is consistent with seizure.she will be started on antiseizure medication Reason For Visit: TIA Physical Exam Vital Signs: Temp Pulse Resp BP Pulse Ox 98.0 F 76 20 92/60 L 97 06/01/20 14:32 06/01/20 14:32 06/01/20 14:32 06/01/20 14:32 06/01/20 14:32 Intake & Output 05/31/20 06/01/20 06/02/20 06:59 06:59 06:59 Intake Total 1918 1461 520 Output Total 1200 400 Balance 718 1061 520 Weight 67.2 kg 68.3 kg General appearance: PRESENT: no acute distress Eye exam: PRESENT: PERRLA Respiratory exam: PRESENT: clear to auscultation melony Cardiovascular exam: PRESENT: +S1, +S2 GI/Abdominal exam: PRESENT: soft Neurological exam: PRESENT: alert, CN II-XII grossly intact Results Laboratory Results: 05/31/20 10:39 05/31/20 14:52 05/29/20 05/29/20 05/30/20 15:10 15:10 04:52 Creatine Kinase 118 186 H CK-MB (CK-2) 1.59 Troponin I < 0.012 05/30/20 05/30/20 05/30/20 04:52 10:11 10:11 Creatine Kinase 204 H CK-MB (CK-2) 1.27 1.22 Troponin I < 0.012 < 0.012 Impressions: Chest X-Ray 05/29/20 14:29 IMPRESSION: No acute cardiopulmonary process. Head CT 05/29/20 14:29 IMPRESSION: No acute intracranial abnormality. EVIDENCE OF ACUTE STROKE: NO. Head CTA 05/29/20 15:32 IMPRESSION: NO CTA EVIDENCE OF STENOSIS OR ANEURYSM OF THE [place]. Neck CTA 05/29/20 15:33 IMPRESSION: NORMAL CTA OF THE EXTRA-CRANIAL CAROTID AND VERTEBRAL ARTERIES. Head MRI 05/30/20 00:00 IMPRESSION: Normal. EVIDENCE OF ACUTE STROKE: NO. Assessment & Plan - Diagnosis (1) Loss of consciousness Is this a current diagnosis for this admission?: Yes (2) Rheumatoid arthritis Qualifiers: Rheumatoid arthritis location: unspecified site Rheumatoid factor presence: without rheumatoid factor Qualified Code(s): M06.00 - Rheumatoid arthritis without rheumatoid factor, unspecified site Is this a current diagnosis for this admission?: Yes (3) New onset seizure Is this a current diagnosis for this admission?: Yes Plan: start keppra 500mg PO BID - Time Time Spent with patient: 25-34 minutes Level of Care: IMCU Medications reviewed and adjusted accordingly: Yes Anticipated discharge: Home Anticipated DC Timeframe: within 24 hours
--- NOTE | 2020-06-01 20:32 | PDOC DISCHARGE SUMMARY ---
Impression - Admit/DC Date/PCP Admission Date/Primary Care Provider: 05/29/20 19:24 ALBERTO GARCIA MD Discharge Date: 06/02/20 - Discharge Diagnosis (1) Loss of consciousness Is this a current diagnosis for this admission?: Yes (2) Rheumatoid arthritis Is this a current diagnosis for this admission?: Yes (3) New onset seizure Is this a current diagnosis for this admission?: Yes - Additional Information Referrals: ALBERTO GARCIA MD [Primary Care Provider] - 06/09/20 10:45 am Prescriptions: Levetiracetam [Keppra 500 mg Tablet] 500 mg PO Q12A #60 tablet Home Medications: Alprazolam 0.25 mg PO BID 09/07/19 Cholecalciferol (Vitamin D3) [Vitamin D3 1000 Unit Tablet] 2,000 unit PO DAILY 09/07/19 Hydrocodone/Acetaminophen [Biddle 10-325 Tablet] 1 each PO Q6HP PRN 09/07/19 Levothyroxine Sodium [Synthroid 0.112 mg Tablet] 0.112 mg PO DAILY 09/07/19 Omeprazole 20 mg PO DAILY 09/07/19 Pregabalin [Lyrica 75 mg Capsule] 75 mg PO Q8 09/07/19 Simvastatin 40 mg PO QPM 09/07/19 Topiramate 50 mg PO BID 09/07/19 Etanercept [Enbrel] 1 dose SQ Q7D 05/29/20 Fluticasone/Umeclidin/Vilanter [Trelegy 100-62.5-25 Mcg Ellipta 14 Dose/Dpi] 1 each PO DAILY 05/29/20 Furosemide [Lasix 40 mg Tablet] 40 mg PO MOFR@1000 PRN 05/29/20 Levocetirizine Dihydrochloride [24Hr Allergy Relief] 5 mg PO DAILY 05/29/20 Montelukast Sodium [Singulair 10 mg Tablet] 10 mg PO QHS 05/29/20 Levetiracetam [Keppra 500 mg Tablet] 500 mg PO Q12A #60 tablet 06/01/20 History of Present Illiness History of Present Illness: GONZALO FITZGERALD is a 60 year old female.She has a history of rheumatoid arthritis, she had episode of loss of consciousness, patient stated that she recently have increased joint pains from rheumatoid arthritis. She said spouse/fianc went to work and when he returned from work she was found in the kitchen floor she does not remember how she got onto the kitchen floor family stated that patient was lying on the floor in the kitchen confused and the speech was slurred. There was concern for a stroke, CT head was done it was negative for any acute stroke, MRI of the brain was done it was normal, there is no documented history of stroke, there is no history of seizure disorder but when I spoke to she admitted to history of seizure when she was younger the answer she gave me was not very affirmative so I am not sure if she understood the question at she just nodding her head to the question. EEG be obtained to evaluate for seizure waves. It was felt that she may have TIA the emergency room but the presentation is not typical for TIA. There was no focal lesion, no focal weakness, the confusion that she manifested when found on the floor could be post ictal confusion, I am more inclined that this may represent a seizure more than a TIA. Hospital Course Hospital Course: Patient was admitted for evaluation of loss of consciousness, seizure was suspected, EEG was done, it demonstrated mild diffuse cerebral dysfunction. The amplitude multifocal sharply contoured waveforms potentially epileptiform, patient on Topamax and Xanax which may suppress epileptiform activity. It was abnormal EEG, the presentation of this patient and EEG is consistent with seizure activity. The MRI of the brain was normal. The history was that patient woke up about 4 AM and drove to the gas station to obtain coffee, when she returned from the gas station she was on the floor until 6 AM when her significant other woke up from sleep to find her on the floor she did not remember all this event from the time she woke up to when she got back from the gas station . she could not recall the events .she came to the emergency room for evaluation. in the ER initially TIA was suspected but there was no focal deficit to suggest TIA the presentation is more consistent with seizure activities she was admitted for observation and management Physical Exam Vital Signs: Temp Pulse Resp BP Pulse Ox 98.0 F 76 20 92/60 L 97 06/01/20 14:32 06/01/20 14:32 06/01/20 14:32 06/01/20 14:32 06/01/20 14:32 Intake & Output 05/31/20 06/01/20 06/02/20 06:59 06:59 06:59 Intake Total 5137 1461 520 Output Total 1200 400 Balance 718 1061 520 Weight 67.2 kg 68.3 kg General appearance: PRESENT: no acute distress Eye exam: PRESENT: PERRLA Respiratory exam: PRESENT: clear to auscultation melony Cardiovascular exam: PRESENT: +S1, +S2 Neurological exam: PRESENT: alert Results Laboratory Results: WBC 4.4 10^3/uL (4.0-10.5) 05/31/20 10:39 RBC 4.48 10^6/uL (3.72-5.28) 05/31/20 10:39 Hgb 12.3 g/dL (12.0-15.5) 05/31/20 10:39 Hct 38.5 % (36.0-47.0) 05/31/20 10:39 MCV 86 fl (80-97) 05/31/20 10:39 MCH 27.5 pg (27.0-33.4) 05/31/20 10:39 MCHC 32.0 g/dL (32.0-36.0) 05/31/20 10:39 RDW 15.1 % (11.5-14.0) H 05/31/20 10:39 Plt Count 145 10^3/uL (150-450) L 05/31/20 10:39 Lymph % (Auto) 34.7 % (13-45) 05/31/20 10:39 Bullock % (Auto) 11.1 % (3-13) 05/31/20 10:39 Eos % (Auto) 2.7 % (0-6) 05/31/20 10:39 Baso % (Auto) 0.2 % (0-2) 05/31/20 10:39 Absolute Neuts (auto) 2.2 10^3/uL (1.7-8.2) 05/31/20 10:39 Absolute Lymphs (auto) 1.5 10^3/uL (0.5-4.7) 05/31/20 10:39 Absolute Monos (auto) 0.5 10^3/uL (0.1-1.4) 05/31/20 10:39 Absolute Eos (auto) 0.1 10^3/uL (0.0-0.6) 05/31/20 10:39 Absolute Basos (auto) 0.0 10^3/uL (0.0-0.2) 05/31/20 10:39 Seg Neutrophils % 51.3 % (42-78) 05/31/20 10:39 PT 13.4 SEC (11.4-15.4) 05/30/20 04:52 INR 1.00 05/30/20 04:52 APTT 29.9 SEC (23.5-35.8) 05/29/20 15:10 Sodium 136.8 mmol/L (137-145) L 05/31/20 14:52 Potassium 3.7 mmol/L (3.6-5.0) 05/31/20 14:52 Chloride 103 mmol/L (98-107) 05/31/20 14:52 Carbon Dioxide 28 mmol/L (22-30) 05/31/20 14:52 Anion Gap 6 (5-19) 05/31/20 14:52 BUN 13 mg/dL (7-20) 05/31/20 14:52 Creatinine 0.68 mg/dL (0.52-1.25) 05/31/20 14:52 Est GFR ( Amer) > 60 (>60) 05/31/20 14:52 Est GFR (Non-Af Amer) Cancelled 05/31/20 12:58 Est GFR (MDRD) Non-Af > 60 (>60) 05/31/20 14:52 Glucose 86 mg/dL (75-110) 05/31/20 14:52 Hemoglobin A1c % 5.4 % (4.7-6.0) 05/30/20 04:52 Calcium 8.8 mg/dL (8.4-10.2) 05/31/20 14:52 Total Bilirubin 0.5 mg/dL (0.2-1.3) 05/31/20 14:52 Direct Bilirubin 0.3 mg/dL (0.0-0.4) 05/31/20 14:52 Neonat Total Bilirubin Not Reportable 05/31/20 14:52 Neonat Direct Bilirubin Not Reportable 05/31/20 14:52 Neonat Indirect Bili Not Reportable 05/31/20 14:52 AST 33 U/L (14-36) 05/31/20 14:52 ALT 52 U/L (<35) H 05/31/20 14:52 Alkaline Phosphatase 68 U/L (38-126) 05/31/20 14:52 Creatine Kinase 204 U/L (30-135) H 05/30/20 10:11 CK-MB (CK-2) 1.22 ng/mL (<4.55) 05/30/20 10:11 Troponin I < 0.012 ng/mL 05/30/20 10:11 Total Protein 5.3 g/dL (6.3-8.2) L 05/31/20 14:52 Albumin 3.0 g/dL (3.5-5.0) L 05/31/20 14:52 Triglycerides 110 mg/dL (<150) 05/30/20 04:52 Cholesterol 112.23 mg/dL (0-200) 05/30/20 04:52 LDL Cholesterol Direct 58 mg/dL (<100) 05/30/20 04:52 VLDL Cholesterol 22.0 mg/dL (10-31) 05/30/20 04:52 HDL Cholesterol 37 mg/dL (>40) L 05/30/20 04:52 EGFR Cancelled 05/31/20 12:58 Urine Color YELLOW 05/29/20 23:20 Urine Appearance CLEAR 05/29/20 23:20 Urine pH 7.0 (5.0-9.0) 05/29/20 23:20 Ur Specific [place] 1.023 05/29/20 23:20 Urine Protein NEGATIVE mg/dL (NEGATIVE) 05/29/20 23:20 Urine Glucose (UA) NEGATIVE mg/dL (NEGATIVE) 05/29/20 23:20 Urine Ketones NEGATIVE mg/dL (NEGATIVE) 05/29/20 23:20 Urine Blood NEGATIVE (NEGATIVE) 05/29/20 23:20 Urine Nitrite NEGATIVE (NEGATIVE) 05/29/20 23:20 Urine Nitrite (Reflex) NEGATIVE (NEGATIVE) 05/29/20 16:40 Urine Bilirubin NEGATIVE (NEGATIVE) 05/29/20 23:20 Urine Urobilinogen 4.0 mg/dL (<2.0) H 05/29/20 23:20 Ur Leukocyte Esterase NEGATIVE (NEGATIVE) 05/29/20 23:20 Leukocyte Esterase Rfl NEGATIVE (NEGATIVE) 05/29/20 16:40 Urine WBC (Auto) 0 /HPF 05/29/20 23:20 Urine RBC (Auto) 2 /HPF 05/29/20 23:20 Urine WBC (Reflex) < 1 /HPF 05/29/20 16:40 Squamous Epi Cells Auto 2 /HPF 05/29/20 23:20 Calcium Oxalate Cr Auto FEW /HPF 05/29/20 16:40 Urine Ascorbic Acid NEGATIVE (NEGATIVE) 05/29/20 23:20 05/29/20 05/30/20 05/30/20 15:10 04:52 10:11 CK-MB (CK-2) 1.59 1.27 1.22 Troponin I < 0.012 < 0.012 < 0.012 Impressions: Chest X-Ray 05/29/20 14:29 IMPRESSION: No acute cardiopulmonary process. Head CT 05/29/20 14:29 IMPRESSION: No acute intracranial abnormality. EVIDENCE OF ACUTE STROKE: NO. Head CTA 05/29/20 15:32 IMPRESSION: NO CTA EVIDENCE OF STENOSIS OR ANEURYSM OF THE GAMBELL OF RYDER. Neck CTA 05/29/20 15:33 IMPRESSION: NORMAL CTA OF THE EXTRA-CRANIAL CAROTID AND VERTEBRAL ARTERIES. Head MRI 05/30/20 00:00 IMPRESSION: Normal. EVIDENCE OF ACUTE STROKE: NO. Stroke Is this a Stroke Patient?: No Acute Heart Failure Is this a Heart Failure Patient?: No
[2020-06-01] MEDS: ATORVASTATIN CALCIUM 80 MG TABLET PO SCH (21:40)
[2020-06-01] MEDS: MONTELUKAST SODIUM 10 MG TABLET PO SCH (21:40)
[2020-06-02] MEDS: LEVETIRACETAM 500 MG TABLET PO SCH (05:03)
[2020-06-02] MEDS: LEVOTHYROXINE SODIUM 0.112 MG TABLET PO SCH (05:03)
[2020-06-02] MEDS: PREGABALIN 75 MG CAPSULE PO SCH ×2 (05:03→13:51)
[2020-06-02] MEDS: HYDROCODONE/ACETAMINOPHEN 10-325 MG TABLET PO PRN (06:50)
[2020-06-02] MEDS: ONDANSETRON HCL INJ/PF 4 MG/2 ML SDV IV PRN (08:28)
[2020-06-02] MEDS ORDERED: FUROSEMIDE 40 MG TABLET PO PRN (10:00)
[2020-06-02] MEDS: ENOXAPARIN SODIUM INJ 40 MG/0.4 ML DISP.SYRIN SUBCUT SCH (10:29)
[2020-06-02] MEDS: FLUTICASONE/UMECLIDIN/VILANTER 100-62.5-25 MCG/DOSE IH SCH (10:30)
[2020-06-02] MEDS: PANTOPRAZOLE SODIUM 20 MG TABLET.DR PO SCH (10:31)
[2020-06-02] MEDS: CETIRIZINE 5 MG TABLET PO SCH (10:31)
[2020-06-02] MEDS: CHOLECALCIFEROL (D3) 1,000 UNIT (25 MCG) TABLET PO SCH (10:31)
[2020-06-02] MEDS: ALPRAZOLAM 0.25 MG TABLET PO SCH (10:31)
[2020-06-02] MEDS: CLOPIDOGREL BISULFATE 75 MG TABLET PO SCH (10:31)
[2020-06-02] MEDS: TOPIRAMATE 25 MG TABLET PO SCH (10:32)
[2020-06-02] MEDS: ASPIRIN 81 MG TABLET, CHEWABLE PO SCH (10:32)
[2020-06-02 13:14] VITALS: BP 91/56
== END 2020-06-02 15:15 | disposition home health service (06) ==
LOC: ER 14:23 → INTOOBSV 19:24 → EH 19:24 → 3W 21:37
PROVIDERS: ADMIT Internal Medicine; ATTEND Internal Medicine
DX: R55 Syncope and collapse (principal); M06.00 Rheumatoid arthritis without rheumatoid factor, unspecified site; R56.9 Unspecified convulsions; R41.0 Disorientation, unspecified; G93.89 Other specified disorders of brain; E03.9 Hypothyroidism, unspecified; K21.9 Gastro-esophageal reflux disease without esophagitis; R41.3 Other amnesia; R47.01 Aphasia; R30.0 Dysuria; R53.1 Weakness; R26.2 Difficulty in walking, not elsewhere classified; F41.9 Anxiety disorder, unspecified; J45.909 Unspecified asthma, uncomplicated; H53.009 Unspecified amblyopia, unspecified eye; I11.0 Hypertensive heart disease with heart failure; I50.9 Heart failure, unspecified; Z79.899 Other long term (current) drug therapy; Z79.890 Hormone replacement therapy; Z98.84 Bariatric surgery status; Z82.49 Family history of ischemic heart disease and other diseases of the circulatory system; Z83.3 Family history of diabetes mellitus; Z86.718 Personal history of other venous thrombosis and embolism; E78.00 Pure hypercholesterolemia, unspecified; Z86.73 Personal history of transient ischemic attack (TIA), and cerebral infarction without residual deficits; R29.710 NIHSS score 10
CPT/HCPCS: 95819 ×2; 93005; 99285; 36415 ×3; 82553 ×2; 82550 ×2; 85025 ×3; 85610 ×2; 85730; 80053 ×3; 81001; 84484 ×2; 83036; 80061; 93306; 70551; 71045; 70450; 70496; 70498; 93010; 97530 ×2; 97110; 97116 ×2; 97162; 92523; 97535; 97165; G0378 ×6; J3490 ×22; J1650 ×2; J2060; J2405 ×2